=== PATIENT | male | born 1955 | race Caucasian/White ===

== ENCOUNTER 2023-04-23 07:56 | Outpatient (OUT) | payer MEDICARE, OTHER, SELFPAY ==
[2023-04-23 08:16] LABS: Hemoglobin 14.9 g/dL (14.0-18.0)
--- NOTE | 2023-04-23 09:00 | CA_ITS ---
Patient Name: ANDREI GARCIA MR#: [id number] : 1955 Exam Date: 04/23/2023 Ordering Doctor: RODNEY HENRIQUEZ ECHOCARDIOGRAM REPORT PROCEDURE: CA ECHO DOPPLER COMPLETE INDICATIONS: Afib, High risk medication use COMPARISON: None. DESCRIPTION: COMPLETE ECHOCARDIOGRAM Real-time transthoracic echocardiography with 2D, M-mode, spectral and color flow Doppler performed. QUALITY: Technical quality was good. LEFT VENTRICLE: Normal chamber size. Proximal septal hypertrophy (sigmoid septum). LV EF: Global left ventricular systolic function is lower normal limits; visually estimated ejection fraction is 50 to 55%. No significant wall motion abnormalities. DIASTOLIC: Not adequately assessed due to heart rhythm. ATRIAL SEPTUM: Inadequately seen. LEFT ATRIUM: Mild dilatation. RIGHT ATRIUM: Mild dilatation. RIGHT VENTRICLE: Mild dilatation. Systolic function appears reduced. TRICUSPID VALVE: Normal mobility and thickness. No stenosis with trivial regurgitation. No evidence of pulmonary hypertension. RVSP 28mmHg MITRAL VALVE: Normal mobility and thickness. No evidence of mitral valve stenosis. There is no mitral annular calcification. Mild mitral regurgitation. AORTIC VALVE: Normal trileaflet appearance. No visible sclerosis. Normal leaflet mobility. No evidence of aortic valve stenosis. Trivial aortic regurgitation. AORTIC ROOT: Mildly dilated. Measuring 4.1cm. PULMONIC VALVE: Normal thickness and mobility. Mild regurgitation. PERICARDIUM: Anterior free space; trivial effusion versus fat pad. IVC: Collapses with inspirations. Normal size. CONCLUSION: 1. Global left ventricular systolic function is lower normal limits; visually estimated ejection fraction is 50 to 55% 2. The right ventricle is mildly dilated with reduced systolic function 3. Biatrial enlargement 4. Mild pulmonic regurgitation 5. Mild mitral regurgitation 6. Mildly dilated aortic root 7. Anterior free space; trivial effusion versus fat pad Adult Echocardiography Procedure Report Left Ventricle LVEDD (3.7 - 5.6 cm): 5.75 cm LVESD (2.2 - 4.0 cm): 4.32 cm LVIVS thickness (0.6 - 1.2 cm): 1.46 cm LVPW thickness (0.5 - 1.0 cm): 1.28 cm e': 0.06 m/s E - e': 12.09 LVOT Max Gradient: 1.21 mm[Hg] LVOT Area (cm2): 0.55 m/s Peak Velocity (LVOT): 0.55 m/s Mean Velocity (LVOT): 0.39 m/s LVOT Diameter 2.34 cm Left Ventricular Ejection Fraction: 53.01 % Left Atrium LA Volume Index (2D A2C): 43.40 ml/m2 Left Atrium Systolic Dimension: 4.14 cm Mitral Valve MV E to A Ratio: 129.26 Mitral Valve A-Wave Peak Velocity: 0.01 m/s Mitral Valve E-Wave Peak Velocity: 0.77 m/s Right Ventricle RV Internal Diastolic Dimension: 4.23 cm Aorta AO Root Diam: 4.13 cm Ascending Ao Diam: 3.48 cm Aortic Valve AoV Area (Peak Marcello): 2.67 cm2, 2.67 cm2 Peak Velocity(Antegrade Flow): 0.88 m/s Peak Gradient(Antegrade Flow): 3.12 mm[Hg] Tricuspid Valve Peak Velocity (Regurgitant Flow): 2.30 m/s, 1.92 m/s, 2.48 m/s Pulmonic Valve Mean Gradient: 1.59 mm[Hg] Mean Velocity: 0.59 m/s Peak Velocity: 0.93 m/s, 0.86 m/s Peak Gradient: 3.46 mm[Hg], 2.97 mm[Hg] Right Atrium Right Atrium Systolic Pressure: 34.20 ml, 34.20 ml Dictated by: Edna Sands M.D. on 04/23/2023 at 13:03 Approved by: Edna Sands M.D. on 04/23/2023 at 13:08
--- NOTE | 2023-04-23 09:33 | RT_ITS ---
[facility] Test Date: 2023-04-23 Pat Name: ANDREI GARCIA Department: Room: - Gender: Male Valve Assembler: Lazarus Syed RRT : 1955 Requested By: [id number] Order Number: [id number] Reading MD: Kb Gardner Interpretive Statements Pulmonary function testing was completed according to ATS criteria. Findings were considered accurate and reproducible, with exception of FVC which did not meet ATS standards. Both pre- and post-bronchodilator values utilized for spirometry. No bronchodilator was administered due to normal spirometric values. Spirometry: -FEV1/FVC: Normal @ 80% -FEV1: Normal @ 102% -FVC: Normal @ 94% Lung volumes by plethysmography: -RV: Normal @ 98% -TLC: Normal @ 94% Diffusion capacity: -DLCO: Mild reduction @ 77% when corrected for Hb 14.9g/dL Flow-volume loop: -Normal shape Comparison from 03/03/2022: -Spirometry essentially unchanged. DLCO minimally decreased from 81%. Impressions: -Normal spirometry and lung volumes, with an isolated mild diffusion impairment. This pattern can be seen in, but not restricted to, cardiopulmonary vascular disorders, early interstitial lung disease, and early emphysema. Minimal decline in DLCO compared to prior study which could be a normal fluctuation. Recommend to continue monitoring PFT while on amiodarone therapy. Clinical correlation required. Electronically Signed On 04-24-2023 10:57:58 EDT by Kb Gardner
== END 2023-04-23 07:57 | disposition home or self-care (01) ==
LOC: CARD 08:00
PROVIDERS: PCP Internal Medicine
DX: I48.0 Paroxysmal atrial fibrillation (principal); Z79.899 Other long term (current) drug therapy
CPT/HCPCS: 36415; 85018; 93306; 94010; 94726; 94729

== ENCOUNTER 2023-06-21 11:31 | Outpatient (OUT) | payer MEDICARE, OTHER, SELFPAY ==
[2023-06-21 13:19] LABS: Prostate Specific Antigen Dx 1.84 ng/mL (<=4.00)
== END 2023-06-21 11:32 | disposition home or self-care (01) ==
LOC: LAB 11:33
PROVIDERS: PCP Internal Medicine; Visit Provider Urology
DX: N40.0 Benign prostatic hyperplasia without lower urinary tract symptoms (principal)
CPT/HCPCS: 36415; 84153

== ENCOUNTER 2024-06-10 11:55 | Outpatient (OUT) | payer MEDICARE, OTHER, SELFPAY | END 2024-06-10 11:56 | disposition home or self-care (01) | PROVIDERS: PCP Internal Medicine; Visit Provider Physician Assistant | DX: N40.1 Benign prostatic hyperplasia with lower urinary tract symptoms (principal) | CPT/HCPCS: 36415; 84153 ==

== ENCOUNTER 2024-07-23 09:39 | Outpatient (OUT) | payer MEDICARE, OTHER, SELFPAY ==
--- OUTSIDE RECORDS SUMMARY | 2024-07-10 08:30 | XMS_ITS | Encounter Summary ---
Author Organization [facility] Address [address] [place] [address] Care Team Providers Care Molding Engineer Name Role Phone Orlando COPELAND MD, Ted Brown Primary Care Provider + [phone] Jolanta Queen Unavailable Unavaila Mariia Estrada RD Unavailable [phone] Sheng Bill MD Unavailable [phone] Belinda Nicholsno MD Unavailable [phone] Maricel Fox RN Unavailable [phone] Unavailable Lluvia Graham Unavailable Unavailable Olivia Gonzales APRN.MICA WASHER GLUER Unavailable [phone] Source Comments In the event this information is protected by the Federal Confidentiality of Alcohol and Drug AbusePatient Records regulations: The Federal rules restrict any use of the information to criminally investigate or prosecute any alcohol or drug abuse patient.[facility] Encounter Details Date Type Department Care Team (Latest Contact Info) Description 07/10/2024 8:30 AM EDT Visit (SP) Office Hematology/Oncology [address] [place] [address] [place] [address] Estefania Taylor APRN.MICA WASHER GLUER [address] [place] [address] Head and neck cancer (HCC) (Primary Dx); Stage 3a chronic kidney disease (HCC); Encounter for antineoplastic chemotherapy; Malaise and fatigue; Dysphagia, unspecified type; Dehydration; Pain in throat Social History Tobacco Use Types Packs/Day Years Used Date Smoking Tobacco: Never Passive Smoke Exposure: Past Smokeless Tobacco: Never Alcohol Use Standard Drinks/Week Comments Yes 0 (1 standard drink = 0.6 oz pur e alcohol) rare PHQ-2 Answer Date Recorded PHQ-2 score 0 05/26/2024 Area Deprivation Index Answer Date Colby rded National Score (1-100), lower number is lower ri sk 87 07/03/2022 State Score (1-10), lower number is lower risk 8 07/03/2022 Data from: https://www.neighborhoodatlas.[facility]/. Last address used for calculation [address] 07/03/[birth year]22 Sex and Gender Information Value Date Recorded Sex Assigned at Not on file Legal Sex Male 7:29 AM EST Gender Identity Not on file Sexual Orientation Not on file documented as of this encounter Last Filed Vital Signs Vital Sign Reading Time Taken Comments Blood Pressure 111/70 07/10/2024 9:00 AM EDT Pulse 65 07/10/2024 9:00 AM EDT Temperature 36.5 C (97.7 F) 07/10/2024 9:00 AM EDT Respiratory Rate 16 07/10/2024 9:00 AM EDT Oxygen Saturation 97% 07/10/2024 9:00 AM EDT Inhaled Oxygen Concentration - - Weight 131.7 kg (290 lb 5.5 oz) 07/10/2024 9:00 AM EDT Height 184 cm (6' 0.44 ) 07/10/2024 9:00 AM EDT Body Mass Index 38.9 07/10/2024 9:00 AM EDT documented in this encounter Functional Status * Are you deaf or do you have serious difficulty hearing? Answer Date of Assessment Author No 05/17/2024 12:41 PM EDT Deng Cruz, SIDNEY * Are you blind or do you have serious difficulty seeing, even when wearing glasses? Answer Date of Assessment Author No 05/17/2024 12:41 PM EDT Deng Cruz RN * Do you have serious difficulty walking or climbing stairs? Answer Date of Assessment Author No 05/17/2024 12:41 PM EDT Deng Cruz RN * Do you have difficulty dressing or bathing? Answer Date of Assessment Author No 05/17/2024 12:41 PM EDT Deng Cruz RN * Because of a physical, mental, or emotional condition, do you have difficulty doing errands alone such as visiting a doctor's office or shopping? Answer Date of Assessment Author No 05/17/2024 12:41 PM Deng Gray RN documented as of this encounter Mental Status * Because of a physical, mental, or emotional condition, do you have serious difficulty concentrating, remembering, or making decisions? Answer Entry Date Author No 05/17/2024 12:41 PM Deng Gray RN documented in this encounter Patient Instructions * Patient Instructions* Estefania Taylor APRN.MICA WASHER GLUER - 07/10/2024 11:35 AM EDT We discussed your ongoing treatment and symptoms: - You are currently undergoing chemotherapy (Carboplatin) and have completed 5 cycles. Your final cycle is scheduled for next . Your platelets are slightly low today, but treatment was not held. Please note that if your platelets drop further, the final dose may need to be adjusted or delayed. This is a normal side effect of chemotherapy, as it affects both cancer and healthy cells. Your bone marrow will regenerate new cells over time. - You are also undergoing radiation therapy. Your next session is scheduled for tomorrow at 11:00 AM. Please ask the radiation team about recommended creams for skin irritation and see if they have samples available. You may use a thick cream like Eucerin (applied after radiation, not before) to protect the skin. We discussed your PEG tube and hydration: - You are using your PEG tube for nutrition and are averaging 4 feedings per day. Continue to use the PEG tube as directed. - You reported feeling lightheaded and slightly dizzy, which may be related to mild dehydration. You received additional hydration during today???s visit to help with this. Please continue to drink as much liquid as you can to stay hydrated. We discussed your throat pain and phlegm: - You are experiencing throat pain and significant phlegm production. This is likely related to your treatment. You may take the prescribed narcotic pain medication to help manage the throat pain, especially before sleep. If you are hesitant to use it, please know that it is safe to take as prescribed and can improve your comfort. - Narcotics can cause constipation, so you may take a stool softener if needed. Monitor your bowel movements and adjust as necessary. We discussed your fatigue and activity level: - Fatigue is a common side effect of chemotherapy. You are encouraged to rest as needed. Light activities, such as playing cards, are fine if tolerated, but avoid overexertion. We discussed your emotional well-being: - You reported feeling emotionally stable and are focused on completing your treatment. You have a good support system of friends, which is important during this time. Follow-up and next steps: - You have a video call with the senior software tester today at 1:30 PM. Please discuss any concerns about yournutrition during this session. - Dr. Parker will see you in 1 week to evaluate your progress and determine if the final chemotherapydose can proceed as planned. - If you experience any new or worsening symptoms, such as fever, chills, bleeding, or significant changes in your condition, please contact our office immediately. Please continue to follow your care plan, and let us know if you have any questions or concerns. documented in this encounter Progress Notes * Estefania Taylor APRN.CNP - 07/10/2024 8:30 AM EDT Images from the original note were not included. 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 Diagnosed 05/2024 ASSESSMENT: 68 year old male here for follow up. Previous h.o L RCC in 2004 and now with Right sided RCC, biopsy proven, and also adrenal nodule andmultiple bilateral lung lesions. Reviewed at [facility] and concerns in regards to metastatic disease but it has not been biopsy proven. Imaging 07/2023 reviewed Pulmonary nodules stable and the adrenal lesion is smaller and the R Renal lesion is growing in size and he underwent R partial nephrectomy and adrenalectomy 09/06/2023. Doing well. Suggested proceeding with adjuvant Pembro, he does have pulmonary nodules which are concerning but have been stable and will follow. Start Adjuvant Pembro q 6 weeks started 10/25/2023, some arthralgia during the infusion, but he tolerated subsequent infusions well. Pembrolizumab held after identification of the cervical node, last dose administered February 28, 2024. CT 02/2024 was concerning specially with cervical cystic nodes. Saw ENT and biopsy was non diagnostic and a repeat core biopsy was performed 04/28/2024 and there is carcinoma but it could not be further classified. Patient subsequently underwent an excisional biopsy of the right cervical node and direct laryngoscopy in May 2024 and final pathology revealed HPV positive squamous cell carcinoma of unknown primary. The case was discussed in a head neck tumor board options were tonsillectomy versusdefinitive chemoradiation. At this time the plan is to proceed with definitive chemoradiation. I discussed these findings with the patient and his at great length. The challenge here is that thepatient only has a partial kidney remaining and cisplatin in conjunction with radiation will be rather difficult to justify given that he has only single-sided partial kidney remaining. Did discuss the rationale behind definitive chemoradiation with the patient in great length and likely need to proceed with a carbo based weekly chemotherapy regimen. I did spend quite a bit of time discussing with him the toxicity associated with this treatment approach. Pulm Nodules- 2 other nodules in the RUL and also the lingula are stable but growing RLL nodule, albeit slowly concerning for malignancy and was not as avid as the nodes on the PET on 04/2024. If these nodules continue to remain stable the right lower lobe nodule potentially could be amenable to stereotactic radiation if technically feasible. Afib- Follows cardiology Adrenal Insuff- Continue replacement HTN- Monitor BP at home and continue current meds PLAN: Proceed with treatment today Will give additional 1 L NS today (PEG tube placed) - following with senior software tester PEG tube supplies to be delivered today by [facility] on 07/17/2024 for [id number] Carboplatin Labs same day HPI: CASE HISTORY: Reverse Chronological Order 06/12/2024-Current - Weekly Carboplatin with concurrent radiation for SCC 05/29/2024 - Head & Neck Tumor Board Recommendations: Necrotic cherelle conglomerates above hyoid-right level 2/3 cherelle conglomerate. Appears to be uptake in palatine tonsil bilateral. Cystic change in the tonsil appears similar to prior CT. Can take back to surgery for tonsillectomy vs chemo/radiation. Left neck node does not appear to have concerning uptake, it is rounded, was as prominent [id number]. 05/16/2024 - Direct Laryngoscopy + Biopsies: Dr. Celeste Sainz Findings: Bulky Level II and III right cervical lymphadenopathy with gross FORREST Fairly uniform base of tongue and tonsils, soft to palpation without obvious masses Easy exposure with Dedo laryngoscope Surgical Pathology: A. Right level 2 lymph node, excision: - Metastatic HPV-associated squamous cell carcinoma with extranodal extension, (02/12): - Metastatic deposit approximately 4 cm, may represent fused lymph nodes. B. Right level 2 lymph nodes, biopsy: - Four lymph nodes, negative for metastasis (0/4). C. Right base of tongue, biopsy: - Lingual tonsillar type tissue, negative for neoplasm Comment: This nonkeratinizing squamous cell carcinoma shows diffuse strong positivity with p16 staining. In addition, HPV in situ hybridization (HR HPV CISH) is positive. The combined morphology and staining patterns support a metastatic HPV associated squamous cell carcinoma. 05/06/2024 - PET/CT: PRIMARY DISEASE SITE: No focal abnormal uptake at the renal beds. CHERELLE DISEASE: Presumed metastatic 4 right neck nodes, as described. METASTATIC DISEASE: Mild worsening of the right lower lobe pulmonary nodule is concerning for metastatic disease, a primary bronchogenic process is not excluded. Tissue sampling and/or assessment on follow-up studies, as indicated. ADDITIONAL FINDINGS: 1.2 cm new intense focal uptake in the mid sigmoid colon may be artifactual, although an underlying polyp/malignant lesion cannot be excluded. Recommend that the colonoscopy is up-to-date - ACTIONABLE RESULT. Slight increasing uptake in the left lower quadrant 1.1 cm partially calcified lesion is favored to be secondary to evolving omental infarction; attention on follow-up studies to exclude metastatic disease. Chronic changes, as described. 04/28/2024 - A. Right neck lymph node, biopsy: - Few abnormal cell nests suspicious for carcinoma Comment: The biopsy shows rare detached nests of hyperchromatic, epithelioid cells in a background of skeletal muscle, a reactive spindle cell proliferation, red blood cells, histiocytes, and eosinophilic granular material. No lymph node structures are identified. Immunohistochemical staining is performed to further classify the abnormal cells, however, they are present only on the initial level.The amorphous eosinophilic material is positive for cytokeratins with AE1/3 showing strong diffuse staining and CK7 outlining individual and clustered necrotic epithelial-type cells. Immunostains forPAX2, PAX8, SOX10, CD10, and CA9 are negative/ equivocal, and vimentin highlights isolated cells likely to be histiocytes within the necrotic material. While a carcinoma is strongly suspected, immunostaining on necrotic material is unreliable, and the specimen is insufficient to further categorize the abnormal cells. 03/31/2024 - A - Neck, Right, FNA: Extensively necrotic material with cyst contents, cannot exclude malignancy. Comment: No viable tissue is present for evaluation. Given the high clinical concern for malignancy, repeat biopsy or excision is recommended for further evaluation. 03/10/2024 - CT Neck Soft Tissue: Cluster of cystic appearing level II and nodular level III lymphadenopathy, likely pathological/metastatic lymph nodes. 02/22/2024 - CT CAP: Chest: Pulmonary nodules are again noted, consistent with metastatic disease. There is a 15 mm nodule in the posterior right lower lobe which is minimally increased in size. Otherwise, the nodules are stable. Limited evaluation of the lower neck demonstrates a 2.3 x 1.8 cm nodular density. This is not entirely included in the [id number]. It is possible this could represent a vascular structure. However, due to the limited evaluation, the possibility of this representing a lymph node cannot be excluded. Would advise further evaluation with a CT of the neck with intravenous contrast to help differentiate between a possible vein and lymph node in this location. A/P: Surgical changes compatible with partial nephrectomy along the upper pole of the right kidney and right adrenalectomy with no evidence of residual or recurrent neoplasm at the right nephrectomy site. Status post left nephrectomy with stable nodular soft tissue density at the left nephrectomy bed. No new or worsening disease detected in the abdomen or pelvis. 10/25/2023-02/28/2024 - 4 cycles adjuvant Keytruda q 6 weeks - holding due to SCC workup & stable disease 09/06/2023 - Open right partial nephrectomy and adrenalectomy: Dr. Wilfredo Pollard. Right 11th rib, excision: - No gross abnormalities (gross examination only). B. Right kidney, partial nephrectomy: - Renal cell carcinoma, clear cell type (5.1 cm), ISUP grade 2. - Tumor is confined to the kidney. - Margins are negative for tumor. C. Right adrenal gland, adrenalectomy: - Metastatic renal cell carcinoma, clear cell type. - Margins are negative for tumor. 08/10/2023 - CT CAP: Chest: New ground glass opacities in the left upper lobe most likely infectious/inflammatory in etiology. Consider follow-up to complete resolution. Multiple nodular opacities measures 1.3 cm, stablesince 11/21/22. A/P: 5.0 x 4.6 cm heterogeneously enhancing right renal mass, suspicious for neoplasm, slightly bigger since 11/21/22. Indeterminate 2.8 cm right adrenal nodule, slightly smaller. Borderline left periaortic lymphadenopathy, stable. 07/02/2023 - Oncology Tumor Board Recommendation: Imaging reviewed with following findings: right renal mass has grown by 0.5cm over last year; 3cm right adrenal mass has decreased in size; has multiple pulmonary nodules which are new from 2004 and now stable. The group recommends proceeding with right partial nephrectomy and right partial versus total adrenalectomy. Could consider sending an intraoperative biopsy for frozen analysis from the adrenal mass (should be able to determine if benign or metRCC). 06/07/2023 - CT CAP: Chest: New ground glass opacities in the left upper lobe most likely infectious/inflammatory in etiology. Consider follow-up to complete resolution. Multiple nodular opacities measures 1.3 cm, stablesince 11/21/22. A/P: 5.0 x 4.6 cm heterogeneously enhancing right renal mass, suspicious for neoplasm, slightly bigger since 11/21/22. Indeterminate 2.8 cm right adrenal nodule, slightly smaller. Borderline left periaortic lymphadenopathy, stable. 11/21/2022 - CT CAP: Chest: Several bilateral pulmonary nodules are again identified, largest measuring approximately 1.3 cm in maximal diameter, unchanged from the prior study of 08/10/2022. No substantial intrathoracicadenopathy is appreciated. A/P: 4.7 x 4.2 cm heterogeneously enhancing right renal mass has slightly progressed in size from the prior examination of 08/10/2022, as above. 3.6 x 2.6 cm indeterminate right adrenal gland mass, stable in size. Postoperative changes, compatible with prior left nephrectomy. No substantial intra-abdominal or pelvic lymphadenopathy is appreciated. 08/10/2022 - CT Chest & Kidney: Chest: Stable appearance of multiple bilateral pulmonary nodules measuring up to 13 mm. No new or enlarging nodules are visualized. Stable appearance of prominent subcarinal node. No new bulky intrathoracic adenopathy. Kidney: Heterogeneously enhancing mass in the upper pole of the right kidney, compatible with knownneoplasm. This is stable in size when compared to prior PET/CT. No evidence of extension into the right renal collecting system or right renal vein. Stable nodule within the right adrenal gland, alsosuspicious for metastatic disease. Status post left nephrectomy. No gross soft tissue mass is seen in the left renal fossa. No evidence of intra-abdominal lymphadenopathy. 07/03/2022 - Multidisciplinary Tumor Board Recommendation: Upon imaging rereview by Dr. Bledsoe (head of abdominal imaging at [facility]), adrenal and lung nodules do in fact appear quite suspicious for metastatic disease. Recommend repeat CT Chest in 2 months to evaluate growth rate. If growing quickly, recommend against surgery and referral to medical oncology for start of systemic therapy. If not growing quickly, partial nephrectomy and partial adrenalectomy would be reasonable for both tissue diagnosis and intervention on the vast majority of visible disease. 06/12/2022 - Multidisciplinary Tumor Board Recommendation: Recommend obtaining tissue diagnosis of presumed adrenal metastasis or of lung lesions prior to institution of systemic therapy of any kind.Given long time course since initial surgery (18 years) and poor performance of PET for RCC in general, risk of false positive remains high. 06/06/2022 - PET/CT: Neck: No suspicious hypermetabolic foci Chest: Bilateral lung nodules with low-level FDG uptake. Findings suspicious for metastases Abdomen and Pelvis: hypermetabolic right upper pole renal mass. Hypermetabolic right adrenal nodulesuspicious for metastases. Skeleton: No hypermetabolic osseous lesions 04/20/2022 - A. Kidney, right mass, core biopsy: - Clear cell renal cell carcinoma, at least ISUP/WHO grade 2. 04/04/2022 - Lung/Thoracic Tumor Board Discussion Outcome: The collaborative recommendation was to pursue consultation with thoracic surgery to discuss diagnostic wedge resection of the RLL lung lesion. If suspected metastatic RCC, systemic therapy should then be initiated. Based on disease response, local therapy could be considered for management of residual disease. 03/27/2022 - Multidisciplinary Tumor Board Recommendation: Given clear evidence of metastatic RCC in the chest at this point, patient will likely require combination systemic therapy. However, since it has been almost 20 years since initial diagnosis, recommend biopsy of most accessible metastatic lesion in lung to confirm pathology. 03/23/2022 - CT Chest: Multiple bilateral pulmonary nodules measuring up to 12 mm, suspicious for pulmonary metastatic disease. No evidence of bulky intrathoracic lymphadenopathy. Findings of prior granulomatous disease. 03/10/2022 - MRI Kidney: 3.6 cm right upper pole renal neoplasm. 2.6 cm right adrenal nodule, new since 06/24/2004, likely metastatic. 8 mm right lower lobe pulmonary nodule, also suspicious for metastasis. Consider further evaluationwith dedicated chest CT. 06/2004 - Laparoscopic, transperitoneal, left radical nephrectomy: 1. Kidney, excision left: - Renal cell carcinoma, clear cell type, focally sarcomatoid, nuclear grade 4. 2. Ureter, partial excision left: - No significant pathologic changes. 3. Lymph nodes, five, biopsy paraaortic, B: - No significant pathologic changes. Updated Visit, July 09, 2024: Patient is currently undergoing treatment with carboplatin and radiation therapy. He is on cycle 5 of 6 of carboplatin, with the next treatment scheduled for next . He has a PEG tube in placeand is using it for nutrition, averaging four feedings per day. He is able to drink liquids but hasminimal oral intake of solids, reporting only eating small pieces of watermelon. He reports significant fatigue and weakness, stating he feels very tired and has no energy. He experiences lightheadedness and dizziness, and spends most of his time sitting and watching TV. He has not been able to golf since last Sunday and finds it difficult to stay active. He played cards for an hour and a half recently but finds it challenging to engage in activities for extended periods. He reports excessive phlegm production, requiring him to keep a spit cup nearby at home. He experiences throat pain and is using Tylenol and a mouth rinse for pain management. He has been avoiding prescribed narcotic pain medication. He has difficulty sleeping due to sleep apnea and finds the CPAP machine air aggravates his throat. He denies fever, chills, nausea, vomiting, constipation, diarrhea, or bleeding in urine or stool. He reports that initially after starting PEG tube feedings, he experienced increased bowel movements,but this has since resolved. He denies any swelling. He lives alone but has a support system of friends and remains socially active. He reports feeling alright emotionally and is focused on completing his treatment. He has a video call scheduled witha senior software tester at 13:30 today. He has been applying antibiotic cream to radiation-induced skin irritation and has a radiation session scheduled for tomorrow at 11:00. His blood pressure today is 111/70 mmHg. Recent labs show slightly low platelet counts. He reports stable weight. Updated Visit, July 03, 2024: Kenny Jones returns for follow-up and continued treatment. He remains on weekly carboplatin concurrent with radiation. He started radiation on 07/11/2024, plan is for patient to complete treatment on 07/23/2024. Today alan 17 days of radiation completed. He had his PEG tube placed on 07/01/2024. He is still able to swallow liquids. He has had some cottage cheese and watermelon. His tube feeding supplies are being delivered today. Today he reports that he is feeling weak. He was recentlyout golfing. He states that after his treatment he felt off . Some of this has to do with him not being able to use his CPAP machine for his sleep apnea. He is not sleeping as well. He has had no nausea or vomiting. No fevers, chills, night sweats or signs/symptoms of infection. No bleeding or abnormal bruising. He denies cough and shortness of breath. At this time he is overall tolerating concurrent treatment well. After treatment today he is hoping to play cards with his friends. Updated Visit, June 25, 2024: Kenny presents today for consideration of cycle 1 day 15 of carboplatin concurrent with radiation.Overall he is doing okay. He is having a harder time swallowing. He is getting a PEG tube placed next Sunday. He has met with our dietitian. He has been drinking boost. Patient had thrush last week and was treated with nystatin. Symptoms have improved. Patient is still staying active and golfing. He denies fever, chills, night sweats, shortness of breath, nausea or vomiting. Labs appropriate fortreatment today will proceed with week 3. Updated Visit, June 19, 2024: Kenny presents today for weekly carbo, concurrent with radiation. Today is day 8. Overall he did well with week 1. He continues to eat and swallow okay. Staying hydrated. Patient stated that his PEGtube placement scheduled for June 24 has been canceled. Unsure of rescheduled date yet waiting on GI. Patient has dry mouth encouraged lozenges. He denies fever, chills, night sweats, shortness of breath, nausea or vomiting, diarrhea or constipation or cough. Labs appropriate for treatment today will proceed with week 2. Updated Visit, June 12, 2024: Kenny presents today for consideration of initial dose of carboplatin followed by weekly carboplatin patient started radiation this week and is doing well., Overall he is eating and swallowing okay.Was scheduled to have PEG tube placement on June 24 but is currently being rescheduled. Answered several questions concerning chemotherapy and signs and symptoms. Patient's labs appropriate for treatment today. Initial Visit, June 03, 2024: Transition of Care Kenny Jones presents today to transition his care to be closer to home. He completed his radiation simulation yesterday with Dr. Nicholson - scheduled to start on 06/11/2024. Will plan to start concurrent weekly chemotherapy for the squamous cell carcinoma. He is also scheduled for a dental extraction tomorrow and a PEG tube placement on 06/24/2024. Will continue to hold Keytruda for the renal cell carcinoma as disease is stable. He uses a CPAP machine for sleep apnea. He is a golfer. I encouraged him to avoid sun exposure while receiving chemotherapy. May 30, 2024: Kenny Jones is a 68 year old year old male here for follow up. He did undergo a core needle biopsy of the R cervical node on 04/28/2024 and the path showed carcinoma but due to necrosis could not be further classified. He denies any neck pain and or any swallowing issues. He does complain of itching at times and no rash He also did complete a PET scan as well. May 08, 2024: Kenny Jones is a 68 year old year old male here for follow up. He did undergo a core needle biopsy of the R cervical node on 04/28/2024 and the path showed carcinoma but due to necrosis could not be further classified. He denies any neck pain and or any swallowing issues. He does complain of itching at times and no rash He also did complete a PET scan as well. April 17, 2024: New Problem Kenny Jones is a 68 year old year old male here for follow up. On his last CT of the chest pulmonary nodules were noted which had been overall stable and a limited evaluation of the lower neck demonstrated a 2.3 x 1.8 cm nodular density and a CT of the neck was recommended. On March 10, [address] scan of the neck which demonstrated a cluster of cystic-appearing level 2 and nodular level 3 lymph nodes likely pathologic or metastatic lymph nodes. At that point the patient saw ENT underwent a fine-needle aspiration of one of the nodes and cytologyrevealed extensively necrotic material with cyst contents cannot exclude malignancy. Patient is scheduled to undergo a deep core biopsy of the node again by ENT in the very near future. Patient denies any increasing neck pain. Patient denies any increasing shortness of breath and or cough. February 28, 2024: Kenny Jones is a 68 year old year old male here for follow up. He did not have any difficulty with the last infusion of pembrolizumab. Denies any fever chills night sweats or abdominal pain. Denies any headaches. Denies any diarrhea. Denies any increasing shortness of breath. January 17, 2024: Kenny Jones is a 68 year old year old male here for follow up. He did not have any difficulty with the last infusion of pembrolizumab. Denies any fever chills night sweats or abdominal pain. Denies any headaches. Denies any diarrhea. Denies any increasing shortness of breath. December 06, 2023: Kenny Jones is a 67 year old year old male here for follow up. He is doing well and denies any diarrhea and fevers and or chills. He did experience joint pains while he was having infusions last time. Denies any SOB and or recurrence of the events at home and had fully recovered in several hours October 25, 2023: Kenny Jones is a 67 year old year old male here for follow up. Doing well and back to [employer] and denies any fevers and or chills. October 05, 2023: Kenny Jones is a 67 year old year old male here for follow up. Doing well post op and denies any fevers and or chills. Eating well. The drain was removed and he also denies any rashes. September 04, 2023: Kenny Jones is a 67 year old year old male here for follow up. He is planning for R Adrenalectomy and partial nephrectomy on 09/06/2023 and has seen endocrine as well. June 12, 2023: Kenny Jones is a 67 year old year old male here for follow up. He is doing very well and has stayed quiet active. Denies any fevers and or chills. Denies any rashes and or abdominal pain and or diarrhea. He is anxious about his CT scan November 28, 2022: Kenny Jones is a 67 year old year old male here for follow up. He is doing very well and has stayed quiet active. Denies any fevers and or chills. Denies any rashes and or abdominal pain and or diarrhea. He is anxious about the kidney cancer as per reports it looks like it is increasing in size. October 03, 2022: Kenny Jones is a 67 year old year old male here for follow up. He is doing very well and has stayed quiet active. Denies any fevers and or chills. Denies any rashes and or abdominal pain and or diarrhea. His case was reviewed in TB and concerns about metastatic disease and repeat imaging was performed. A CT guided biopsy of the adrenal glans was unsuccessful and the renal lesion was biopsied c/w Clear cell RCC, Grade 2. March 29, 2022: Kenny Jones is a 66 year old year old male here for follow up. He is here for follow up after his chest CT. He did discuss the findings with Dr. Eric as well. Denies any fevers and or chills. Denies any hematuria and or chest pain and or bony pain and or cough. His case was discussed at the at the and a lung biopsy was suggested and has been ordered at main campus as well. HPI, March 22, 2022: Kenny Jones is a 66 year old year old male with PMH sig for L RCC s/p nephrectomy in 2004, Clear cell RCC, grade 4 with sarcomatoid features. Follow up imaging with increasing Right renal lesion as below: Right renal lesion was previously measuring 1.3cm in 2016, 1.8cm in 2018, and 2.1cm on [facility] 01/2021. Patient saw Dr. Eric and underwent an MRI reported below. Denies any flank pain and or hematuria at this time and denies any family h/o RCC and or thyroid cancers. No MEN history as well. REVIEW OF SYSTEMS Per HPI and otherwise negative by full review of organ systems. ECOG PERFORMANCE STATUS: 0 PHYSICAL EXAMINATION: Vitals: BP 111/70 Pulse 65 Temp (Src) 97.7 (Temporal) Resp 16 Ht 6' .441 (1.84m) Wt 290 lb 5.5 oz (131.7kg) SpO2 97% BMI 38.90 kg/(m^2). Body surface area is 2.59 meters squared. Exam limited to gross visualization where appropriate. Gen.: This is an age-appropriate patient in no acute distress. Head: Appears atraumatic with no visible lesions. Eyes: Pupils equally round and reactive to light, extraocular muscles are intact. Neck: Supple. Respiratory: Appears to be respiring comfortably. Neurologic: Nonfocal to gross visualization. Alert and oriented ??3. Psychiatric: No evidence of inappropriate anxiety or depression. Skin: Visible areas of skin without rash, lesions, wounds or petechiae. ALLERGIES: ALLERGIES No Known Allergies MEDICATIONS: diphenhydrAMINE 12.5 mg/5 mL lidocaine visc 2% MAALOX 200-200-20 mg/5 mL nystatin prednisoLONE 15 mg/5 mL oral liquid 1:1:1:1:1 (CPD)^Swish and Swallow 10 mL by mouth before meals and at bedtime.^Disp: 300 mL^Rfl: 1 nutritional supplement (NUTREN 2.0) 0.08 G - 2 Kcal/mL oral liquid^Administer 1 carton (250mL)Nutren 2.0 or equivalent via syringe push/plunge method 4 times per day (total of 1000mL/day). Flush feeding tube with 90 ml of water before and after each feed. Additional water flush of 250mL 4 times daily required to meet hydration needs.^Disp: 90414 mL^Rfl: 5 ondansetron (ZOFRAN) 8 mg tablet^Take 1 tablet by mouth every 8 hours as needed for nausea/vomiting.^Disp: 90 tablet^Rfl: 1 prochlorperazine (COMPAZINE) 10 mg tablet^Take 1 tablet by mouth every 6 hours as needed.^Disp: 100tablet^Rfl: 1 metoprolol succinate ER (TOPROL XL) 25 mg 24 hr tablet^Take 25 mg by mouth once daily.^Disp: ^Rfl: losartan (COZAAR) 50 mg tablet^Take 50 mg by mouth once daily.^Disp: ^Rfl: triamcinolone acetonide (KENALOG) 0.1 % cream^Apply to affected areas, up to twice a day when flared, do not use one the face, groin, or underarms, 30 day supply^Disp: ^Rfl: terbinafine HCl (LAMISIL) 250 mg tablet^Take 250 mg by mouth once daily.^Disp: ^Rfl: amLODIPine (NORVASC) 2.5 mg tablet^Take 2.5 mg by mouth once daily.^Disp: ^Rfl: fludrocortisone (FLORINEF) 0.1 mg tablet^Take 1 tablet by mouth once daily.^Disp: 90 tablet^Rfl: 3 hydrocortisone (CORTEF) 5 mg tablet^Take 3 tablets by mouth daily before breakfast AND 2 tablets daily after lunch.^Disp: 450 tablet^Rfl: 3 Syringe-Needle, Safety,Disp Un 3 mL 25 gauge x 1 syrg^1 Kit as needed (to inject dexamethasone during adrenal crisis).^Disp: 100 Each^Rfl: 0 acetaminophen (TYLENOL) 325 mg tablet^Take 2 tablets by mouth every 6 hours as needed for pain.^Disp: ^Rfl: warfarin (COUMADIN) 7.5 mg tablet^Take 1 tablet by mouth daily as directed. 7.5 mg 3 times a week and 3.75 mg 4 days a week Patient should start on September 13, 2023.^Disp: ^Rfl: SOLU-CORTEF, PF, ACT-O-VIAL 100 mg/2 mL solr^Inject 2 mL intramuscularly as needed (for adrenal crisis, or during acute illness and unable to take oral medications) for up to 3 doses.^Disp: 1 Each^Rfl: 3 Mkwqs-9-GCE-EPA-Fish Oil 1,000 mg (120 mg-180 mg) cap^Take 2 g by mouth twice daily.^Disp: ^Rfl: amiodarone (PACERONE) 200 mg tablet^Take 200 mg by mouth once daily.^Disp: ^Rfl: Tadalafil (CIALIS) 20 mg tab(s)^Take 1 tablet by mouth as needed.^Disp: ^Rfl: tamsulosin (FLOMAX) 0.4 mg^Take 0.4 mg by mouth once daily.^Disp: ^Rfl: atorvastatin (LIPITOR) 40 mg tablet^Take 40 mg by mouth once daily.^Disp: ^Rfl: LABORATORY VALUES: WBC (k/uL) Date Value 07/10/2024 4.08 RBC (m/uL) Date Value 07/10/2024 4.05 (L) Hemoglobin (g/dL) Date Value 07/10/2024 13.0 Hematocrit (%) Date Value 07/10/2024 36.8 (L) MCV (fL) Date Value 07/10/2024 90.9 MCH (pg) Date Value 07/10/2024 32.1 MCHC (g/dL) Date Value 07/10/2024 35.3 RDW-CV (%) Date Value 07/10/2024 13.1 Platelet Count (k/uL) Date Value 07/10/2024 97 (L) MPV (fL) Date Value 07/10/2024 8.6 (L) Glucose (mg/dL) Date Value 07/10/2024 99 BUN (mg/dL) Date Value 07/10/2024 28 (H) Creatinine (mg/dL) Date Value 07/10/2024 1.09 Sodium (mmol/L) Date Value 07/10/2024 135 (L) Potassium (mmol/L) Date Value 07/10/2024 4.5 Chloride (mmol/L) Date Value 07/10/2024 99 CO2 (mmol/L) Date Value 07/10/2024 25 Protein, Total (g/dL) Date Value 07/10/2024 6.7 Albumin (g/dL) Date Value 07/10/2024 4.2 Calcium, Total (mg/dL) Date Value 07/10/2024 9.7 Alkaline Phosphatase (U/L) Date Value 07/10/2024 100 Bilirubin, Total (mg/dL) Date Value 07/10/2024 1.1 AST (U/L) Date Value 07/10/2024 19 ALT (U/L) Date Value 07/10/2024 33 DIAGNOSIS: (C76.0) Head and neck cancer (HCC) (primary encounter diagnosis) (C64.1) Renal cell carcinoma of right kidney (HCC) (N18.31) Stage 3a chronic kidney disease (HCC) (E27.9) Disorder of adrenal gland (HCC) PAST MEDICAL HISTORY Diagnosis Date Atrial fibrillation (HCC) CAD (coronary artery disease) s/p stent placement in Oct, 2022 Class 3 obesity H/O heart artery stent 11/10/2021 Renal mass 03/2022 Right adrenal mass (HCC) Sleep apnea PAST SURGICAL HISTORY Procedure Laterality Date ACHILLES TENDON SURGERY HX Right LAP VENT/ABD HERNIA RPR PAST SURGICAL HISTORY OF 2004 left nephrectomy and adrenalectomy 2004 because of RCC PAST SURGICAL HISTORY OF 10/2021 Stent placement, a coronary artery PAST SURGICAL HISTORY OF Bilateral total knee replacement PAST SURGICAL HISTORY OF right leg surgery as a child from sledding accident PAST SURGICAL HISTORY OF Right 09/06/2023 right partial nephrectomy and adrenalectomy SHX CARDIAC RADIOFREQUENCY ABLATION x 4 Social History Tobacco Use Smoking status: Never Passive exposure: Past Smokeless tobacco: Never Vaping Use Vaping status: Never Used Substance Use Topics Alcohol use: Yes Comment: rare Drug use: Never FAMILY HISTORY Problem Relation Age of Onset Breast Cancer Mother Thyroid No Family History Difficulty with anesthesia No Family History Anesthesia Problems No Family History I spent a total of 30 minutes on the date of the service which included preparing to see the patient, [id number] patient care, completing clinical documentation, obtaining and/or reviewing separately obtained history, performing a medically appropriate examination, counseling and educating the pat ient/family/caregiver, ordering medications, tests, or procedures, independently interpreting results (not separately reported), and communicating results to the patient/family/caregiver. . Estefania Taylor APRN, TOBACCO SAMPLE PULLER-C, OCN Hematology and Oncology Services Provided at: [place], [place] CC: Ted Perry II, MD, MD [address] [place] [address] documented in this encounter Plan of Treatment Upcoming Encounters Date Type Department Care Team (Latest Contact Info) Description 07/23/2024 1:30 PM EDT Infusion Center Hematology/Oncology [address] [place] [address] IV FLUIDS 07/23/2024 3:00 PM EDT Appointment Radiation Oncology [address] [place] [address] neck 07/25/2024 2:30 PM EDT Education Nutrition Therapy [address] [place], [place] [id number] Tamica Rosario, RD [address] [place] [address] follow up PEG 07/25/2024 2:30 PM EDT Infusion Center Hematology/Oncology [address] [place] [address] Hydration to be givenin Radiology 07/28/2024 2:30 PM EDT Office Visit Radiation Oncology [address] [place] [address] Belinda Nicholson MD [address] [place] [address] final radiation follow up, 1-2 weeks 07/28/2024 3:00 PM EDT Infusion Center Hematology/Oncology [address] [place] [address] IV FLUIDS 08/14/2024 9:45 AM EDT Office Visit [facility] [address] [place] [address] 4 week follow up lab 08/14/2024 10:00 AM EDT Visit (SP) Office Hematology/Oncology [address] [place] [address] Olivia Gonzales APRN.MICA WASHER GLUER [address] [place] [address] 4 week follow up lab documented as of this encounter Visit Diagnoses Diagnosis 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, face, and neck Stage 3a chronic kidney disease (HCC) Encounter for antineoplastic chemotherapy Malaise and fatigue Other malaise and fatigue Dysphagia, unspecified type Dehydration Pain in throat Throat pain documented in this encounter Care Teams Molding Engineer Relationship Specialty Start Date End Date Ted Perry II, MD PCP - General Internal Medicine 12/03/12 Jolanta Queen LISW Mule Tender 10/29/[address] [place] [address] Registered Dietitian Nutrition 06/02/24 Sheng Bill MD [address] [address] Physician Hematology/Oncology 06/04/24 Belinda Nicholson MD [address] [place] [address] Physician Radiation Oncology 06/04/24 Maricel Fox, SIDNEY [address] [place] [place] [address] Specialty Cutting Room Supervisor Hematology/Oncology 06/04/[address] [place] [address] Registered Dietitian Nutrition 06/25/24 Lluvia Graham LSW Mule Tender 06/26/24 Olivia Gonzales APRN.CNP [address] [place] [address] Nurse Practitioner Hematology/Oncology 07/03/24 documented as of this encounter
--- OUTSIDE RECORDS SUMMARY | 2024-07-10 09:00 | XMS_ITS | Encounter Summary ---
Author Organization [facility] Address [address] [place] [address] Care Team Providers Care Ski Instructor Name Role Phone Orlando [place] MD, Ted Brown Primary Care Provider [phone]- [phone] Jolanta Queen Unavailable Unavaila Mariia Estrada RD Unavailable [phone] Sheng Bill MD Unavailable [phone] Belinda Nicholson MD Unavailable [phone] Maricel Fox RN Unavailable [phone] Unavailable Lluvia Graham Unavailable Unavailable Olivia Gonzales APRN.PHOTOGRAPHIC INTELLIGENCE OFFICER Unavailable [phone] Source Comments In the event this information is protected by the Federal Confidentiality of Alcohol and Drug AbusePatient Records regulations: The Federal rules restrict any use of the information to criminally investigate or prosecute any alcohol or drug abuse patient.[facility] Reason for Visit * [place] Prior Authorization (Routine) - Authorized Specialty Diagnoses / Procedures Referred By Contac t Referred To Contact Diagnoses Head and neck cancer (HCC) Sheng Bill MD [facility] [place] [address] [place] [address] Phone: tel: fax: Sheng Bill MD [address] [place] [address] [place] [address] Phone: tel: fax: Referral ID Status Reason Start Date Expiration Date V isits Requested Visits Authorized [id number] Authorized 06/12/2024 09/10/2024 99 99 Encounter Details Date Type Department Care Team (Latest Contact Info) Description 07/10/2024 9:00 AM EDT Infusion Center Hematology/Oncology [address] [place] [address] [place] [address] Head and neck cancer (HCC) (Primary Dx) Social History Tobacco Use Types Packs/Day Years [...] is lower risk 8 07/03/2022 Data from: https://www.neighborhoodatlas.medicine.[facility]/. Last address used for calculation [address] 07/03/[birth year]22 Sex and Gender Information Value Date Recorded Sex Assigned at Not on file Legal Sex Male 7:29 AM EST Gender Identity Not on file Sexual Orientation Not on file documented as of this encounter Functional Status * Are you deaf or do you have serious difficulty hearing? Answer Date of Assessment Author No 05/17/2024 12:41 PM Deng Gray RN * Are you blind or do you have serious difficulty seeing, even when wearing glasses? Answer Date of Assessment Author No 05/17/2024 12:41 PM Deng Gray RN * Do you have serious difficulty walking or climbing stairs? Answer Date of Assessment Author No 05/17/2024 12:41 PM Deng Gray RN * Do you have difficulty dressing or bathing? Answer Date of Assessment Author No 05/17/2024 12:41 PM EDT Deng Cruz RN * Because of a physical, mental, or emotional condition, do you have difficulty doing errands alone such as visiting a doctor's office or shopping? Answer Date of Assessment Author No 05/17/2024 12:41 PM EDT Deng Cruz RN documented as of this encounter Mental Status * Because of a physical, mental, or emotional condition, do you have serious difficulty concentrating, remembering, or making decisions? Answer Entry Date Author No 05/17/2024 12:41 PM EDT Deng Cruz RN documented in this encounter Plan of Treatment Upcoming Encounters Date Type Department Care Team (Latest Contact Info) Description 07/23/2024 1:30 PM EDT Infusion Center Hematology/Oncology [facility] [place] [place] [address] IV FLUIDS 07/23/2024 3:00 PM EDT Appointment Radiation Oncology [facility] [place] [address] neck 07/25/2024 2:30 PM EDT Education Nutrition Therapy [address] [place] [address] Tamica Rosario, RD [address] [place] [address] follow up PEG 07/25/2024 2:30 PM EDT Infusion Center Hematology/Oncology [facility] [place] [address] Hydration to be givenin Radiology 07/28/2024 2:30 PM EDT Office Visit Radiation Oncology [address] [place] [address] Belinda Nicholson MD [facility] [place] [address] final radiation follow up, 1-2 weeks 07/28/2024 3:00 PM EDT Infusion Center Hematology/Oncology [facility] [place] [address] IV FLUIDS 08/14/2024 9:45 AM EDT Office Visit [facility] Laboratory [facility] [place] [address] 4 week follow up lab 08/14/2024 10:00 AM EDT Visit (SP) Office Hematology/Oncology [address] [facility] [place] [address] Olivia Gonzales APRN.PHOTOGRAPHIC INTELLIGENCE OFFICER [address] [facility] [place] [address] 4 week follow up lab documented as of this encounter Visit Diagnoses Diagnosis 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, face, and neck documented in this encounter Administered Medications Inactive Administered Medications - up to 3 most recent administrations Medication Order MAR Action Action Date Dose Rate Site CARBOplatin 249.375 mg in NaCl 0.9% 134.9375 mL (PARAPLATIN) 249.375 mg (Target AUC = 1.75), INTRAVENOUS, Administer over 30 Minutes, ONCE, 1 dose, On Annmarie 07/10/24 at 1200, EXP: 07/11/2024 1010 RT Hazardous Chemotherapy Drug: Use appropriate PPE. Antineoplastic Irritant.Indications:Head and neck cancer (HCC) New Bag/Syringe/Bottl e 07/10/2024 10:38 AM EDT 249.375 mg dexAMETHasone sodium phosphate (PF) 10 mg injection (DECADRON) 10 mg, INTRAVENOUS, Administer over 15 Minutes, ONCE, 1 dose, On Annmarie 07/10/24 at 1030, Administer 30 minutes prior to infusion. Administer over 5 minutes.Indications:Head and neck cancer (HCC) Given 07/10/2024 10:18 AM EDT 10 mg NaCl 0.9% 1,000 mL INTRAVENOUS, at 999 mL/hr, Administer over 1 Hours, ONCE, 1 dose, On Annmarie 07/10/24 at 1030Indications:Head and neck cancer (HCC) New Bag/Syringe/Bottl e 07/10/2024 10:04 AM EDT 999 mL/hr ondansetron (PF) 8 mg injection (ZOFRAN) 8 mg, INTRAVENOUS, ONCE, 1 dose, On Annmarie 07/10/24 at 1030Indications:Head and neck cancer (HCC) Given 07/10/2024 10:17 AM EDT 8 mg documented in this encounter Care Teams Ski Instructor Relationship Specialty Start Date End Date Ted Perry II, MD PCP - General Internal Medicine 12/03/12 Jolanta Queen LISW Yarn Washer 10/29/[address] [place] [address] [place] [address] Registered Dietitian Nutrition 06/02/24 Sheng Bill MD [address] [place] [address] [place] [address] Physician Hematology/Oncology 06/04/24 Belinda Nicholson MD [address] [place] [address] [place] [address] Physician Radiation Oncology 06/04/24 Maricel Fox, SIDNEY [address] [place] [address] [place] [address] Specialty Instructional Support Technician Hematology/Oncology 06/04/[address] [place] [address] Registered Dietitian Nutrition 06/25/24 Lluvia Graham LSW Yarn Washer 06/26/24 Olivia Gonzales APRN.PHOTOGRAPHIC INTELLIGENCE OFFICER [address] [place] [address] [place], [place] [id number] Nurse Practitioner Hematology/Oncology 07/03/24 documented as of this encounter
--- OUTSIDE RECORDS SUMMARY | 2024-07-11 11:15 | XMS_ITS | Encounter Summary ---
Author Organization [facility] Address [address] [place] [address] Care Team Providers Care Clinical Coordinator Name Role Phone Orlando [place] MD, Ted Brown Primary Care Provider + [phone] Jolanta Queen Unavailable Unavaila Mariia Estrada RD Unavailable +[phone] Sheng Bill MD Unavailable [phone] Belinda Nicholson MD Unavailable [phone] Maricel Fox RN Unavailable [phone] Unavailable Lluvia Graham Unavailable Unavailable Olivia Gonzales APRN.TAX ACCOUNTING ASSISTANT Unavailable [phone] Source Comments In the event this information is protected by the Federal Confidentiality of Alcohol and Drug AbusePatient Records regulations: The Federal rules restrict any use of the information to criminally investigate or prosecute any alcohol or drug abuse patient.[facility] Reason for Visit * Reason Comments Head and Neck Cancer Encounter Details Date Type Department Care Team (Late st Contact Info) Description 07/11/2024 11:15 AM EDT Nurse Visit Radiation Oncology [address] [place] [address] [place] [address] J Carlos, Nurse Radt [address] [address] Head and neck cancer (HCC) (Primary Dx) [...] is lower risk 8 07/03/2022 Data from: https://www.neighborhoodatlas.medicine.[facility]/. Last address used for calculation [address] 07/03/2022 Sex and Gender Information Value Date Recorded Sex Assigned at Not on file Legal Sex Male 7:29 AM EST Gender Identity Not on file Sexual Orientation Not on file documented as of this encounter Last Filed Vital Signs Vital Sign Reading Time Taken Comments Blood Pressure 97/61 07/11/2024 11:20 AM EDT standing BP 77/54 Pulse 69 07/11/2024 11:20 AM EDT standing 68 Temperature 36.2 C (97.2 F) 07/11/2024 11:20 AM EDT Respiratory Rate 18 07/11/2024 11:2 0 AM EDT Oxygen Saturation 96% 07/11/2024 11: 20 AM EDT Inhaled Oxygen Concentration - - Weight - - Height - - Body Mass Index - - documented in this encounter Functional Status * Are you deaf or do you have serious difficulty hearing? Answer Date of Assessment Author No 05/17/2024 12:41 PM EDT Deng Cruz RN * Are you blind or do [...] Deng Cruz RN documented in this encounter Progress Notes * Michelle Oliveira RN - 07/11/2024 11:20 AM EDT Kenny is here for radiation therapy. He had c/o lightheadedness and dizziness when walking back for his treatment. Sitting BP 97/61 P 69 R 18 SpO2 96 RA T 97.2, standing BP 77/54 P 68. He denies lightheadedness or dizziness while driving over here today. He said he had one can of nutrition via PEGtube and 1/2 can of high calorie boost this a.m. He states he drinks water all day long. He has very little oral intake of solids due to dysphagia. He states he's able to eat watermelon and ice cream. 1 L NS IV today per Dr. Nicholson. Hold amlodipine and losartan per Dr. Bill. I notified Kenny to hold amlodipine and losartan. I printed and reviewed the recommended tube feedand water flush goal per director compensation recommendation from 07/03/24. Patient advised to call with further concerns and/or go to ER if symptoms worsen. He is in agreement with the above and denies questions at this time. Michelle Oliveira RN documented in this encounter Plan of Treatment Upcoming Encounters Date Type Department Care Team (Latest Contact Info) Description 07/23/2024 1:30 PM EDT [facility] Center Hematology/Oncology [address] [place] [address] [place] [address] IV FLUIDS 07/23/2024 3:00 PM EDT Appointment Radiation Oncology [address] [place] [address] neck 07/25/2024 2:30 PM EDT Education Nutrition Therapy [address] [place] [address] Tamica Rosario, IVIS [address] [place] [address] follow up PEG 07/25/2024 2:30 PM EDT Infusion Center Hematology/Oncology [address] [place] [address] [place] [address] Hydration to be givenin Radiology 07/28/2024 2:30 PM EDT Office Visit Radiation Oncology [address] [place] [address] Belinda Nicholson MD [address] [place] [address] [place] [address] final radiation follow up, 1-2 weeks 07/28/2024 3:00 PM EDT Infusion Center Hematology/Oncology [address] [place] [address] [place] [address] IV FLUIDS 08/14/2024 9:45 AM EDT Office Visit [facility] [address] [place] [address] [place] [address] 4 week follow up lab 08/14/2024 10:00 AM EDT Visit (SP) Office Hematology/Oncology [address] [address] [place] [address] Olivia Gonzales APRN.TAX ACCOUNTING ASSISTANT [address] [address] 4 week follow up lab documented as of this encounter Visit Diagnoses Diagnosis 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, face, and neck documented in this encounter Care Teams Clinical Coordinator Relationship Specialty Start Date End Date Ted Perry II, MD PCP - General Internal Medicine 12/03/12 Jolanta Queen LISW Licensed Therapist 10/29/[address] [place] [address] [place] [address] Registered Dietitian Nutrition 06/02/24 Sheng Bill MD [address] [place] [address] [place] [address] Physician Hematology/Oncology 06/04/24 Belinda Nicholson MD [address] [place] [address] [place] [address] Physician Radiation Oncology 06/04/24 Maricel Fox, SIDNEY [address] [address] [place] [address] Specialty Bakery Machine Mechanic Hematology/Oncology 06/04/[address] [place] [address] [place] [address] Registered Dietitian Nutrition 06/25/24 Lluvia Graham LSW Licensed Therapist 06/26/24 Olivia Gonzales APRN.TAX ACCOUNTING ASSISTANT [address] [place] [address] [place] [address] Nurse Practitioner Hematology/Oncology 07/03/24 documented as of this encounter
--- OUTSIDE RECORDS SUMMARY | 2024-07-11 11:45 | XMS_ITS | Encounter Summary ---
Author Organization [facility] Address [address] [place] [address] Care Team Providers Care Ditto Machine Operator Name Role Phone Orlando [place] MD, Ted Brown Primary Care Provider + [phone] Jolanta Queen Unavailable Unavaila Mariia Estrada RD Unavailable [phone] Sheng Bill MD Unavailable [phone] Belinda Nicholson MD Unavailable [phone] Maricel Fox RN Unavailable [phone] Unavailable Lluvia Graham Unavailable Unavailable Olivia Gonzales APRN.LASTING MACHINE OPERATOR HAND METHOD Unavailable [phone] Source Comments In the event this information is protected by the Federal Confidentiality of Alcohol and Drug AbusePatient Records regulations: The Federal rules restrict any use of the information to criminally investigate or prosecute any alcohol or drug abuse patient.[facility] Encounter Details Date Type Department Care Team (Latest Contact Info) Description 07/11/2024 11:45 AM EDT [facility] Center Hematology/Oncology [address] [place] [address] [place] [address] Head and neck cancer (HCC) (Primary Dx) [...] is lower risk 8 07/03/2022 Data from: https://www.neighborhoodatlas.medicine.[facility].edu/. Last address used for calculation [address] 07/03/2022 Sex and Gender Information Value Date Recorded Sex Assigned at Not on file Legal Sex Male 7:29 AM EST Gender Identity Not on file Sexual Orientation Not on file documented as of this encounter Last Filed Vital Signs Vital Sign Reading Time Taken Comments Blood Pressure 119/56 07/11/2024 2:00 PM EDT Pulse - - Temperature - - Respiratory Rate - - Oxygen Saturation - - Inhaled Oxygen Concentration - - Weight - [...] 05/17/2024 12:41 PM Deng Gray RN * Because of a physical, mental, [...] documented in this encounter Progress Notes * Kaila Mckenzie [facility] - 07/11/2024 11:45 AM EDT nacl documented in this encounter Plan of Treatment Upcoming Encounters Date Type Department Care Team (Latest Contact Info) Description 07/23/2024 1:30 PM EDT Infusion Center Hematology/Oncology [facility] [place] [address] IV FLUIDS 07/23/2024 3:00 PM EDT Appointment Radiation Oncology [facility] [place] [address] neck 07/25/2024 2:30 PM EDT Education Nutrition Therapy [address] [place] [address] Tamica Rosario, RD [address] [place] [address] follow up PEG 07/25/2024 2:30 PM EDT Infusion Center Hematology/Oncology [facility] [place] [address] Hydration to be givenin Radiology 07/28/2024 2:30 PM EDT Office Visit Radiation Oncology [facility] [place] [address] Belinda Nicholson MD [facility] [place] [address] final radiation follow up, 1-2 weeks 07/28/2024 3:00 PM EDT Infusion Center Hematology/Oncology [facility] [place] [address] IV FLUIDS 08/14/2024 9:45 AM EDT Office Visit [facility] Laboratory [facility] [place] [address] 4 week follow up lab 08/14/2024 10:00 AM EDT Visit (SP) Office Hematology/Oncology [address] [place] [address] [place] [address] Olivia Gonzales APRN.LASTING MACHINE OPERATOR HAND METHOD [address] [place] [address] 4 week follow up lab documented as of this encounter Visit Diagnoses Diagnosis 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, face, and neck documented in this encounter Administered Medications Inactive Administered Medications - up to 3 most recent administrations Medication Order MAR Action Action Date Dose Rate Site NaCl 0.9% 1,000 mL iv bolus 1,000 mL, INTRAVENOUS, at 999 mL/hr, Administer over 1 Hours, ONCE, 1 dose, On Sun07/11/24 at 1300 New Bag/Syringe/Bottle 07/11/2024 1:00 PM EDT 1,000 mL 999 mL/hr documented in this encounter Care Teams Ditto Machine Operator Relationship Specialty Start Date End Date Ted Perry II, MD PCP - General Internal Medicine 12/03/12 Jolanta Queen LISW Gas Welder Apprentice 10/29/[address] [place] [address] [place] [address] Registered Dietitian Nutrition 06/02/24 Sheng Bill MD [address] [place] [address] [place] [address] Physician Hematology/Oncology 06/04/24 Belinda Nicholson MD [address] [place] [address] [place] [address] Physician Radiation Oncology 06/04/24 Maricel Fox, SIDNEY [address] [place] [address] [place] [address] Specialty Proof Coins Inspector Hematology/Oncology 06/04/[address] [place] [address] Registered Dietitian Nutrition 06/25/24 Lluvia Graham LSW Gas Welder Apprentice 06/26/24 Olivia Gonzales APRN.[facility] [address] [place] [address] [place] [address] Nurse Practitioner Hematology/Oncology 07/03/24 documented as of this encounter
--- OUTSIDE RECORDS SUMMARY | 2024-07-14 15:15 | XMS_ITS | Encounter Summary ---
Author Organization [facility] Address [address] [place] [address] Care Team Providers Care Hydrator Name Role Phone Orlando [place] MD, Ted Brown Primary Care Provider +- [phone] Jolanta Queen Unavailable Unavaila Mariia Estrada RD Unavailable [phone] Sheng Bill MD Unavailable [phone] Belinda Nicholson MD Unavailable [phone] Maricel Fox RN Unavailable [phone] Unavailable Lluvia Graham Unavailable Unavailable Olivia Gonzales APRN.FORESTRY CONSERVATION WORKER Unavailable [phone] Source Comments In the event this information is protected by the Federal Confidentiality of Alcohol and Drug AbusePatient Records regulations: The Federal rules restrict any use of the information to criminally investigate or prosecute any alcohol or drug abuse patient.[facility] Reason for Visit * Reason Comments Radiotherapy On-treatment Visit Encounter Details Date Type Department Care Team (Late st Contact Info) Description 07/14/2024 3:15 PM EDT Office Visit Radiation Oncology [address] [place] [address] [place] [address] Belinda Nicholson MD [address] [facility] [place] [address] Head and neck cancer (HCC) (Primary Dx) [...] is lower risk 8 07/03/2022 Data from: https://www.neighborhoodatlas.[facility]/. Last address used for calculation [address] 07/03/2022 Sex and Gender Information Value Date Recorded Sex Assigned at Not on file Legal Sex Male 7:29 AM EST Gender Identity Not on file Sexual Orientation Not on file documented as of this encounter Last Filed Vital Signs Vital Sign Reading Time Taken Comments Blood Pressure 138/94 07/14/2024 2:50 PM EDT Pulse - - Temperature 35.9 C (96.7 F) 07/14/2024 2:50 PM EDT Respiratory Rate 18 07/14/2024 2:50 PM EDT Oxygen Saturation 98% 07/14/2024 2:50 PM EDT Inhaled Oxygen Concentration - - Weight 130.2 kg (287 lb 0.6 oz) 07/14/2024 2:50 PM EDT Height - - Body Mass Index 38.46 07/10/2024 9:00 AM EDT documented in this [...] of Assessment Author No 05/17/2024 12:41 PM EDDeng Howe RN * Because of a physical, mental, or emotional condition, do you have difficulty doing errands alone such as visiting a doctor's office or shopping? Answer Date of Assessment Author No 05/17/2024 12:41 PM Dneg Gray RN documented as of this encounter Mental Status * Because of a physical, mental, or emotional condition, do you have serious difficulty concentrating, remembering, or making decisions? 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 No headache, seizure, visual change. Energy diminished. Still using some using PEG tube for most of his nutrition. Pain well-controlled with Hycet. Using this approximately 4 PHYSICAL EXAM: 07/14/24 1450 BP: 138/94 Resp: 18 Temp: (!) 35.9 ??C (96.7 ??F) SpO2: 98% Weight: 130.2 kg (287 lb 0.6 oz) KPS: 100 General Appearance: Alert and oriented. No acute distress. Radiation dermatitis: No Mucositis: Mild erythema much improved since Sunday. Resolution of candidal appearing mucosal lesions. Neck: Normal ROM. No palpable cervical or supraclavicular adenopathy. Right neck incision intact nounderlying seroma or mass. IMAGING/LAB RESULTS: Hemoglobin (g/dL) Date Value 07/14/2024 13.0 07/03/2004 11.6 Hematocrit (%) Date Value 07/14/2024 36.7 07/03/2004 35.7 WBC (k/uL) Date Value 07/14/2024 4.04 07/03/2004 7.84 Platelet Count Date Value 07/14/2024 105 k/uL 07/03/2004 242 K/uL TOXICITY ASSESSMENT (CTCv4): Dysphagia:grade 1 Mucositis: grade 1/2 Radiation dermatitis: grade 1 Trismus: grade 0 - No symptoms Voice Changes:grade 0 - No symptoms Xerostomia: grade 1 Treatment chart checked: Yes Patient treatment site reviewed and verified:Yes Port films reviewed and current:Yes Medications started: None ASSESSMENT: Overall tolerance good. Continue conservative measures for mucositis which is stable. Continue nutrition using PEG tube and encourage some soft tube intake by mouth. Continue Magic mouthwash. Belinda Nicholson MD documented in this encounter Plan of Treatment Upcoming Encounters Date Type Department Care Team (Latest Contact Info) Description 07/23/2024 1:30 PM EDT Infusion Center Hematology/Oncology [address] [place] [address] [place] [address] IV FLUIDS 07/23/2024 3:00 PM EDT Appointment Radiation Oncology [facility] [place] [address] neck 07/25/2024 2:30 PM EDT Education Nutrition Therapy [address] [place] [address] Tamica Rosario, RD [address] [place] [address] follow up PEG 07/25/2024 2:30 PM EDT Infusion Center Hematology/Oncology [facility] [place] [address] Hydration to be givenin Radiology 07/28/2024 2:30 PM EDT Office Visit Radiation Oncology [facility] [place] [address] Belinda Nicholson MD [address] [place] [address] [place] [address] final radiation follow up, 1-2 weeks 07/28/2024 3:00 PM EDT [facility] Center Hematology/Oncology [address] [place] [address] IV FLUIDS 08/14/2024 9:45 AM EDT Office Visit [facility] Laboratory [address] [place] [address] 4 week follow up lab 08/14/2024 10:00 AM EDT Visit (SP) Office Hematology/Oncology [address] [place] [address] Olivia Gonzales, JAGRUTI.FORESTRY CONSERVATION WORKER [address] [place] [address] 4 week follow up lab documented as of this encounter Visit Diagnoses Diagnosis 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, face, and neck documented in this encounter Care Teams Hydrator Relationship Specialty Start Date End Date Ted Perry II, MD PCP - General Internal Medicine 12/03/12 Jolanta Queen LISW Cream Hauler 10/29/[address] [facility] [place] [address] Registered Dietitian Nutrition 06/02/24 Sheng Bill MD [address] [facility] [place] [address] Physician Hematology/Oncology 06/04/24 Belinda Nicholson MD [address] [facility] [place] [address] Physician Radiation Oncology 06/04/24 Maricel Fox, SIDNEY [address] [facility] [place] [address] Specialty Assistant Principal Hematology/Oncology 06/04/[address] [facility] [place] [address] Registered Dietitian Nutrition 06/25/24 Lluvia Graham LSW Cream Hauler 06/26/24 Olivia Gonzales APRN.[facility] [address] [place] [address] [place] [address] Nurse Practitioner Hematology/Oncology 07/03/24 documented as of this encounter
--- OUTSIDE RECORDS SUMMARY | 2024-07-15 10:30 | XMS_ITS | Encounter Summary ---
Author Organization [facility] Address [address] [place] [address] Care Team Providers Care Bottle Sorter Name Role Phone Orlando [place] MD, Ted Brown Primary Care Provider +- [phone] Jolanta Queen Unavailable Unavaila Mariia Estrada RD Unavailable [phone] Sheng Bill MD Unavailable [phone] Belinda Nicholson MD Unavailable [phone] Marciel Fox RN Unavailable [phone] Unavailable Lluvia Graham Unavailable Unavailable Olivia Gonzales APRN.DYE WINCH OPERATOR Unavailable [phone] Source Comments In the event this information is protected by the Federal Confidentiality of Alcohol and Drug AbusePatient Records regulations: The Federal rules restrict any use of the information to criminally investigate or prosecute any alcohol or drug abuse patient.[facility] Reason for Visit * Reason Comments Dizziness Encounter Details Date Type Department Care Team (Late st Contact Info) Description 07/15/2024 10:30 AM EDT Nurse Visit Radiation Oncology [address] [place] [address] [place] [address] J Carlos, Nurse Radt [address] [facility] [place] [place] [address] Head and neck cancer (HCC) (Primary Dx) [...] risk 8 07/03/2022 Data from: https://www.neighborhoodatlas.medicine.[facility]/. Last address used for calculation [address] 07/03/2022 Sex and Gender Information Value Date Recorded Sex Assigned at Not on file Legal Sex Male 7:29 AM EST Gender Identity Not on file Sexual Orientation Not on file documented as of this encounter Last Filed Vital Signs Vital Sign Reading Time Taken Comments Blood Pressure 115/70 07/15/2024 11:02 AM EDT Pulse 61 07/15/2024 11:02 AM EDT Temperature - - Respiratory Rate 18 07/15/2024 11:02 AM EDT Oxygen Saturation 96% 07/15/2024 11:02 AM EDT Inhaled Oxygen Concentration - - [...] documented in this encounter Progress Notes * Bethanie Scherer RN - 07/15/2024 10:55 AM EDT Pt seen today again due to dizziness. States BP at home was ok and he has been holding his meds as instructed. Pt dizzy with standing and needing to hold on to tim when ambulating. Vitals obtained and pt was transferred to wheelchair for safety. Discussed with medical oncology who will see him today and order IV Fluids along with possible brain imaging. Bethanie Scherer RN documented in this encounter Plan of Treatment Upcoming Encounters Date Type Department Care Team (Latest Contact Info) Description 07/23/2024 1:30 PM EDT Infusion Center Hematology/Oncology [address] [place] [address] [place] [address] IV FLUIDS 07/23/2024 3:00 PM EDT Appointment Radiation Oncology [address] [place] [address] [place] [address] neck 07/25/2024 2:30 PM EDT Education Nutrition Therapy [address] [place] [address] Tamica Rosario, RD [address] [place] [address] follow up PEG 07/25/2024 2:30 PM EDT Infusion Center Hematology/Oncology [address] [place] [address] [place] [address] Hydration to be givenin Radiology 07/28/2024 2:30 PM EDT Office Visit Radiation Oncology [address] [place] [address] [place] [address] Belinda Nicholson MD [address] [facility] [place] [address] final radiation follow up, 1-2 weeks 07/28/2024 3:00 PM EDT [facility] Center Hematology/Oncology [address] [place] [address] IV FLUIDS 08/14/2024 9:45 AM EDT Office Visit [facility] [address] [place] [address] 4 week follow up lab 08/14/2024 10:00 AM EDT Visit (SP) Office Hematology/Oncology [address] [place] [address] Olivia Gonzales APRN.DYE WINCH OPERATOR [address] [place] [address] 4 week follow up lab documented as of this encounter Visit Diagnoses Diagnosis 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, face, and neck documented in this encounter Care Teams Bottle Sorter Relationship Specialty Start Date End Date Ted Perry II, MD PCP - General Internal Medicine 12/03/12 Jolanta Queen LISW Process Manager 10/29/[address] [place] [address] [place] [address] Registered Dietitian Nutrition 06/02/24 Sheng Bill MD [address] [place] [address] [place] [address] Physician Hematology/Oncology 06/04/24 Belinda Nicholson MD [address] [place] [address] [place] [address] Physician Radiation Oncology 06/04/24 Maricel Fox, SIDNEY [address] [facility] [place] [address] Specialty Hand Cutter Apprentice Hematology/Oncology 06/04/[address] [place] [address] Registered Dietitian Nutrition 06/25/24 Lluvia Graham LSW Process Manager 06/26/24 Olivia Gonzales APRN.[facility] [address] [place] [address] [place] [address] Nurse Practitioner Hematology/Oncology 07/03/24 documented as of this encounter
--- OUTSIDE RECORDS SUMMARY | 2024-07-15 11:00 | XMS_ITS | Encounter Summary ---
Author Organization [facility] Address [address] [place] [address] Care Team Providers Care Surgical Territory Manager Name Role Phone Orlando [place] MD, Ted Brown Primary Care Provider + [phone] Jolanta Queen Unavailable Unavaila Mariia Estrada RD Unavailable [phone] Sheng Bill MD Unavailable [phone] Belinda Nicholson MD Unavailable [phone] Maricel Fox RN Unavailable [phone] Unavailable Lluvia Graham Unavailable Unavailable Olivia Gonzales APRN.MACHINE ENGRAVER Unavailable [phone] Source Comments In the event this information is protected by the Federal Confidentiality of Alcohol and Drug AbusePatient Records regulations: The Federal rules restrict any use of the information to criminally investigate or prosecute any alcohol or drug abuse patient.[facility] Encounter Details Date Type Department Care Team (Latest Contact Info) Description 07/15/2024 11:00 AM EDT [facility] Hematology/Oncology [address] [place] [address] [place] [address] Head and neck cancer (HCC) (Primary Dx) [...] is lower risk 8 07/03/2022 Data from: https://www.neighborhoodatlas.medicine.[facility].edu/. Last address used for calculation [address] [...] of Assessment Author No 05/17/2024 12:41 PM eDng Gray RN * Do you have difficulty [...] documented in this encounter Progress Notes * Janneth Masters RN - 07/15/2024 3:03 PM EDT Estefania Taylor NP to treatment room to talk with pt. Reviewed orthostatic BP results with pt and whatthat means. Encouraged pt to continue to get fluids when here for radiation if still symptomatic. Would like to continue to order the MRI but not stat as she does not feel pt has any cognitive changes. Pt did tell treatment nurse that symptoms started after last chemotherapy. Last Sunday, pt was lightheaded and unsteady on feet. IVF given and BP meds stopped. BP meds are still stopped, we will continue to hydrate as needed and Estefania will order and MRI to be scheduled. Pt had no further questions. Janneth Masters RN documented in this encounter Plan of Treatment Upcoming Encounters Date Type Department Care Team (Latest Contact Info) Description 07/23/2024 1:30 PM EDT Infusion Center Hematology/Oncology [address] [place] [address] [place] [address] IV FLUIDS 07/23/2024 3:00 PM EDT Appointment Radiation Oncology [address] [place] [address] [place] [address] neck 07/25/2024 2:30 PM EDT Education Nutrition Therapy [address] [place] [address] Tamica Rosario, RD [address] [place] [address] follow up PEG 07/25/2024 2:30 PM EDT Infusion Center Hematology/Oncology [address] [place] [address] [place] [address] Hydration to be givenin Radiology 07/28/2024 2:30 PM EDT Office Visit Radiation Oncology [address] [place] [address] [place] [address] Belinda Nicholson MD [address] [place] [address] [place] [address] final radiation follow up, 1-2 weeks 07/28/2024 3:00 PM EDT Infusion Center Hematology/Oncology [address] [place] [address] [place] [address] IV FLUIDS 08/14/2024 9:45 AM EDT Office Visit [facility] [address] [address] 4 week follow up lab 08/14/2024 10:00 AM EDT Visit (SP) Office Hematology/Oncology [facility] [place] [address] Olivia Gonzales APRN.MACHINE ENGRAVER [address] [place] [address] 4 week follow up lab documented as of this encounter Visit Diagnoses Diagnosis 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, face, and neck documented in this encounter Administered Medications Inactive Administered Medications - up to 3 most recent administrations Medication Order MAR Action Action Date Dose Rate Site NaCl 0.9% iv bolus 1,000 mL 1,000 mL, INTRAVENOUS, at 999 mL/hr, Administer over 1 Hours, ONCE, 1 dose, On Sun07/15/24 at 1130Indications:Head and neck cancer (HCC) New Bag/Syringe/Bottle 07/15/2024 11:15 AM EDT 1,000 mL 999 mL/hr documented in this encounter Care Teams Surgical Territory Manager Relationship Specialty Start Date End Date Ted Perry II, MD PCP - General Internal Medicine 12/03/12 Jolanta Queen LISW Tunneling Machine Operator 10/29/[address] [place] [address] [place] [address] Registered Dietitian Nutrition 06/02/24 Sheng Bill MD [address] [place] [address] [place] [address] Physician Hematology/Oncology 06/04/24 Belinda Nicholson MD [address] [place] [address] [place] [address] Physician Radiation Oncology 06/04/24 Maricel Fox, RN [address] [place] [address] Specialty Case Aide Hematology/Oncology 06/04/[address] [place] [address] Registered Dietitian Nutrition 06/25/24 Lluvia Graham LSW Tunneling Machine Operator 06/26/24 Olivia Gonzales APRN.MACHINE ENGRAVER [address] [place] [address] Nurse Practitioner Hematology/Oncology 07/03/24 documented as of this encounter
--- OUTSIDE RECORDS SUMMARY | 2024-07-15 11:30 | XMS_ITS | Encounter Summary ---
Author Organization [facility] Address [facility] [place] [address] Care Team Providers Care Food Service Representative Name Role Phone Orlando [place] MD, Ted Brown Primary Care Provider + [phone] Jolanta Queen Unavailable Unavaila Mariia Estrada RD Unavailable [phone] Sheng Bill MD Unavailable [phone] Belinda Nicholson MD Unavailable [phone] Maricel Fox RN Unavailable [phone] Unavailable Lluvia Graham Unavailable Unavailable Olivia Gonzales APRN.SUPERVISOR COMMERCIAL FISH HATCHERY Unavailable [phone] Source Comments In the event this information is protected by the Federal Confidentiality of Alcohol and Drug AbusePatient Records regulations: The Federal rules restrict any use of the information to criminally investigate or prosecute any alcohol or drug abuse patient.[facility] Encounter Details Date Type Department Care Team (Latest Contact Info) Description 07/15/2024 11:30 AM EDT Visit (SP) Office Hematology/Oncology [address] [place] [address] [place] [address] Estefania Taylor APRN.SUPERVISOR COMMERCIAL FISH HATCHERY [address] [facility] [place] [address] Head and neck cancer (HCC) (Primary Dx); Malaise and fatigue; Pain in throat; Dehydration Social History Tobacco Use Types Packs/Day Years [...] is lower risk 8 07/03/2022 Data from: https://www.neighborhoodatlas.[facility]/. Last address used for calculation [address] [facility] 07/03/2022 Sex and Gender Information Value Date [...] this encounter Progress Notes * Estefania Taylor APRN.SUPERVISOR COMMERCIAL FISH HATCHERY - 07/15/2024 11:02 AM EDT Images from the original note were not included. NAME: Kenny Jones [facility] NO.: [id number] DATE OF SERVICE: July 15, 2024 (Brandon) Some elements in this clinic note that are critical to medical decision making have been carefully reviewed and included from a prior clinic note dated: July 10, 2024 (Brandon) Referring Provider: Abel Martínez MD Additional Clinicians [...] nodule andmultiple bilateral lung lesions. Reviewed at [facility] TB and concerns in regards to metastatic [...] at home and continue current meds PLAN: Will give additional 1 L NS today (PEG tube placed) - following with acid leveler PEG tube supplies to be delivered today by [facility] on 07/17/2024 for C1D36 Carboplatin Labs same [...] uptake, it is rounded, was as prominent [id number]. 05/16/2024 - Direct Laryngoscopy + Biopsies: Dr. [...] This is not entirely included in the [id number]. It is possible this could represent a [...] Open right partial nephrectomy and adrenalectomy: Dr. Villalobos A. Right 11th rib, excision: - No gross [...] Dr. Bledsoe (head of abdominal imaging at [facility]), adrenal and lung nodules do in fact [...] No significant pathologic changes. Updated Visit, July 15, 2024: Saw patient today after his radiation visit due to lightheadedness that has been ongoing for the past week. Patient states that he feels the most lightheaded when he goes from sitting to standing. Will give hydration today. Patient has stopped his blood pressure medications. Orthostatic hypotensivetoday. Informed patient if symptoms continue to worsen to have someone take him to the emergency room. Will also do an MRI of brain. Patient denies any cognitive defects or falls. Will plan on IV fluids tomorrow if needed. Updated Visit, July 10, 2024: Patient is currently undergoing treatment with [...] He has a video call scheduled witha acid leveler at 13:30 today. He has been applying [...] follow up. Doing well and back to golfing and denies any fevers and or chills. [...] was suggested and has been ordered at [facility] as well. HPI, March 22, 2022: Kenny Jones is a 66 year old year old male with PMH sig for L RCC s/p nephrectomy in 2004, Clear cell RCC, grade 4 with sarcomatoid features. Follow up imaging with increasing Right renal lesion as below: Right renal lesion was previously measuring 1.3cm in 2017, 1.8cm in 2019, and 2.1cm on [facility] 01/2021. Patient saw Dr. Eric and underwent an MRI reported below. Denies any flank pain and or hematuria at this time and denies any family h/o RCC and or thyroid cancers. No MEN history as well. REVIEW OF SYSTEMS Per HPI and otherwise negative by full review of organ systems. ECOG PERFORMANCE STATUS: 0 PHYSICAL EXAMINATION: Vitals: There were no vitals taken for this visit. There is no height or weight on file to calculate BSA. Exam limited to gross visualization where appropriate. [...] petechiae. ALLERGIES: ALLERGIES No Known Allergies MEDICATIONS: fludrocortisone (FLORINEF) 0.1 mg tablet TAKE 1 TABLET EVERY DAY iv contrast (will be provided with radiology test) MRI Brain Inject, intravenously, once for 1 dose.No IV access, insert saline lock prior to beginning of sedation, infusion, injection of imaging exam.Discontinue saline lock post exam. If Pt. has a central line or IVAD, may access for administration according to line specific nursing protocol.Once exam is complete flush line and de-access according to line specific nursing protocol in the MR contrast administration guidelines link diphenhydrAMINE 12.5 mg/5 mL lidocaine visc 2% MAALOX 200-200-20 mg/5 mL nystatin prednisoLONE 15 mg/5 mL oral liquid 1:1:1:1:1 (CPD) Swish and Swallow 10 mL by mouth before meals and at bedtime. nutritional supplement (NUTREN 2.0) 0.08 G - 2 Kcal/mL oral liquid Administer 1 carton (250mL)Nutren 2.0 or equivalent via syringe push/plunge method 4 times per day (total of 1000mL/day). Flush feeding tube with 90 ml of water before and after each feed. Additional water flush of 250mL 4 times daily required to meet hydration needs. ondansetron (ZOFRAN) 8 mg tablet Take 1 tablet by mouth every 8 hours as needed for nausea/vomiting. prochlorperazine (COMPAZINE) 10 mg tablet Take 1 tablet by mouth every 6 hours as needed. metoprolol succinate ER (TOPROL XL) 25 mg 24 hr tablet Take 25 mg by mouth once daily. triamcinolone acetonide (KENALOG) 0.1 % cream Apply to affected areas, up to twice a day when flared, do not use one the face, groin, or underarms, 30 day supply terbinafine HCl (LAMISIL) 250 mg tablet Take 250 mg by mouth once daily. hydrocortisone (CORTEF) 5 mg tablet Take 3 tablets by mouth daily before breakfast AND 2 tablets daily after lunch. Syringe-Needle, Safety,Disp Un 3 mL 25 gauge x 1 syrg 1 Kit as needed (to inject dexamethasone during adrenal crisis). acetaminophen (TYLENOL) 325 mg tablet Take 2 tablets by mouth every 6 hours as needed for pain. warfarin (COUMADIN) 7.5 mg tablet Take 1 tablet by mouth daily as directed. 7.5 mg 3 times a week and 3.75 mg 4 days a week Patient should start on September 13, 2023. SOLU-CORTEF, PF, ACT-O-VIAL 100 mg/2 mL solr Inject 2 mL intramuscularly as needed (for adrenal crisis, or during acute illness and unable to take oral medications) for up to 3 doses. Cwdnz-8-KRD-EPA-Fish Oil 1,000 mg (120 mg-180 mg) cap Take 2 g by mouth twice daily. amiodarone (PACERONE) 200 mg tablet Take 200 mg by mouth once daily. Tadalafil (CIALIS) 20 mg tab(s) Take 1 tablet by mouth as needed. tamsulosin (FLOMAX) 0.4 mg Take 0.4 mg by mouth once daily. atorvastatin (LIPITOR) 40 mg tablet Take 40 mg by mouth once daily. LABORATORY VALUES: WBC (k/uL) Date Value 07/14/2024 4.04 RBC (m/uL) Date Value 07/14/2024 4.04 (L) Hemoglobin (g/dL) Date Value 07/14/2024 13.0 Hematocrit (%) Date Value 07/14/2024 36.7 (L) MCV (fL) Date Value 07/14/2024 90.8 MCH (pg) Date Value 07/14/2024 32.2 MCHC (g/dL) Date Value 07/14/2024 35.4 RDW-CV (%) Date Value 07/14/2024 13.3 Platelet Count (k/uL) Date Value 07/14/2024 105 (L) MPV (fL) Date Value 07/14/2024 8.3 (L) Glucose (mg/dL) Date Value 07/14/2024 91 BUN (mg/dL) Date Value 07/14/2024 24 Creatinine (mg/dL) Date Value 07/14/2024 1.06 Sodium (mmol/L) Date Value 07/14/2024 131 (L) Potassium (mmol/L) Date Value 07/14/2024 4.4 Chloride (mmol/L) Date Value 07/14/2024 96 (L) CO2 (mmol/L) Date Value 07/14/2024 26 Protein, Total (g/dL) Date Value 07/14/2024 6.7 Albumin (g/dL) Date Value 07/14/2024 4.0 Calcium, Total (mg/dL) Date Value 07/14/2024 9.3 Alkaline Phosphatase (U/L) Date Value 07/14/2024 97 Bilirubin, Total (mg/dL) Date Value 07/14/2024 1.0 AST (U/L) Date Value 07/14/2024 21 ALT (U/L) Date Value 07/14/2024 36 DIAGNOSIS: No diagnosis found. PAST MEDICAL HISTORY Diagnosis Date Atrial fibrillation [...] Family History I spent a total of 20 minutes on the date of the service which included preparing to see the patient, [id number] patient care, completing clinical documentation, obtaining and/or reviewing separately obtained history, performing a medically appropriate examination, counseling and educating the pat ient/family/caregiver, ordering medications, tests, or procedures, independently interpreting results (not separately reported), and communicating results to the patient/family/caregiver. Estefania Taylor APRN, WEB SITE ADMIN-C, OCN Hematology and Oncology Services Provided at: [place], [place] CC: Ted Perry II, MD, MD [address] [facility] [address] [place] [address] documented in this encounter Plan of Treatment Upcoming Encounters Date Type Department Care Team (Latest Contact Info) Description 07/23/2024 1:30 PM EDT Infusion Center Hematology/Oncology [facility] [place] [address] IV FLUIDS 07/23/2024 3:00 PM EDT Appointment Radiation Oncology [facility] [place] [address] neck 07/25/2024 2:30 PM EDT Education Nutrition Therapy [address] [place] [address] Tamica Rosario, RD [address] [place] [address] follow up PEG 07/25/2024 2:30 PM EDT Infusion Center Hematology/Oncology [address] [place] [address] [place] [address] Hydration to be givenin Radiology 07/28/2024 2:30 PM EDT Office Visit Radiation Oncology [address] [place] [address] [place] [address] Belinda Nicholson MD [address] [place] [address] [place] [address] final radiation follow up, 1-2 weeks 07/28/2024 3:00 PM EDT Infusion Center Hematology/Oncology [facility] [place] [address] IV FLUIDS 08/14/2024 9:45 AM EDT Office Visit [facility] Laboratory [address] [place] [address] [place] [address] 4 week follow up lab 08/14/2024 10:00 AM EDT Visit (SP) Office Hematology/Oncology [address] [place] [address] Olivia Gonzales APRN.SUPERVISOR COMMERCIAL FISH HATCHERY [address] [place] [place] [address] 4 week follow up lab documented as of this encounter Visit Diagnoses Diagnosis 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, face, and neck Malaise and fatigue Other malaise and fatigue Pain in throat Throat pain Dehydration documented in this encounter Care Teams Food Service Representative Relationship Specialty Start Date End Date Ted Perry II, MD PCP - General Internal Medicine 12/03/12 Jolanta Queen LISW Stemmer Machine 10/29/[address] [place] [address] [place] [address] Registered Dietitian Nutrition 06/02/24 Sheng Bill MD [address] [place] [address] [place] [address] Physician Hematology/Oncology 06/04/24 Belinda Nicholson MD [address] [place] [address] [place], [place] [id number] Physician Radiation Oncology 06/04/24 Maricel Fox, SIDNEY [address] [place] [address] [place] [address] Specialty Secondary Social Studies Teacher Hematology/Oncology 06/04/[address] [place] [address] Registered Dietitian Nutrition 06/25/24 Lluvia Graham LSW Stemmer Machine 06/26/24 Olivia Gonzales APRN.SUPERVISOR COMMERCIAL [employer] HATCHERY [address] [place] [address] [place] [address] Nurse Practitioner Hematology/Oncology 07/03/24 documented as of this encounter
--- OUTSIDE RECORDS SUMMARY | 2024-07-17 08:40 | XMS_ITS | Encounter Summary ---
Author Organization [facility] Address [facility] [place] [address] Care Team Providers Care In Home Tutor Name Role Phone Orlando [place] MD, Ted Brown Primary Care Provider [phone]- [phone] Jolanta Queen Unavailable Unavaila Mariia Estrada RD Unavailable [phone] Sheng Bill MD Unavailable [phone] Belinda Nicholson MD Unavailable [phone] Maricel Fox RN Unavailable [phone] Unavailable Lluvia Graham Unavailable Unavailable Olivia Gonzales APRN.COMPARATIVE SOCIOLOGY PROFESSOR Unavailable [phone] Source Comments In the event this information is protected by the Federal Confidentiality of Alcohol and Drug AbusePatient Records regulations: The Federal rules restrict any use of the information to criminally investigate or prosecute any alcohol or drug abuse patient.[facility] Reason for Visit * Reason Comments Head and Neck Cancer Encounter Details Date Type Department Care Team (Latest Contact Info) Description 07/17/2024 8:40 AM EDT Visit (SP) Office Hematology/[place] [address] [place] [address] Sheng Bill MD [address] [place] [address] Head and neck cancer (HCC) (Primary Dx); Renal cell carcinoma of right kidney (HCC); Hypotension due to hypovolemia; Malaise and fatigue; Dehydration; Stage 3a chronic kidney disease (HCC); Encounter for antineoplastic chemotherapy; Adrenal nodule (HCC); Disorder of adrenal gland (HCC); Body mass index (BMI) 40.0-44.9, adult (HCC); Secondary adrenal insufficiency (HCC); Oropharyngeal dysphagia; Weight loss, unintentional; 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.edu/. Last address used for calculation [address] [facility] 07/03/2022 Sex and Gender Information Value Date Recorded Sex Assigned at Not on file Legal Sex Male 7:29 AM EST Gender Identity Not on file Sexual Orientation Not on file documented as of this encounter Last Filed Vital Signs Vital Sign Reading Time Taken Comments Blood Pressure 138/79 07/17/2024 8:59 AM EDT Pulse 63 07/17/2024 8:59 AM EDT Temperature 36.5 C (97.7 F) 07/17/2024 8:59 AM EDT Respiratory Rate 16 07/17/2024 8:59 AM EDT Oxygen Saturation 99% 07/17/2024 8:59 AM EDT Inhaled Oxygen Concentration - - Weight 129.9 kg (286 lb 6 oz) 07/17/2024 8:59 AM EDT Height - - Body Mass Index 38.37 07/10/2024 9:00 AM EDT documented in this [...] Deng Cruz RN documented in this encounter Patient Instructions * Patient Instructions* Sheng Bill MD - 07/17/2024 9:37 AM EDT Proceed C1D36 CarboplatinProceed with treatment today PEG tube supplies to be delivered today by [facility] with director presales RTC in 4 weeks Labs same day Resume Keytruda q 6 weeks documented in this encounter Progress Notes * Sheng Bill MD - 07/17/2024 8:40 AM EDT Images from the original note were not included. NAME: Kenny Jones [facility] NO.: [id number] DATE OF SERVICE: July 17, 2024 (Fly) Some elements in this clinic note that [...] and neck of unknown primary. Diagnosed 05/2024 SUMMARY ASSESSMENT: 68 year old male here for follow up. Previous h.o L RCC in 2004 and now with Right sided RCC, biopsy proven, and also adrenal nodule andmultiple bilateral lung lesions. Reviewed at [facility] and concerns in regards to metastatic [...] home and continue current meds PLAN: Proceed C1D36 CarboplatinProceed with treatment today PEG tube supplies to be delivered today by [facility] with director presales RTC in 4 weeks Labs same day Resume Keytruda q 6 weeks CURRENT VISIT ASSESSMENT/PLAN: 1. Head and neck cancer (HCC) (C76.0) Undergoing concurrent chemotherapy and radiation therapy. Chemotherapy is a small dose to enhance the efficacy of radiation therapy. - Complete remaining four sessions of radiation therapy. - Resume Keytruda in approximately four weeks post-radiation, administered once every six weeks. - Monitor for side effects and ensure adequate hydration. 2. Renal cell carcinoma of right kidney (HCC) (C64.1) Previously treated with Keytruda; patient received three doses. - Resume Keytruda therapy post-radiation for head and neck cancer. - Monitor for recurrence or metastasis with regular imaging studies. 3. Hypotension due to hypovolemia (E86.1) Previous episodes likely due to inadequate fluid intake. Current BP is 138/79 mmHg, improved from 111/70 mmHg in June. - Encourage increased oral fluid intake. - Monitor blood pressure regularly. 4. Malaise and fatigue (R53.81) Likely multifactorial, related to ongoing chemotherapy, radiation therapy, and secondary adrenal insufficiency. - Continue current treatment regimen. - Monitor energy levels and adjust supportive care as needed. 5. Dehydration (E86.0) Improved with increased oral fluid intake and recent IV hydration. - Continue to encourage oral hydration. - Administer IV fluids as needed based on clinical symptoms. 6. Stage 3a chronic kidney disease (HCC) (N18.31) Kidney function is stable but slightly impaired. - Monitor renal function with regular lab tests. - Ensure adequate hydration to support kidney function. 7. Encounter for antineoplastic chemotherapy (Z51.11) Receiving concurrent chemotherapy with radiation therapy for head and neck cancer. - Administer scheduled chemotherapy dose today. - Monitor for side effects and ensure adequate hydration. 8. Adrenal nodule (HCC) (E27.9) Adrenal glands removed during previous kidney surgery. 9. Disorder of adrenal gland (HCC) (E27.9) Adrenal glands removed during previous kidney surgery. 10. Body mass index (BMI) 40.0-44.9, adult (HCC) (Z68.41) Current weight is 290 lbs, with a recent loss of 4 lbs. - Monitor weight and nutritional status. - Encourage healthy weight loss post-treatment. 11. Secondary adrenal insufficiency (HCC) (E27.49) Adrenal glands removed during previous kidney surgery. - Continue Florinef and Cortef as prescribed. - Reduce evening dose of Cortef to 20 mg, maintain morning dose at 40 mg. 12. Oropharyngeal dysphagia (R13.12) Difficulty swallowing, primarily using PEG tube for nutrition. - Continue PEG tube feedings with Ensure 2.0, 3-4 times daily. - Monitor for any changes in swallowing ability. 13. Weight loss, unintentional (R63.4) Recent weight loss of 4 lbs, likely due to treatment side effects and decreased oral intake. - Monitor weight and nutritional status. - Ensure adequate caloric intake through PEG tube feedings. 14. 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 - Resume Keytruda therapy post-radiation for head and neck cancer. - Monitor for recurrence or metastasis with regular imaging studies. CASE HISTORY: Reverse Chronological Order 06/12/2024-Current - [...] uptake, it is rounded, was as prominent [id number]. 05/16/2024 - Direct Laryngoscopy + Biopsies: Dr. [...] This is not entirely included in the [id number]. It is possible this could represent a [...] right partial nephrectomy and adrenalectomy: Dr. Wilfredo Schwartz Right 11th rib, excision: - No gross [...] Dr. Bledsoe (head of abdominal imaging at [facility]), adrenal and lung nodules do in fact [...] paraaortic, B: - No significant pathologic changes. HPI: Updated Visit, July 17, 2024: Here with a friend named Peggy. Patient with a history of renal cell carcinoma and adrenalectomy, currently managed with corticosteroids, presents for follow-up. He was previously treated with pembrolizumab for renal cell carcinoma, receiving approximately three doses over a year, with one dose halted due to a mild reaction. He is now undergoing treatment forhead and neck cancer, receiving concurrent chemotherapy and radiation therapy. He reports a recent rough weekend following chemotherapy, experiencing significant dehydration and lightheadedness, necessitating IV fluids on Sunday and Sunday. He has since increased his oral fluid intake, noting improvement in symptoms. He is able to swallow water but has not been eating solid foods over the past week, relying on enteral nutrition via a PEG tube, consuming 3-4 bottles of 2.0 kcal/mL formula daily. He reports a 4-pound weight loss over the past five days. He experiences excessive mucus production and fatigue, and reports difficulty sleeping, averaging only a couple of hours per night. He is currently taking fludrocortisone and hydrocortisone, with a regimen of 40 mg hydrocortisone in the morning and 40 mg in the afternoon. He has four remaining radiation treatments and is scheduled for a brain scan next week. He inquiresabout resuming pembrolizumab after completing radiation therapy. Constitutional: (+) weight loss, (+) fatigue, (+) decreased appetite Ears/Nose/Mouth/Throat: (+) excessive salivation Gastrointestinal: (+) abdominal fullness Psychiatric: (+) insomnia Updated Visit, July 09, 2024: Patient is currently undergoing treatment with carboplatin and radiation therapy. He is on cycle 5 of 6 of carboplatin, with the next treatment scheduled for next Thursday. He has a PEG tube in placeand [...] He has a video call scheduled witha director presales at 13:30 today. He has been applying [...] been drinking boost. Patient had thrush last weekand was treated with nystatin. Symptoms have improved. Patient is still staying active and golfing.He denies fever, chills, night sweats, shortness of breath, nausea or vomiting. Labs appropriate for treatment today will proceed with week 3. Updated [...] was suggested and has been ordered at [facility] as well. HPI, March 22, 2022: Kenny Jones is a 66 year old year old male with PMH sig for L RCC s/p nephrectomy in 2004, Clear cell RCC, grade 4 with sarcomatoid features. Follow up imaging with increasing Right renal lesion as below: Right renal lesion was previously measuring 1.3cm in 2016, 1.8cm in 2018, [facility] Patient saw Dr. Eric and underwent an MRI reported below. Denies any flank pain and or hematuria at this time and denies any family h/o RCC and or thyroid cancers. No MEN history as well. REVIEW OF SYSTEMS Per HPI and otherwise negative by full review of organ systems. ECOG PERFORMANCE STATUS: 0 PHYSICAL EXAMINATION: Vitals: BP 138/79 Pulse 63 Temp (Src) 97.7 (Temporal) Resp 16 Wt 286 lb 6 oz (129.9kg) SpO2 99% Body surface area is 2.58 meters squared. Exam limited to gross visualization [...] Known Allergies MEDICATIONS: fludrocortisone (FLORINEF) 0.1 mg tablet^TAKE 1 TABLET EVERY DAY^Disp: 90 tablet^Rfl: 0 diphenhydrAMINE 12.5 mg/5 mL lidocaine visc 2% [...] times daily required to meet hydration needs.^Disp: 27162 mL^Rfl: 5 ondansetron (ZOFRAN) 8 mg tablet^Take 1 tablet by mouth every 8 hours as needed for nausea/vomiting.^Disp: 90 tablet^Rfl: 1 prochlorperazine (COMPAZINE) 10 mg tablet^Take 1 tablet by mouth every 6 hours as needed.^Disp: 100tablet^Rfl: 1 metoprolol succinate ER (TOPROL XL) 25 mg 24 hr tablet^Take 25 mg by mouth once daily.^Disp: ^Rfl: triamcinolone acetonide (KENALOG) 0.1 % cream^Apply to affected areas, up to twice a day when flared, do not use one the face, groin, or underarms, 30 day supply^Disp: ^Rfl: terbinafine HCl (LAMISIL) 250 mg tablet^Take 250 mg by mouth once daily.^Disp: ^Rfl: hydrocortisone (CORTEF) 5 mg tablet^Take 3 tablets [...] up to 3 doses.^Disp: 1 Each^Rfl: 3 Dgckp-2-GGK-EPA-Fish Oil 1,000 mg (120 mg-180 mg) cap^Take [...] ^Rfl: LABORATORY VALUES: WBC (k/uL) Date Value 07/17/2024 2.41 (L) RBC (m/uL) Date Value 07/17/2024 3.97 (L) Hemoglobin (g/dL) Date Value 07/17/2024 12.9 (L) Hematocrit (%) Date Value 07/17/2024 35.6 (L) MCV (fL) Date Value 07/17/2024 89.7 MCH (pg) Date Value 07/17/2024 32.5 MCHC (g/dL) Date Value 07/17/2024 36.2 (H) RDW-CV (%) Date Value 07/17/2024 13.2 Platelet Count (k/uL) Date Value 07/17/2024 113 (L) MPV (fL) Date Value 07/17/2024 8.4 (L) Glucose (mg/dL) Date Value 07/14/2024 91 BUN (mg/dL) Date Value 07/14/2024 24 Creatinine, Whole Blood (iSTAT) (mg/dL) Date Value 07/17/2024 1.20 Sodium (mmol/L) Date Value 07/14/2024 131 (L) [...] ALT (U/L) Date Value 07/14/2024 36 DIAGNOSIS: (C76.0) Head and neck cancer (HCC) (primary encounter diagnosis) (C64.1) Renal cell carcinoma of right kidney (HCC) (R53.81, R53.83) Malaise and fatigue (E86.0) Dehydration (N18.31) Stage 3a chronic kidney disease (HCC) (Z51.11) Encounter for antineoplastic chemotherapy (E27.9) Adrenal nodule (HCC) (E27.9) Disorder of adrenal gland (HCC) PAST MEDICAL HISTORY Diagnosis Date Atrial fibrillation (HCC) CAD (coronary artery disease) s/p stent placement in Oct, 2022 Class 3 obesity (HCC) H/O heart artery stent 11/10/2021 Renal mass [...] Family History I spent a total of 40 minutes on the date of service which included preparing to see the patient, [id number] patient care, completing clinical documentation, obtaining and/or reviewing separately obtained history, performing a medically appropriate examination, counseling and educating the patient/family/caregiver, ordering medications, tests, or procedures, independently interpreting results (not separately reported), communicating results to the patient/family/caregiver, and care coordination (not separately reported). Sheng Bill MD, CPE Hematology and Oncology Services Provided at: [place], [place] CC: Ted Perry II, MD, MD [address] [facility] [address] [place] [address] documented in this encounter Plan of Treatment Upcoming Encounters Date Type Department Care Team (Latest Contact Info) Description 07/23/2024 1:30 PM EDT Infusion Center Hematology/Oncology [address] [place] [address] IV FLUIDS 07/23/2024 3:00 PM EDT Appointment Radiation Oncology [address] [place] [address] neck 07/25/2024 2:30 PM EDT Education Nutrition Therapy [address] [place], [place] [address] Tamica Rosario, RD [address] [place] [address] follow up PEG 07/25/2024 2:30 PM EDT Infusion Center Hematology/Oncology [address] [place] [address] Hydration to be givenin Radiology 07/28/2024 2:30 PM EDT Office Visit Radiation Oncology [address] [place] [address] Belinda Nicholson MD [address] [place] [address] final radiation follow up, 1-2 weeks 07/28/2024 3:00 PM EDT Infusion Center Hematology/Oncology [facility] [place] [address] IV FLUIDS 08/14/2024 9:45 AM EDT Office Visit [facility] [address] [place] [place] [address] 4 week follow up lab 08/14/2024 10:00 AM EDT Visit (SP) Office Hematology/Oncology [address] [place] [address] Olivia Gonzales, JAGRUTI.COMPARATIVE SOCIOLOGY PROFESSOR [address] [place] [address] 4 week follow up lab documented as of this encounter Visit Diagnoses Diagnosis 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, face, and neck Renal cell carcinoma of right kidney (HCC) Hypotension due to hypovolemia Malaise and fatigue Other malaise and fatigue Dehydration Stage 3a chronic kidney disease (HCC) Encounter for antineoplastic chemotherapy Adrenal nodule (HCC) Unspecified disorder of adrenal glands Disorder of adrenal gland (HCC) Unspecified disorder of adrenal glands Body mass index (BMI) 40.0-44.9, adult (HCC) Secondary adrenal insufficiency (HCC) Glucocorticoid deficiency Oropharyngeal dysphagia Dysphagia, oropharyngeal phase Weight loss, unintentional Loss of weight 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 (HCC) documented in this encounter Care Teams In Home Tutor Relationship Specialty Start Date End Date Ted Perry II, MD PCP - General Internal Medicine 12/03/12 Jolanta Queen LISW Medical Office Clerk 10/29/[address] [place] [address] Registered Dietitian Nutrition 06/02/24 Sheng Bill MD [address] [place] [address] [place] [address] Physician Hematology/Oncology 06/04/24 Belinda Nicholson MD [address] [place] [address] [place] [address] Physician Radiation Oncology 06/04/24 Maricel Fox, SIDNEY [address] [place] [address] Specialty 911 Operator Hematology/Oncology 06/04/[address] [place] [address] Registered Dietitian Nutrition 06/25/24 Lluvia Graham LSW Medical Office Clerk 06/26/24 Olivia Gonzales APRN.COMPARATIVE SOCIOLOGY PROFESSOR [address] [place] [address] [place] [address] Nurse Practitioner Hematology/Oncology 07/03/24 documented as of this encounter
--- OUTSIDE RECORDS SUMMARY | 2024-07-17 09:00 | XMS_ITS | Encounter Summary ---
Author Organization [facility] Address [address] [place] [address] Care Team Providers Care Contact Lens Blocker And Cutter Name Role Phone Orlando [place] MD, Ted Brown Primary Care Provider +- [phone] Jolanta Queen Unavailable Unavaila Mariia Estrada RD Unavailable [phone] Sheng Bill MD Unavailable [phone] Belinda Nicholson MD Unavailable [phone] Maricel Fox RN Unavailable [phone] Unavailable Lluvia Graham Unavailable Unavailable Olivia Gonzales APRN.MUCK HAULER Unavailable [phone] Source Comments In the event this information is protected by the Federal Confidentiality of Alcohol and Drug AbusePatient Records regulations: The Federal rules restrict any use of the information to criminally investigate or prosecute any alcohol or drug abuse patient.[facility] Reason for Visit * Ferdinand Prior Authorization (Routine) - Authorized Specialty Diagnoses / Procedures Referred By Contac t Referred To Contact Diagnoses Head and neck cancer (HCC) Sheng Bill MD [facility] [place] [address] [place] [address] Phone: tel: fax: Sheng Bill MD [address] [place] [address] [place] [address] Phone: tel: fax: Referral ID Status Reason Start Date Expiration Date V isits Requested Visits Authorized [id number] Authorized 06/12/2024 09/10/2024 99 99 Encounter Details Date Type Department Care Team (Latest Contact Info) Description 07/17/2024 9:00 AM EDT Infusion Center Hematology/Oncology [address] [place] [address] [place] [address] Head and neck cancer (HCC) (Primary [...] is lower risk 8 07/03/2022 Data from: https://www.neighborhoodatlas.medicine.[facility]/. Last address used for calculation [address] [...] documented in this encounter Progress Notes * Dolores Mccoy RN - 07/17/2024 10:04 AM EDT Pt in for tx today, requesting some IVF. Ok to give NS 500ml IV x 1 over 1 hour, pharm to enter. Dolores Mccoy RN * Marian Perez RN - 07/17/2024 9:43 AM EDT Patient assessment complete. He reports inability to eat any foods but is able to take sips of coldfluid. All nutrition is given through his PEG tube. His neck appears excoriated with areas that arepeeling. He states that Aquaphor helps but he is still comfortable. I spoke A SIDNEY Oliveira, Rad Onc nurse who has recommended patient can also apply cold compresses 15 minutes three times daily and neosporin to the peeling areas. Patient aware and he was grateful for the recommendations. Marian Perez RN documented in this encounter Plan of Treatment Upcoming Encounters Date Type Department Care Team (Latest Contact Info) Description 07/23/2024 1:30 PM EDT Infusion Center Hematology/Oncology [address] [place] [address] [place] [address] IV FLUIDS 07/23/2024 3:00 PM EDT Appointment Radiation Oncology [address] [place] [address] [place] [address] neck 07/25/2024 2:30 PM EDT Education Nutrition Therapy [address] [place] [address] Tamica Rosario, RD [address] [place] [address] follow up PEG 07/25/2024 2:30 PM EDT Infusion Center Hematology/Oncology [address] [facility] [place] [address] Hydration to be givenin Radiology 07/28/2024 2:30 PM EDT Office Visit Radiation Oncology [address] [facility] [place] [address] Belinda Nicholson MD [address] [place] [address] [place] [address] final radiation follow up, 1-2 weeks 07/28/2024 3:00 PM EDT Infusion Center Hematology/Oncology [address] [place] [address] [place] [address] IV FLUIDS 08/14/2024 9:45 AM EDT Office Visit [facility] [address] [place] [address] [place] [address] 4 week follow up lab 08/14/2024 10:00 AM EDT Visit (SP) Office Hematology/Oncology [address] [place] [address] [place] [address] Olivia Gonzales, JAGRUTI.MUCK HAULER [address] [facility] [place] [address] 4 week follow up lab documented as of this encounter Results * (ABNORMAL) ISTAT BMP (07/17/2024 8:24 AM EDT) Sodium, Whole Blood (iSTAT) 133(L) 138 - 146 mmol/L 07/17/2024 8:32 AM EDT [facility] Chloride, Whole Blood (iSTAT) 97(L) 98 - 109 mmol/L 07/17/2024 8:32 AM EDT [facility] Potassium, Whole Blood (iSTAT) 4.0 3.5 - 4.9 mmol/L 07/17/2024 8:32 AM EDT [facility] Ionized Calcium, Whole Blood (iSTAT) 1.23 1.12 - 1.32 mmol/L 07/17/2024 8:32 AM EDT [facility] Comment:Please note: This va lue represents ionized calcium not total calcium. TCO2, Whole Blood (iSTAT) 24 24 - 29 mmol/L 07/17/2024 8:32 AM EDT [facility] Glucose, Whole Blood (iSTAT) 96 70 - 105 mg/dL 07/17/2024 8:32 AM EDT [facility] BUN, Whole Blood (iSTAT) 21 8 - 26 mg/dL 07/17/2024 8:32 AM EDT [facility] Creatinine, Whole Blood (iSTAT) 1.20 0.60 - 1.30 mg/dL 07/17/2024 8:32 AM EDT [facility] Anion Gap, Whole Blood (iSTAT) 12 0 - 15 mmol/L 07/17/2024 8:32 AM EDT [facility] iSTAT eGFR 65 >=60 mL/min/1.7 3m 07/17/2024 8:32 AM EDT [facility] Comment:Estimated Glomerular Filtration Rate (eGFR) is calculated using the 2020 CKD-EPI creatinine equation. This equation utilizes serum creatinine, sex, and age as parameters. The creatinine assay has traceable calibration to isotope dilution- mass spectrometry. Refer to KDIGO guidelines for clinical interpretation. In patients with unstable renal function, e.g. those with acute kidney injury, the eGFR may not accurately reflect actual GFR. Blood BLOOD SPECIMEN / Unknown Venipuncture / Unknown 07/17/2024 8:24 AM EDT 07/17/2024 8:24 AM EDT Sheng Bill MD LABORATORY Final Result [facility] [address] [place] [address] documented in this encounter Visit Diagnoses Diagnosis 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, face, and neck documented in this encounter Administered Medications Inactive Administered Medications - up to 3 most recent administrations Medication Order MAR Action Action Date Dose Rate Site CARBOplatin 230.475 mg in NaCl 0.9% 133.0475 mL (PARAPLATIN) 230.475 mg (Target AUC = 1.75), INTRAVENOUS, Administer over 30 Minutes, ONCE, 1 dose, On Annmarie 07/17/24 at 1130, EXP 1000 07/18/24 Hazardous Chemotherapy Drug: Use appropriate PPE. Antineoplastic Irritant.Indications:Head and neck cancer (HCC) New Bag/Syringe/Bottl e 07/17/2024 11:01 AM EDT 230.475 mg dexAMETHasone sodium phosphate (PF) 10 mg injection (DECADRON) 10 mg, INTRAVENOUS, Administer over 15 Minutes, ONCE, 1 dose, On Annmarie 07/17/24 at 1000, Administer 30 minutes prior to infusion. Administer over 5 minutes.Indications:Head and neck cancer (HCC) Given 07/17/2024 10:08 AM EDT 10 mg NaCl 0.9% 500 mL iv bolus 500 mL, INTRAVENOUS, at 500 mL/hr, Administer over 1 Hours, ONCE, 1 dose, On Annmarie 07/17/24 at 1030 New Bag/Syringe/Bottl e 07/17/2024 10:15 AM EDT 500 mL 500 mL/hr ondansetron (PF) 8 mg injection (ZOFRAN) 8 mg, INTRAVENOUS, ONCE, 1 dose, On Annmarie 07/17/24 at 1000Indications:Head and neck cancer (HCC) Given 07/17/2024 10:08 AM EDT 8 mg documented in this encounter Care Teams Contact Lens Blocker And Cutter Relationship Specialty Start Date End Date Ted Perry II, MD PCP - General Internal Medicine 12/03/12 Jolanta Queen LISW Improvement Rn 10/29/[address] [place] [address] [place] [address] Registered Dietitian Nutrition 06/02/24 Sheng Bill MD [address] [place] [address] [place] [address] Physician Hematology/Oncology 06/04/24 Belinda Nicholson MD [address] [place] [address] [place] [address] Physician Radiation Oncology 06/04/24 Maricel Fox, SIDNEY [address] [facility] [place] [address] Specialty Environmental Consultant Hematology/Oncology 06/04/[address] [place] [address] Registered Dietitian Nutrition 06/25/24 Lluvia Graham LSW Improvement Rn 06/26/24 Olivia Gonzales APRN.MUCK HAULER [address] [place] [address] [place] [address] Nurse Practitioner Hematology/Oncology 07/03/24 documented as of this encounter
--- OUTSIDE RECORDS SUMMARY | 2024-07-22 10:30 | XMS_ITS | Encounter Summary ---
Author Organization [facility] Address [address] [place] [address] Care Team Providers Care Adult Neuropsychologist Name Role Phone Orlando [place] MD, Ted Brown Primary Care Provider +- [phone] Jolanta Queen Unavailable Unavaila Mariia Estrada RD Unavailable [phone] Sheng Bill MD Unavailable [phone] Belinda Nicholson MD Unavailable [phone] Maricel Fox RN Unavailable [phone] Unavailable Lluvia Graham Unavailable Unavailable Olivia Gonzales APRN.ELECTRIC POWER LINE EXAMINER Unavailable [phone] Source Comments In the event this information is protected by the Federal Confidentiality of Alcohol and Drug AbusePatient Records regulations: The Federal rules restrict any use of the information to criminally investigate or prosecute any alcohol or drug abuse patient.[facility] Reason for Visit * Reason Comments Radiotherapy On-treatment Visit Encounter Details Date Type Department Care Team (Late st Contact Info) Description 07/22/2024 10:30 AM EDT Office Visit Radiation Oncology [address] [place] [address] [place] [address] Belinda Nicholson MD [address] [facility] [place] [address] Head and neck cancer (HCC) (Primary Dx) [...] is lower risk 8 07/03/2022 Data from: https://www.neighborhoodatlas.medicine.[facility]/. Last address used for calculation [address] 07/03/2022 Sex and Gender Information Value Date Recorded Sex Assigned at Not on file Legal Sex Male 7:29 AM EST Gender Identity Not on file Sexual Orientation Not on file documented as of this encounter Last Filed Vital Signs Vital Sign Reading Time Taken Comments Blood Pressure 100/54 07/22/2024 10:50 AM EDT Pulse 54 07/22/2024 10:50 AM EDT Temperature 36.3 C (97.4 F) 07/22/2024 10:50 AM EDT Respiratory Rate 16 07/22/2024 10:5 0 AM EDT Oxygen Saturation 98% 07/22/2024 10: 50 AM EDT Inhaled Oxygen Concentration - - Weight 127.9 kg (281 lb 15.5 oz) 2024 10:50 AM EDT Height - - Body Mass Index 37.78 07/10/2024 9:00 AM EDT documented in this [...] Progress Notes * Belinda Nicholson MD - 07/22/2024 10:49 AM EDT Radiation Oncology - On Treatment Review (OTR) Note PATIENT NAME: Kenny Jones PATIENT DIAGNOSIS: Head and neck cancer,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 Occasional orthostatic dizziness. Swallowing difficult. Using Hycet with relief. Using PEG tube. PHYSICAL EXAM: 07/22/24 1050 BP: 100/54 Pulse: (!) 54 Resp: 16 Temp: 36.3 ??C (97.4 ??F) SpO2: 98% Weight: 127.9 kg (281 lb 15.5 oz) KPS: 100 General Appearance: Alert and oriented. No acute distress. Radiation dermatitis: No Mucositis: Mild erythema much improved since Sunday. Resolution of candidal appearing mucosal lesions. Neck: Normal ROM. No palpable cervical or supraclavicular adenopathy. Right neck incision intact nounderlying seroma or mass. Small area of moist desquamation right lower neck , additional smaller area on the left. IMAGING/LAB RESULTS: Hemoglobin (g/dL) Date Value 07/17/2024 12.9 07/03/2004 11.6 Hematocrit (%) Date Value 07/17/2024 35.6 07/03/2004 35.7 WBC (k/uL) Date Value 07/17/2024 2.41 07/03/2004 7.84 Platelet Count Date Value 07/17/2024 113 k/uL 07/03/2004 242 K/uL TOXICITY ASSESSMENT (CTCv4): Dysphagia:grade 2 Mucositis: grade 1/2 Radiation dermatitis: grade 2 Trismus: grade 0 - No symptoms Voice Changes:grade 0 - No symptoms Xerostomia: grade 1 Treatment chart checked: Yes Patient treatment site reviewed and verified:Yes Port films reviewed and current:Yes Medications started: None ASSESSMENT: Patient will finish tomorrow. IV hydration recommended today and tomorrow. Continue PEGtube for nutritional support. Continue Magic mouthwash and Hycet for mucositis. Continue silver Silvadene for radiation dermatitis. Plan for follow-up next Sunday. Belinda Nicholson MD documented in this encounter Plan of Treatment Upcoming Encounters Date Type Department Care Team (Latest Contact Info) Description 07/23/2024 1:30 PM EDT Infusion Center Hematology/Oncology [address] [place] [address] [place] [address] IV FLUIDS 07/23/2024 3:00 PM EDT Appointment Radiation Oncology [address] [place] [address] [place] [address] neck 07/25/2024 2:30 PM EDT Education Nutrition Therapy [place] [address] Tamica Rosario, RD [address] [place] [address] follow up PEG 07/25/2024 2:30 PM EDT Infusion Center Hematology/Oncology [address] [place] [address] [place] [address] Hydration to be givenin Radiology 07/28/2024 2:30 PM EDT Office Visit Radiation Oncology [address] [place] [address] [place] [address] Belinda Nicholson MD [address] [place] [address] [place] [address] final radiation follow up, 1-2 weeks 07/28/2024 3:[address] [facility] Hematology/Oncology [address] [place] [address] IV FLUIDS 08/14/2024 9:45 AM EDT Office Visit [facility] [address] [place] [address] 4 week follow up lab 08/14/2024 10:00 AM EDT Visit (SP) Office Hematology/Oncology [address] [place] [address] Olivia Gonzales APRN.[facility] [address] [place] [address] 4 week follow up lab documented as of this encounter Visit Diagnoses Diagnosis 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, face, and neck documented in this encounter Care Teams Adult Neuropsychologist Relationship Specialty Start Date End Date Ted Perry II, MD PCP - General Internal Medicine 12/03/12 Jolanta Queen LISW Crop Specialist 10/29/[address] [place] [address] [place] [address] Registered Dietitian Nutrition 06/02/24 Sheng Bill MD [address] [place] [address] [place] [address] Physician Hematology/Oncology 06/04/24 Belinda Nicholson MD [address] [place] [address] [place] [address] Physician Radiation Oncology 06/04/24 Maricel Fox, SIDNEY [address] [facility] [address] [place], [place] [address] Specialty Motor Overhauler Hematology/Oncology 06/04/[address] [place] [address] [place] [address] Registered Dietitian Nutrition 06/25/24 Lluvia Graham LSW Crop Specialist 06/26/24 Olivia Gonzales APRN.[facility] [address] [place] [address] [place] [address] Nurse Practitioner Hematology/Oncology 07/03/24 documented as of this encounter
--- OUTSIDE RECORDS SUMMARY | 2024-07-22 11:15 | XMS_ITS | Encounter Summary ---
Author Organization [facility] Address [address] [place] [address] Care Team Providers Care Contract Accountant Name Role Phone Orlando [place] MD, Ted Brown Primary Care Provider + [phone] Jolanta Queen Unavailable Unavaila Mariia Estrada RD Unavailable [phone] Sheng Bill MD Unavailable [phone] Belinda Nicholson MD Unavailable [phone] Maricel Fox RN Unavailable [phone] Unavailable Lluvia Graham Unavailable Unavailable Olivia Gonzales APRN.WATER RESOURCE PROJECT MANAGER Unavailable [phone] Source Comments In the event this information is protected by the Federal Confidentiality of Alcohol and Drug AbusePatient Records regulations: The Federal rules restrict any use of the information to criminally investigate or prosecute any alcohol or drug abuse patient.[facility] Encounter Details Date Type Department Care Team (Latest Contact Info) Description 07/22/2024 11:15 AM EDT [facility] Hematology/Oncology [address] [place] [address] [place] [address] Head and neck cancer (HCC) (Primary Dx) [...] is lower risk 8 07/03/2022 Data from: https://www.neighborhoodatlas.medicine.[facility].edu/. Last address used for calculation [address] [...] Deng Gray RN documented in this encounter Plan of Treatment Upcoming Encounters Date Type Department Care Team (Latest Contact Info) Description 07/23/2024 1:30 PM EDT Infusion Center Hematology/Oncology [address] [facility] [place] [address] IV FLUIDS 07/23/2024 3:00 PM EDT Appointment Radiation Oncology [address] [address] neck 07/25/2024 2:30 PM EDT Education Nutrition Therapy [address] [place] [address] Tamica Rosario, RD [address] [place] [address] follow up PEG 07/25/2024 2:30 PM EDT Infusion Center Hematology/Oncology [address] [place] [address] [place] [address] Hydration to be givenin Radiology 07/28/2024 2:30 PM EDT Office Visit Radiation Oncology [address] [facility] [place] [address] Belinda Nicholson MD [address] [place] [address] [place] [address] final radiation follow up, 1-2 weeks 07/28/2024 3:00 PM EDT Infusion Center Hematology/Oncology [address] [place] [address] [place] [address] IV FLUIDS 08/14/2024 9:45 AM EDT Office Visit [facility] [address] [place] [address] [place] [address] 4 week follow up lab 08/14/2024 10:00 AM EDT Visit (SP) Office Hematology/Oncology [address] [facility] [place] [place] [address] Olivia Gonzales APRN.WATER RESOURCE PROJECT MANAGER [address] [facility] [place] [address] 4 week follow up lab documented as [...] over 1 Hours, ONCE, 1 dose, On Sun07/22/24 at 1300Indications:Head and neck cancer (HCC) New Bag/Syringe/Bottle 07/22/2024 11:35 AM EDT 1,000 mL 999 mL/hr documented in this encounter Care Teams Contract Accountant Relationship Specialty Start Date End Date Ted Perry II, MD PCP - General Internal Medicine 12/03/12 Jolanta Queen LISW Luncheonette Operator 10/29/[address] [facility] [address] [place], [place] [address] Registered Dietitian Nutrition 06/02/24 Sheng Bill MD [address] [place] [address] [place] [address] Physician Hematology/Oncology 06/04/24 Belinda Nicholson MD [address] [place] [address] [place] [address] Physician Radiation Oncology 06/04/24 Maricel Fox, SIDNEY [address] [facility] [address] Specialty Prototype Special Build Hematology/Oncology 06/04/[address] [place] [address] Registered Dietitian Nutrition 06/25/24 Lluvia Graham LSW Luncheonette Operator 06/26/24 Olivia Gonzales APRN.CNP [address] [facility] [address] Nurse Practitioner Hematology/Oncology 07/03/24 documented as of this encounter
--- OUTSIDE RECORDS SUMMARY | 2024-07-23 09:42 | XMS_ITS | Clinical Summary ---
Author Organization [facility] [employer]jh direct marketing concepts ENTER Address [address] [place] [address] Care Team Providers Care Hand Glove Cleaner Name Role Phone Orlando COPELAND MD, Daniel Primary Care Provider [phone] Ted Ackerman MD Unavailable [phone] Allergies No known active allergies Medications Tamsulosin HCl 0.4 MG Cap Take 1 capsule by mouth daily. Active omega-3 fish oil 1 G Cap Take 1 capsule by mouth 2 times daily. Active losartan 50 MG Tab take 1 tablet by mouth daily. 30 tablet 1 12/17/2014 Active tadalafil 20 MG tablet Take 1 tablet by mouth daily as needed. Active warfarin 7.5 MG tablet Take 1 tablet by mouth every evening at 6 PM. Take as directed. Active atorvastatin 40 MG tablet Take 1 tablet by mouth daily. 11/24/2021 Active fludrocortisone 0.1 MG tablet Take 1 tablet by mouth daily. Active Hydrocortisone 5 MG tablet Take 1 tablet by mouth. Take 3 tablets by mouth in am and 2 tablets in afternoon. Active Metoprolol succinate 25 MG tablet XLIndications:At rial fibrillation, unspecified type Take 1 tablet by mouth at bedtime. 90 tablet 3 04/14/2024 Active AMIOdarone 200 MG tablet TAKE 1 TABLET EVERY DAY 90 tablet 3 04/25/2024 Active Active Problems Problem Noted Date Diagnosed Date Atrial fibrillation 03/06/2018 Atypical atrial flutter - S/P ablation 9 Left bundle-branch block 03/06/2018 Chronic anticoagulation - warfarin 03/06/2018 Obesity, Class II, BMI 35-39.9 09/14/2016 High risk medication use 12/22/2015 Assessment & Plan (12/22/2015 2:32 PM EST): Decreased Tikosyn dose 12/22/15 to 125mcg bid Monitor EKG QTC and JT intervals 2 hours post EKG x 5 doses Will [facility] QTC after 2 doses was 502 (decreased dose) S/P ablation of atrial fibrillation 09/13/2015 Hyperlipidemia 12/18/2014 Essential hypertension 12/17/2014 Assessment & Plan (12/22/2015 2:33 PM EST): -cont Losartan, Metoprolol Renal cell carcinoma 12/17/2014 Overview (12/17/2014): S/p nephrectomy Resolved Problems Problem Noted Date Diagnosed Date Resolved Date Paroxysmal atrial fibrillati on - S/P ablation x 2 03/06/2018 03/06/2018 Atrial fibrillation 03/06/2018 03/06/19 19 AF (atrial fibrillation) 01/11/2015 Atypical atrial flutter 01/06/201502/13 Assessment & Plan (12/22/2015 2:34 PM EST): -patient w/ 2:1 conduction -is receiving dose 3 and 4 of Tikosyn 12/22/15 -had to decrease dosing to 125 mcg bid 12/22/15 due to increasing JT interval after two doses -also adding Toprol XL 50mg in the evening in addition to his 100mg in the morning -NPO at midnight for cardioversion 12/23/15 -INR has been therapeutic x 1month on coumadin; INR is 2.3 - cont current coumadin dosing -Will follow [facility] -If cardioversion unsuccessful will likely need repeat ablation and possible pacer in future Atrial fibrillation with RVR 12/18/2014 03/06/2018 A-fib 12/13/2014 03/06/2018 Encounters Date Type Department Care Team Description 05/12/2024 Telephone [facility] [address] [place] [address] Saige Syed RN Cardiac Clearance; Medication Management 05/09/2024 Telephone Central Scheduling [address] [place] [address] Agnes Turner Anticoagulation 04/25/2024 Refill [facility] [address] [place] [address] Stevie Cardenas, ACUTE SPECIALIST-LOCKSTITCH SLEEVE SETTER from Last 3 Months Immunizations Immunization Administration Dates Next Due Influenza Vaccine 11/12/2014 Family History Medical History Relation Name Comments Diabetes Father Dysrhythmia Father Dysrhythmia Mother Stroke Mother Relation Name Status Comments Father Mother Alive Social History Tobacco Use Types Packs/Day Years Used Date Smoking Tobacco: Never Smokeless Tobacco: Never Tobacco Cessation:Counseling Given: Not Answered Alcohol Use Standard Drinks/Week Comments Yes 3 (1 standard drink = 0.6 oz pur e alcohol) Social Sex and Gender Information Value Date Recorded Sex Assigned at Not on file Legal Sex Male 10:12 AM EST Gender Identity Male Sexual Orientation Straight 04/13/2024 8: 19 AM EST Last Filed Vital Signs Vital Sign Reading Time Taken Comments Blood Pressure 138/68 04/14/2024 1:22 PM EST Pulse 46 04/14/2024 1:22 PM EST Temperature 36.8 C (98.3 F) 11/30/2023 12:28 PM EDT Respiratory Rate 16 11/30/2023 12:28 PM EDT Oxygen Saturation 98% 11/30/2023 12:28 PM EDT Inhaled Oxygen Concentration - - Weight 139.7 kg (308 lb) 04/14/2024 1:22 PM EST Height 188 cm (6' 2 ) 04/14/2024 1:22 PM EST Body Mass Index 39.54 04/14/2024 1:22 PM EST Plan of Treatment Upcoming Encounters Date Type Department Care Team (Late st Contact Info) Description 10/28/2024 11:15 AM EDT Office Visit [facility] at [address] [address] Shanon Magallon MD [address] [place] [address] Health Maintenance Due Date Last Done Comments HEPATITIS C VIRUS SCREENING 1953 LIPID SCREENING 1993 COLORECTAL CANCER SCREENING DISCUSSION 1998 ZOSTER (SHINGLES) VACCINE (2 of 3) 01/15/2017 11/20/2016 COVID-19 VACCINE ( season) 2023 11/15/2021, 12/03/2020, 05/11/2020, Additional history exists PNEUMOCOCCAL VACCINE SERIES (3 of 3 - PCV20 or PCV21) 10/29/2024 10/30/2019, 11/20/2012 RSV VACCINE (1 - 1-dose 75+ series) 2028 TETANUS 06/02/2030 06/02/2020 TDAP (ADULT) Completed 06/02/2020 INFLUENZA VACCINE Completed 12/04/2023, , 12/20/2021, Additional history exists HEP B VACCINE Aged Out No longer elig ible based on patient's age to complete this topic Medical Devices Implanted Type Area Global Mobility Specialist Device Identifier Shelf Expiration Date Model / Serial / Lot Coronary Stent 23mm 3.5mm Xience Skypoint Multi-Link 145cm - [id number] Implanted:Qty: 1 on 11/10/2021 by Ashley Charles All at [facility] 04/21/2023 [id number] Insurance MEDICARE A AND B MEDICARE SUPPLEMENT Advance Directives For more information, please contact: [phone] (7:30 AM - 6PM [facility], Sunday-Sunday) * Full Code (Latest Code Status on File) Date Activated Date Inactivated Comments 02/02/2017 8:26 AM 02/02/2017 11:58 AM * Full Code Date Activated Date Inactivated Comments 12/23/2015 8:58 AM 12/23/2015 4:43 PM * Full Code Date Activated Date Inactivated Comments 09/13/2015 12:33 PM 09/14/2015 1:25 PM * Full Code Date Activated Date Inactivated Comments 01/11/2015 7:43 PM 01/12/2015 12:35 PM * Full Code Date Activated Date Inactivated Comments 12/13/2014 4:37 PM 12/17/2014 7:00 PM Care Teams Hand Glove Cleaner Relationship Specialty Start Date End Date Ted Perry II, MD [address] [place] [address] PCP - General Internal Medicine 12/15/14 Ted Ackerman MD [address] [place] [address] Cardiovascular Disease 12/15/14
--- OUTSIDE RECORDS SUMMARY | 2024-07-23 09:42 | XMS_ITS | Encounter Summary ---
Author Organization [facility] Healthcare Address [address] [place] [address] Care Team Providers Care Texturing Machine Fixer Name Role Phone Ted Perry MD Unavailable [phone] Ted Perry MD Primary Care Provider [phone] Reason for Visit * Reason Onset Date Comments Med Refill 07/15/2024 Encounter Details Date Type Department Care Team (Late st Contact Info) Description 07/15/2024 Refill [facility] [address] [place] [address] Vanesa Randle LPN [address] [place] [address] Paroxysmal atrial fibrillation (CMS/HCC) Social History Tobacco Use Types Packs/Day Years Used Date Smoking Tobacco: Never Smokeless Tobacco: Never Alcohol Use Standard Drinks/Week Comments Not Currently 0 (1 standard drink = 0.6 oz pure alcohol) Caffeine intake : 2-3 cups per day soda Humiliation, Afraid, Rape, and Kick questionnair e Answer Date Recorded Within the last year, have y ou been afraid of your partner or ex-partner? No 10/18/2022 Within the last year, have y ou been humiliated or emotionally abused in other ways by your partner or ex-partner? No Within the last year, have y ou been kicked, hit, slapped, or otherwise physically hurt by your partner or ex-partner? No 10/18/2022 Within the last year, have y ou been raped or forced to have any kind of sexual activity by your partner or ex-partner? No 10/18/2022 Social Connection and Isolat ion Panel [NHANES] Answer Date Recorded In a typical week, how many times do you talk on the phone with family, friends, or neighbors? More than three times a week 10/18/2022 How often do you get togethe r with friends or relatives? More than three times a week 10/18/2022 How often do you attend chur ch or congregational services? 1 to 4 times per year 10/18/2022 Do you belong to any clubs o r organizations such as congregation groups, unions, fraternal or athletic groups, or school groups? Yes 10/18/2022 How often do you attend meet ings of the clubs or organizations you belong to? 1 to 4 times per year 10/18/2022 Are you , , di vorced, , never , or living with a partner? 10/18/2022 AUDIT-C Answer Date Recorded Q1: How often do you have a drink containing alc ohol? 2-3 times a week 10/18/2022 Q2: How many drinks containi ng alcohol do you have on a typical day when you are drinking? 3 or 4 10/18/2022 Q3: How often do you have si x or more drinks on one occasion? Never 10/18/2022 Overall Financial Resource Strain (CARDIA) Answe r Date Recorded How hard is it for you to pa y for the very basics like food, housing, medical care, and heating? Not very hard 10/18/2022 [facility] of Occupat ional Health - Occupational Stress Questionnaire Answer Date Recorded Do you feel stress - tense, restless, nervous, or anxious, or unable to sleep at night because your mind is troubled all the time - these days? Not at all 10/18/2022 Exercise Vital Sign Answer Date Recorde d On average, how many days pe r week do you engage in moderate to strenuous exercise (like a brisk walk)? 5 days 10/18/2022 On average, how many minutes do you engage in exercise at this level? 40 min 10/18/2022 Hunger Vital Sign Answer Date Recorded Within the past 12 months, y ou worried that your food would run out before you got the money to buy more. Never true 10/19/19 23 Within the past 12 months, t he food you bought just didn't last and you didn't have money to get more. Never true 10/18/2022 PRAPARE - Transportation Answer Date Re corded In the past 12 months, has l ack of transportation kept you from medical appointments or from getting medications? No 07/2022 In the past 12 months, has l ack of transportation kept you from meetings, work, or from getting things needed for daily living? No 10/18/2022 Housing Stability Vital Sign Answer Iggy e Recorded In the last 12 months, was t here a time when you were not able to pay the mortgage or rent on time? No 10/18/2022 Number of Places Lived in the Last Year Not on f ile 10/18/2022 In the last 12 months, was t here a time when you did not have a steady place to sleep or slept in a alf (including now)? No 10/18/2022 Sex and Gender Information Value Date Recorded Sex Assigned at Not on file Legal Sex Male 7:15 PM EDT Gender Identity Not on file Sexual Orientation Not on file documented as of this encounter Plan of Treatment Upcoming Encounters Date Type Department Care Team (Late st Contact Info) Description 03/26/2025 10:00 AM EST Office Visit [facility] [address] [place] [address] Ai Galvez PA [address] [place] [address] 10/07/2025 9:00 AM EDT Office [facility] [address] [place] [phone] Jr. Emmanuel Clay DO [address] [place] [address] documented as of this encounter Visit Diagnoses Diagnosis Paroxysmal atrial fibrillation (CMS/HCC) Atrial fibrillation documented in this encounter Care Teams Texturing Machine Fixer Relationship Specialty Start Date End Date Ted Perry MD [address] [place] [address] PCP - ACO Reach 07/06/22 Ted Perry MD [address] [facility] [address] [place] [id number] PCP - General Internal Medicine 06/20/22 documented as of this encounter
--- OUTSIDE RECORDS SUMMARY | 2024-07-23 09:42 | XMS_ITS | Encounter Summary ---
Author Organization [facility] Address [address] [place] [address] Care Team Providers Care Transport Driver Name Role Phone Ted Perry MD Unavailable [phone] Ted Perry MD Primary Care Provider [phone] Encounter Details Date Type Department Care Team (Late st Contact Info) Description 07/04/2024 Abstract [facility] 112 [facility] 110 [place] [address] Ted Perry MD 112 [facility] 110 [place], [place] [id number] Social History Tobacco Use Types Packs/Day Years [...] often do you attend chur ch or sikhism services? 1 to 4 times per year 10/18/2022 Do you belong to any clubs o r organizations such as tenriism groups, unions, fraternal or athletic groups, or [...] care, and heating? Not very hard 10/18/2022 [facility] of Occupat ional Health - Occupational Stress [...] place to sleep or slept in a fpc (including now)? No 10/18/2022 Sex and Gender [...] [address] [place] [address] Ai Galvez PA [address] [place] [address] 10/07/2025 9:00 AM EDT Office Visit [facility] [address] [place] [address] Jr. Emmanuel Clay DO [address] [place] [address] documented as of this encounter Visit Diagnoses Not on filedocumented in this encounter Care Teams Transport Driver Relationship Specialty Start Date End Date Ted Perry MD [address] [place] [address] PCP - ACO Reach 07/06/22 Ted Perry MD 112 [facility] 110 [place] [address] PCP - General Internal Medicine 06/20/22 documented as of this encounter
--- OUTSIDE RECORDS SUMMARY | 2024-07-23 09:42 | XMS_ITS | Encounter Summary ---
Author Organization [facility] Address [address] [place] [address] Care Team Providers Care Inserting Machine Operator Name Role Phone Ted Perry MD Unavailable [phone] Ted Perry MD Primary Care Provider Encounter Details Date Type Department Care Team (Late st Contact Info) Description 07/11/2024 Abstract [facility] 112 [facility] [address] [place] [address] Ted Perry MD 112 [facility] 110 [place], [place] [id number] Social History Tobacco Use Types Packs/Day Years [...] often do you attend chur ch or buddhist services? 1 to 4 times per year 10/18/2022 Do you belong to any clubs o r organizations such as anglican groups, unions, fraternal or athletic groups, or [...] care, and heating? Not very hard 10/18/2022 [facility] of Occupat ional Health - Occupational Stress [...] [address] [place] [address] Ai Galvez PA [address] [place] [address] 10/07/2025 9:00 AM EDT Office Visit [facility] [address] [place] [address] Jr. Emmanuel Clay DO [address] [place] [address] documented as of this encounter Visit Diagnoses Not on filedocumented in this encounter Care Teams Inserting Machine Operator Relationship Specialty Start Date End Date Ted Perry MD [address] [place] [address] PCP - ACO Reach 07/06/22 Ted Perry MD 112 [facility] [address] [place] [address] PCP - General Internal Medicine 06/20/22 documented as of this encounter
--- OUTSIDE RECORDS SUMMARY | 2024-07-23 09:42 | XMS_ITS | Encounter Summary ---
Author Organization [facility] Address [address] [place] [address] Care Team Providers Care Finance Professional Name Role Phone Ted Perry MD Unavailable [phone] Ted Perry MD Primary Care Provider [phone] Encounter Details Date Type Department Care Team (Late st Contact Info) Description 07/14/2024 Clinisync Result Encounter [facility] External Department Unsolicited Provider, Generic External Data Social History Tobacco Use Types Packs/Day Years [...] often do you attend chur ch or yazidi services? 1 to 4 times per year 10/18/2022 Do you belong to any clubs o r organizations such as methodist groups, unions, fraternal or athletic groups, or [...] care, and heating? Not very hard 10/18/2022 [facility] of Occupat ional Health - Occupational Stress [...] DERM [address] [place] [address] Ai Galvez PA [address] [place] [address] 10/07/2025 9:00 AM EDT Office Visit [facility] [address] [place] [address] Jr. Emmanuel Clay, DO [address] [place] [address] documented as of this encounter Procedures Procedure Name Priority Date/Time Associated Diagnosis Comments [facility] CBC W AUTO DIFF BLD Routine 07/14/2024 2:26 PM EDT [facility] COMP METAB 1999 PNL SERPL Routine 07/14/2024 2:26 PM EDT documented in this encounter Results * (ABNORMAL) [facility] COMP METAB 2000 PNL SERPL (07/14/2024 2:26 PM EDT) [facility] PROT SERPL-MCNC 6.7 6.3 - 8.0 g/dL [facility] ALBUMIN SERPL-[facility] 4.0 3.9 - 4.9 g/dL [facility] CALCIUM SERPL-[facility] 9.3 8.5 - 10.2 mg/dL [facility] BILIRUB SERPL-[facility] 1.0 0.2 - 1.3 mg/dL [facility] ALP SERPL-[facility] 97 38 - 113 U/L [facility] AST SERPL-[facility] 21 14 - 40 U/L [facility] ALT SERPL-[facility] 36 10 - 54 U/L [facility] GLUCOSE SERPL-[facility] 91 74 - 99 mg/dL [facility] Comment: The [place] Diabetes Association (ADA) provides guidance for cutoff values for fasting glucose and random glucose. The ADA defines fasting as no caloric intake for at least 8 hours. Fasting plasma glucose results between 100 to 125 mg/dL indicate increased risk for diabetes (prediabetes). Fasting plasma glucose results greater than or equal to 126 mg/dL meet the criteria for diagnosis of diabetes. In the absence of unequivocal hyperglycemia, results should be confirmed by repeat testing. In a patient with classic symptoms of hyperglycemia or hyperglycemic crisis, random plasma glucose results greater than or equal to 200 mg/dL meet the criteria for diagnosis of diabetes. Reference: Standards of Medical Care in Diabetes 2016, [place] [employer] Association. Diabetes Care. 2016.39(Suppl 1). [facility] BUN SERPL-[facility] 24 9 - 24 mg/dL [facility] CREAT SERPL-[facility] 1.06 0.73 - 1.22 mg/dL [facility] SODIUM SERPL-SCNC 131(L) 136 - 144 mmol/L [facility] POTASSIUM SERPL-SC[facility] 4.4 3.7 - 5.1 mmol/L [facility] CHLORIDE SERPL-[facility] 96(L) 98 - 107 mmol/L [facility] CO2 SERPL-SC[facility] 26 22 - 30 mmol/L [facility] ANION GAP SERPL-SCNC 9 8 - 15 mmol/L [facility] CREATININE + EGFR PNL SERPLBLD 75 >=60 mL/min/1.7 3m??? [facility] Comment:Estimated Glomerular Filtration Rate (eGFR) is calculated using the 2020 CKD-EPI creatinine equation. This equation utilizes serum creatinine, sex, and age as parameters. The creatinine assay has traceable calibration to isotope dilution- mass spectrometry. Refer to KDIGO guidelines for clinical interpretation. In patients with unstable renal function, e.g. those with acute kidney injury, the eGFR may not accurately reflect actual GFR. 07/14/2024 2:26 PM EDT 07/14/2024 2:26 PM EDT Narrative KAYLEIGH - 07/14/2024 3:02 PM EDT Specimen Type: BLOOD SPECIMEN Ordering Facility: [facility] Address: [address] [place] [address] Original Ordering Provider: RALPH FAM us Generic External Data Provider KAYLEIGH anderson Result [facility]INIS[facility]ST[facility] [address] [place] [address] * (ABNORMAL) [facility] CBC W AUTO DIFF BLD (07/14/2024 2:26 PM EDT) [facility] WBC # BLD AUTO 4.04 3.70 - 11.00 k/uL [facility] RBC # BLD AUTO 4.04(L) 4.20 - 6.00 m/uL [facility] HGB BLD-MCNC 13.0 13.0 - 17.0 g/dL [facility] HCT VFR BLD AUTO 36.7(L) 39.0 - 51.0 % [facility] MCV RBC AUTO 90.8 80.0 - 100.0 fL [facility] MCH RBC QN AUTO 32.2 26.0 - 34.0 pg [facility] MCHC RBC AUTO-MCNC 35.4 30.5 - 36.0 g/dL [facility] RDW RBC-RTO 13.3 11.5 - 15.0 % [facility] PLATELET # BLD AUTO 105(L) 150 - 400 k/uL [facility] PMV BLD AUTO 8.3(L) 9.0 - 12.7 fL [facility] NEUTROPHILS/LEUK NFR BLD AUTO 80.0 % [facility] NEUTROPHILS # BLD AUTO 3.23 1.45 - 7.50 k/uL [facility] LYMPHOCYTES/LEUK NFR BLD AUTO 8.4 % [facility] LYMPHOCYTES # BLD AUTO 0.34(L) 1.00 - 4.00 k/uL [facility] MONOCYTES/LEUK NFR BLD AUTO 9.7 % [facility] MONOCYTES # BLD AUTO 0.39 <0.87 k/uL [facility] EOSINOPHIL/LEUK NFR BLD AUTO 1.5 % [facility]CF EOSINOPHIL # BLD AUTO 0.06 <0.46 k/uL [facility] BASOPHILS/LEUK NFR BLD AUTO 0.2 % [facility]CF BASOPHILS # BLD AUTO <0.03 <0.11 k/uL [facility] IMM GRANULOCYTES/LEUK NFR BLD AUTO 0.2 % [facility] IMM GRANULOCYTES # BLD AUTO <0.03 <0.10 k/uL [facility] NRBC/100 WBC BLD-RTO 0.0 /100 WBC [facility] NRBC # BLD AUTO <0.01 <0.01 k/uL [facility] DIFFERENTIAL METHOD BLD Auto [facility] 07/14/2024 2:26 PM EDT 07/14/2024 2:26 PM EDT Narrative CLINISYNC - 07/14/2024 2:31 PM EDT Specimen Type: BLOOD SPECIMEN Ordering Facility: [facility] Address: [address] [place], [place] [id number] Original Ordering Provider: RALPH FAM us Generic External Data Provider [facility] F inal Result Performing Organization Address City/State/[facility] Co de Phone Number [facility] [address] [place] [address] documented in this encounter Visit Diagnoses Not on filedocumented in this encounter Care Teams Finance Professional Relationship Specialty Start Date End Date Ted Perry MD [address] [place] [address] PCP - ACO Reach 07/06/22 Ted Perry MD [address] [place] [address] PCP - General Internal Medicine 06/20/22 documented as of this encounter
--- OUTSIDE RECORDS SUMMARY | 2024-07-23 09:42 | XMS_ITS | Encounter Summary ---
Author Organization [facility] Address [address] [place] [address] Care Team Providers Care Furnace Attendant Name Role Phone Ted Perry MD Unavailable [phone] Ted Perry MD Primary Care Provider [phone] Encounter Details Date Type Department Care Team (Late st Contact Info) Description 07/14/2024 Abstract [facility] 112 [facility] 110 [place] [address] Ted Perry MD [address] [facility] [address] [place], [place] [id number] Social History Tobacco Use Types Packs/Day Years [...] often do you attend chur ch or anabaptism services? 1 to 4 times per year 10/18/2022 Do you belong to any clubs o r organizations such as quaker groups, unions, fraternal or athletic groups, or [...] care, and heating? Not very hard 10/18/2022 [facility] of Occupat ional Health - Occupational [...] [address] [place] [address] Ai Galvez PA [address] [place] [address] 10/07/2025 9:00 AM EDT Office Visit [facility] [address] [place] [address] Jr. Emmanuel Clay DO [address] [place] [address] documented as of this encounter Visit Diagnoses Not on filedocumented in this encounter Care Teams Furnace Attendant Relationship Specialty Start Date End Date Ted Perry MD [address] [place] [address] PCP - ACO Reach 07/06/22 Ted Perry MD 112 [facility] [address] [place] [address] PCP - General Internal Medicine 06/20/22 documented as of this encounter
--- OUTSIDE RECORDS SUMMARY | 2024-07-23 09:42 | XMS_ITS | Encounter Summary ---
Author Organization [facility] Address [address] [place] [address] Care Team Providers Care Sales Representative Printing Supplies Name Role Phone Orlando [place] MD, Daniel B Primary Care Provider [phone] Hue Anglin RN Unavailable Unavailable Abel Martínez MD Unavailable [phone] Jolanta Queen Unavailable Unavaila Mariia Estrada RD Unavailable [phone] Sheng Bill MD Unavailable [phone] Belinda Nicholson MD Unavailable [phone] Maricel Fox RN Unavailable [phone] Unavailable Lluvia Graham Unavailable Unavailable Olivia Gonzales APRN.FITNESS/WELLNESS DIRECTOR Unavailable [phone] Source Comments In the event this information is protected by the Federal Confidentiality of Alcohol and Drug AbusePatient Records regulations: The Federal rules restrict any use of the information to criminally investigate or prosecute any alcohol or drug abuse patient.[facility] Encounter Details Date Type Department Care Team (Late st Contact Info) Description 01/28/2024 Patient Msg Hematology [address] [facility] [address] [place], [place] [id number] Provider, Ccf CT scan Social History Tobacco Use Types Packs/Day Years Used Date Smoking Tobacco: Never Passive Smoke Exposure: Past Smokeless Tobacco: Never Alcohol Use Standard Drinks/Week Comments Yes 0 (1 standard drink = 0.6 oz pur e alcohol) rare PHQ-2 Answer Date Recorded PHQ-2 score 0 09/04/2023 Area Deprivation Index Answer Date Colby rded National Score (1-100), lower number is lower ri sk 87 07/03/2022 State Score (1-10), lower number is lower risk 8 07/03/2022 Data from: https://www.neighborhoodatlas.medicine.[facility].edu/. Last address used for calculation [address] 07/03/2022 Sex and Gender Information Value Date Recorded Sex Assigned at Not on file Legal Sex Male 7:29 AM EST Gender Identity Not on file Sexual Orientation Not on file documented as of this encounter Plan of Treatment Upcoming Encounters Date Type Department Care Team (Latest Contact Info) Description 07/23/2024 1:30 PM EDT Infusion Center Hematology/Oncology [address] [place] [address] [place] [address] IV FLUIDS 07/23/2024 3:00 PM EDT Appointment Radiation Oncology [address] [place] [address] [place] [address] neck 07/25/2024 2:30 PM EDT Education Nutrition Therapy [place] [address] Tamica Rosario, IVIS [address] [place] [address] follow up PEG 07/25/2024 2:30 PM EDT Infusion Center Hematology/Oncology [facility] [place] [address] Hydration to be givenin Radiology 07/28/2024 2:30 PM EDT Office Visit Radiation Oncology [facility] [place] [address] Belinda Nicholson MD [address] [facility] [facility] [place] [address] final radiation follow up, 1-2 weeks 07/28/2024 3:00 PM EDT [facility] Hematology/Oncology [address] [place] [address] IV FLUIDS 08/14/2024 9:45 AM EDT Office Visit [facility] [address] [place] [address] 4 week follow up lab 08/14/2024 10:00 AM EDT Visit (SP) Office Hematology/Oncology [address] [place] [address] Olivia Gonzales APRN.FITNESS/WELLNESS DIRECTOR [address] [place] [address] 4 week follow up lab documented as of this encounter Visit Diagnoses Not on filedocumented in this encounter Care Teams Sales Representative Printing Supplies Relationship Specialty Start Date End Date Ted Perry II, MD PCP - General Internal Medicine 12/03/12 Hue Anglin, SIDNEY Specialty Exchange Teller Hematology/Oncology 10/11/23 06/03/24 Abel [place] [address] [place] [address] Physician Hematology/Oncology 10/11/23 06/03/24 Jolanta Queen LISW Studio Designer 10/29/[address] [place] [address] [place] [address] Registered Dietitian Nutrition 06/02/24 Sheng Bill MD [address] [place] [address] [place] [address] Physician Hematology/Oncology 06/04/24 Belinda Nicholson MD [address] [place] [address] [place] [address] Physician Radiation Oncology 06/04/24 Maricel Fox, RN [address] [facility] [facility] [place] [address] Specialty Exchange Teller Hematology/Oncology 06/04/[address] [place] [address] Registered Dietitian Nutrition 06/25/24 Lluvia Graham LSW Studio Designer 06/26/24 Olivia Gonzales APRN.FITNESS/WELLNESS DIRECTOR [address] [facility] [facility] [place] [address] Nurse Practitioner Hematology/Oncology 07/03/24 documented as of this encounter
--- OUTSIDE RECORDS SUMMARY | 2024-07-23 09:42 | XMS_ITS | Encounter Summary ---
Author Organization [facility] Address [address] [place] [address] Care Team Providers Care Craft Artist Name Role Phone Ted ePrry MD Unavailable [phone] Ted Perry MD Primary Care Provider [phone] Encounter Details Date Type Department Care Team (Late st Contact Info) Description 04/15/2024 Abstract [facility] [address] [facility] 110 [place] [address] Ted Perry MD [address] [place] [facility] 110 [place], [place] [id number] Social History Tobacco Use Types Packs/Day Years [...] often do you attend chur ch or restorationist services? 1 to 4 times per year 10/18/2022 Do you belong to any clubs o r organizations such as gnosticism groups, unions, fraternal or athletic groups, or [...] care, and heating? Not very hard 10/18/2022 [facility] of Occupat ional Health - Occupational Stress [...] place to sleep or slept in a half-way (including now)? No 10/18/2022 Sex and Gender [...] [address] [place] [address] Ai Galvez PA [address] [place] [address] 10/07/2025 9:00 AM EDT Office Visit [facility] [address] [place] [address] Jr. Emmanuel Clay DO [address] [place] [address] documented as of this encounter Visit Diagnoses Not on filedocumented in this encounter Care Teams Craft Artist Relationship Specialty Start Date End Date Ted Perry MD [address] [place] [address] PCP - ACO Reach 07/06/22 Ted Perry MD 112 [facility] 110 [place] [address] PCP - General Internal Medicine 06/20/22 documented as of this encounter
--- OUTSIDE RECORDS SUMMARY | 2024-07-23 09:42 | XMS_ITS | Encounter Summary ---
Author Organization [facility] Address [address] [place] [address] Care Team Providers Care Warp Scouring Vat Tender Name Role Phone Ted Perry MD Unavailable [phone] Ted Perry MD Primary Care Provider [phone] Encounter Details Date Type Department Care Team (Late st Contact Info) Description 04/01/[address] [facility] 112 [facility] 110 [place] [address] Ted Perry MD [address] [place] [facility] 110 [place], [place] [id number] Social History Tobacco Use Types Packs/Day Years [...] often do you attend chur ch or hoahaoism services? 1 to 4 times per year 10/18/2022 Do you belong to any clubs o r organizations such as holiness groups, unions, fraternal or athletic groups, or [...] care, and heating? Not very hard 10/18/2022 [facility] of Occupat ional Health - [...] place to sleep or slept in a long term (including now)? No 10/18/2022 Sex and Gender [...] [address] [place] [address] Ai Galvez PA [address] [place] [address] 10/07/2025 9:00 AM EDT Office Visit [facility] [address] [place] [address] Jr. Emmanuel Clay DO [address] [place] [address] documented as of this encounter Visit Diagnoses Not on filedocumented in this encounter Care Teams Warp Scouring Vat Tender Relationship Specialty Start Date End Date Ted Perry MD [address] [place] [address] PCP - ACO Reach 07/06/22 Ted Perry MD 112 [facility] 110 [place] [address] PCP - General Internal Medicine 06/20/22 documented as of this encounter
--- OUTSIDE RECORDS SUMMARY | 2024-07-23 09:42 | XMS_ITS | Encounter Summary ---
Author Organization [facility] Address [address] [place] [address] Care Team Providers Care Manager Linux Name Role Phone Orlando [place] MD, Daniel B Primary Care Provider [phone] Hue Anglin RN Unavailable Unavailable Abel Martínez MD Unavailable [phone] Jolanta Queen Unavailable Unavaila Mariia Estrada RD Unavailable [phone] Sheng Bill MD Unavailable [phone] Belinda Nicholson MD Unavailable [phone] Maricel Fox RN Unavailable [phone] Unavailable Lluvia Graham Unavailable Unavailable Olivia Gonzales APRN.[employer] [facility] Unavailable [phone] Source Comments In the event this information is protected by the Federal Confidentiality of Alcohol and Drug AbusePatient Records regulations: The Federal rules restrict any use of the information to criminally investigate or prosecute any alcohol or drug abuse patient.[facility] Encounter Details Date Type Department Care Team (Late st Contact Info) Description 02/23/2024 [place] [address] Provider, [facility]cf Actionable Imaging Result Notification Patient Outreach Social History Tobacco Use Types Packs/Day Years [...] is lower risk 8 07/03/2022 Data from: https://www.neighborhoodatlas.medicine.[facility].edu/. Last address used for calculation [address] [...] 07/23/2024 1:30 PM EDT Infusion Center Hematology/Oncology [address] [place] [address] [place] [address] IV FLUIDS 07/23/2024 3:00 PM EDT Appointment Radiation Oncology [facility] [place] [address] neck 07/25/2024 2:30 PM EDT Education Nutrition Therapy [address] [place], [place] [address] Tamica Rosario, RD [address] [place] [address] follow up PEG 07/25/2024 2:30 PM EDT Infusion Center Hematology/Oncology [facility] [place] [address] Hydration to be givenin Radiology 07/28/2024 2:30 PM EDT Office Visit Radiation Oncology [facility] [place] [address] Belinda Nicholson MD [address] [place] [address] [place] [address] final radiation follow up, 1-2 weeks 07/28/2024 3:00 PM EDT [facility] Hematology/Oncology [address] [place] [address] IV FLUIDS 08/14/2024 9:45 AM EDT Office Visit [facility] [address] [place] [address] 4 week follow up lab 08/14/2024 10:00 AM EDT Visit (SP) Office Hematology/Oncology [address] [place] [address] Olivia Gonzales, JAGRUTI.[employer] [address] [place] [address] 4 week follow up lab documented as of this encounter Visit Diagnoses Not on filedocumented in this encounter Care Teams Manager Linux Relationship Specialty Start Date End Date Ted Perry II, MD PCP - General Internal Medicine 12/03/12 Hue Anglin RN Specialty Engineer Remote Control Diesel Hematology/Oncology 10/11/23 06/03/24 Abel Martí[place] [address] [place] [address] Physician Hematology/Oncology 10/11/23 06/03/24 Jolanta Queen LISW Product Info Specialist 10/29/[address] [place] [address] [place] [address] Registered Dietitian Nutrition 06/02/24 Sheng Bill MD [address] [place] [address] [place] [address] Physician Hematology/Oncology 06/04/24 Belinda Nicholson MD [address] [place] [address] [place] [address] Physician Radiation Oncology 06/04/24 Maricel Fox, RN [address] [facility] [place] [address] Specialty Engineer Remote Control Diesel Hematology/Oncology 06/04/[address] [place] [address] Registered Dietitian Nutrition 06/25/24 Lluvia Graham LSW Product Info Specialist 06/26/24 Olivia Gonzales APRN.[employer] [address] [facility] [place] [address] Nurse Practitioner Hematology/Oncology 07/03/24 documented as of this encounter
--- OUTSIDE RECORDS SUMMARY | 2024-07-23 09:42 | XMS_ITS | Encounter Summary ---
Author Organization [facility] Address [address] [place] [address] Care Team Providers Care Family Service Caseworker Name Role Phone Ted Perry MD Unavailable [phone] Ted Perry MD Primary Care Provider [phone] Encounter Details Date Type Department Care Team (Late st Contact Info) Description 07/17/2024 Clinisync Result Encounter [facility] External Department Unsolicited [...] often do you attend chur ch or mandaeism services? 1 to 4 times per year 10/18/2022 Do you belong to any clubs o r organizations such as yarsanism groups, unions, fraternal or athletic groups, or [...] care, and heating? Not very hard 10/18/2022 [facility] of Occupat ional Health - Occupational Stress [...] place to sleep or slept in a detention (including now)? No 10/18/2022 Sex and Gender [...] DERM [address] [place] [address] Ai Galvez PA [address] [place] [address] 10/07/2025 9:00 AM EDT Office Visit [facility] [address] [place] [address] Jr. Emmanuel Clay, DO [address] [place] [address] documented as of this encounter Procedures Procedure Name Priority Date/Time Associated Diagnosis Comments [facility] DIRECT RENIN PLASMA Routine 07/17/2024 8:24 AM EDT [facility] CBC W AUTO DIFF BLD Routine 07/17/2024 8:24 AM EDT [facility] BAS METAB PNL BLD Routine 07/17/2024 8:24 AM EDT [facility] COMP METAB 2000 PNL SERPL Routine 07/17/2024 8:24 AM EDT documented in this encounter Results * [facility] DIRECT RENIN PLASMA (07/17/2024 8:24 AM EDT) [facility] DIRECT RENIN 36.7 3.6 - 81.6 pg/mL CCF Comment: A ratio of aldosterone in ng/dL to direct renin in pg/mL greater than or equal to 3.8 is a positive screening test result for primary aldosteronism, when aldosterone is greater than or equal to 15 ng/dL. The reference interval for direct renin is based on an upright position. The supine reference intervals are: Age <41 years: 3.2-33.2 pg/mL Age >=41 years: 2.5-45.1 pg/mL [facility] PATIENT UPRIGHT OR SUPINE Upright [facility] 07/17/2024 8:24 AM EDT 07/17/2024 2:33 PM EDT Narrative KAYLEIGH - 07/18/2024 10:45 AM EDT Specimen Type: BLOOD SPECIMEN Ordering Facility: [facility] Address: [address] [place] [address] Original Ordering Provider: BENJY MORATAYA us Generic External Data Provider KAYLEIGH anderson Result [facility] [address] [place] [address] [place] [address] * (ABNORMAL) [facility] COMP METAB 2000 PNL SERPL (07/17/2024 8:24 AM EDT) [facility] PROT SERPL-MCNC 6.9 6.3 - 8.0 g/dL CCF [facility] ALBUMIN SERPL-MCNC 3.9 3.9 - 4.9 g/dL CCF [facility] CALCIUM SERPL-MCNC 9.4 8.5 - 10.2 mg/dL CCF [facility] BILIRUB SERPL-MCNC 1.4(H) 0.2 - 1.3 mg/dL CCF CCF ALP SERPL-CCNC 89 38 - 113 U/L CCF CCF AST SERPL-CCNC 23 14 - 40 U/L CCF CCF ALT SERPL-CCNC 38 10 - 54 U/L CCF CCF GLUCOSE SERPL-MCNC 91 74 - 99 mg/dL CCF Comment: The [place] Diabetes Association (ADA) provides guidance for cutoff [...] Standards of Medical Care in Diabetes 2016, [place] [employer] Association. Diabetes Care. 2016.39(Suppl 1). [facility] BUN SERPL-MC[facility] 19 9 - 24 mg/dL C[facility] CREAT SERPL-MCNC 1.08 0.73 - 1.22 mg/dL CCF CCF SODIUM SERPL-SCNC 132(L) 136 - 144 mmol/L CCF CCF POTASSIUM SERPL-SCNC 4.3 3.7 - 5.1 mmol/L CCF CCF CHLORIDE SERPL-SCNC 97(L) 98 - 107 mmol/L CCF CCF CO2 SERPL-SCNC 23 22 - 30 mmol/L CCF CCF ANION GAP SERPL-SCNC 12 8 - 15 mmol/L CCF CCF CREATININE + EGFR PNL SERPLBLD 74 >=60 mL/min/1.7 3m??? CCF Comment:Estimated Glomerular Filtration [...] eGFR may not accurately reflect actual GFR. 07/17/2024 8:24 AM EDT 07/17/2024 2:18 PM EDT Narrative CLINISYNC - 07/17/2024 6:13 PM EDT Specimen Type: BLOOD SPECIMEN Ordering Facility: [facility] Address: [address] [place] [address] Original Ordering Provider: RADHA MARTIN us Generic External Data Provider KAYLEIGH anderson Result KAYLEIGH [facility] [address] [facility] [address] [place] [address] * (ABNORMAL) [facility] BAS METAB PNL BLD (07/17/2024 8:24 AM EDT) [facility] SODIUM BLD-SCNC 133(L) 138 - 146 mmol/L CCF CCF CHLORIDE BLD-SCNC 97(L) 98 - 109 mmol/L CCF CCF POTASSIUM BLD-SCNC 4.0 3.5 - 4.9 mmol/L CCF CCF CA-I BLD-SCNC 1.23 1.12 - 1.32 mmol/L CCF Comment:Please note: This va lue represents ionized calcium not total calcium. C[facility] CO2 BLD-SCNC 24 24 - 29 mmol/L CCF CCF GLUCOSE BLD-MCNC 96 70 - 105 mg/dL CCF CCF BUN BLD-MCNC 21 8 - 26 mg/dL CCF CCF CREAT BLD-MCNC 1.20 0.60 - 1.30 mg/dL CCF CCF ANION GAP BLD-SCNC 12 0 - 15 mmol/L CCF CCF GFR/BSA [place].NON BLK SERPLBLD MDRD-ARV 65 >=60 mL/min/1.7 3m??? CCF Comment:Estimated Glomerular Filtration [...] eGFR may not accurately reflect actual GFR. 07/17/2024 8:24 AM EDT 07/17/2024 8:24 AM EDT Narrative KAYLEIGH - 07/17/2024 8:32 AM EDT Specimen Type: BLOOD SPECIMEN Ordering Facility: [facility] Address: [address] [facility] [place] [address] Original Ordering Provider: VASILIY ROSE us Generic External Data Provider KAYLEIGH anderson Result [facility] [address] [place] [address] * (ABNORMAL) C[facility] CBC W AUTO DIFF BLD (07/17/2024 8:24 AM EDT) [facility] WBC # BLD AUTO 2.41(L) 3.70 - 11.00 k/uL CCF CCF RBC # BLD AUTO 3.97(L) 4.20 - 6.00 m/uL CCF CCF HGB BLD-MCNC 12.9(L) 13.0 - 17.0 g/dL CCF CCF HCT VFR BLD AUTO 35.6(L) 39.0 - 51.0 % CCF [facility]CF MCV RBC AUTO 89.7 80.0 - 100.0 fL CCF CCF MCH RBC QN AUTO 32.5 26.0 - 34.0 pg CCF CCF MCHC RBC AUTO-MCNC 36.2(H) 30.5 - 36.0 g/dL CCF CCF RDW RBC-RTO 13.2 11.5 - 15.0 % CCF CCF PLATELET # BLD AUTO 113(L) 150 - 400 k/uL CCF CCF PMV BLD AUTO 8.4(L) 9.0 - 12.7 fL CCF [facility] NEUTROPHILS/LEUK NFR BLD AUTO 69.3 % CCF CCF NEUTROPHILS # BLD AUTO 1.67 1.45 - 7.50 k/uL CCF [facility]CF LYMPHOCYTES/LEUK NFR BLD AUTO 19.1 % CCF CCF LYMPHOCYTES # BLD AUTO 0.46(L) 1.00 - 4.00 k/uL CCF CCF MONOCYTES/LEUK NFR BLD AUTO 8.7 % CCF CCF MONOCYTES # BLD AUTO 0.21 <0.87 k/uL CCF CCF EOSINOPHIL/LEUK NFR BLD AUTO 2.5 % CCF CCF EOSINOPHIL # BLD AUTO 0.06 <0.46 k/uL CCF CCF BASOPHILS/LEUK NFR BLD AUTO 0.4 % CCF CCF BASOPHILS # BLD AUTO <0.03 <0.11 k/uL CCF IMM GRANULOCYTES/LEUK NFR BLD AUTO 0.0 % CCF IMM GRANULOCYTES # BLD AUTO <0.03 <0.10 k/uL CCF CCF NRBC/100 WBC BLD-RTO 0.0 /100 WBC CCF CCF NRBC # BLD AUTO <0.01 <0.01 k/uL CCF CCF DIFFERENTIAL METHOD BLD Auto [facility]CF 07/17/2024 8:24 AM EDT 07/17/2024 8:24 AM EDT Narrative CLINISYNC - 07/17/2024 8:32 AM EDT Specimen Type: BLOOD SPECIMEN Ordering Facility: [facility] Address: [address] [place], [place] [id number] Original Ordering Provider: RADHA MARTIN us Generic External Data Provider CLINISYNC F inal Result Performing Organization Address City/State/[facility] Co de Phone Number CLINISYNC C[facility] [address] [place] [address] documented in this encounter Visit Diagnoses Not on filedocumented in this encounter Care Teams Family Service Caseworker Relationship Specialty Start Date End Date Ted Perry MD [address] [facility] [address] [place] [address] PCP - ACO Reach 07/06/22 Ted Perry MD [address] [place] [address] PCP - General Internal Medicine 06/20/22 documented as of this encounter
--- OUTSIDE RECORDS SUMMARY | 2024-07-23 09:42 | XMS_ITS | Encounter Summary ---
Author Organization [facility] Address [address] [place] [address] Care Team Providers Care Plastic Cnc Machine Operator Name Role Phone Ted Perry MD Unavailable [phone] Ted Perry MD Primary Care Provider [phone] Encounter Details Date Type Department Care Team (Late st Contact Info) Description 02/22/2024 Clinisync Result Encounter [facility] External Department Unsolicited [...] often do you attend chur ch or cheondoism services? 1 to 4 times per year 10/18/2022 Do you belong to any clubs o r organizations such as taoist groups, unions, fraternal or athletic groups, or [...] care, and heating? Not very hard 10/18/2022 [facility] [place] of Occupat ional Health - Occupational Stress [...] place to sleep or slept in a assisted (including now)? No 10/18/2022 Sex and Gender [...] DERM [address] [place] [address] Ai Galvez PA [address] [place] [address] 10/07/2025 9:00 AM EDT Office Visit [facility] [address] [place] [address] Jr. Emmanuel Clay, DO [address] [place] [address] documented as of this encounter Procedures Procedure Name Priority Date/Time Associated Diagnosis Comments CT CHEST W IV CONTRAST 02/22/2024 10:36 AM EST documented in this encounter Results * (ABNORMAL) CT chest w IV contrast (02/22/2024 10:36 AM EST) Anatomical Region Laterality Modality Body, Chest Computed Tomogra phy 02/22/2024 10:3 6 AM EST Narrative 02/22/2024 12:54 PM EST * * *Final Report* * * DATE OF EXAM: Feb 22 2024 10:36AM [facility] 0539 - CT CHEST W IVCON / PROCEDURE REASON: Renal cell carcinoma of right kidney (HCC) * * * * Physician Interpretation * * * * RESULT: EXAMINATION: CHEST CT WITH CONTRAST CLINICAL HISTORY: Renal cell carcinoma. Technique: Spiral CT acquisition of the chest from the thoracic inlet to the upper abdomen following IV contrast. MQ: CTCW_6 Contrast: 100 mL Omnipaque [address] Radiation dose: Integrated Dose-length product (DLP) for this visit = 2088 mGy*cm CT Dose Reduction Employed: Automated exposure control (AEC) Comparison: Chest CT with contrast from 08/10/2023 RESULT: Limitations: None. Lines, tubes, and devices: None. Lung parenchyma and airways: Pulmonary nodules are present on series 4. For example, -Stable 11 mm nodule in the lingula on slice 64. -15 mm nodule in the posterior right lower lobe on slice 87, previously measured 13 mm. -Stable 6 mm nodule in the medial right upper lobe on slice 22. Calcified granulomas. Pleural space: No pleural effusion. No pleural thickening. Lower neck, lymph nodes, and mediastinum: Limited evaluation of the lower neck demonstrates a 2.3 x 1.8 cm nodular density on slice 1 of series 3. This is not entirely included in the [id number]. It is possible this could represent a vascular structure. However, due to the limited evaluation, the possibility of this representing a lymph node cannot be excluded. Would advise further evaluation with a CT of the neck with intravenous contrast. No suspicious axillary, mediastinal, or hilar lymphadenopathy. Calcified left hilar lymph nodes compatible with old granulomatous disease. Heart, pericardium, and thoracic vessels: No pericardial effusion. Stent in the left anterior descending coronary artery. Bones and soft tissues: No destructive bone lesion. Chest wall is unremarkable. Upper abdomen: A CT of the abdomen and pelvis was performed and will be reported separately. Localizer images: No additional findings. IMPRESSION: 1. Pulmonary nodules are again noted, consistent with metastatic disease. There is a 15 mm nodule in the posterior right lower lobe which is minimally increased in size. Otherwise, the nodules are stable. 2. Limited evaluation of the lower neck demonstrates a 2.3 x 1.8 cm nodular density. This is not entirely included in the dfioz-uc-zqss. It is possible this could represent a vascular structure. However, due to the limited evaluation, the possibility of this representing a lymph node cannot be excluded. Would advise further evaluation with a CT of the neck with intravenous contrast to help differentiate between a possible vein and lymph node in this location. ACTIONABLE RESULT: FOLLOW-UP Acuity: Actionable Findings: Lymphatic System Routing Code: Lymph_1 Recommendation: CT NECK SOFT TISSUE WITH IV CONTRAST Time Frame: 4-6 weeks COMMUNICATION: Results will be communicated with the ordering provider via [email or web address] staff message or phone message by [facility] Support [facility] within 2 business days of report finalization. --END OF FINDING-- Algorithms for management of incidental imaging findings can be found on the [facility] Intranet Sharepoint site at: [email or web address]%20Findi ngs%[email or web address] Transcribe Date/Time: Feb 22 2024 12:36P Dictated by: NEGRITO FIGUEREDO MD This examination was interpreted and the report reviewed and electronically signed by: NEGRITO FIGUEREDO MD on Feb 22 2024 12:52PM EST Thank you for allowing us to participate in the care of your patient. Should there be any questions regarding this interpretation, please call [phone]. If you are unable to reach us at the number above, please feel free to contact [facility] eRadiology at [phone]. [id number]^[email or web address]^SI^ACN ACTIONABLE Procedure Note Radiology, Radiologist, - 02/22/2024 * * *Final Report* * * DATE OF EXAM: Feb 22 2024 10:36AM [facility] 0539 - CT CHEST W IVCON / PROCEDURE REASON: Renal cell carcinoma of right kidney (HCC) * * * * Physician Interpretation * * * * RESULT: EXAMINATION: CHEST CT WITH CONTRAST CLINICAL HISTORY: Renal cell carcinoma. Technique: Spiral CT acquisition of the chest from the thoracic inlet to the upper abdomen following IV contrast. MQ: CTCW_6 Contrast: 100 mL Omnipaque [address] Radiation dose: Integrated Dose-length product (DLP) for this visit = 2088 mGy*cm CT Dose Reduction Employed: Automated exposure control (AEC) Comparison: Chest CT with contrast from 08/10/2023 RESULT: Limitations: None. Lines, tubes, and devices: None. Lung parenchyma and airways: Pulmonary nodules are present on series 4. For example, -Stable 11 mm nodule in the lingula on slice 64. -15 mm nodule in the posterior right lower lobe on slice 87, previously measured 13 mm. -Stable 6 mm nodule in the medial right upper lobe on slice 22. Calcified granulomas. Pleural space: No pleural effusion. No pleural thickening. Lower neck, lymph nodes, and mediastinum: Limited evaluation of the lower neck demonstrates a 2.3 x 1.8 cm nodular density on slice 1 of series 3. This is not entirely included in the [id number]-xc-mcnm. It is possible this could represent a vascular structure. However, due to the limited evaluation, the possibility of this representing a lymph node cannot be excluded. Would advise further evaluation with a CT of the neck with intravenous contrast. No suspicious axillary, mediastinal, or hilar lymphadenopathy. Calcified left hilar lymph nodes compatible with old granulomatous disease. Heart, pericardium, and thoracic vessels: No pericardial effusion. Stent in the left anterior descending coronary artery. Bones and soft tissues: No destructive bone lesion. Chest wall is unremarkable. Upper abdomen: A CT of the abdomen and pelvis was performed and will be reported separately. Localizer images: No additional findings. IMPRESSION: 1. Pulmonary nodules are again noted, consistent with metastatic disease. There is a 15 mm nodule in the posterior right lower lobe which is minimally increased in size. Otherwise, the nodules are stable. 2. Limited evaluation of the lower neck demonstrates a 2.3 x 1.8 cm nodular density. This is not entirely included in the fevzf-cb-elsv. It is possible this could represent a vascular structure. However, due to the limited evaluation, the possibility of this representing a lymph node cannot be excluded. Would advise further evaluation with a CT of the neck with intravenous contrast to help differentiate between a possible vein and lymph node in this location. ACTIONABLE RESULT: FOLLOW-UP Acuity: Actionable Findings: Lymphatic System Routing Code: Lymph_1 Recommendation: CT NECK SOFT TISSUE WITH IV CONTRAST Time Frame: 4-6 weeks COMMUNICATION: Results will be communicated with the ordering provider via [email or web address] staff message or phone message by [facility] Support [facility] within 2 business days of report finalization. --END OF FINDING-- Algorithms for management of incidental imaging findings can be found on the [facility] Intranet Sharepoint site at: [email or web address]%20Incidental%20Findi ngs%20at%20Imaging/Forms/[email or web address].[email or web address] Transcribe Date/Time: Feb 22 2024 12:36P Dictated by: NEGRITO FIGUEREDO MD This examination was interpreted and the report reviewed and electronically signed by: NEGRITO FIGUEREDO MD on Feb 22 2024 12:52PM EST Thank you for allowing us to participate in the care of your patient. Should there be any questions regarding this interpretation, please call [phone]. If you are unable to reach us at the number above, please feel free to contact [facility] eRadiology at [phone]. [id number]^[email or web address]^SI^ACN ACTIONABLE us Generic External Data Provider IMG CT PROCEDURES Final Result documented in this encounter Visit Diagnoses Not on filedocumented in this encounter Care Teams Plastic Cnc Machine Operator Relationship Specialty Start Date End Date Ted Perry MD [address] [facility] [address] [place] [address] PCP - ACO Reach 07/06/22 Ted Perry MD [address] [facility] [address] [place] [address] PCP - General Internal Medicine 06/20/22 documented as of this encounter
--- OUTSIDE RECORDS SUMMARY | 2024-07-23 09:42 | XMS_ITS | Encounter Summary ---
Author Organization [facility] Address [address] [place] [address] Care Team Providers Care Auto Body Repairer Fiberglass Name Role Phone Ted Perry MD Unavailable [phone] Ted Perry MD Primary Care Provider [phone] Encounter Details Date Type Department Care Team (Late st Contact Info) Description 07/10/2024 Clinisync Result Encounter [facility] External Department Unsolicited [...] often do you attend chur ch or orthodox services? 1 to 4 times per year 10/18/2022 Do you belong to any clubs o r organizations such as congregational groups, unions, fraternal or athletic groups, or [...] care, and heating? Not very hard 10/18/2022 [facility] [place] of Occupat ional Health - Occupational Stress [...] place to sleep or slept in a prison (including now)? No 10/18/2022 Sex and Gender [...] DERM [address] [place] [address] Ai Galvez PA [address] [place] [address] 10/07/2025 9:00 AM EDT Office [facility] [address] [place] [address] Jr. Emmanuel Clay, DO [address] [place] [address] documented as of this encounter Procedures Procedure Name Priority Date/Time Associated Diagnosis Comments [facility] CBC W AUTO DIFF BLD Routine 07/10/2024 8:24 AM EDT [facility] COMP METAB 1999 PNL SERPL Routine 07/10/2024 8:24 AM EDT documented in this encounter Results * (ABNORMAL) [facility] COMP METAB 2000 PNL SERPL (07/10/2024 8:24 AM EDT) [facility] PROT SERPL-[facility] 6.7 6.3 - 8.0 g/dL [facility] ALBUMIN SERPL-[facility] 4.2 3.9 - 4.9 g/dL [facility] CALCIUM SERPL-[facility] 9.7 8.5 - 10.2 mg/dL [facility] BILIRUB SERPL-[facility] 1.1 0.2 - 1.3 mg/dL [facility] ALP SERPL-[facility] 100 38 - 113 U/L [facility] AST SERPL-[facility] 19 14 - 40 U/L [facility] ALT SERPL-[facility] 33 10 - 54 U/L [facility] GLUCOSE SERPL-[facility] 99 74 - 99 mg/dL [facility] Comment: The [place] [employer] (ADA) provides guidance for cutoff [...] Standards of Medical Care in Diabetes 2016, [place] [employer]. Diabetes Care. 2016.39(Suppl 1). [facility] BUN SERPL-[facility] 28(H) 9 - 24 mg/dL [facility] CREAT SERPL-[facility] 1.09 0.73 - 1.22 mg/dL [facility] SODIUM SERPL-[facility] 135(L) 136 - 144 mmol/L [facility] POTASSIUM SERPL-[facility] 4.5 3.7 - 5.1 mmol/L [facility] CHLORIDE SERPL-[facility] 99 98 - 107 mmol/L [facility] CO2 SERPL-[facility] 25 22 - 30 mmol/L [facility] ANION GAP SERPL-[facility] 11 8 - 15 mmol/L [facility] CREATININE + EGFR PNL SERPLBLD 73 >=60 mL/min/1.7 3m??? [facility] Comment:Estimated Glomerular Filtration [...] eGFR may not accurately reflect actual GFR. 07/10/2024 8:24 AM EDT 07/10/2024 8:24 AM EDT Narrative [facility] - 07/10/2024 8:57 AM EDT Specimen Type: BLOOD SPECIMEN Ordering Facility: [facility] [place] Address: [address] [place] [address] Original Ordering Provider: RADHA MARTIN us Generic External Data Provider CLINSqueezeCMMPASTOR anderson Result [facility] [address] [place] [address] * (ABNORMAL) [facility] CBC W AUTO DIFF BLD (07/10/2024 8:24 AM EDT) [facility] WBC # BLD AUTO 4.08 3.70 - 11.00 k/uL [facility] RBC # BLD AUTO 4.05(L) 4.20 - 6.00 m/uL [facility] HGB BLD-[facility]NC 13.0 13.0 - 17.0 g/dL [facility] HCT VFR BLD AUTO 36.8(L) 39.0 - 51.0 % [facility] MCV RBC AUTO 90.9 80.0 - 100.0 fL [facility] MCH RBC QN AUTO 32.1 26.0 - 34.0 pg [facility]CF [facility] MCHC RBC AUTO-[facility]NC 35.3 30.5 - 36.0 g/dL [facility] RDW RBC-RTO 13.1 11.5 - 15.0 % [facility] PLATELET # BLD AUTO 97(L) 150 - 400 k/uL [facility] Comment:No clot detected. [facility] PMV BLD AUTO 8.6(L) 9.0 - 12.7 fL [facility] NEUTROPHILS/LEUK NFR BLD AUTO 74.3 % [facility] NEUTROPHILS # BLD AUTO 3.03 1.45 - 7.50 k/uL [facility] LYMPHOCYTES/LEUK NFR BLD AUTO 12.3 % [facility] LYMPHOCYTES # BLD AUTO 0.50(L) 1.00 - 4.00 k/uL [facility] MONOCYTES/LEUK NFR BLD AUTO 11.0 % [facility] MONOCYTES # BLD AUTO 0.45 <0.87 k/uL [facility] EOSINOPHIL/LEUK NFR BLD AUTO 2.0 % [facility]CF EOSINOPHIL # BLD AUTO 0.08 <0.46 k/uL [facility] BASOPHILS/LEUK NFR BLD AUTO 0.2 % [facility] BASOPHILS # BLD AUTO <0.03 <0.11 k/uL [facility]CF IMM GRANULOCYTES/LEUK NFR BLD AUTO 0.2 % [facility] IMM GRANULOCYTES # BLD AUTO <0.03 <0.10 k/uL [facility] NRBC/100 WBC BLD-RTO 0.0 /100 WBC [facility] NRBC # BLD AUTO <0.01 <0.01 k/uL [facility] DIFFERENTIAL METHOD BLD Auto [facility] 07/10/2024 8:24 AM EDT 07/10/2024 8:24 AM EDT Narrative [facility] - 07/10/2024 8:35 AM EDT Specimen Type: BLOOD SPECIMEN Ordering Facility: [facility] [place] Address: [address] [place] [id number] Original Ordering Provider: RADHA MARTIN us Generic External Data Provider [facility] F inal Result Performing Organization Address City/State/[facility] Co de Phone Number [facility] [address] [place] [address] documented in this encounter Visit Diagnoses Not on filedocumented in this encounter Care Teams Auto Body Repairer Fiberglass Relationship Specialty Start Date End Date Ted Perry MD [address] [facility] [address] [place] [address] PCP - ACO Reach 07/06/22 Ted Perry MD [address] [place] [address] PCP - General Internal Medicine 06/20/22 documented as of this encounter
--- OUTSIDE RECORDS SUMMARY | 2024-07-23 09:42 | XMS_ITS | Clinical Summary ---
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 Active tamsulosin (Flomax) 0.4 MG 24 hr capsule Take 0.4 mg by mouth Daily 07/22/19 23 Active hydrocortisone (Cortef) 5 MG tablet Take 15 mg by mouth in the morning. Take with meals. 09/09/19 24 Active fludrocortisone (Florinef) 0.1 MG tablet Take 0.1 mg by mouth in the morning. 09/09/19 24 Active atorvastatin (Lipitor) 40 MG tabletIndication s:Benign essential hypertension (CMS/HCC) Take 1 tablet (40 mg) by mouth Daily 100 tablet 3 03/13/19 25 Active losartan (Cozaar) 50 MG tabletIndication s:Benign essential hypertension (CMS/HCC) Take 1 tablet (50 mg) by mouth Daily 90 tablet 3 03/17/19 25 026 Active amLODIPine (Norvasc) 2.5 MG tabletIndication s:Benign essential hypertension (CMS/HCC) Take 1 tablet (2.5 mg) by mouth Daily 90 tablet 3 03/17/19 25 026 Active triamcinolone (Kenalog) 0.1 % creamIndications :Other atopic dermatitis Apply to affected areas, up to twice a day when flared, do not use one the face, groin, or underarms, 30 day supply 80 g 11 03/21/19 25 Active terbinafine (LamISIL) 250 MG tabletIndication s:Onychomycosis Take 1 tablet, by mouth, once daily x 90 days 90 tablet 03/21/19 25 Active metoprolol succinate XL (Toprol-XL) 25 MG 24 hr tablet Take 25 mg by mouth Daily 04/16/19 25 Active hydrOXYzine HCl (Atarax) 25 MG tablet Take 25 mg by mouth at bedtime 05/09/19 25 Active ondansetron (Zofran) 8 MG tablet Take 8 mg by mouth every 8 (eight) hours if needed 06/05/19 25 Active prochlorperazine (Compazine) 10 MG tablet Take 10 mg by mouth every 6 (six) hours if needed 06/05/19 25 Active Nutritional Supplements (nutren 2.0) liquid Administer 1 carton (250mL)Nutren 2.0 or equivalent via syringe push/plunge method 4 times per day (total of 1000mL/day). Flush feeding tube with 90 ml of water before and after each feed. Additional water flush of 250mL 4 times daily required to meet hydration needs. 06/12/19 25 Active warfarin (Coumadin) 7.5 MG tabletIndication s:Paroxysmal atrial fibrillation (CMS/HCC) Take 1 tablet (7.5 mg) by mouth See administration instructions Take as directed per After Visit Summary. 90 tablet 3 07/16/19 25 Active warfarin (Coumadin) 7.5 MG tabletIndication s:Paroxysmal atrial fibrillation (CMS/HCC) Take 1 tablet (7.5 mg) by mouth See administration instructions Take as directed per After Visit Summary. 05/01/19 24 025 Discontin ued(Reord er) Active Problems Problem Noted Date Diagnosed Date Chronic systolic CHF (conges tive heart failure), NYHA class 1 08/02/2023 Clear cell carcinoma of right kidney 06/21/2023 Achilles tendinitis 05/01/2023 Overview (05/01/2023): RIGHT Angiomyolipoma 05/01/2023 Anticoagulated 05/01/2023 BPH with urinary obstruction 05/01/2023 Cardiomyopathy 05/01/2023 History of urinary disorder 05/01/2023 Mixed hypercholesterolemia and hypertriglyceride elise 05/01/2023 Overview (05/01/2023): CHOLESTEROL MANAGED Palpitations 05/01/2023 Renal lesion 05/01/2023 Urinary frequency 05/01/2023 Urinary urgency 05/01/2023 Weak urinary stream 05/01/2023 Screening for colorectal cancer 03/06/2023 Ankylosis, right knee 10/03/2022 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 10/03/2022 Coronary artery disease invo lving comanche coronary artery of comanche heart without angina pectoris 10/03/2022 Atrial fibrillation with rapid ventricular respo nse 10/03/2022 Paroxysmal atrial fibrillation 10/03/2022 Atrial flutter with rapid ventricular response 0 10/03/2022 Benign essential hypertension 10/03/2022 Erectile dysfunction 10/03/2022 Gastro-esophageal reflux disease without esophag itis 10/03/2022 Morbid obesity 10/03/2022 Obesity (BMI 30-39.9) 10/03/2022 Obstructive sleep apnea syndrome 10/03/2022 Osteoarthrosis, ankle and foot 10/03/2022 Presence of right artificial knee joint 10/04/19 Primary malignant neoplasm of kidney 10/03/2022 Primary osteoarthritis of both knees 10/03/2022 Reactive airways dysfunction syndrome 10/03/2022 Renal mass 10/03/2022 Status post total left knee replacement 10/04/19 Right adrenal mass 04/14/2022 Prosthetic joint infection 08/27/2018 Arthritis of left knee 07/03/2018 Chronic anticoagulation 03/06/2018 Left bundle-branch block 03/06/2018 High risk medication use 12/22/2015 Overview (05/01/2023): Last Assessment & Plan: Decreased Tikosyn dose 12/22/15 to 125mcg bid Monitor EKG QTC and JT intervals 2 hours post EKG x 5 doses Will follow up in the [facility] clinic QTC after 2 doses was 502 (decreased dose) S/P ablation of atrial fibrillation 09/13/2015 Encounters Date Type Department Care Team Description 07/17/2024 Abstract [facility] [address] [place] [address] Ted Perry MD 07/17/2024 Clinisync Result Encounter NOMS External Department Unsolicited Provider, Generic External Data 07/15/2024 Refill [facility] [address] [place] [address] Vanesa Randle LPN Paroxysmal atrial fibrillation ([facility]) 07/14/2024 Clinisync Result Encounter NOMS External Department Unsolicited Provider, Generic External Data 07/14/2024 Abstract [facility] [address] [facility] [address] [place] [address] Ted Perry MD 07/11/2024 Abstract [facility] [address] [facility] [address] [place] [address] Ted Perry MD 07/10/2024 Clinisync Result Encounter NOMS External Department Unsolicited Provider, Generic External Data 07/04/2024 Abstract [facility] [address] [facility] [address] [place] [address] Ted Perry MD 07/03/2024 Clinisync Result Encounter NOMS External Department Unsolicited Provider, Generic External Data 07/01/2024 Clinisync Result Encounter NOMS External Department Unsolicited Provider, Generic External Data 06/26/2024 Abstract [facility] [address] [facility] [address] [place] [address] Ted Perry MD 06/26/2024 Clinisync Result Encounter NOMS External Department Unsolicited Provider, Generic External Data 06/19/2024 Abstract [facility] [address] [facility] [address] [place] [address] Ted Perry MD 06/18/2024 Clinisync Result Encounter NOMS External Department Unsolicited Provider, Generic External Data 06/17/2024 10:30 AM EDT Office Visit [facility] [address] [address] [place] [address] Ai Galvez PA Other atopic dermatitis (Primary Dx); Onychomycosis; Actinic keratosis 06/17/2024 Bamboo flowsheet [facility] [address] [place] [address] [place] [address] Ai Galvez PA 06/17/2024 Travel 06/13/2024 Abstract [facility] [address] [facility] [address] [place] [address] Ted Perry MD 06/12/2024 Clinisync Result Encounter NOMS External Department Unsolicited Provider, Generic External Data 06/10/2024 Clinisync Result Encounter NOMS External Department Unsolicited Provider, Generic External Data 06/05/2024 Abstract [facility] [address] [facility] [address] [place] [address] Ted Perry MD 05/28/2024 Abstract [facility] [address] [facility] [address] [place] [address] Ted Perry MD 05/19/2024 11:45 AM EDT Office Visit [facility] [address] [place] [address] Ted Perry MD LAD (lymphadenopathy) of right cervical region (Primary Dx) 05/19/2024 Bamboo flowsheet [facility] [address] [facility] [address] [place] [address] Ted Perry MD 05/19/2024 Travel 05/16/2024 Clinisync Result Encounter NOMS External Department Unsolicited Provider, Generic External Data 05/13/2024 Abstract [facility] [address] [facility] [address] [place] [address] Ted Perry MD 05/09/2024 Clinisync Result Encounter NOMS External Department Unsolicited Provider, Generic External Data 05/06/2024 Clinisync Result Encounter NOMS External Department Unsolicited Provider, Generic External Data 05/06/2024 Clinisync Result Encounter NOMS External Department Unsolicited Provider, Generic External Data 05/05/2024 10:15 AM EDT Office Visit [facility] [address] [place] [address] [place] [phone] Ted Perry MD Atrial fibrillation with rapid ventricular response (CMS/HCC) (Primary Dx); Acute non-recurrent sinusitis, unspecified location 05/05/2024 Bamboo flowsheet [facility] [address] [place] [address] [place] [address] Ted Perry MD 05/05/2024 Travel 04/28/2024 Clinisync Result Encounter NOMS External Department Unsolicited Provider, Generic External Data from Last 3 Months Immunizations Immunization Administration Dates Next Due Influenza Whole 11/12/2014 Influenza, High Dose Seasona l, Preservative Free 01/10/2021 Influenza, High-dose Seasona l, Quadrivalent, Preservative Free 11/30/2022,12/20/2021,11/01/2019 Influenza, Injectable, MDCK, preservative free 12/23/2018 Influenza, injectable, MDCK, preservative free, quadrivalent 11/20/2017,11/22/2016 Influenza, injectable, quadr ivalent, preservative free 11/24/2015 Influenza, seasonal, injecta ble, preservative free 11/20/2014 Influenza, seasonal, intrade rmal, preservative free 12/13/2016,03/15/2016,11/20/2012 Influenza, trivalent, adjuvanted 12/04/2023 Pfizer Bivalent Booster 12 Years And Older 11/15 Pneumococcal Conjugate PCV 13 10/30/2019 Pneumococcal Polysaccharide PPSV23 11/20/2012 Tdap 06/02/2020 Zoster, live 11/20/2016 Family History Medical History Relation Name Comments Diabetes Father Heart disease Father Hypertension Father Breast cancer Mother Stroke Mother Colon cancer Neg Hx Ovarian cancer Neg Hx Relation Name Status Comments Brother 2 Father Mother Alive Sister 8 Social History Tobacco Use Types Packs/Day Years Used Date Smoking Tobacco: Never Smokeless Tobacco: Never Tobacco Cessation:Counseling Given: Not Answered Alcohol Use Standard Drinks/Week Comments Not Currently [...] week 10/18/2022 How often do you attend formerly [facility] or jehovah's witness services? 1 to 4 times per year 10/18/2022 Do you belong to any clubs o r organizations such as taoism groups, unions, fraternal or athletic groups, or [...] care, and heating? Not very hard 10/18/2022 [facility] of Occupat ional Health - Occupational Stress [...] place to sleep or slept in a group home (including now)? No 10/18/2022 Sex and Gender Information Value Date Recorded Sex Assigned at Not on file Legal Sex Male 7:15 PM EDT Gender Identity Not on file Sexual Orientation Not on file Last Filed Vital Signs Vital Sign Reading Time Taken Comments Blood Pressure 134/78 05/19/2024 11:51 AM EDT Pulse 56 05/19/2024 11:51 AM EDT Temperature 36.6 C (97.9 F) 05/19/2024 11:51 AM EDT Respiratory Rate 17 10/18/2023 2:05 PM EDT Oxygen Saturation 95% 05/19/2024 11:51 AM EDT Inhaled Oxygen Concentration - - Weight 141 kg (310 lb) 05/19/2024 11:51 AM EDT Height 188 cm (6' 2 ) 05/19/2024 11:51 AM EDT Body Mass Index 39.8 05/19/2024 11:51 AM EDT Plan of Treatment Upcoming Encounters Date Type Department Care Team (Late st Contact Info) Description 03/26/2025 10:00 AM EST Office Visit [facility] [address] [place] [address] Ai Galvez PA [address] [place] [address] 10/07/2025 9:00 AM EDT Office Visit [facility] [address] [address] [place] [address] Jr. Emmanuel Clay, DO [address] [place] [address] Health Maintenance Due Date Last Done Comments CT Colonography 1955 Colonoscopy 1955 Colorectal Cancer Screening 1955 FIT-DNA 1955 FIT 1955 FOBT 1955 Sigmoidoscopy 1955 Medicare Annual Wellness (AWV) 12/01/2023 11/30/2022 , 01/10/2021 Pneumococcal Vaccine: 65+ Ye ars (3 of 3 - PCV20 or PCV21) 10/29/2024 10/30/2019, 11/20/2012 Influenza Vaccine Completed 12/04/2023, , 12/20/2021, Additional history exists Procedures Procedure Name Priority Date/Time Associated Diagnosis Comments [facility] DIRECT RENIN PLASMA Routine 07/17/2024 8:24 AM EDT [facility] COMP METAB 2000 PNL SERPL Routine 07/17/2024 8:24 AM EDT [facility] BAS METAB PNL BLD Routine 07/17/2024 8:24 AM EDT [facility] CBC W AUTO DIFF BLD Routine 07/17/2024 8:24 AM EDT [facility] COMP METAB 2000 PNL SERPL Routine 07/14/2024 2:26 PM EDT [facility] CBC W AUTO DIFF BLD Routine 07/14/2024 2:26 PM EDT [facility] COMP METAB 2000 PNL SERPL Routine 07/10/2024 8:24 AM EDT [facility] CBC W AUTO DIFF BLD Routine 07/10/2024 8:24 AM EDT [facility] COMP METAB 2000 PNL SERPL Routine 07/03/2024 8:51 AM EDT [facility] CBC W AUTO DIFF BLD Routine 07/03/2024 8:51 AM EDT UPPER GI ENDOSCOPY 07/01/2024 9: 31 AM EDT [facility] COMP METAB 2000 PNL SERPL Routine 06/26/2024 9:28 AM EDT [facility] CBC W AUTO DIFF BLD Routine 06/26/2024 9:28 AM EDT [facility] TSH SERPL-ACNC Routine 06/18/2024 3: 26 PM EDT [facility] COMP METAB 2000 PNL SERPL Routine 06/18/2024 3:26 PM EDT [facility] CBC W AUTO DIFF BLD Routine 06/18/2024 3:26 PM EDT CRYOTHERAPY SKIN LESION Routine 06/17/2024 10:35 AM EDT Actinic keratosis [facility] TSH SERPL-ACNC Routine 06/12/2024 12 :59 PM EDT [facility] COMP METAB 2000 PNL SERPL Routine 06/12/2024 12:59 PM EDT [facility] CBC W AUTO DIFF BLD Routine 06/12/2024 12:59 PM EDT MHPT PSA, DIAGNOSTIC Routine 06/10/2024 12:04 PM EDT [facility] TYPE + SCREEN Routine 05/16/2024 5:0 9 PM EDT [facility] ARTERIAL BLOOD GASES WITH IONIZED MAGNESIUM Routine 05/16/2024 5:08 PM EDT TISS PATH BX REPORT Routine 05/16/2024 4 :24 PM EDT XR CHEST 2V FRONTAL/LAT 05/09/2024 3:36 PM EDT NM PET/CT SKULL-THIGH SUBQ 05/06/2024 12:04 PM EDT [facility] TSH SERPL-ACNC Routine 05/06/2024 9: 59 AM EDT [facility] COMP METAB 2000 PNL SERPL Routine 05/06/2024 9:59 AM EDT [facility] CBC W AUTO DIFF BLD Routine 05/06/2024 9:59 AM EDT POCT PROTIME-INR, FINGERSTICK Routine 05/05/2024 10:32 AM EDT Atrial fibrillation with rapid ventricular response (CMS/HCC) TISS PATH BX REPORT Routine 04/28/2024 1 1:00 AM EDT from Last 3 Months Results * [facility] DIRECT RENIN PLASMA (07/17/2024 8:24 AM EDT) [facility] DIRECT RENIN 36.7 3.6 - 81.6 [...] EDT Specimen Type: BLOOD SPECIMEN Ordering Facility: [facility] Address: [address] [place], [place] [id number] Original Ordering Provider: BENJY MORATAYA us Generic External Data Provider KAYLEIGH anderson Result [facility] [address] [place] [address] * (ABNORMAL) [facility] CBC W AUTO DIFF BLD (07/17/2024 8:24 AM EDT) Only the most recent of8 resultswithin the time period is included. [facility] WBC # BLD AUTO 2.41(L) 3.70 [...] EDT Specimen Type: BLOOD SPECIMEN Ordering Facility: [facility] Address: [address] [place] [address] Original Ordering Provider: RADHA MARTIN us Generic External Data Provider [facility] F inal Result [facility] [address] [place] [address] * (ABNORMAL) [facility] BAS METAB PNL BLD (07/17/2024 8:24 AM EDT) Pathologist [facility] SODIUM BLD-SCNC 133(L) 138 - 146 [...] 0 - 15 mmol/L [facility] GFR/BSA WI.NON BLK SERPLBLD MDRD-ARV 65 >=60 mL/min/1.7 3m??? [...] AM EDT 07/17/2024 8:24 AM EDT Narrative ESMEISYNC - 07/17/2024 8:32 AM EDT Specimen Type: BLOOD SPECIMEN Ordering Facility: [facility] Address: [address] [place] [address] Original Ordering Provider: VASILIY ROSE us Generic External Data Provider [facility] F inal Result [facility] [address] [place] [address] * (ABNORMAL) [facility] COMP METAB 1999 PNL SERPL (07/17/2024 8:24 AM EDT) Only the most recent of8 resultswithin the time period is included. [facility] PROT SERPL-MCNC 6.9 6.3 - 8.0 [...] 74 - 99 mg/dL [facility] Comment: The [place] [employer] (ADA) provides guidance for cutoff [...] Standards of Medical Care in Diabetes 2016, [place] [employer]. Diabetes Care. 2016.39(Suppl 1). [facility] [...] AM EDT 07/17/2024 2:18 PM EDT Narrative KAYLEIGH - 07/17/2024 6:13 PM EDT Specimen Type: BLOOD SPECIMEN Ordering Facility: [facility] Address: [address] [place] [address] Original Ordering Provider: RADHA MARTIN us Generic External Data Provider Anipipo ina Result KAYLEIGH [address] [place] [id number] * UPPER GI ENDOSCOPY (07/01/2024 9:31 AM EDT) Anatomical Region Laterality Modality Other 07/01/2024 9:31 AM EDT Narrative 07/01/2024 10:25 AM EDT [facility] Gastrointestinal Endoscopy Patient Name: Kenny Jones Procedure Date: 07/01/2024 9:31 AM Date of : 1955 Admit Type: Outpatient Age: 68 Room: [place] [address] Gender: Male Note Status: Finalized Attending MD: Ted Skinner MD, [id number] Procedure: Upper GI endoscopy Indications: Dysphagia Providers: Ted Skinner MD, Radha Nichols RN, Kaila Cardoza RN (Assisting Nurse), Neema Maxwell RN Patient Profile: This is a 68 year old male with PMH of HTN, AF (warfarin), MIKAELA, RCC, CKD3, renal mass, and SCC of neck who presents for EGD with PEG placement for dysphagia. Refer to note in patient chart for documentation of history and physical. Referring Physician: Michael Garcia Jr, DO (Referring MD) Medicines: Monitored Anesthesia Care, Ancef 2000 mg IV Complications: No immediate complications. Procedure: Pre-Anesthesia Assessment: - Prior to the procedure, a History and Physical was performed, and patient medications and allergies were reviewed. The patient's tolerance of previous anesthesia was also reviewed. The risks and benefits of the procedure and the sedation options and risks were discussed with the patient. All questions were answered, and informed consent was obtained. Prior Anticoagulants: The patient has taken Coumadin (warfarin), last dose was 5 days prior to procedure. ASA Grade Assessment: III - A patient with severe systemic disease. After reviewing the risks and benefits, the patient was deemed in satisfactory condition to undergo the procedure. After obtaining informed consent, the endoscope was passed under direct vision. Throughout the procedure, the patient's blood pressure, pulse, and oxygen saturations were monitored continuously. The Endoscope was introduced through the mouth, and advanced to the second part of duodenum. The upper GI endoscopy was accomplished without difficulty. The patient tolerated the procedure well. Moderate Sedation: MAC anesthesia was administered by the anesthesia team. Total Procedure Duration: 0 hours 16 minutes 53 seconds Findings: The examined duodenum was normal. The entire examined stomach was normal. The patient was placed in the supine position for PEG placement. The stomach was insufflated to appose gastric and abdominal tim. A site was located in the body of the stomach with excellent transillumination and manual external pressure for placement. The abdominal wall was marked and prepped in a sterile manner. The area was anesthetized with 3 mL of 1% lidocaine. The trocar needle was introduced through the abdominal wall and into the stomach under direct endoscopic view. A snare was introduced through the endoscope and opened in the gastric lumen. The guide wire was passed through the trocar and into the open snare. The snare was closed around the guide wire. The endoscope and snare were removed, pulling the wire out through the mouth. A skin incision was made at the site of needle insertion. The externally removable 20 Fr EndoVive Safety gastrostomy tube was lubricated. The G-tube was tied to the guide wire and pulled through the mouth and into the stomach. The trocar needle was removed, and the gastrostomy tube was pulled out from the stomach through the skin. The external bumper was attached to the gastrostomy tube, and the tube was cut to remove the guide wire. The final position of the gastrostomy tube was confirmed by relook endoscopy, and skin marking noted to be 4.5 cm at the external bumper. The final tension and compression of the abdominal wall by the PEG tube and external bumper were checked and revealed that the bumper was loose and lightly touching the skin. The feeding tube was capped, and the tube site cleaned and dressed. The Z-line was found 43 cm from the incisors. The examined esophagus was normal. Oropharynx characterized by inflammation and friability. Impression: - Normal examined duodenum. - Normal stomach. - Z-line, 43 cm from the incisors. - Normal esophagus. - Oropharynx characterized by inflammation and friability. - An externally removable PEG placement was successfully completed without complication. - No specimens collected. Recommendation: - Discharge patient to home. - Resume previous diet. - Continue present medications. - Resume warfarin tonight. - Use caution with the Non-Steroidal Anti-Inflammatory (NSAID) class of medications, as these are associated with mucosal injury, peptic ulcer disease, and abdominal pain. Acid-reducing medications, such as the proton-pump inhibitor class of medication (PPI; e.g. omeprazole, pantoprazole, esomeprazole, etc.) can be used to help protect intestinal surfaces in the setting of NSAID use. - Please follow the post-PEG recommendations including: external bolster 1 cm from abdominal wall, change dressing once per day, may use PEG today for meds and water and clean site with soap and water daily and dry thoroughly. Ok for tube feeds tomorrow. - Return to referring physician as previously scheduled. - Written discharge instructions were provided to the patient. Procedure Code(s): --- Professional --- 59622, Esophagogastroduodenoscopy, flexible, transoral; with directed placement of percutaneous gastrostomy tube Diagnosis Code(s): --- Professional --- R13.10, Dysphagia, unspecified CPT copyright 2020 [place] [employer]. All rights reserved. The codes documented in this report are preliminary and upon cylinder inspector review may be revised to meet current compliance requirements. Attending Participation: I personally performed the entire procedure. Scope In: 9:56:57 AM Scope Out: 10:13:50 AM MD Ted eRddy MD 07/01/2024 10:24:58 AM This report has been signed electronically by Ted Skinner MD Number of Addenda: 0 Note Initiated On: 07/01/2024 9:31 AM Estimated Blood Loss: Estimated blood loss was minimal. Procedure Note Radiology, Radiologist, - 05/20/2025 [facility] Gastrointestinal Endoscopy Patient Name: Kenny Jones Procedure Date: 07/01/2024 9:31 AM Date of : 1955 Admit Type: Outpatient Age: 68 Room: [place] [address] Gender: Male Note Status: Finalized Attending MD: Ted Skinner MD, [id number] Procedure: Upper GI endoscopy Indications: Dysphagia Providers: Ted Skinner MD, Radha Nichols, RN, Kaila Cardoza, RN (Assisting Nurse), Neema Maxwell, SIDNEY Patient Profile: This is a 68 year old male with PMH of HTN, AF (warfarin), MIKAELA, RCC, CKD3, renal mass, and SCC of neck who presents for EGD with PEG placement for dysphagia. Refer to note in patient chart for documentation of history and physical. Referring Physician: Michael Garcia Jr, DO (Referring MD) Medicines: Monitored Anesthesia Care, Ancef 2000 mg IV Complications: No immediate complications. Procedure: Pre-Anesthesia Assessment: - Prior to the procedure, a History and Physical was performed, and patient medications and allergies were reviewed. The patient's tolerance of previous anesthesia was also reviewed. The risks and benefits of the procedure and the sedation options and risks were discussed with the patient. All questions were answered, and informed consent was obtained. Prior Anticoagulants: The patient has taken Coumadin (warfarin), last dose was 5 days prior to procedure. ASA Grade Assessment: III - A patient with severe systemic disease. After reviewing the risks and benefits, the patient was deemed in satisfactory condition to undergo the procedure. After obtaining informed consent, the endoscope was passed under direct vision. Throughout the procedure, the patient's blood pressure, pulse, and oxygen saturations were monitored continuously. The Endoscope was introduced through the mouth, and advanced to the second part of duodenum. The upper GI endoscopy was accomplished without difficulty. The patient tolerated the procedure well. Moderate Sedation: MAC anesthesia was administered by the anesthesia team. Total Procedure Duration: 0 hours 16 minutes 53 seconds Findings: The examined duodenum was normal. The entire examined stomach was normal. The patient was placed in the supine position for PEG placement. The stomach was insufflated to appose gastric and abdominal tim. A site was located in the body of the stomach with excellent transillumination and manual external pressure for placement. The abdominal wall was marked and prepped in a sterile manner. The area was anesthetized with 3 mL of 1% lidocaine. The trocar needle was introduced through the abdominal wall and into the stomach under direct endoscopic view. A snare was introduced through the endoscope and opened in the gastric lumen. The guide wire was passed through the trocar and into the open snare. The snare was closed around the guide wire. The endoscope and snare were removed, pulling the wire out through the mouth. A skin incision was made at the site of needle insertion. The externally removable 20 Fr EndoVive Safety gastrostomy tube was lubricated. The G-tube was tied to the guide wire and pulled through the mouth and into the stomach. The trocar needle was removed, and the gastrostomy tube was pulled out from the stomach through the skin. The external bumper was attached to the gastrostomy tube, and the tube was cut to remove the guide wire. The final position of the gastrostomy tube was confirmed by relook endoscopy, and skin marking noted to be 4.5 cm at the external bumper. The final tension and compression of the abdominal wall by the PEG tube and external bumper were checked and revealed that the bumper was loose and lightly touching the skin. The feeding tube was capped, and the tube site cleaned and dressed. The Z-line was found 43 cm from the incisors. The examined esophagus was normal. Oropharynx characterized by inflammation and friability. Impression: - Normal examined duodenum. - Normal stomach. - Z-line, 43 cm from the incisors. - Normal esophagus. - Oropharynx characterized by inflammation and friability. - An externally removable PEG placement was successfully completed without complication. - No specimens collected. Recommendation: - Discharge patient to home. - Resume previous diet. - Continue present medications. - Resume warfarin tonight. - Use caution with the Non-Steroidal Anti-Inflammatory (NSAID) class of medications, as these are associated with mucosal injury, peptic ulcer disease, and abdominal pain. Acid-reducing medications, such as the proton-pump inhibitor class of medication (PPI; e.g. omeprazole, pantoprazole, esomeprazole, etc.) can be used to help protect intestinal surfaces in the setting of NSAID use. - Please follow the post-PEG recommendations including: external bolster 1 cm from abdominal wall, change dressing once per day, may use PEG today for meds and water and clean site with soap and water daily and dry thoroughly. Ok for tube feeds tomorrow. - Return to referring physician as previously scheduled. - Written discharge instructions were provided to the patient. Procedure Code(s): --- Professional --- 03704, Esophagogastroduodenoscopy, flexible, transoral; with directed placement of percutaneous gastrostomy tube Diagnosis Code(s): --- Professional --- R13.10, Dysphagia, unspecified CPT copyright 2020 [employer]. All rights reserved. The codes documented in this report are preliminary and upon cylinder inspector review may be revised to meet current compliance requirements. Attending Participation: I personally performed the entire procedure. Scope In: 9:56:57 AM Scope Out: 10:13:50 AM MD Ted Reddy MD 07/01/2024 10:24:58 AM This report has been signed electronically by Ted Skinner MD Number of Addenda: 0 Note Initiated On: 07/01/2024 9:31 AM Estimated Blood Loss: Estimated blood loss was minimal. us Generic External Data Provider [facility] Final Result * [facility] (06/18/2024 3:26 PM EDT) Only the most recent of3 resultswithin the time period is included. [facility] 1.110 0.270 - 4.200 mIU/L [facility] 06/18/2024 3:26 PM EDT 06/18/2024 10:27 PM EDT Narrative CLINISYNC - 06/19/2024 1:18 PM EDT Specimen Type: BLOOD SPECIMEN Ordering Facility: [facility] Address: [address] [place], [place] [id number] Original Ordering Provider: GAL QUINTERO us Generic External Data Provider CLINIS[facility] F inal Result [address] [address] * Cryotherapy, skin lesion (06/17/2024 10:35 AM EDT) Ai LARKIN DERM PROCEDURE ORDERABLES Bing l Result * [facility] PSA, DIAGNOSTIC (06/10/2024 12:04 PM EDT) Pathologist [facility] PROSTATE SPECIFIC ANTIGEN DX 2.40 <=4.00 ng/mL TB 06/10/2024 12:0 4 PM EDT 06/10/2024 12:07 PM EDT Narrative CLINISYNC - 06/10/2024 1:38 PM EDT Generic External Data Provider CLIN[facility] F inal Result Performing Organization Address [facility] Co de Phone Number [facility]IGH [facility] * [facility] TYPE + SCREEN (05/16/2024 5:09 PM EDT) Pathologist [facility] ABO O [facility] RH Positive [facility] ANTIBODY SCREEN Negative [facility] TYPE AND SCREEN EXPIRATION 05/19/2024 23:59 [facility] 05/16/2024 5:09 PM EDT 05/16/2024 5:32 PM EDT Narrative CLINISYNC - 05/16/2024 6:47 PM EDT Specimen Type: BLOOD SPECIMEN Ordering Facility: [facility] Address: [address] [place] [address] CC [facility] CLIA [id number] [address] [place] [address] [place] Generic External Data Provider CLINISYNC F inal Result Performing Organization Address [facility] Co de Phone Number CLINKYLENC [facility] [address] [place], [place] [id number] [place] [address] * (ABNORMAL) [facility] ARTERIAL BLOOD GASES WITH IONIZED MAGNESIUM (05/16/2024 5:08 PM EDT) Pathologist [facility] PH BLD 7.39 7.35 - 7.45 [facility] PH TEMP ADJ BLD 7.39 7.35 - 7.45 [facility] PCO2 BLD 40 36 - 46 mm Hg [facility] PCO2 TEMP ADJ BLD 40 36 - 46 mmHg [facility] PO2 BLD 131(H) 85 - 95 mm Hg [facility] PO2 TEMP ADJ BLD 131(H) 85 - 95 mmHg [facility] HCO3 BLD-SCNC 24 22 - 26 mmol/L [facility] SAO2 % BLDA 99(H) 95 - 98 % [facility] BASE DEFICIT BLDA-SCNC >-1 -2 - 0 mmol/L [facility] OXYHGB MFR BLDA 97 95 - 98 % [facility] COHGB MFR BLDA 1.5 0.0 - 2.0 % [facility] Comment:Carboxyhemoglobin Re ference Range for Smokers: 2.0-8.0% [facility] METHGB MFR BLD 0.9 0.0 - 1.5 % [facility] SODIUM BLD-SCNC 138 136 - 144 mmol/L [facility] POTASSIUM BLD-SCNC 3.3(L) 3.5 - 5.0 mmol/L [facility] CA-I BLD-MCNC 1.18 1.08 - 1.30 mmol/L [facility] CA-I ADJ PH7.4 BLDA-SCNC 1.17 1.08 - 1.30 mmol/L [facility] GLUCOSE BLD-MCNC 130(H) 60 - 105 mg/dL [facility] LACTATE BLD-SCNC 1.3 0.5 - 2.2 mmol/L [facility] IONIZED MAGNESIUM 0.51 0.45 - 0.60 mmol/L [facility] HGB BLD-MCNC 11.4(L) 13.0 - 17.0 g/dL [facility] HCT VFR BLD AUTO 35.0(L) 39.0 - 51.0 % [facility] 05/16/2024 5:08 PM EDT 05/16/2024 5:18 PM EDT Narrative CLINISYNC - 05/16/2024 5:23 PM EDT Specimen Type: ARTERIAL BLOOD SPECIMEN Ordering Facility: [facility] Address: [address] [place] [address] Original Ordering Provider: CATINA RODRIGUEZ us Generic External Data Provider KAYLEIGH anderson Result CL[facility] [address] [facility] [address] [place] [address] * TISS PATH BX REPORT (05/16/2024 4:24 PM EDT) Only the most recent of2 resultswithin the time period is included. [facility] CASE REPORT [facility] Comment: Surgical Pathology Report Case: [id number] Authorizing Provider: Celeste Sainz MD Collected: 05/16/2024 04:24 PM Ordering Location: Admitting Received: 05/16/2024 04:54 PM Pathologist: Teresa Ceron MD Intraop: Codey Frey MD Specimens: A) - Lymph Node, Biopsy, right level 2 lymph node B) - Lymph Node, Biopsy, right level 2 lymph node C) - Tongue, Biopsy, right base of tongue [facility] FINAL DIAGNOSIS [facility] Comment: A. 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 B. Right level 2 lymph nodes, biopsy: - Four lymph nodes, negative for metastasis (0/4). C. Right base of tongue, biopsy: - Lingual tonsillar type tissue, negative for neoplasm, see comment. PHILIP May 22, 2024 at 1043 EDT [facility] DIAGNOSIS COMMENT [facility] Comment: A. This nonkeratinizing squamous cell carcinoma shows diffuse strong positivity with p16 staining. In addition, HPV in situ hybridization (HR HPV CISH) is positive. The combined morphology and staining patterns support a metastatic HPV associated squamous cell carcinoma. C. An immunohistochemical stain for p16 is evaluated to identify a potential focal or subtle primary however command the stain is negative. [facility] GROSS DESCRIPTION [facility] Comment: A. Lymph Node, Biopsy Labeled: ??? Right level 2 lymph node??? Received: Fresh Number of tissue fragments: 1 lymph node Specimen dimensions: 4.5 x 2.5 x 2 cm Evaporative Cooler Installer section submitted for frozen evaluation in FSA 1. Evaporative Cooler Installer sections submitted for permanent evaluation in A2-A5. Gross examination performed at [place] [id number] [place] [address] 05/16/24 4:59 PM B. Lymph Node, Biopsy Labeled: Right level 2 lymph node Received: In formalin Orientation: None provided Size: 2.8 x 2.3 x 0.9 cm, into 1 levels Lymph node candidates: Total 5, see below for details Cassette Summary: Level right 2: 5, largest 2.5 x 1.1 x 0.4 cm B1: 5 intact lymph node candidates May 19, 2024 10:04 AM [place] [address] C. Tongue, Biopsy Labeled: Right base of tongue Received: In formalin Number of tissue fragments: Multiple Specimen dimensions: 2.0 x 1.3 x 0.4 cm Mucosa: Not identified; ventura-lacy, rubbery tissue Cassette Code: Totally submitted labeled C1. May 19, 2024 10:05 [place] [address] [facility] INTRAOPERATIVE DIAGNOSIS [facility] Comment: A. Lymph Node, Biopsy FSA1: Positive for carcinoma, favor squamous cell carcinoma (Dr. Frey). Intraoperative diagnosis performed at [place] [address] CLIA# [id number] [facility] CLINICAL HISTORY [facility] Comment: Pre-op diagnosis: Lymphadenopathy [R59.1] [facility] FINAL PERFORMING LAB [facility] Comment: Diagnostic interpretation performed at: [facility], [address] [place] [address], [place] [address] CLIA# [id number] Lead Security Officer: Yan Keith MD AP DISCLAIMER [facility] Comment: Laboratory Developed Test (LDT) Disclaimer: Performance characteristics of immunohistochemical, immunofluorescent, and chromogenic in-situ hybridization tests have been determined by the performing laboratory within [facility] Pathology and Laboratory Medicine Department ([facility], [facility], [facility], [facility], [facility], [facility], or [facility]) in a manner consistent with CLIA requirements. One or more of these tests may not have been cleared or approved by the FDA. [facility] is regulated under CLIA as qualified to perform high-complexity testing. These tests are used for clinical purposes. These should not be regarded as investigational or for research. Positive and negative controls stain appropriately. 05/16/2024 4:24 PM EDT 05/21/2024 2:48 PM EDT Narrative KAYLEIGH - 05/22/2024 10:43 AM EDT Specimen Type: TISSUE SPECIMEN Ordering Facility: [facility] Address: [address] [place] [address] Original Ordering Provider: CELESTE SAINZ us Generic External Data Provider LAB BLOOD ORDERAB LES Final Result KAYLEIGH [facility] [address] [facility] [place] [address] [place] [address] * XR CHEST 2V FRONTAL/LAT (05/09/2024 3:36 PM EDT) Anatomical Region Laterality Modality Other 05/09/2024 3:36 PM EDT Narrative 05/11/2024 4:27 PM EDT * * *Final Report* * * DATE OF EXAM: May 09 2024 3:36PM STX [id number] - XR CHEST 2V FRONTAL/LAT / PROCEDURE REASON: Lymphadenopathy * * * * Physician Interpretation * * * * EXAMINATION: CHEST RADIOGRAPH (2 VIEW FRONTAL and LATERAL) CLINICAL HISTORY: Lymphadenopathy MQ: XC2_6 EXAM DATE/TIME: 05/09/2024 3:36 PM COMPARISON: No relevant prior studies available. RESULT: Lines, tubes, and devices: None. Lungs and pleura: No consolidation. No lung mass. No pleural effusion. No pneumothorax. Cardiomediastinal silhouette: Normal cardiomediastinal silhouette. Bones and soft tissues: Degenerative changes of the thoracic spine with no destructive process seen. IMPRESSION: No acute radiographic abnormality. Senior Risk Manager: PSCB Transcribe Date/Time: May 11 2024 4:24P Dictated by : AYESHA GARRISON MD This examination was interpreted and the report reviewed and electronically signed by: AYESHA GARRISON MD on May 11 2024 4:25PM EST [id number]^ACN Procedure Note Radiology, Radiologist, - 05/11/2024 * * *Final Report* * * DATE OF EXAM: May 09 2024 3:36PM STX 5291 - XR CHEST 2V FRONTAL/LAT / PROCEDURE REASON: Lymphadenopathy * * * * Physician Interpretation * * * * EXAMINATION: CHEST RADIOGRAPH (2 VIEW FRONTAL and LATERAL) CLINICAL HISTORY: Lymphadenopathy MQ: XC2_6 EXAM DATE/TIME: 05/09/2024 3:36 PM COMPARISON: No relevant prior studies available. RESULT: Lines, tubes, and devices: None. Lungs and pleura: No consolidation. No lung mass. No pleural effusion. No pneumothorax. Cardiomediastinal silhouette: Normal cardiomediastinal silhouette. Bones and soft tissues: Degenerative changes of the thoracic spine with no destructive process seen. IMPRESSION: No acute radiographic abnormality. Senior Risk Manager: IVAN Transcribe Date/Time: May 11 2024 4:24P Dictated by : AYESHA GARRISON MD This examination was interpreted and the report reviewed and electronically signed by: AYESHA GARRISON MD on May 11 2024 4:25PM EST [id number]^ACN Generic External Data Provider [facility] Final Result * (ABNORMAL) NM PET/CT SKULL-THIGH SUBQ (05/06/2024 12:04 PM EDT) Anatomical Region Laterality Modality Other 05/06/2024 12:0 4 PM EDT Narrative 05/06/2024 1:07 PM EDT * * *Final Report* * * DATE OF EXAM: May 06 2024 12:04PM NRN [id number] - NM PET/CT SKULL-THIGH SUBQ / PROCEDURE REASON: Localized swelling, mass and lump, neck * * * * Physician Interpretation * * * * RESULT: EXAMINATION: BODY FDG PET-CT CLINICAL HISTORY: Localized swelling, mass and lump, neck EXAM CATEGORY: Subsequent treatment strategy. TECHNIQUE: Radiopharmaceutical was administered intravenously followed by PET imaging from the eyes to thighs. Free breathing, low dose CT of the same body region was acquired without IV contrast for attenuation correction and anatomic localization. Unenhanced imaging is limited for the evaluation of some pathology and the acquired CT was not designed to produce diagnostic CT scan quality. Physiologic/non-pathologic uptake in some body regions could confound or obscure some pathology. * CT Dose-Length Product (DLP): 514 mGy*cm * CT Dose Reduction Employed: Yes * Blood glucose: 92 mg/dL * Injection site: Right Forearm-Antecubital * Injected activity: 19.4 mCi * Uptake Time: 45 minutes * Radiopharmaceutical: [id number] (FDG) COMPARISON: 06/06/2022 CORRELATION: 03/10/[address] and 02/22/2024 CT chest abdomen pelvis reports RESULT: REFERENCES: FDG uptake is used as a surrogate marker for glucose metabolism. All reported standardized uptake values represent maximum SUV (SUVmax) per body weight, unless otherwise specified. SUV reference values, as follows: * Blood Pool (Descending Aorta): SUVmax 2.7 * Background Liver: SUVmax 3.5; SUVmean 2.3 Localizer Images: No additional findings. HEAD AND NECK: Head: No radiotracer avid lesion or mass effect in the imaged intracranial compartment. Aerodigestive Tract: No radiotracer avid lesion. Lymph Nodes: 4 adjacent hypermetabolic right neck nodes: * 0.7 cm right level II/1b, SUV max 3.6, CT image 45, corresponding to 2:89 on the referenced neck CT * 1.2 cm right level IIa, SUV max 9.1, image 51 * 1.5 cm right level IIa, SUV max 6.1, image 60 * 1.6 cm right level III, SUV max 8, image 61 No abnormal left neck lymphadenopathy Neck Soft Tissues: No radiotracer avid thyroid nodule. CHEST: Please see report of the recent cross-sectional imaging for additional morphologic details. Lungs and Pleura: * Right lower lobe pulmonary nodule (with likely respiratory motion artifact in conjunction with the chest CT images)- 2 cm, SUV max 2.7, CT image 64; previously 1.1 cm, SUV max 1.1. * Stable nonavid 0.8 cm posterior left upper lobe nodule on image 138 No pleural effusion. Lymph Nodes: No radiotracer avid lymphadenopathy. Calcified left hilar nodes redemonstrated. Cardiovascular: Blood pool activity. No pericardial effusion. Calcified coronary and aortic atherosclerosis. Chest Wall: No radiotracer avid soft tissue lesion. ABDOMEN AND PELVIS: Please see report of the recent cross-sectional imaging for additional morphologic details. Hepatobiliary: No radiotracer avid lesion. Spleen: No radiotracer avid lesion. No splenomegaly. Pancreas: No radiotracer avid lesion. Adrenals: No focal abnormal uptake in the residual tissue. Urinary Tract: Redemonstration of the left nephrectomy, and right partial nephrectomy without definite focal abnormal uptake, evaluation limited by the physiologic renal excretion of the tracer. No hydronephrosis. GI Tract: Approximately 1.2 cm new focal uptake in the mid sigmoid colon, SUV max 20.8, CT image 273. No bowel dilation. Peritoneum: Left lower quadrant 1.1 cm partially calcified omental lesion, SUV max 2.4, CT image 240, previously 1.1 cm SUV max 1.5. No ascites. Lymph Nodes: No radiotracer avid lymphadenopathy. Vasculature: Blood pool activity. Pelvic Organs: Uptake in the midline prostate is favored to be secondary to urethral activity; attention on follow-up. MUSCULOSKELETAL: Bones: No radiotracer avid lesion. No lytic or sclerotic lesion. Degenerative changes. Soft Tissues: No radiotracer avid lesion. IMPRESSION PRIMARY DISEASE SITE: * No focal abnormal uptake at the renal beds. NATHALIE DISEASE: * Presumed metastatic 4 right neck nodes, as described. METASTATIC DISEASE: * Mild worsening of the right lower lobe pulmonary nodule is concerning for metastatic disease, a primary bronchogenic process is not excluded. Tissue sampling and/or assessment on follow-up studies, as indicated. ADDITIONAL FINDINGS: * 1.2 cm new intense focal uptake in the mid sigmoid colon may be artifactual, although an underlying polyp/malignant lesion cannot be excluded. Recommend that the colonoscopy is up-to-date. ACTIONABLE RESULT * Slight increasing uptake in the left lower quadrant 1.1 cm partially calcified lesion is favored to be secondary to evolving omental infarction; attention on follow-up studies to exclude metastatic disease. * Chronic changes, as described. ACTIONABLE RESULT: FOLLOW-UP Acuity: Actionable Findings: Digestive Tract Routing Code: GI_1 Recommendation: Unlisted Recommendation (see report) Time Frame: At the discretion of the clinical team. COMMUNICATION: Results will be communicated with the ordering provider via [facility] staff message or phone message by [facility] within 2 business days of report finalization. --END OF FINDING-- Transcribe Date/Time: May 06 2024 12:33P Dictated by: YAAKOV DANIEL MD This examination was interpreted and the report reviewed and electronically signed by: YAAKOV DANIEL MD on May 06 2024 1:04PM EST Thank you for allowing us to participate in the care of your patient. Should there be any questions regarding this interpretation, please call [phone]. If you are unable to reach us at the number above, please feel free to contact [facility] at [phone]. [id number]^ACN ACTIONABLE Procedure Note Radiology, Radiologist, - 05/06/2024 * * *Final Report* * * DATE OF EXAM: May 06 2024 12:04PM NRN [id number] - NM PET/CT SKULL-THIGH SUBQ / PROCEDURE REASON: Localized swelling, mass and lump, neck * * * * Physician Interpretation * * * * RESULT: EXAMINATION: BODY FDG PET-CT CLINICAL HISTORY: Localized swelling, mass and lump, neck EXAM CATEGORY: Subsequent treatment strategy. TECHNIQUE: Radiopharmaceutical was administered intravenously followed by PET imaging from the eyes to thighs. Free breathing, low dose CT of the same body region was acquired without IV contrast for attenuation correction and anatomic localization. Unenhanced imaging is limited for the evaluation of some pathology and the acquired CT was not designed to produce diagnostic CT scan quality. Physiologic/non-pathologic uptake in some body regions could confound or obscure some pathology. * CT Dose-Length Product (DLP): 514 mGy*cm * CT Dose Reduction Employed: Yes * Blood glucose: 92 mg/dL * Injection site: Right Forearm-Antecubital * Injected activity: 19.4 mCi * Uptake Time: 45 minutes * Radiopharmaceutical: [id number] (FDG) COMPARISON: 06/06/2022 CORRELATION: 03/10/[address] and 02/22/2024 CT chest abdomen pelvis reports RESULT: REFERENCES: FDG uptake is used as a surrogate marker for glucose metabolism. All reported standardized uptake values represent maximum SUV (SUVmax) per body weight, unless otherwise specified. SUV reference values, as follows: * Blood Pool (Descending Aorta): SUVmax 2.7 * Background Liver: SUVmax 3.5; SUVmean 2.3 Localizer Images: No additional findings. HEAD AND NECK: Head: No radiotracer avid lesion or mass effect in the imaged intracranial compartment. Aerodigestive Tract: No radiotracer avid lesion. Lymph Nodes: 4 adjacent hypermetabolic right neck nodes: * 0.7 cm right level II/1b, SUV max 3.6, CT image 45, corresponding to 2:89 on the referenced neck CT * 1.2 cm right level IIa, SUV max 9.1, image 51 * 1.5 cm right level IIa, SUV max 6.1, image 60 * 1.6 cm right level III, SUV max 8, image 61 No abnormal left neck lymphadenopathy Neck Soft Tissues: No radiotracer avid thyroid nodule. CHEST: Please see report of the recent cross-sectional imaging for additional morphologic details. Lungs and Pleura: * Right lower lobe pulmonary nodule (with likely respiratory motion artifact in conjunction with the chest CT images)- 2 cm, SUV max 2.7, CT image 64; previously 1.1 cm, SUV max 1.1. * Stable nonavid 0.8 cm posterior left upper lobe nodule on image 138 No pleural effusion. Lymph Nodes: No radiotracer avid lymphadenopathy. Calcified left hilar nodes redemonstrated. Cardiovascular: Blood pool activity. No pericardial effusion. Calcified coronary and aortic atherosclerosis. Chest Wall: No radiotracer avid soft tissue lesion. ABDOMEN AND PELVIS: Please see report of the recent cross-sectional imaging for additional morphologic details. Hepatobiliary: No radiotracer avid lesion. Spleen: No radiotracer avid lesion. No splenomegaly. Pancreas: No radiotracer avid lesion. Adrenals: No focal abnormal uptake in the residual tissue. Urinary Tract: Redemonstration of the left nephrectomy, and right partial nephrectomy without definite focal abnormal uptake, evaluation limited by the physiologic renal excretion of the tracer. No hydronephrosis. GI Tract: Approximately 1.2 cm new focal uptake in the mid sigmoid colon, SUV max 20.8, CT image 273. No bowel dilation. Peritoneum: Left lower quadrant 1.1 cm partially calcified omental lesion, SUV max 2.4, CT image 240, previously 1.1 cm SUV max 1.5. No ascites. Lymph Nodes: No radiotracer avid lymphadenopathy. Vasculature: Blood pool activity. Pelvic Organs: Uptake in the midline prostate is favored to be secondary to urethral activity; attention on follow-up. MUSCULOSKELETAL: Bones: No radiotracer avid lesion. No lytic or sclerotic lesion. Degenerative changes. Soft Tissues: No radiotracer avid lesion. IMPRESSION PRIMARY DISEASE SITE: * No focal abnormal uptake at the renal beds. NATHALIE DISEASE: * Presumed metastatic 4 right neck nodes, as described. METASTATIC DISEASE: * Mild worsening of the right lower lobe pulmonary nodule is concerning for metastatic disease, a primary bronchogenic process is not excluded. Tissue sampling and/or assessment on follow-up studies, as indicated. ADDITIONAL FINDINGS: * 1.2 cm new intense focal uptake in the mid sigmoid colon may be artifactual, although an underlying polyp/malignant lesion cannot be excluded. Recommend that the colonoscopy is up-to-date. ACTIONABLE RESULT * Slight increasing uptake in the left lower quadrant 1.1 cm partially calcified lesion is favored to be secondary to evolving omental infarction; attention on follow-up studies to exclude metastaticdisease. * Chronic changes, as described. ACTIONABLE RESULT: FOLLOW-UP Acuity: Actionable Findings: Digestive Tract Routing Code: GI_1 Recommendation: Unlisted Recommendation (see report) Time Frame: At the discretion of the clinical team. COMMUNICATION: Results will be communicated with the ordering provider via [employer] staff message or phone message by [facility] within 2 business days of report finalization. --END OF FINDING-- Transcribe Date/Time: May 06 2024 12:33P Dictated by: YAAKOV DANIEL MD This examination was interpreted and the report reviewed and electronically signed by: YAAKOV DANIEL MD on May 06 2024 1:04PM EST Thank you for allowing us to participate in the care of your patient. Should there be any questions regarding this interpretation, please call [phone]. If you are unable to reach us at the number above, please feel free to contact [facility] at [phone]. [id number]^[email or web address]^SI^ACN ACTIONABLE us Generic External Data Provider [facility] Final Result * POCT Protime-INR, fingerstick docked device (05/05/2024 10:32 AM EDT) RESULTS 1.7 Blood Venous blood specimen / Unknown 05/05/2024 10:32 AM EDT us Ted Perry MD POINT OF CARE TEST ENTER/EDIT ORDERABLES Final Result from Last 3 Months Insurance * Guarantor: Kenny Jones Account Type Relation to Patient Date of Phone Billing Address Personal/Family Self 1955 [address] [place] [address] MEDICARE [employer] Care Teams Drapery And Upholstery Estimator Relationship Specialty Start Date End Date Ted Perry MD [address] [facility] [address] [place] [address] PCP - ACO Reach 07/06/22 Ted Perry MD [address] [place] [address] PCP - General Internal Medicine 06/20/22
--- OUTSIDE RECORDS SUMMARY | 2024-07-23 09:42 | XMS_ITS | Encounter Summary ---
Author Organization [facility] Address [address] [place] [address] Care Team Providers Care Fiberglass Bonding Machine Tender Name Role Phone Orlando [place] MD, Daniel B Primary Care Provider [phone] Hue Anglin RN Unavailable Unavailable Abel Martínez MD Unavailable Jolanta Queen Unavailable Unavaila Mariia Estrada RD Unavailable [phone] Sheng Bill MD Unavailable [phone] Belinda Nicholson MD Unavailable [phone] Maricel Fox RN Unavailable [phone] Unavailable Lluvia Graham Unavailable Unavailable Olivia Gonzales APRN.NEGATIVE CLEANER Unavailable [phone] Source Comments In the event this information is protected by the Federal Confidentiality of Alcohol and Drug AbusePatient Records regulations: The Federal rules restrict any use of the information to criminally investigate or prosecute any alcohol or drug abuse patient.[facility] Encounter Details Date Type Department Care Team (Late st Contact Info) Description 04/13/2022 Patient Msg Angio [address] [place] [address] Provider, Ccf Pre Procedure Instructions 04/20/2022 Social History Tobacco Use Types Packs/Day Years Used Date Smoking Tobacco: Never Assessed Passive Smoke Exposure: Past Smokeless Tobacco: Never Alcohol Use Standard Drinks/Week Comments Yes 0 (1 standard drink = 0.6 oz pur e alcohol) socially PHQ-2 Answer Date Recorded PHQ-2 score 0 03/29/2022 Area Deprivation Index Answer Date Colby rded National Score (1-100), lower number is lower ri sk 74 03/06/2022 State Score (1-10), lower number is lower risk N ot on file 03/06/2022 Data from: https://www.neighborhoodatlas.medicine.[facility].edu/. Last address used for calculation [address] 03/06/2022 Sex and Gender Information Value Date Recorded Sex Assigned at Not on file Legal Sex Male 7:29 AM EST Gender Identity Not on file Sexual Orientation Not on file documented as of this encounter Plan of Treatment Upcoming Encounters Date Type Department Care Team (Latest Contact Info) Description 07/23/2024 1:30 PM EDT Infusion Center Hematology/Oncology [address] [place] [address] [place] [address] IV FLUIDS 07/23/2024 3:00 PM EDT Appointment Radiation Oncology [address] [place] [address] neck 07/25/2024 2:30 PM EDT Education Nutrition Therapy [address] [place] [address] Tamica Rosario, RD [address] [place] [address] follow up PEG 07/25/2024 2:30 PM EDT Infusion Center Hematology/Oncology [facility] [place] [address] Hydration to be givenin Radiology 07/28/2024 2:30 PM EDT Office Visit Radiation Oncology [address] [place] [address] Belinda Nicholson MD [address] [place] [address] final radiation follow up, 1-2 weeks 07/28/2024 3:00 PM EDT [facility] Center Hematology/Oncology [address] [place] [address] IV FLUIDS 08/14/2024 9:45 AM EDT Office Visit [facility] [address] [place] [address] 4 week follow up lab 08/14/2024 10:00 AM EDT Visit (SP) Office Hematology/Oncology [address] [place] [address] Olivia Gonzales, JAGRUTI.NEGATIVE CLEANER [address] [place] [address] 4 week follow up lab documented as of this encounter Visit Diagnoses Not on filedocumented in this encounter Care Teams Fiberglass Bonding Machine Tender Relationship Specialty Start Date End Date Ted Perry II, MD PCP - General Internal Medicine 12/03/12 Hue Anglin, SIDNEY Specialty Sales Agent Business Services Hematology/Oncology 10/11/23 06/03/24 Abel Martí[place] [address] [place] [address] Physician Hematology/Oncology 10/11/23 06/03/24 Jolanta Queen LISW Paid Search Marketing Analyst 10/29/[address] [place] [address] [place] [address] Registered Dietitian Nutrition 06/02/24 Sheng Bill MD [address] [place] [address] [place] [address] Physician Hematology/Oncology 06/04/24 Belinda Nicholson MD [address] [place] [address] [place] [address] Physician Radiation Oncology 06/04/24 Maricel Fox, RN [address] [place] [address] [place] [address] Specialty Sales Agent Business Services Hematology/Oncology 06/04/[address] [place] [address] Registered Dietitian Nutrition 06/25/24 Lluvia Graham LSW Paid Search Marketing Analyst 06/26/24 Olivia Gonzales APRN.NEGATIVE CLEANER [address] [place] [address] Nurse Practitioner Hematology/Oncology 07/03/24 documented as of this encounter
--- OUTSIDE RECORDS SUMMARY | 2024-07-23 09:42 | XMS_ITS | Encounter Summary ---
Author Organization [facility] Address [address] [place] [address] Care Team Providers Care Residential Child Care Counselor Name Role Phone Ted Perry MD Unavailable [phone] Ted Perry MD Primary Care Provider [phone] Encounter Details Date Type Department Care Team [...] often do you attend chur ch or adventist services? 1 to 4 times per year 10/18/2022 Do you belong to any clubs o r organizations such as denominational groups, unions, fraternal or athletic groups, or [...] care, and heating? Not very hard 10/18/2022 [facility] Occupat ional Health - Occupational Stress [...] place to sleep or slept in a correction (including now)? No 10/18/2022 Sex and Gender [...] DERM [address] [place] [address] Ai Galvez PA [address] [place] [address] 10/07/2025 9:00 AM EDT Office Visit [facility] [address] [place] [address] Jr. Emmanuel Clay, DO [address] [place] [address] documented as of this encounter Procedures Procedure Name Priority Date/Time Associated Diagnosis Comments CT ABD/PEL W IVCON 02/22/2024 10 :36 AM EST documented in this encounter Results * CT ABD/PEL W IVCON (02/22/2024 10:36 AM EST) Anatomical Region Laterality Modality Other 02/22/2024 10:3 6 AM EST Narrative 02/22/2024 12:37 PM EST * * *Final Report* * * DATE OF EXAM: Feb 22 2024 10:36AM [facility] 0530 - CT ABD/PEL W IVCON / PROCEDURE REASON: Renal cell carcinoma of right kidney (HCC) * * * * Physician Interpretation * * * * RESULT: EXAMINATION: CT ABDOMEN AND PELVIS WITH IV CONTRAST CLINICAL HISTORY: History of renal cell carcinoma of the right kidney. TECHNIQUE: CT of the abdomen and pelvis was performed using standard technique, scanning from just above the dome of the diaphragm to the symphysis pubis. MQ: CTAP_3 Contrast: IV: 100 ml of Omnipaque 350 Oral: 450 ml of Omni 240 10-25ml diluted with water CT Radiation dose: Integrated Dose-length product (DLP) for this visit = 2088 mGy*cm. CT Dose Reduction Employed: Automated exposure control (AEC) COMPARISON: CT urogram from 10/03/[address] of the abdomen and pelvis with contrast from 08/10/2023 RESULT: Liver: Stable subcentimeter hypodense lesion in segment IVb of the liver, previously characterized as a cyst. Biliary: No bile duct dilation. Gallbladder is unremarkable. Spleen: Multiple benign calcified splenic granulomas. No splenomegaly. Pancreas: No mass or duct dilation. Adrenals: Adrenalectomies. Kidneys: Left nephrectomy. Stable 2.2 x 1.2 cm nodule in the left nephrectomy bed on slice 51 of series 3. Surgical changes compatible with partial nephrectomy along the upper pole of the right kidney with postsurgical changes present at the nephrectomy bed. No evidence of residual or recurrent mass. The previously seen postoperative fluid collections from 10/03/2023 are markedly decreased in volume. GI tract: No dilation or wall thickening. Lymph nodes: No abdominal or pelvic lymphadenopathy. Mesentery/Peritoneum: No ascites or mass. There is an encapsulated fat within the mesentery which may be due to areas of fat necrosis or torsed epiploic appendages. Pelvis: Mild enlargement of the prostate gland. Bones/Soft Tissues: Degenerative changes. Mesh hernia repairs along the ventral abdominal wall. Lower thorax: A chest CT performed will be reported separately. Localizer images: No additional findings. IMPRESSION: 1. Surgical changes compatible with partial nephrectomy along the upper pole of the right kidney and right adrenalectomy with no evidence of residual or recurrent neoplasm at the right nephrectomy site. Status post left nephrectomy with stable nodular soft tissue density at the left nephrectomy bed. No new or worsening disease detected in the abdomen or pelvis. Transcribe Date/Time: Feb 22 2024 12:23P Dictated by: NEGRITO FIGUEREDO MD This examination was interpreted and the report reviewed and electronically signed by: NEGRITO FIGUEREDO MD on Feb 22 2024 12:35PM EST Thank you for allowing us to participate in the care of your patient. Should there be any questions regarding this interpretation, please call [phone]. If you are unable to reach us at the number above, please feel free to contact [facility] at [phone]. [id number]^[email or web address]^SI^ACN Procedure Note Radiology, Radiologist, - 02/22/2024 * * *Final Report* * * DATE OF EXAM: Feb 22 2024 10:36AM [facility] 0530 - CT ABD/PEL W IVCON / PROCEDURE REASON: Renal cell carcinoma of right kidney (HCC) * * * * Physician Interpretation * * * * RESULT: EXAMINATION: CT ABDOMEN AND PELVIS WITH IV CONTRAST CLINICAL HISTORY: History of renal cell carcinoma of the right kidney. TECHNIQUE: CT of the abdomen and pelvis was performed using standard technique, scanning from just above the dome of the diaphragm to the symphysis pubis. MQ: CTAP_3 Contrast: IV: 100 ml of Omnipaque 350 Oral: 450 ml of Omni 240 10-25ml diluted with water CT Radiation dose: Integrated Dose-length product (DLP) for this visit = 2088 mGy*cm. CT Dose Reduction Employed: Automated exposure control (AEC) COMPARISON: CT urogram from 10/03/[address] of the abdomen and pelvis with contrast from 08/10/2023 RESULT: Liver: Stable subcentimeter hypodense lesion in segment IVb of the liver, previously characterized as a cyst. Biliary: No bile duct dilation. Gallbladder is unremarkable. Spleen: Multiple benign calcified splenic granulomas. No splenomegaly. Pancreas: No mass or duct dilation. Adrenals: Adrenalectomies. Kidneys: Left nephrectomy. Stable 2.2 x 1.2 cm nodule in the left nephrectomy bed on slice 51 of series 3. Surgical changes compatible with partial nephrectomy along the upper pole of the right kidney with postsurgical changes present at the nephrectomy bed. No evidence of residual or recurrent mass. The previously seen postoperative fluid collections from 10/03/2023 are markedly decreased in volume. GI tract: No dilation or wall thickening. Lymph nodes: No abdominal or pelvic lymphadenopathy. Mesentery/Peritoneum: No ascites or mass. There is an encapsulated fat within the mesentery which may be due to areas of fat necrosis or torsed epiploic appendages. Pelvis: Mild enlargement of the prostate gland. Bones/Soft Tissues: Degenerative changes. Mesh hernia repairs along the ventral abdominal wall. Lower thorax: A chest CT performed will be reported separately. Localizer images: No additional findings. IMPRESSION: 1. Surgical changes compatible with partial nephrectomy along the upper pole of the right kidney and right adrenalectomy with no evidence of residual or recurrent neoplasm at the right nephrectomy site. Status post left nephrectomy with stable nodular soft tissue density at the left nephrectomy bed. No new or worsening disease detected in the abdomen or pelvis. Transcribe Date/Time: Feb 22 2024 12:23P Dictated by: NEGRITO FIGUEREDO MD This examination was interpreted and the report reviewed and electronically signed by: NEGRITO FIGUEREDO MD on Feb 22 2024 12:35PM EST Thank you for allowing us to participate in the care of your patient. Should there be any questions regarding this interpretation, please call [phone]. If you are unable to reach us at the number above, please feel free to contact [facility] at [phone]. [id number]^[email or web address]^SI^ACN us Generic External Data Provider [facility] Final Result documented in this encounter Visit Diagnoses Not on filedocumented in this encounter Care Teams Residential Child Care Counselor Relationship Specialty Start Date End Date Ted Perry MD [address] [facility] [address] [place] [address] PCP - ACO Reach 07/06/22 Ted Perry MD [address] [address] PCP - General Internal Medicine 06/20/22 documented as of this encounter
--- OUTSIDE RECORDS SUMMARY | 2024-07-23 09:42 | XMS_ITS | Encounter Summary ---
Author Organization [facility] Address [address] [place] [address] Care Team Providers Care Stock Crane Operator Name Role Phone Orlando [place] MD, Daniel B Primary Care Provider [phone] Hue Anglin RN Unavailable Unavailable Abel Martínez MD Unavailable [phone] Jolanta Queen Unavailable Unavaila Mariia Estrada RD Unavailable [phone] Sheng Bill MD Unavailable [phone] Belinda Nicholson MD Unavailable [phone] Maricel Fox RN Unavailable [phone] Unavailable Lluvia Graham Unavailable Unavailable Olivia Gonzales APRN.CONSTRUCTION SUPERVISOR Unavailable [phone] Source Comments In the event this information is protected by the Federal Confidentiality of Alcohol and Drug AbusePatient Records regulations: The Federal rules restrict any use of the information to criminally investigate or prosecute any alcohol or drug abuse patient.[facility] Encounter Details Date Type Department Care Team (Late st Contact Info) Description 03/31/2022 Patient Msg Urology [address] [place] [address] Kenny Eric MD [address] [place], [place] [id number] lung biopsy not possible Social History Tobacco Use Types Packs/Day Years [...] N ot on file 03/06/2022 Data from: https://www.neighborhoodatlas.medicine.[facility]/. Last address used for calculation [address] 03/06/2022 Sex and Gender Information Value Date Recorded Sex Assigned at Not on file Legal Sex Male 7:29 AM EST Gender Identity Not on file Sexual Orientation Not on file documented as of this encounter Plan of Treatment Upcoming Encounters Date Type Department Care Team (Latest Contact Info) Description 07/23/2024 1:30 PM EDT Infusion Center Hematology/Oncology [address] [place] [address] IV FLUIDS 07/23/2024 3:00 PM EDT Appointment Radiation Oncology [facility] [place] [address] neck 07/25/2024 2:30 PM EDT Education Nutrition Therapy [place] [address] Tamica Rosario, IVIS [address] [place] [address] follow up PEG 07/25/2024 2:30 PM EDT Infusion Center Hematology/Oncology [address] [place] [address] Hydration to be givenin Radiology 07/28/2024 2:30 PM EDT Office Visit Radiation Oncology [address] [place] [address] Belinda Nicholson MD [address] [place] [place] [address] final radiation follow up, 1-2 weeks 07/28/2024 3:00 PM EDT [facility] Hematology/Oncology [address] [place] [address] IV FLUIDS 08/14/2024 9:45 AM EDT Office Visit [facility] [address] [facility] [place] [address] 4 week follow up lab 08/14/2024 10:00 AM EDT Visit (SP) Office Hematology/Oncology [address] [place] [address] [place] [address] Olivia Gonzales APRN.[facility] [address] [facility] [place] [address] 4 week follow up lab documented as of this encounter Visit Diagnoses Not on filedocumented in this encounter Care Teams Stock Crane Operator Relationship Specialty Start Date End Date Ted Perry II, MD PCP - General Internal Medicine 12/03/12 Hue Anglin, SIDNEY Specialty Logging Contractor Hematology/Oncology 10/11/23 06/03/24 Abel [place] [address] [place], [place] [address] Physician Hematology/Oncology 10/11/23 06/03/24 Jolanta Queen LISW Stretching Machine Operator 10/29/[address] [place] [address] [place] [address] Registered Dietitian Nutrition 06/02/24 Sheng Bill MD [address] [place] [address] [address] [place], [place] [id number] Physician Hematology/Oncology 06/04/24 Belinda Nicholson MD [address] [place] [address] Physician Radiation Oncology 06/04/24 Maricel Fox, SIDNEY [address] [place] [address] Specialty Logging Contractor Hematology/Oncology 06/04/[address] [place] [address] Registered Dietitian Nutrition 06/25/24 Lluvia Graham LSW Stretching Machine Operator 06/26/24 Olivia Gonzales APRN.CONSTRUCTION SUPERVISOR [address] [place] [address] Nurse Practitioner Hematology/Oncology 07/03/24 documented as of this encounter
--- OUTSIDE RECORDS SUMMARY | 2024-07-23 09:42 | XMS_ITS | Encounter Summary ---
Author Organization [facility] Address [address] [place] [address] Care Team Providers Care Direct Marketing Intern Name Role Phone Ted Perry MD Unavailable [phone] Ted Perry MD Primary Care Provider [phone] Encounter Details Date Type Department Care Team (Late st Contact Info) Description 07/17/2024 Abstract [facility] [address] [facility] [address] [place] [address] Ted Perry MD [address] [facility] [address] [place], [place] [id number] Social History Tobacco Use Types Packs/Day Years [...] often do you attend chur ch or hinduism services? 1 to 4 times per year 10/18/2022 Do you belong to any clubs o r organizations such as shinto groups, unions, fraternal or athletic groups, or [...] care, and heating? Not very hard 10/18/2022 [facility] Occupat ional Health - Occupational [...] place to sleep or slept in a custodial (including now)? No 10/18/2022 Sex and Gender [...] [address] [place] [address] 10/07/2025 9:00 AM EDT Office Visit [facility] [address] [place] [address] Jr. Emmanuel lCay DO [address] [place] [address] documented as of this encounter Visit Diagnoses Not on filedocumented in this encounter Care Teams Direct Marketing Intern Relationship Specialty Start Date End Date Ted Perry MD [address] [place] [address] PCP - ACO Reach 07/06/22 Ted Perry MD [address] [facility] [address] [place] [address] PCP - General Internal Medicine 06/20/22 documented as of this encounter
--- NOTE | 2024-07-23 09:43 | MR_ITS ---
The [address] [address] Patient Name: ANDREI GARCIA MRN: [id number] date: 1955 Sex: M Assigned Patient Location: MRI Current Patient Location: MRI Accession/Order Number: [id number] Exam Date: 07/23/2024 11:29 Report Date: 07/23/2024 11:39 At the request of: GAL LARKIN Procedure: MR head/brain wo/w con MRI BRAIN WITHOUT AND WITH INTRAVENOUS CONTRAST CLINICAL DATA: Head and neck cancer with radiation. Fatigue and dizziness. Metastatic evaluation. COMPARISON: None Multiecho, multiplanar imaging of the brain was performed before and after intravenous administration of 20 mL of Dotarem. There is cortical atrophy. The ventricles are normal in size and position. Minimal white matter increased T2 and FLAIR signal is present, likely chronic microvascular disease. There are no additional areas of abnormal signal intensity or enhancement within the supra or infratentorial brain. There is no restricted diffusion to suggest a recent ischemic event. No extra-axial collections or mass effect are seen. No midline abnormalities are noted. Mild ethmoid mucosal thickening is seen. The remaining paranasal sinuses and mastoid air cells show no significant inflammatory change. There is nasal septal deviation to the right. IMPRESSION: AGE-RELATED CHANGES. NO ACUTE INTRACRANIAL FINDINGS OR EVIDENCE OF METASTATIC DISEASE. Impression dictated by: Smita Trivedi M.D. 07/23/2024 11:39 AM Dictation Location: [place] [address] Electronically authenticated by: [id number] Y Date: 07/23/2024 11:39
--- OUTSIDE RECORDS SUMMARY | 2024-07-23 09:43 | XMS_ITS | Encounter Summary ---
Author Organization [facility] Address [address] [place] [address] Care Team Providers Care Cocktail Lounge Manager Name Role Phone Orlando [place] MD, Ted Brown Primary Care Provider + [phone] Jolanta Queen Unavailable Unavaila Mariia Estrada RD Unavailable [phone] Sheng Bill MD Unavailable [phone] Belinda Nicholson MD Unavailable [phone] Maricel Fox RN Unavailable [phone] Unavailable Lluvia Graham Unavailable Unavailable Olivia Gonzales APRN.VESSEL OPERATOR Unavailable [phone] Source Comments In the event this information is protected by the Federal Confidentiality of Alcohol and Drug AbusePatient Records regulations: The Federal rules restrict any use of the information to criminally investigate or prosecute any alcohol or drug abuse patient.[facility] Reason for Visit * Reason Comments Refill Request Encounter Details Date Type Department Care Team (Late st Contact Info) Description 07/14/2024 Refill Endocrinology [address] [place] [address] Carrie Barriga MD [address] [place] [address] Refill Request Social History Tobacco Use Types Packs/Day Years [...] is lower risk 8 07/03/2022 Data from: https://www.neighborhoodatlas.medicine.[facility]/. Last address used for calculation [address] [...] Deng Cruz RN documented in this encounter Miscellaneous Notes * Telephone Encounter - Bethanie RamirezJULIA - 07/14/2024 4:23 PM EDT Images from the original note were not included. Most recent Endocrinology visit: Last encounter Visit on 09/27/2023 (with Dingfeng Li) 07/04/2023 in ENDO MAIN with LI, DINGFENG for Adrenal nodule (HCC) 09/03/2023 in ENDO MAIN with LI, DINGFENG for Right adrenal mass (HCC) 09/27/2023 in ENDO MAIN with LI, DINGFENG for Primary adrenal insufficiency (HCC) 07/01/2024 in [facility] with TED EAGLE for No future appt scheduled in ENDO. Please route to local appt/scheduling pool if appt is needed? Requested Prescriptions Pending Prescriptions Disp Refills fludrocortisone (FLORINEF) 0.1 mg tablet [Pharmacy Med Name: Fludrocortisone Acetate Oral Tablet 0.1 MG] 90 tablet 3 Sig: TAKE 1 TABLET EVERY DAY Hemoglobin A1c: None on file in the last 12 months Latest Ref Rng & Units 06/18/2024 06/12/2024 05/06/2024 TSH TSH 0.270 - 4.200 mIU/L 1.110 1.620 2.070 Free T3: None on file in the last 12 months Free T4: None on file in the last 12 months Thyroglobulin: None on file in the last 12 months Vitamin D: None on file in the last 12 months Latest Ref Rng & Units 07/14/2024 07/10/2024 07/03/2024 Hematocrit Hematocrit 39.0 - 51.0 % 36.7 36.8 40.2 Latest Ref Rng & Units 07/14/2024 07/10/2024 07/03/2024 Creatinine Creatinine 0.73 - 1.22 mg/dL 1.06 1.09 1.24 Latest Ref Rng & Units 07/14/2024 07/10/2024 07/03/2024 eGFR EGFR >=60 mL/min/1.73m 75 73 63 Latest Ref Rng & Units 07/14/2024 07/10/2024 07/03/2024 Potassium Potassium 3.7 - 5.1 mmol/L 4.4 4.5 4.7 Testosterone: None on file in the last 12 months IGF: None on file in the last 12 months Prolactin: None on file in the last 12 months documented in this encounter Plan of Treatment Upcoming Encounters Date Type Department Care Team (Latest Contact Info) Description 07/23/2024 1:30 PM EDT Infusion Center Hematology/Oncology [address] [place] [address] IV FLUIDS 07/23/2024 3:00 PM EDT Appointment Radiation Oncology [address] [place] [address] neck 07/25/2024 2:30 PM EDT Education Nutrition Therapy [address] [place] [address] Tamica Rosario, RD [address] [place] [address] follow up PEG 07/25/2024 2:30 PM EDT Infusion Center Hematology/Oncology [address] [place] [address] Hydration to be givenin Radiology 07/28/2024 2:30 PM EDT Office Visit Radiation Oncology [address] [place] [address] Belinda Nicholson MD [address] [place] [address] final radiation follow up, 1-2 weeks 07/28/2024 3:00 PM EDT Infusion Center Hematology/Oncology [address] [place] [address] IV FLUIDS 08/14/2024 9:45 AM EDT Office Visit [facility] [address] [place] [address] 4 week follow up lab 08/14/2024 10:00 AM EDT Visit (SP) Office Hematology/Oncology [address] [place] [address] Olivia Gonzales, JAGRUTI.VESSEL OPERATOR [address] [place] [address] 4 week follow up lab documented as of this encounter Results * DIRECT RENIN PLASMA (07/17/2024 8:24 AM EDT) Direct Renin 36.7 3.6 - 81.6 pg/mL 07/18/2024 10:45 AM EDT [facility] Comment: A ratio of aldosterone in ng/dL [...] 3.2-33.2 pg/mL Age >=41 years: 2.5-45.1 pg/mL Patient Upright or Supine Upright 07/18/2024 10:[address] [facility] Blood BLOOD SPECIMEN / Unknown Venipuncture / Unknown 07/17/2024 8:24 AM EDT 07/17/2024 8:24 AM EDT Carrie Barriga MD LABORATORY Final Result [facility] [address] [address], [facility] [address] [place] [address] documented in this encounter Visit Diagnoses Diagnosis Primary adrenal insufficiency (HCC)- Primary Glucocorticoid deficiency documented in this encounter Care Teams Cocktail Lounge Manager Relationship Specialty Start Date End Date Ted Perry II, MD PCP - General Internal Medicine 12/03/12 Jolanta Queen LISW Gasoline Tester 10/29/[address] [place] [address] [place] [address] Registered Dietitian Nutrition 06/02/24 Sheng Bill MD [address] [place] [address] [place] [address] Physician Hematology/Oncology 06/04/24 Belinda Nicholson MD [address] [place] [address] [place] [address] Physician Radiation Oncology 06/04/24 Maricel Fox, SIDNEY [address] [place] [address] [place] [address] Specialty Time Motion Analyst Hematology/Oncology 06/04/[address] [place] [address] Registered Dietitian Nutrition 06/25/24 Lluvia Graham LSW Gasoline Tester 06/26/24 Olivia Gonzales APRN.VESSEL OPERATOR [address] [place] [address] [place] [address] Nurse Practitioner Hematology/Oncology 07/03/24 documented as of this encounter
--- OUTSIDE RECORDS SUMMARY | 2024-07-23 09:43 | XMS_ITS | Encounter Summary ---
Author Organization [facility] Address [address] [place] [address] Care Team Providers Care Paint Maker Name Role Phone Ted Perry MD Unavailable [phone] Ted Perry MD Primary Care Provider [phone] Encounter Details Date Type Department Care Team (Late st Contact Info) Description 06/05/2024 Abstract [facility] [address] [facility] [address] [place] [address] Ted Perry MD [address] [place] [facility] [address] [place], [place] [id number] Social History Tobacco Use Types Packs/Day Years [...] often do you attend chur ch or holiness services? 1 to 4 times per year 10/18/2022 Do you belong to any clubs o r organizations such as restorationist groups, unions, fraternal or athletic groups, or [...] care, and heating? Not very hard 10/18/2022 [facility] - [...] place to sleep or slept in a longterm (including now)? No 10/18/2022 Sex and Gender [...] [address] [place] [address] Ai Galvez PA [address] [place] [address] 10/07/2025 9:00 AM EDT Office Visit [facility] [address] [place] [address] Jr. Emmanuel Clay DO [address] [place] [address] documented as of this encounter Visit Diagnoses Not on filedocumented in this encounter Care Teams Paint Maker Relationship Specialty Start Date End Date Ted Perry MD [address] [place] [address] PCP - ACO Reach 07/06/22 Ted Perry MD 112 [facility] 110 [place] [address] PCP - General Internal Medicine 06/20/22 documented as of this encounter
--- OUTSIDE RECORDS SUMMARY | 2024-07-23 09:43 | XMS_ITS | Encounter Summary ---
Author Organization [facility] Address [address] [place] [address] Care Team Providers Care Pitch Flaker Name Role Phone Orlando [place] MD, Ted Brown Primary Care Provider [phone]- [phone] Jolanta Queen Unavailable Unavaila Mariia Estrada RD Unavailable [phone] Sheng Bill MD Unavailable [phone] Belinda Nicholson MD Unavailable [phone] Maricel Fox RN Unavailable [phone] Unavailable Lluvia Graham Unavailable Unavailable Olivia Gonzales APRN.STEEL MELTER Unavailable [phone] Source Comments In the event this information is protected by the Federal Confidentiality of Alcohol and Drug AbusePatient Records regulations: The Federal rules restrict any use of the information to criminally investigate or prosecute any alcohol or drug abuse patient.[facility] Encounter Details Date Type Department Care Team (Late st Contact Info) Description 07/22/2024 Results Follow-Up Endocrinology [address] [id number] Carrie Barriga MD [address] [place] [address] Social History Tobacco Use Types Packs/Day Years [...] is lower risk 8 07/03/2022 Data from: https://www.neighborhoodatlas.medicine.[facility].edu/. Last address used for calculation [address] [...] Deng Gray RN documented in this encounter Miscellaneous Notes * Result Encounter Note - Carrie Barriga MD - 07/22/2024 7:26 AM EDT Mr. Jones, I reviewed the test results which look good. Continue same dose of florinef. Wish you well. Dr. Barriga Endocrinology documented in this encounter Plan of Treatment Upcoming Encounters Date Type Department Care Team (Latest Contact Info) Description 07/23/2024 1:30 PM EDT Infusion Center Hematology/Oncology [address] [place] [address] IV FLUIDS 07/23/2024 3:00 PM EDT Appointment Radiation Oncology [facility] [place] [address] neck 07/25/2024 2:30 PM EDT Education Nutrition Therapy [address] [place] [address] Tamica Rosario, RD [address] [place] [address] follow up PEG 07/25/2024 2:30 PM EDT Infusion Center Hematology/Oncology [address] [place] [address] [place] [address] Hydration to be givenin Radiology 07/28/2024 2:30 PM EDT Office Visit Radiation Oncology [facility] [address] Belinda Nicholson MD [address] [place] [address] [place] [address] final radiation follow up, 1-2 weeks 07/28/2024 3:00 PM EDT Infusion Center Hematology/Oncology [facility] [place] [address] IV FLUIDS 08/14/2024 9:45 AM EDT Office Visit [facility] [place] [address] 4 week follow up lab 08/14/2024 10:00 AM EDT Visit (SP) Office Hematology/Oncology [address] [place] [address] Olivia Gonzales, DELIVERY ANALYST.STEEL MELTER [address] [facility] [place] [address] 4 week follow up lab documented as of this encounter Visit Diagnoses Not on filedocumented in this encounter Care Teams Pitch Flaker Relationship Specialty Start Date End Date Ted Perry II, MD PCP - General Internal Medicine 12/03/12 Jolanta Queen LISW Wheel Aligner 10/29/[address] [place] [address] Registered Dietitian Nutrition 06/02/24 Sheng Bill MD [address] [place] [address] [place] [address] Physician Hematology/Oncology 06/04/24 Belinda Nciholson MD [address] [place] [address] [place] [address] Physician Radiation Oncology 06/04/24 Maricel Fox, SIDNEY [address] [place] [address] Specialty Audit Mgr Hematology/Oncology 06/04/[address] [place] [address] Registered Dietitian Nutrition 06/25/24 Lluvia Graham LSW Wheel Aligner 06/26/24 Olivia Gonzales, JAGRUTI.STEEL MELTER [address] [facility] [place] [address] Nurse Practitioner Hematology/Oncology 07/03/24 documented as of this encounter
--- OUTSIDE RECORDS SUMMARY | 2024-07-23 09:43 | XMS_ITS | Encounter Summary ---
Author Organization [facility] Address [facility] [place] [address] Care Team Providers Care Bacteriologist Medical Name Role Phone Orlando [place] MD, Ted Brown Primary Care Provider + [phone] Jolanta Queen Unavailable Unavaila Mariia Estrada [address] Unavailable [phone] Sheng Bill MD Unavailable [phone] Belinda Nicholson MD Unavailable [phone] Maricel Fox RN Unavailable [phone] Unavailable Lluvia Graham Unavailable Unavailable Olivia Gonzales APRN.AWNING HANGER HELPER Unavailable [phone] Source Comments In the event this information is protected by the Federal Confidentiality of Alcohol and Drug AbusePatient Records regulations: The Federal rules restrict any use of the information to criminally investigate or prosecute any alcohol or drug abuse patient.[facility] Encounter Details Date Type Department Care Team (Late st Contact Info) Description 07/17/2024 Orders Only Hematology/Oncology [address] [place] [address] [place] [address] Sheng Bill MD [address] [facility] [place] [address] Head and neck cancer (HCC) Social History Tobacco Use Types Packs/Day [...] is lower risk 8 07/03/2022 Data from: https://www.neighborhoodatlas.medicine.[facility].edu/. Last address used for calculation [...] EDT Infusion Center Hematology/Oncology [address] [place] [address] IV FLUIDS 07/23/2024 3:00 PM EDT Appointment Radiation Oncology [address] [place] [address] neck 07/25/2024 2:30 PM EDT Education Nutrition Therapy [address] [place] [address] Tamica Rosario, IVIS [address] [place] [address] follow up PEG 07/25/2024 2:30 PM EDT Infusion Center Hematology/Oncology [address] [place] [address] Hydration to be givenin Radiology 07/28/2024 2:30 PM EDT Office Visit Radiation Oncology [address] [place] [address] Belinda Nicholson MD [address] [facility] [place] [address] final radiation follow up, 1-2 weeks 07/28/2024 3:00 PM EDT Infusion Center Hematology/Oncology [facility] [place] [address] IV FLUIDS 08/14/2024 9:45 AM EDT Office Visit [facility] [address] [place] [address] 4 week follow up lab 08/14/2024 10:00 AM EDT Visit (SP) Office Hematology/Oncology [address] [place] [address] Olivia Gonzales APRN.AWNING HANGER HELPER [address] [place] [address] 4 week follow up lab documented as of this encounter Visit Diagnoses Diagnosis Head and neck cancer (HCC) Malignant neoplasm of head, face, and neck documented in this encounter Care Teams Bacteriologist Medical Relationship Specialty Start Date End Date Ted Perry II, MD PCP - General Internal Medicine 12/03/12 Jolanta Queen LISW Sales Account Leader 10/29/[address] [place] [place] [address] Registered Dietitian Nutrition 06/02/24 Sheng Bill MD [address] [facility] [place] [address] Physician Hematology/Oncology 06/04/24 Belinda Nichoslon MD [address] [facility] [place] [address] Physician Radiation Oncology 06/04/24 Maricel Fox, SIDNEY [address] [facility] [place] [address] Specialty Wood Milling Machine Tender Hematology/Oncology 06/04/[address] [place] [address] Registered Dietitian Nutrition 06/25/24 Lluvia Graham LSW Sales Account Leader 06/26/24 Olivia Gonzales APRN.AWNING HANGER HELPER [address] [facility] [place] [address] Nurse Practitioner Hematology/Oncology 07/03/24 documented as of this encounter
--- OUTSIDE RECORDS SUMMARY | 2024-07-23 09:43 | XMS_ITS | Encounter Summary ---
Author Organization [facility] Address [address] [place] [address] Care Team Providers Care Sales Representative Name Role Phone Orlando [place] MD, Ted Brown Primary Care Provider +- [phone] Jolanta Queen Unavailable Unavaila Mariia Estrada RD Unavailable [phone] Sheng Bill MD Unavailable [phone] Belinda Nicholson MD Unavailable [phone] Maricel Fox RN Unavailable [phone] Unavailable Lluvia Graham Unavailable Unavailable Olivia Gonzales APRN.CAPTAIN/AIRLINE PILOT Unavailable [phone] Source Comments In the event this information is protected by the Federal Confidentiality of Alcohol and Drug AbusePatient Records regulations: The Federal rules restrict any use of the information to criminally investigate or prosecute any alcohol or drug abuse patient.[facility] Encounter Details Date Type Department Care Team (Late st Contact Info) Description 06/24/2024 Patient Msg [facility] Endoscopy - ENDO [address] [id number] Provider, [facility] EGD Instructions Social History Tobacco Use Types Packs/Day Years [...] is lower risk 8 07/03/2022 Data from: https://www.neighborhoodatlas.[facility]/. Last address used for calculation [address] [...] 1:30 PM EDT Infusion Center Hematology/Oncology [address] [facility] [place] [address] IV FLUIDS 07/23/2024 3:00 PM EDT Appointment Radiation Oncology [address] [place] [address] neck 07/25/2024 2:30 PM EDT Education Nutrition Therapy [address] [place] [address] Tamica Rosario, IVIS [address] [place] [address] follow up PEG 07/25/2024 2:30 PM EDT Infusion Center Hematology/Oncology [address] [facility] [place] [address] Hydration to be givenin Radiology 07/28/2024 2:30 PM EDT Office Visit Radiation Oncology [address] [facility] [place] [address] Belinda Nicholson MD [address] [place] [address] [place] [address] final radiation follow up, 1-2 weeks 07/28/2024 3:00 PM EDT Infusion Center Hematology/Oncology [address] [place] [address] [place] [address] IV FLUIDS 08/14/2024 9:45 AM EDT Office Visit [facility] [address] [place] [address] [place] [address] 4 week follow up lab 08/14/2024 10:00 AM EDT Visit (SP) Office Hematology/Oncology [address] [facility] [place] [address] Olivia Gonzales APRN.CAPTAIN/AIRLINE PILOT [address] [facility] [place] [address] 4 week follow up lab documented as of this encounter Visit Diagnoses Not on filedocumented in this encounter Care Teams Sales Representative Relationship Specialty Start Date End Date Ted Perry II, MD PCP - General Internal Medicine 12/03/12 Jolanta Queen LISW Avionics Manager 10/29/[address] [facility] [address] Registered Dietitian Nutrition 06/02/24 Sheng Bill MD [address] [place] [address] [place] [address] Physician Hematology/Oncology 06/04/24 Belinda Nicholson MD [address] [place] [address] [place] [address] Physician Radiation Oncology 06/04/24 Maricel Fox, SIDNEY [address] [facility] [place] [address] Specialty Marketing Campaign Analyst Hematology/Oncology 06/04/[address] [place] [address] Registered Dietitian Nutrition 06/25/24 Lluvia Graham LSW Avionics Manager 06/26/24 Olivia Gonzales APRN.CNP [address] [place] [address] [place] [address] Nurse Practitioner Hematology/Oncology 07/03/24 documented as of this encounter
--- OUTSIDE RECORDS SUMMARY | 2024-07-23 09:43 | XMS_ITS | Encounter Summary ---
Author Organization [facility] Address [address] [place] [address] Care Team Providers Care Livestock Slaughterer Name Role Phone Ted Perry MD Unavailable [phone] Ted Perry MD Primary Care Provider [phone] Encounter Details Date Type Department Care Team (Late st Contact Info) Description 05/28/2024 Abstract [facility] 112 [facility] 110 [place] [address] Ted Perry MD [address] [place] [facility] [address] [place], [place] [id number] Social History Tobacco Use Types Packs/Day Years [...] often do you attend chur ch or druze services? 1 to 4 times per year 10/18/2022 Do you belong to any clubs o r organizations such as uatsdin groups, unions, fraternal or athletic groups, or [...] care, and heating? Not very hard 10/18/2022 [facility] - [...] [address] [place] [address] Ai Galvez PA [address] [place] [address] 10/07/2025 9:00 AM EDT Office Visit [facility] [address] [place] [address] Jr. Emmanuel Clay DO [address] [place] [address] documented as of this encounter Visit Diagnoses Not on filedocumented in this encounter Care Teams Livestock Slaughterer Relationship Specialty Start Date End Date Ted Perry MD [address] [place] [address] PCP - ACO Reach 07/06/22 Ted Perry MD 112 [facility] [address] [place] [address] PCP - General Internal Medicine 06/20/22 documented as of this encounter
--- OUTSIDE RECORDS SUMMARY | 2024-07-23 09:43 | XMS_ITS | Encounter Summary ---
Author Organization [facility] Address [address] [place] [address] Care Team Providers Care Summer Camp Counselor Name Role Phone Ted Perry MD Unavailable [phone] Ted Perry MD Primary Care Provider [phone] Sunday, Wanda STANFORD Unavailable [phone] Encounter Details Date Type Department Care Team (Late st Contact Info) Description 11/13/2023 Abstract [facility] [address] [facility] [address] [place] [address] Ted Perry MD 112 [facility] [address] [place], [place] [address] Social History Tobacco Use Types Packs/Day Years [...] often do you attend chur ch or evangelical services? 1 to 4 times per year 10/18/2022 Do you belong to any clubs o r organizations such as adventism groups, unions, fraternal or athletic groups, or [...] care, and heating? Not very hard 10/18/2022 [facility] Stress Questionnaire Answer Date [...] place to sleep or slept in a mcc (including now)? No 10/18/2022 Sex and Gender [...] DERM [address] [place] [address] Ai Galvez PA [address] [place] [address] 10/07/2025 9:00 AM EDT Office Visit [facility] [address] [place] [address] Jr. Emmanuel Clay DO [address] [place] [address] documented as of this encounter Visit Diagnoses Not on filedocumented in this encounter Care Teams Summer Camp Counselor Relationship Specialty Start Date End Date Ted Perry MD [address] [place] [address] PCP - ACO Reach 07/06/22 Ted Perry MD [address] [place] [address] PCP - General Internal Medicine 06/20/22Sunday, HIEN Muñoz [address] [place] [address] Licensed Practical Nurse Family Medicine 11/05/23 11/15/23 documented as of this encounter
--- OUTSIDE RECORDS SUMMARY | 2024-07-23 09:43 | XMS_ITS | Encounter Summary ---
Author Organization [facility] Address [address] [place] [address] Care Team Providers Care Wool Supplier Name Role Phone Orlando [place] MD, Ted Brown Primary Care Provider + [phone] Jolanta Queen Unavailable Unavaila Mariia Estrada RD Unavailable [phone] Sheng Bill MD Unavailable [phone] Belinda Nicholson MD Unavailable [phone] Maricel Fox RN Unavailable [phone] Unavailable Lluvia Graham Unavailable Unavailable Olivia Gonzales APRN.CLEANER OPERATOR Unavailable [phone] Source Comments In the event this information is protected by the Federal Confidentiality of Alcohol and Drug AbusePatient Records regulations: The Federal rules restrict any use of the information to criminally investigate or prosecute any alcohol or drug abuse patient.[facility] Encounter Details Date Type Department Care Team (Late st Contact Info) Description 06/24/2024 GI Preprocedure Call [facility] Endoscopy - ENDO [id number] [id number] [place] [address] [place] [address] Social History Tobacco Use Types Packs/Day Years [...] is lower risk 8 07/03/2022 Data from: https://www.neighborhoodatlas.medicine.[place].edu/. Last address used for calculation [address] [...] 1:30 PM EDT Infusion Center Hematology/Oncology [address] [place] [address] IV FLUIDS 07/23/2024 3:00 PM EDT Appointment Radiation Oncology [address] [place] [address] neck 07/25/2024 2:30 PM EDT Education Nutrition Therapy [address] [place] [address] Tamica Rosario, RD [address] [place] [address] follow up PEG 07/25/2024 2:30 PM EDT Infusion Center Hematology/Oncology [facility] [address] Hydration to be givenin Radiology 07/28/2024 2:30 PM EDT Office Visit Radiation Oncology [address] [facility] [place] [address] Belinda Nicholson MD [address] [place] [address] [place] [address] final radiation follow up, 1-2 weeks 07/28/2024 3:00 PM EDT Infusion Center Hematology/Oncology [facility] [place] [address] IV FLUIDS 08/14/2024 9:45 AM EDT Office Visit [facility] [address] [place] [address] 4 week follow up lab 08/14/2024 10:00 AM EDT Visit (SP) Office Hematology/Oncology [address] [place] [address] Olivia Gonzales APRN.CLEANER OPERATOR [address] [facility] [place] [address] 4 week follow up lab documented as of this encounter Visit Diagnoses Not on filedocumented in this encounter Care Teams Wool Supplier Relationship Specialty Start Date End Date Ted Perry II, MD PCP - General Internal Medicine 12/03/12 Jolanta Queen LISW Binder Fixer 10/29/[address] [place] [address] [place], [place] [id number] Registered Dietitian Nutrition 06/02/24 Sheng Bill MD [address] [place] [address] [place] [address] Physician Hematology/Oncology 06/04/24 Belinda Nicholson MD [address] [place] [address] [place] [address] Physician Radiation Oncology 06/04/24 Maricel Fox, SIDNEY [address] [place] [address] [place] [address] Specialty Assemblies And Installations Inspector Hematology/Oncology 06/04/[address] [place] [address] Registered Dietitian Nutrition 06/25/24 Lluvia Graham LSW Binder Fixer 06/26/24 Olivia Gonzales APRN.CLEANER OPERATOR [address] [place] [address] [place], [place] [id number] Nurse Practitioner Hematology/Oncology 07/03/24 documented as of this encounter
--- OUTSIDE RECORDS SUMMARY | 2024-07-23 09:43 | XMS_ITS | Encounter Summary ---
Author Organization [facility] Address [address] [place] [address] Care Team Providers Care Event Decorator And Designer Name Role Phone Ted Perry MD Unavailable [phone] Ted Perry MD Primary Care Provider [phone] Encounter Details Date Type Department Care Team (Late st Contact Info) Description 06/19/2024 Abstract [facility] [address] [facility] 110 [place] [address] Ted Perry MD [address] [place] [facility] 110 [place], [place] [id number] Social History Tobacco Use Types Packs/Day Years [...] often do you attend chur ch or jainism services? 1 to 4 times per year 10/18/2022 Do you belong to any clubs o r organizations such as druze groups, unions, fraternal or athletic groups, or [...] place to sleep or slept in a chcf (including now)? No 10/18/2022 Sex and Gender [...] [address] [place] [address] Ai Galvez PA [address] [place] [address] 10/07/2025 9:00 AM EDT Office Visit [facility] [address] [place] [address] Jr. Emmanuel Clay DO [address] [place] [address] documented as of this encounter Visit Diagnoses Not on filedocumented in this encounter Care Teams Event Decorator And Designer Relationship Specialty Start Date End Date Ted Peryr MD [address] [place] [address] PCP - ACO Reach 07/06/22 Ted Perry MD 112 [facility] 110 [place] [address] PCP - General Internal Medicine 06/20/22 documented as of this encounter
--- OUTSIDE RECORDS SUMMARY | 2024-07-23 09:43 | XMS_ITS | Encounter Summary ---
Author Organization [facility] Address [facility] [place] [address] Care Team Providers Care Volleyball Coach Name Role Phone Orlando [place] MD, Ted Brown Primary Care Provider + [phone] Jolanta Queen Unavailable Unavaila Mariia Estrada RD Unavailable [phone] Sheng Bill MD Unavailable [phone] Belinda Nicholson MD Unavailable [phone] Maricel Fox RN Unavailable [phone] Unavailable Lluvia Graham Unavailable Unavailable Olivia Gonzales APRN.EMPLOYMENT COORDINATOR Unavailable [phone] Source Comments In the event this information is protected by the Federal Confidentiality of Alcohol and Drug AbusePatient Records regulations: The Federal rules restrict any use of the information to criminally investigate or prosecute any alcohol or drug abuse patient.[facility] Reason for Visit * Reason Comments Dizziness Encounter Details Date Type Department Care Team (Late st Contact Info) Description 07/11/2024 Telephone Radiation Oncology [address] [place] [address] [place] [address] Sheng Bill MD [address] [place] [address] [place] [address] Dizziness Social History Tobacco Use Types Packs/Day Years [...] encounter Miscellaneous Notes * Telephone Encounter - Shegn Bill MD - 07/11/2024 3:52 PM EDT Thank you so much! * Telephone Encounter - Amber Gonzalez HUC - 07/11/2024 2:35 PM EDT I added the Patient to the Hem Lab Schedule on Sun07/14/24 at 230 pm. CELINE [place] * Telephone Encounter - Michelle Oliveira RN - 07/11/2024 2:10 PM EDT Post IV fluids BP 119/56 per SIDNEY Marrero. Patient c/o dizziness upon standing to transfer from treatment chair to wheelchair. Elida notified Kenny it's not safe for him to drive himself home and he needs to call for someone to pick him up. Elida said Kenny was tearful and talked with her some abouthow this is all new and he's been feeling well until now. He hasn't been able to golf the last week or so due to illness and that's something he really enjoys. He had to cancel his plans to play cards today also since he needed IV fluids. He said he has supportive family and friends. I discussed the above with Dr. Bill and he advised patient to increase Cortef to 40 mg daily, suggested 4 -5mg tablets BID. Pt denies need for new Cortef prescription. Instructed patient to check BP 3 times daily and record. Reviewed with patient to avoid standing up quickly or sudden positionchanges. Pt does have BP machine at home. Advised patient to call the office and/or go to ER with worsening symptoms. Pt advised not to drive himself to the ER with worsening symptoms but to call a family member or friend for a ride. Pt repeated the Cortef instructions and is in agreement with BP checks. He denies questions at this time. SIDNEY Marrero assisted Kenny via wheelchair out to his friendscar. Kenny is scheduled for OTV on Sunday with Dr. Nicholson. PSS: Please add hem lab appointment at 2:30 on 07/14/24. Dr. Bill: Please sign pended CBC and CMP and add any additional labs you want drawn. Lluvia: Will you please try to introduce yourself and/or follow up with Kenny on Sunday due to emotional status? Per chart, patient lives alone but does have a supportive family and friends. Thanks Michelle Oliveira RN * Telephone Encounter - Michelle Oliveira RN - 07/11/2024 12:21 PM EDT Kenny is here for radiation therapy. [...] recommended tube feedand water flush goal per conference director recommendation from 07/03/24. Patient advised to call with further concerns and/or go to ER if symptoms worsen. He is in agreement with the above and denies questions at this time. Michelle Oliveira RN documented in this encounter Plan of Treatment Upcoming Encounters Date Type Department Care Team (Latest Contact Info) Description 07/23/2024 1:30 PM EDT [facility] Center Hematology/Oncology [address] [place] [address] [place] [address] IV FLUIDS 07/23/2024 3:00 PM EDT Appointment Radiation Oncology [address] [facility] [place] [address] neck 07/25/2024 2:30 PM EDT Education Nutrition Therapy [address] [place] [address] Tamica Rosario, RD [address] [place] [address] follow up PEG 07/25/2024 2:30 PM EDT Infusion Center Hematology/Oncology [address] [facility] [place] [address] Hydration to be givenin Radiology 07/28/2024 2:30 PM EDT Office Visit Radiation Oncology [address] [facility] [place] [address] Belinda Nicholson MD [address] [place] [address] [place] [address] final radiation follow up, 1-2 weeks 07/28/2024 3:00 PM EDT Infusion Center Hematology/Oncology [address] [place] [address] [place] [address] IV FLUIDS 08/14/2024 9:45 AM EDT Office Visit [facility] [address] [place] [address] [place] [address] 4 week follow up lab 08/14/2024 10:00 AM EDT Visit (SP) Office Hematology/Oncology [address] [place] [address] [place] [address] Olivia Gonzales, JAGRUTI.EMPLOYMENT COORDINATOR [address] [facility] [place] [address] 4 week follow up lab documented as of this encounter Visit Diagnoses Diagnosis 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, face, and neck documented in this encounter Care Teams Volleyball Coach Relationship Specialty Start Date End Date Ted Perry II, MD PCP - General Internal Medicine 12/03/12 Jolanta Queen LISW Theatre Instructor 10/29/[address] [facility] [place] [address] Registered Dietitian Nutrition 06/02/24 Sheng Bill MD [address] [facility] [place] [address] Physician Hematology/Oncology 06/04/24 Belinda Nicholson MD [address] [facility] [place] [address] Physician Radiation Oncology 06/04/24 Maricel Fox, SIDNEY [address] [facility] [place] [address] Specialty Machine Coil Assembler Hematology/Oncology 06/04/[address] [place] [address] Registered Dietitian Nutrition 06/25/24 Lluvia Graham LSW Theatre Instructor 06/26/24 Olivia Gonzales APRN.EMPLOYMENT COORDINATOR [address] [place] [address] [place] [address] Nurse Practitioner Hematology/Oncology 07/03/24 documented as of this encounter
--- OUTSIDE RECORDS SUMMARY | 2024-07-23 09:43 | XMS_ITS | Encounter Summary ---
Author Organization [facility] Address [address] [place] [address] Care Team Providers Care Desolderer Name Role Phone Ted Perry MD Unavailable [phone] Ted Perry MD Primary Care Provider [phone] Encounter Details Date Type Department Care Team (Late st Contact Info) Description 06/13/2024 Abstract [facility] [address] [facility] 110 [place] [address] Ted Perry MD [address] [place] [facility] 110 [place], [place] [id number] Social History Tobacco Use Types Packs/Day Years [...] often do you attend chur ch or restorationism services? 1 to 4 times per year 10/18/2022 Do you belong to any clubs o r organizations such as alevism groups, unions, fraternal or athletic groups, or [...] care, and heating? Not very hard 10/18/2022 [facility] - Occupational Stress [...] [address] [place] [address] [place] [address] Ai Galvez PA [address] [place] [address] 10/07/2025 9:00 AM EDT Office Visit [facility] [address] [place] [address] Jr. Emmanuel Clay DO [address] [place] [address] documented as of this encounter Visit Diagnoses Not on filedocumented in this encounter Care Teams Desolderer Relationship Specialty Start Date End Date Ted Perry MD [address] [place] [address] PCP - ACO Reach 07/06/22 Ted Perry MD 112 [facility] 110 [place] [address] PCP - General Internal Medicine 06/20/22 documented as of this encounter
--- OUTSIDE RECORDS SUMMARY | 2024-07-23 09:43 | XMS_ITS | Encounter Summary ---
Author Organization [facility] Address [address] [place] [address] Care Team Providers Care Plastic Surgeon Name Role Phone Orlando [place] MD, Ted Brown Primary Care Provider +[phone] Jolanta Queen Unavailable Unavaila Mariia Estrada [address] Unavailable [phone] Sheng Bill MD Unavailable [phone] Belinda Nicholson MD Unavailable [phone] Maricel Fox RN Unavailable [phone] Unavailable Lluvia Graham Unavailable Unavailable Olivia Gonzales APRN.CATEGORY DIRECTOR Unavailable [phone] Source Comments In the event this information is protected by the Federal Confidentiality of Alcohol and Drug AbusePatient Records regulations: The Federal rules restrict any use of the information to criminally investigate or prosecute any alcohol or drug abuse patient.[facility] Encounter Details Date Type Department Care Team (Latest Contact Info) Description 07/17/2024 Travel Social History Tobacco Use Types Packs/Day Years [...] is lower risk 8 07/03/2022 Data from: https://www.neighborhoodatlas.[facility]/. Last address used for calculation [address] [...] Contact Info) Description 07/23/2024 1:30 PM EDT [facility] Center Hematology/Oncology [address] [place] [address] [place] [address] IV FLUIDS 07/23/2024 3:00 PM EDT Appointment Radiation Oncology [address] [place] [address] neck 07/25/2024 2:30 PM EDT Education Nutrition Therapy [place] [address] Tamica Rosario, RD [address] [place] [address] follow up PEG 07/25/2024 2:30 PM EDT Infusion Center Hematology/Oncology [address] [place] [address] [place] [address] Hydration to be givenin Radiology 07/28/2024 2:30 PM EDT Office Visit Radiation Oncology [address] [place] [address] Belinda Nicholson MD [address] [place] [address] [place] [address] final radiation follow up, 1-2 weeks 07/28/2024 3:00 PM EDT Infusion Center Hematology/Oncology [address] [place] [address] [place] [address] IV FLUIDS 08/14/2024 9:45 AM EDT Office Visit [facility] [address] [facility] [place] [address] 4 week follow up lab 08/14/2024 10:00 AM EDT Visit (SP) Office Hematology/Oncology [address] [place] [address] [place] [address] Olivia Gonzales APRN.CATEGORY DIRECTOR [address] [facility] [place] [address] 4 week follow up lab documented as of this encounter Visit Diagnoses Not on filedocumented in this encounter Care Teams Plastic Surgeon Relationship Specialty Start Date End Date Ted Perry II, MD PCP - General Internal Medicine 12/03/12 Jolanta Queen LISW Payable Manager 10/29/[address] [place] [address] Registered Dietitian Nutrition 06/02/24 Sheng Bill MD [address] [place] [address] [place] [address] Physician Hematology/Oncology 06/04/24 Belinda Nicholson MD [address] [place] [address] [place] [address] Physician Radiation Oncology 06/04/24 Maricel Fox, SIDNEY [address] [place] [address] [place] [address] Specialty Data Deliverables Manager Hematology/Oncology 06/04/[address] [place] [address] Registered Dietitian Nutrition 06/25/24 Lluvia Graham LSW Payable Manager 06/26/24 Olivia Gonzales APRN.CATEGORY DIRECTOR [address] [place] [address] [place] [address] Nurse Practitioner Hematology/Oncology 07/03/24 documented as of this encounter
--- OUTSIDE RECORDS SUMMARY | 2024-07-23 09:43 | XMS_ITS | Encounter Summary ---
Author Organization [facility] Address [address] [place] [address] Care Team Providers Care Head Machinist Name Role Phone Ted Perry MD Unavailable [phone] Ted Perry MD Primary Care Provider [phone] Encounter Details Date Type Department Care Team (Late st Contact Info) Description 06/26/2024 Abstract [facility] 112 [facility] 110 [place] [address] Ted Perry MD [address] [place] [facility] 110 [place], [place] [address] Social History Tobacco Use Types Packs/Day Years [...] any clubs o r organizations such as rastafarian groups, unions, fraternal or athletic groups, or [...] care, and heating? Not very hard 10/18/2022 [facility] - [...] [facility] [address] [place] [address] Ai Galvez PA [address] [place] [address] 10/07/2025 9:00 AM EDT Office Visit [facility] [address] [place] [address] Jr. Emmanuel Clay DO [address] [place] [address] documented as of this encounter Visit Diagnoses Not on filedocumented in this encounter Care Teams Head Machinist Relationship Specialty Start Date End Date Ted Perry MD [address] [place] [address] PCP - ACO Reach 07/06/22 Ted Perry MD 112 [facility] 110 [place] [address] PCP - General Internal Medicine 06/20/22 documented as of this encounter
--- OUTSIDE RECORDS SUMMARY | 2024-07-23 09:43 | XMS_ITS | Encounter Summary ---
Author Organization [facility] Address [facility] [place] [address] Care Team Providers Care Field Interviewer Name Role Phone Orlando [place] MD, Ted Brown Primary Care Provider + [phone] Jolanta Queen Unavailable Unavaila Mariia Estrada RD Unavailable [phone] Sheng Bill MD Unavailable [phone] Belinda Nicholson MD Unavailable [phone] Maricle Fox RN Unavailable [phone] Unavailable Lluvia Graham Unavailable Unavailable Olivia Gonzales APRN.LOG COOKER Unavailable [phone] Source Comments In the event this information is protected by the Federal Confidentiality of Alcohol and Drug AbusePatient Records regulations: The Federal rules restrict any use of the information to criminally investigate or prosecute any alcohol or drug abuse patient.[facility] Encounter Details Date Type Department Care Team (Late st Contact Info) Description 07/11/2024 Orders Only Hematology/Oncology [address] [place] [address] [place] [address] Kaila Mckenzie, [facility] Social History Tobacco Use Types Packs/Day Years [...] is lower risk 8 07/03/2022 Data from: https://www.neighborhoodatlas.[facility]/. Last address used for calculation [address] [...] EDT Infusion Center Hematology/Oncology [address] [place] [address] IV FLUIDS 07/23/2024 3:00 PM EDT Appointment Radiation Oncology [address] [place] [address] neck 07/25/2024 2:30 PM EDT Education Nutrition Therapy [address] [place] [address] Tamica Rosario, RD [address] [place] [address] follow up PEG 07/25/2024 2:30 PM EDT Infusion Center Hematology/Oncology [address] [place] [address] Hydration to be givenin Radiology 07/28/2024 2:30 PM EDT Office Visit Radiation Oncology [address] [place] [address] Belinda Nicholson MD [address] [facility] [place] [address] final radiation follow up, 1-2 weeks 07/28/2024 3:00 PM EDT Infusion Center Hematology/Oncology [address] [place] [address] IV FLUIDS 08/14/2024 9:45 AM EDT Office Visit [facility] [place] [address] 4 week follow up lab 08/14/2024 10:00 AM EDT Visit (SP) Office Hematology/Oncology [address] [place] [address] Olivia Gonzales APRN.LOG COOKER [address] [facility] [place] [address] 4 week follow up lab documented as of this encounter Visit Diagnoses Not on filedocumented in this encounter Care Teams Field Interviewer Relationship Specialty Start Date End Date Ted Perry II, MD PCP - General Internal Medicine 12/03/12 Jolanta Queen LISW Valet Parker 10/29/[address] [facility] [place] [address] Registered Dietitian Nutrition 06/02/24 Sheng Bill MD [address] [facility] [place] [address] Physician Hematology/Oncology 06/04/24 Belinda Nicholson MD [address] [place] [address] [place] [address] Physician Radiation Oncology 06/04/24 Maricel Fox, SIDNEY [address] [facility] [place] [address] Specialty Grocery Clerk Marking Hematology/Oncology 06/04/[address] [place] [address] Registered Dietitian Nutrition 06/25/24 Lluvia Graham LSW Valet Parker 06/26/24 Olivia Gonzales APRN.LOG COOKER [address] [place] [address] [place] [address] Nurse Practitioner Hematology/Oncology 07/03/24 documented as of this encounter
--- OUTSIDE RECORDS SUMMARY | 2024-07-23 09:43 | XMS_ITS | Encounter Summary ---
Author Organization [facility] Address [address] [place] [address] Care Team Providers Care Refrigeration Supervisor Name Role Phone Ted Perry MD Unavailable [phone] Ted Perry MD Primary Care Provider [phone] Encounter Details Date Type Department Care Team (Late st Contact Info) Description 05/13/2024 Abstract [facility] [address] [facility] [address] [place] [address] Ted Perry MD [address] [facility] [address] [place], [place] [id number] Social History Tobacco Use Types Packs/Day Years [...] any clubs o r organizations such as religion groups, unions, fraternal or athletic groups, or [...] care, and heating? Not very hard 10/18/2022 [facility] - Occupational [...] place to sleep or slept in a snf (including now)? No 10/18/2022 Sex and Gender [...] [address] [place] [address] Ai Galvez PA [address] [place] [address] 10/07/2025 9:00 AM EDT Office Visit [facility] [address] [place] [address] Jr. Emmanuel Clay DO [address] [place] [address] documented as of this encounter Visit Diagnoses Not on filedocumented in this encounter Care Teams Refrigeration Supervisor Relationship Specialty Start Date End Date Ted Perry MD [address] [place] [address] PCP - ACO Reach 07/06/22 Ted Perry MD 112 [facility] 110 [place] [address] PCP - General Internal Medicine 06/20/22 documented as of this encounter
--- OUTSIDE RECORDS SUMMARY | 2024-07-23 09:43 | XMS_ITS | Encounter Summary ---
Author Organization [facility] Address [facility] [place] [address] Care Team Providers Care Managing Member Name Role Phone Orlando [place] MD, Ted Brown Primary Care Provider + [phone] Jolanta Queen Unavailable Unavaila Mariia Estrada RD Unavailable [phone] Sheng Bill MD Unavailable [phone] Belinda Nicholson MD Unavailable [phone] Maricel Fox RN Unavailable [phone] Unavailable Lluvia Graham Unavailable Unavailable Olivia Gonzales APRN.SPORTS PHYSIOLOGIST Unavailable [phone] Source Comments In the event this information is protected by the Federal Confidentiality of Alcohol and Drug AbusePatient Records regulations: The Federal rules restrict any use of the information to criminally investigate or prosecute any alcohol or drug abuse patient.[facility] Encounter Details Date Type Department Care Team (Late st Contact Info) Description 07/10/2024 Orders Only Hematology/Oncology [address] [place] [address] [place] [address] Sheng Bill MD [address] [place] [address] Head and neck cancer (HCC) Social History [...] is lower risk 8 07/03/2022 Data from: https://www.neighborhoodatlas.medicine.[facility].edu/. Last address used for calculation [address] [...] EDT Infusion Center Hematology/Oncology [address] [place] [address] IV FLUIDS 07/23/2024 3:00 PM EDT Appointment Radiation Oncology [address] [place] [address] neck 07/25/2024 2:30 PM EDT Education Nutrition Therapy [address] [place] [address] Tamica Rosario, IVIS [address] [place] [address] follow up PEG 07/25/2024 2:30 PM EDT Infusion Center Hematology/Oncology [address] [place] [address] Hydration to be givenin Radiology 07/28/2024 2:30 PM EDT Office Visit Radiation Oncology [address] [place] [address] Belinda Nicholson MD [address] [address] final radiation follow up, 1-2 weeks 07/28/2024 3:00 PM EDT Infusion Center Hematology/Oncology [facility] [place] [address] IV FLUIDS 08/14/2024 9:45 AM EDT Office Visit [facility] [address] [place] [address] 4 week follow up lab 08/14/2024 10:00 AM EDT Visit (SP) Office Hematology/Oncology [address] [place] [address] Olivia Gonzales APRN.SPORTS PHYSIOLOGIST [address] [place] [address] 4 week follow up lab documented as of this encounter Visit Diagnoses Diagnosis Head and neck cancer (HCC) Malignant neoplasm of head, face, and neck documented in this encounter Care Teams Managing Member Relationship Specialty Start Date End Date Ted Perry II, MD PCP - General Internal Medicine 12/03/12 Jolanta Queen LISW Copy Center Specialist 10/29/[address] [place] [address] Registered Dietitian Nutrition 06/02/24 Sheng Bill MD [address] [place] [address] Physician Hematology/Oncology 06/04/24 Belinda Nicholson MD [address] [place] [address] Physician Radiation Oncology 06/04/24 Maricel Fox, SIDNEY [address] [place] [address] Specialty Manager [employer] Hematology/Oncology 06/04/[address] [place] [address] Registered Dietitian Nutrition 06/25/24 Lluvia Graham LSW Copy Center Specialist 06/26/24 Olivia Gonzales APRN.SPORTS PHYSIOLOGIST [address] [facility] [place] [address] Nurse Practitioner Hematology/Oncology 07/03/24 documented as of this encounter
--- OUTSIDE RECORDS SUMMARY | 2024-07-23 09:43 | XMS_ITS | Encounter Summary ---
Author Organization [facility] Address [facility] [place] [address] Care Team Providers Care Admitting Officer Name Role Phone Orlando [place] MD, Ted Brown Primary Care Provider + [phone] Jolanta Queen Unavailable Unavaila Mariia Estrada RD Unavailable [phone] Sheng Bill MD Unavailable [phone] Belinda Nicholson MD Unavailable [phone] Maricel Fox RN Unavailable [phone] Unavailable Lluvia Graham Unavailable Unavailable Olivia Gonzales APRN.SPIN TABLE OPERATOR Unavailable [phone] Source Comments In the event this information is protected by the Federal Confidentiality of Alcohol and Drug AbusePatient Records regulations: The Federal rules restrict any use of the information to criminally investigate or prosecute any alcohol or drug abuse patient.[facility] Reason for Visit * Reason Comments Appointment Encounter Details Date Type Department Care Team (Late st Contact Info) Description 07/22/2024 Telephone Radiation Oncology [address] [place] [address] [place] [address] Belinda Nicholson MD [address] [place] [address] [place] [address] Appointment Social History Tobacco Use Types Packs/Day Years [...] risk 8 07/03/2022 Data from: https://www.neighborhoodatlas.medicine.[facility].edu/. Last address used for calculation [address] [...] encounter Miscellaneous Notes * Telephone Encounter - Leydi Kelsey - 07/22/2024 2:26 PM EDT Spoke with patient & gave the arrival time on 07/23/2024 of 1:30 pm for hydration then radiation, and arrival time on 07/28/2024 of 2:30 pm for follow up with Dr Nicholson and hydration to follow at 3 pm. Leydi Kelsey PSS * Telephone Encounter - Leydi Kelsey - 07/22/2024 2:08 PM EDT Patient is scheduled for IV hydration on 07/23/2024 at 1:[address] Nicholson's follow up on 07/28/2024 at 2:30 pm so patient doesn't have to come back for IV hydration at 3 pm. Leydi Kelsey PSS * Telephone Encounter - Michelle Oliveira RN - 07/22/2024 1:41 PM EDT PSS: will you please schedule Kenny for IV hydration 07/23/24 while here for radiation and 07/28/24 while here for follow up with Dr. Nicholson? Thanks Michelle Oliveira RN documented in this encounter Plan of Treatment Upcoming Encounters Date Type Department Care Team (Latest Contact Info) Description 07/23/2024 1:30 PM EDT Infusion Center Hematology/Oncology [address] [facility] [place] [address] IV FLUIDS 07/23/2024 3:00 PM EDT Appointment Radiation Oncology [address] [facility] [place] [address] neck 07/25/2024 2:30 PM EDT Education Nutrition Therapy [address] [place] [address] Tamica Rosario, RD [address] [place] [address] follow up PEG 07/25/2024 2:30 PM EDT Infusion Center Hematology/Oncology [address] [facility] [place] [address] Hydration to be givenin Radiology 07/28/2024 2:30 PM EDT Office Visit Radiation Oncology [address] [facility] [place] [address] Belinda Nicholson MD [address] [place] [address] [place] [address] final radiation follow up, 1-2 weeks 07/28/2024 3:00 PM EDT Infusion Center Hematology/Oncology [facility] [place] [address] IV FLUIDS 08/14/2024 9:45 AM EDT Office Visit [facility] [address] [place] [address] [place] [address] 4 week follow up lab 08/14/2024 10:00 AM EDT Visit (SP) Office Hematology/Oncology [facility] [place] [address] Olivia Gonzales APRN.SPIN TABLE OPERATOR [address] [facility] [place] [address] 4 week follow up lab documented as of this encounter Visit Diagnoses Not on filedocumented in this encounter Care Teams Admitting Officer Relationship Specialty Start Date End Date Ted Perry II, MD PCP - General Internal Medicine 12/03/12 Jolanta Queen LISW Commercial Lines Account Manager 10/29/[address] [place] [address] [place] [address] Registered Dietitian Nutrition 06/02/24 Sheng Bill MD [address] [place] [address] [place] [address] Physician Hematology/Oncology 06/04/24 Belinda Nicholson MD [address] [facility] [place] [address] Physician Radiation Oncology 06/04/24 Maricel Fox, SIDNEY [address] [place] [address] [place] [address] Specialty Wood Grainer Hematology/Oncology 06/04/[address] [place] [address] Registered Dietitian Nutrition 06/25/24 Lluvia Graham LSW Commercial Lines Account Manager 06/26/24 Olivia Gonzales APRN.SPIN TABLE OPERATOR [address] [place] [address] [place] [address] Nurse Practitioner Hematology/Oncology 07/03/24 documented as of this encounter
--- OUTSIDE RECORDS SUMMARY | 2024-07-23 09:44 | XMS_ITS | Encounter Summary ---
Author Organization [facility] Address [address] [place] [address] Care Team Providers Care Medical Driver Name Role Phone Ted Perry MD Unavailable [phone] Ted Perry MD Primary Care Provider [phone] Sunday, Wanda STANFORD Unavailable [phone] Encounter Details Date Type Department Care Team (Late st Contact Info) Description 11/21/2022 Clinisync Result Encounter [facility] External Department Unsolicited Provider, Generic External Data Social History Tobacco Use Types Packs/Day Years Used Date Smoking Tobacco: Never Smokeless Tobacco: Never Humiliation, Afraid, Rape, and Kick questionnair e [...] week 10/18/2022 How often do you attend [facility] or faith services? 1 to 4 times per year 10/18/2022 Do you belong to any clubs o r organizations such as temple groups, unions, fraternal or athletic groups, or [...] care, and heating? Not very hard 10/18/2022 [facility] - [...] place to sleep or slept in a residential (including now)? No 10/18/2022 Sex and Gender [...] DERM [address] [place] [address] Ai Galvez PA [address] [place] [address] 10/07/2025 9:00 AM EDT Office Visit [facility] [address] [place] [address] Jr. Emmanuel Clay, DO [address] [place] [address] documented as of this encounter Procedures Procedure Name Priority Date/Time Associated Diagnosis Comments CT CHEST W IV CONTRAST 11/21/2022 10:17 AM EDT documented in this encounter Results * CT chest w IV contrast (11/21/2022 10:17 AM EDT) Anatomical Region Laterality Modality Body, Chest Computed Tomogra phy 11/21/2022 10:1 7 AM EDT Narrative 11/21/2022 11:47 AM EDT * * *Final Report* * * DATE OF EXAM: Nov 21 2022 10:17AM [facility] 0539 - CT CHEST W IVCON / PROCEDURE REASON: Renal mass * * * * Physician Interpretation * * * * RESULT: EXAMINATION: CHEST CT WITH CONTRAST CLINICAL HISTORY: Renal mass. Technique: Spiral CT acquisition of the chest from the thoracic inlet to the upper abdomen following IV contrast. MQ: CTCW_6 Contrast: 50 mL Omnipaque [address] Radiation dose: Integrated Dose-length product (DLP) for this visit = 1923 mGy*cm CT Dose Reduction Employed: Automated exposure control (AEC) Comparison: CT chest 08/10/2022 RESULT: Limitations: None. Lines, tubes, and devices: None. Lung parenchyma , airways, and pleural space: No consolidative process or pleural effusion. The trachea and major airways appear patent. 1.3 x 0.9 cm subpleural right lower lobe nodule, image 174, series 3, stable. 4 mm or less right upper lobe nodules, images 26 and 40, series 4, stable. 9 mm or less left-sided nodules, images 122 and 132, series 4, stable. Lower neck, lymph nodes, and mediastinum: 6 mm right lobe thyroid nodule is appreciated. No substantial supraclavicular or axillary lymphadenopathy is appreciated. No substantial mediastinal or hilar adenopathy is identified. Minimally prominent subcarinal lymph node measuring 1.7 x 0.9 cm, stable. Left hilar granulomatous calcification is again appreciated. Heart, pericardium, and thoracic vessels: The thoracic aorta is normal in caliber. Coronary artery calcification is noted. No substantial pericardial effusion is identified. Bones/Soft Tissues: Degenerative change involving the thoracic spine. No osseous destructive process. Upper Abdomen: A CT examination of the abdomen has been performed concurrently and will be dictated separately. Secondary Education Professor (topogram) images: No additional findings. IMPRESSION: 1. Several bilateral pulmonary nodules are again identified, largest measuring approximately 1.3 cm in maximal diameter, unchanged from the prior study of 08/10/2022. 2. No substantial intrathoracic adenopathy is appreciated. Transcribe Date/Time: Nov 21 2022 11:36A Dictated by: YAAKOV KNOWLES MD This examination was interpreted and the report reviewed and electronically signed by: YAAKOV KNOWLES MD on Nov 21 2022 11:45AM EST Thank you for allowing us to participate in the care of your patient. Should there be any questions regarding this interpretation, please call [phone]. If you are unable to reach us at the number above, please feel free to contact [facility] at [phone]. [id number]^[email or web address]^ACN Procedure Note Radiology, Radiologist, - 11/21/2022 * * *Final Report* * * DATE OF EXAM: Nov 21 2022 10:17AM [facility] 0539 - CT CHEST W IVCON / PROCEDURE REASON: Renal mass * * * * Physician Interpretation * * * * RESULT: EXAMINATION: CHEST CT WITH CONTRAST CLINICAL HISTORY: Renal mass. Technique: Spiral CT acquisition of the chest from the thoracic inlet to the upper abdomen following IV contrast. MQ: CTCW_6 Contrast: 50 mL Omnipaque [address] Radiation dose: Integrated Dose-length product (DLP) for this visit = 1923 mGy*cm CT Dose Reduction Employed: Automated exposure control (AEC) Comparison: CT chest 08/10/2022 RESULT: Limitations: None. Lines, tubes, and devices: None. Lung parenchyma , airways, and pleural space: No consolidative process or pleural effusion. The trachea and major airways appear patent. 1.3 x 0.9 cm subpleural right lower lobe nodule, image 174, series 3, stable. 4 mm or less right upper lobe nodules, images 26 and 40, series 4,stable. 9 mm or less left-sided nodules, images 122 and 132, series 4, stable. Lower neck, lymph nodes, and mediastinum: 6 mm right lobe thyroid nodule is appreciated. No substantial supraclavicular or axillary lymphadenopathy is appreciated. No substantial mediastinal or hilar adenopathy is identified. Minimally prominent subcarinal lymph node measuring 1.7 x 0.9 cm, stable. Left hilar granulomatous calcification is again appreciated. Heart, pericardium, and thoracic vessels: The thoracic aorta is normal in caliber. Coronary artery calcification is noted. No substantial pericardial effusion is identified. Bones/Soft Tissues: Degenerative change involving the thoracic spine. No osseous destructive process. Upper Abdomen: A CT examination of the abdomen has been performed concurrently and will be dictated separately. Secondary Education Professor (topogram) images: No additional findings. IMPRESSION: 1. Several bilateral pulmonary nodules are again identified, largest measuring approximately 1.3 cm in maximal diameter, unchanged from the prior study of 08/10/2022. 2. No substantial intrathoracic adenopathy is appreciated. Transcribe Date/Time: Nov 21 2022 11:36A Dictated by: YAAKOV KNOWLES MD This examination was interpreted and the report reviewed and electronically signed by: YAAKOV KNOWLES MD on Nov 21 2022 11:45AM EST Thank you for allowing us to participate in the care of your patient. Should there be any questions regarding this interpretation, please call [phone]. If you are unable to reach us at the number above, please feel free to contact [facility] at [phone]. [id number]^ACN us Generic External Data Provider IMG CT PROCEDURES Final Result documented in this encounter Visit Diagnoses Not on filedocumented in this encounter Care Teams Medical Driver Relationship Specialty Start Date End Date Ted Perry MD [address] [place] [address] PCP - ACO Reach 07/06/22 Ted Perry MD [address] [place] [address] PCP - General Internal Medicine 06/20/22SundayWanda LPN [address] [place] [address] Licensed Practical Nurse Family Medicine 11/05/23 11/15/23 documented as of this encounter
--- OUTSIDE RECORDS SUMMARY | 2024-07-23 09:44 | XMS_ITS | Encounter Summary ---
Author Organization [facility] Address [address] [place] [address] Care Team Providers Care Clinical Allergist Name Role Phone Ted Perry MD Unavailable [phone] Ted Perry MD Primary Care Provider [phone] Sunday, Wanda STANFORD Unavailable [phone] Encounter Details Date Type Department Care Team (Late st Contact Info) Description 06/07/2023 Clinisync Result Encounter [facility] External Department Unsolicited [...] often do you attend chur ch or confucianism services? 1 to 4 times per year [...] care, and heating? Not very hard 10/18/2022 [facility] [place] [facility] Occupat ional Health - Occupational Stress [...] DERM [address] [place] [address] Ai Galvez PA [address] [place] [address] 10/07/2025 9:00 AM EDT Office Visit [facility] [address] [place] [address] Jr. Emmanuel Clay, DO [address] [place] [address] documented as of this encounter Procedures Procedure Name Priority Date/Time Associated Diagnosis Comments CT ABD/PEL W IVCON 06/07/2023 10 :55 AM EDT documented in this encounter Results * CT ABD/PEL W IVCON (06/07/2023 10:55 AM EDT) Anatomical Region Laterality Modality Other 06/07/2023 10:5 5 AM EDT Narrative 06/07/2023 3:07 PM EDT * * *Final Report* * * DATE OF EXAM: Jun 07 2023 10:55AM [facility] 0530 - CT ABD/PEL W IVCON / PROCEDURE REASON: multiple diagnoses * * * * Physician Interpretation * * * * RESULT: EXAMINATION: CT ABDOMEN AND PELVIS WITH IV CONTRAST CLINICAL HISTORY: Renal cell carcinoma TECHNIQUE: CT of the abdomen and pelvis was performed using standard technique, scanning from just above the dome of the diaphragm to the symphysis pubis. MQ: CTAP_3 Contrast: IV: 150 ml of Omnipaque 300 Oral: 500 ml of Omni 240 10-25ml diluted with water CT Radiation dose: Integrated Dose-length product (DLP) for this visit = 2003 mGy*cm. CT Dose Reduction Employed: mAs-kVp adjusted based on patient size-age COMPARISON: 11/21/22 RESULT: Liver: No mass. Subcentimeter hepatic cyst (3:33), stable. Biliary: No bile duct dilation. Gallbladder is unremarkable. Spleen: No mass. No splenomegaly. Pancreas: No mass or duct dilation. Adrenals: 2.9 x 2.0 cm right adrenal nodule (3:29), previously 3.6 x 2.6 cm, slightly smaller. Status post left adrenalectomy. Kidneys: 5.0 x 4.6 cm heterogeneous enhancing mass in the right upper pole (3:39), previously 4.7 x 4.2 cm, slightly bigger. Status post left nephrectomy. GI tract: No dilation or wall thickening. No evidence of appendicitis. Lymph nodes: Borderline left periaortic lymphadenopathy (3:43), stable. Mesentery/Peritoneum: No ascites or mass. Rounded areas of lipid attenuation in the left abdomen most likely related to fat necrosis (3:77, 74), stable. Retroperitoneum: No mass. Vasculature: - Abdominal aorta and iliac arteries: No aneurysm. - Celiac and SMA: Patent without stenosis. - Portal venous system (SMV, splenic vein, portal vein and branches): Patent. - Hepatic veins: Incompletely opacified, likely due to early phase of enhancement. Pelvis: No mass, ascites or fluid collection. Urinary bladder is decompressed. Bones/Soft Tissues: Bone islands are noted in the left proximal femur. No new osseous abnormalities. Lower thorax: A chest CT performed will be reported separately. Localizer images: No additional findings. IMPRESSION: 1. 5.0 x 4.6 cm heterogeneously enhancing right renal mass, suspicious for neoplasm, slightly bigger since 11/21/22. 2. Indeterminate 2.8 cm right adrenal nodule, slightly smaller. 3. Borderline left periaortic lymphadenopathy, stable. Transcribe Date/Time: Jun 07 2023 2:44P Dictated by: ELADIO COLBY MD This examination was interpreted and the report reviewed and electronically signed by: ELADIO COLBY MD on Jun 07 2023 3:05PM EST Thank you for allowing us to participate in the care of your patient. Should there be any questions regarding this interpretation, please call [phone]. If you are unable to reach us at the number above, please feel free to contact [facility] at [phone]. [id number] Procedure Note Radiology, Radiologist, - 06/07/2023 * * *Final Report* * * DATE OF EXAM: Jun 07 2023 10:55AM [facility] 0530 - CT ABD/PEL W IVCON / PROCEDURE REASON: multiple diagnoses * * * * Physician Interpretation * * * * RESULT: EXAMINATION: CT ABDOMEN AND PELVIS WITH IV CONTRAST CLINICAL HISTORY: Renal cell carcinoma TECHNIQUE: CT of the abdomen and pelvis was performed using standard technique, scanning from just above the dome of the diaphragm to the symphysis pubis. MQ: CTAP_3 Contrast: IV: 150 ml of Omnipaque 300 Oral: 500 ml of Omni 240 10-25ml diluted with water CT Radiation dose: Integrated Dose-length product (DLP) for this visit = 2003 mGy*cm. CT Dose Reduction Employed: mAs-kVp adjusted based on patient size-age COMPARISON: 11/21/22 RESULT: Liver: No mass. Subcentimeter hepatic cyst (3:33), stable. Biliary: No bile duct dilation. Gallbladder is unremarkable. Spleen: No mass. No splenomegaly. Pancreas: No mass or duct dilation. Adrenals: 2.9 x 2.0 cm right adrenal nodule (3:29), previously 3.6 x 2.6 cm, slightly smaller. Status post left adrenalectomy. Kidneys: 5.0 x 4.6 cm heterogeneous enhancing mass in the right upper pole (3:39), previously 4.7 x 4.2 cm, slightly bigger. Status post left nephrectomy. GI tract: No dilation or wall thickening. No evidence of appendicitis. Lymph nodes: Borderline left periaortic lymphadenopathy (3:43), stable. Mesentery/Peritoneum: No ascites or mass. Rounded areas of lipid attenuation in the left abdomen most likely related to fat necrosis (3:77, 74), stable. Retroperitoneum: No mass. Vasculature: - Abdominal aorta and iliac arteries: No aneurysm. - Celiac and SMA: Patent without stenosis. - Portal venous system (SMV, splenic vein, portal vein and branches): Patent. - Hepatic veins: Incompletely opacified, likely due to early phase of enhancement. Pelvis: No mass, ascites or fluid collection. Urinary bladder is decompressed. Bones/Soft Tissues: Bone islands are noted in the left proximal femur. No new osseous abnormalities. Lower thorax: A chest CT performed will be reported separately. Localizer images: No additional findings. IMPRESSION: 1. 5.0 x 4.6 cm heterogeneously enhancing right renal mass, suspicious for neoplasm, slightly bigger since 11/21/22. 2. Indeterminate 2.8 cm right adrenal nodule, slightly smaller. 3. Borderline left periaortic lymphadenopathy, stable. Transcribe Date/Time: Jun 07 2023 2:44P Dictated by: ELADIO COLBY MD This examination was interpreted and the report reviewed and electronically signed by: ELADIO COLBY MD on Jun 07 2023 3:05PM EST Thank you for allowing us to participate in the care of your patient. Should there be any questions regarding this interpretation, please call [phone]. If you are unable to reach us at the number above, please feel free to contact [facility] at [phone]. [id number] us Generic External Data Provider [facility] Final Result documented in this encounter Visit Diagnoses Not on filedocumented in this encounter Care Teams Clinical Allergist Relationship Specialty Start Date End Date Ted Perry MD [address] [facility] [address] [place] [address] PCP - ACO Reach 07/06/22 Ted Perry MD [address] [place], [place] [address] PCP - General Internal Medicine 06/20/22Sunday, HIEN Muñoz [address] [facility] [address] [place] [address] Licensed Practical Nurse Family Medicine 11/05/23 11/15/23 documented as of this encounter
--- OUTSIDE RECORDS SUMMARY | 2024-07-23 09:44 | XMS_ITS | Encounter Summary ---
Author Organization [facility] Address [address] [place] [address] Care Team Providers Care Requirements Analyst Name Role Phone Ted Perry MD Unavailable [phone] Ted Perry MD Primary Care Provider [phone] Sunday, Wanda STANFORD Unavailable [phone] Encounter Details Date Type Department Care Team (Late st Contact Info) Description 04/23/2023 Clinisync Result Encounter [facility] External Department Unsolicited Provider, Generic External Data Social History Tobacco Use Types Packs/Day Years Used Date Smoking Tobacco: Never Smokeless Tobacco: Never Alcohol Use Standard Drinks/Week Comments Not Currently 0 (1 standard drink = 0.6 oz pur e alcohol) Humiliation, Afraid, Rape, and Kick questionnair e [...] often do you attend chur ch or baptist services? 1 to 4 times per year [...] care, and heating? Not very hard 10/18/2022 [facility] ional Health - Occupational [...] place to sleep or slept in a skilled nursing (including now)? No 10/18/2022 Sex and Gender [...] DERM [address] [place] [address] Ai Galvez PA [address] [place] [address] 10/07/2025 9:00 AM EDT [facility] [address] [place] [address] Jr. Emmanuel Clay, DO [address] [place] [address] documented as of this encounter Procedures Procedure Name Priority Date/Time Associated Diagnosis Comments CA ECHO DOPPLER COMPLETE 04/23/2023 1:08 PM EDT documented in this encounter Results * CA ECHO DOPPLER COMPLETE (04/23/2023 1:08 PM EDT) Anatomical Region Laterality Modality Other 04/23/2023 1:08 PM EDT Narrative 04/23/2023 1:09 PM EDT The [address] [address] Cardiology Report Signed Patient: ANDREI JONES MR#: [id number] : 1955 Acct:[id number] Age/Sex: 67 / M ADM Date: 04/23/23 Loc: CARD Attending Dr: Liz-Staff Physician Concepcion Ordering Physician: Danilo Arnold M.D. Date of Service: 04/23/23 Procedure(s): CA echo doppler complete Accession Number(s): [id number] cc: TED PERRY ; PhysicianLukeStaff Concepcion Patient Name: ANDREI JONES MR#: [id number] : 1955 Exam Date: 04/23/2023 Ordering Doctor: RODNEY HENRIQUEZ ECHOCARDIOGRAM REPORT PROCEDURE: CA ECHO DOPPLER COMPLETE INDICATIONS: Afib, High risk medication use COMPARISON: None. DESCRIPTION: COMPLETE ECHOCARDIOGRAM Real-time transthoracic echocardiography with 2D, M-mode, spectral and color flow Doppler performed. QUALITY: Technical quality was good. LEFT VENTRICLE: Normal chamber size. Proximal septal hypertrophy (sigmoid septum). LV EF: Global left ventricular systolic function is lower normal limits; visually estimated ejection fraction is 50 to 55%. No significant wall motion abnormalities. DIASTOLIC: Not adequately assessed due to heart rhythm. ATRIAL SEPTUM: Inadequately seen. LEFT ATRIUM: Mild dilatation. RIGHT ATRIUM: Mild dilatation. RIGHT VENTRICLE: Mild dilatation. Systolic function appears reduced. TRICUSPID VALVE: Normal mobility and thickness. No stenosis with trivial regurgitation. No evidence of pulmonary hypertension. RVSP 28mmHg MITRAL VALVE: Normal mobility and thickness. No evidence of mitral valve stenosis. There is no mitral annular calcification. Mild mitral regurgitation. AORTIC VALVE: Normal trileaflet appearance. No visible sclerosis. Normal leaflet mobility. No evidence of aortic valve stenosis. Trivial aortic regurgitation. AORTIC ROOT: Mildly dilated. Measuring 4.1cm. PULMONIC VALVE: Normal thickness and mobility. Mild regurgitation. PERICARDIUM: Anterior free space; trivial effusion versus fat pad. IVC: Collapses with inspirations. Normal size. CONCLUSION: 1. Global left ventricular systolic function is lower normal limits; visually estimated ejection fraction is 50 to 55% 2. The right ventricle is mildly dilated with reduced systolic function 3. Biatrial enlargement 4. Mild pulmonic regurgitation 5. Mild mitral regurgitation 6. Mildly dilated aortic root 7. Anterior free space; trivial effusion versus fat pad Adult Echocardiography Procedure Report Left Ventricle LVEDD (3.7 - 5.6 cm): 5.75 cm LVESD (2.2 - 4.0 cm): 4.32 cm LVIVS thickness (0.6 - 1.2 cm): 1.46 cm LVPW thickness (0.5 - 1.0 cm): 1.28 cm e': 0.06 m/s E - e': 12.09 LVOT Max Gradient: 1.21 mm[Hg] LVOT Area (cm2): 0.55 m/s Peak Velocity (LVOT): 0.55 m/s Mean Velocity (LVOT): 0.39 m/s LVOT Diameter 2.34 cm Left Ventricular Ejection Fraction: 53.01 % Left Atrium LA Volume Index (2D A2C): 43.40 ml/m2 Left Atrium Systolic Dimension: 4.14 cm Mitral Valve MV E to A Ratio: 129.26 Mitral Valve A-Wave Peak Velocity: 0.01 m/s Mitral Valve E-Wave Peak Velocity: 0.77 m/s Right Ventricle RV Internal Diastolic Dimension: 4.23 cm Aorta AO Root Diam: 4.13 cm Ascending Ao Diam: 3.48 cm Aortic Valve AoV Area (Peak Marcello): 2.67 cm2, 2.67 cm2 Peak Velocity(Antegrade Flow): 0.88 m/s Peak Gradient(Antegrade Flow): 3.12 mm[Hg] Tricuspid Valve Peak Velocity (Regurgitant Flow): 2.30 m/s, 1.92 m/s, 2.48 m/s Pulmonic Valve Mean Gradient: 1.59 mm[Hg] Mean Velocity: 0.59 m/s Peak Velocity: 0.93 m/s, 0.86 m/s Peak Gradient: 3.46 mm[Hg], 2.97 mm[Hg] Right Atrium Right Atrium Systolic Pressure: 34.20 ml, 34.20 ml Dictated by: Edna Sands M.D. on 04/23/2023 at 13:03 Approved by: Edna Sands M.D. on 04/23/2023 at 13:08 Dictated By: Edna Sands M.D. Signed By: 04/23/23 1309 DD/ 1308 TD/TT: Web Content & Social Media Manager: Procedure Note Radiology, Radiologist, - 04/23/2023 [place] [address] Cardiology Report Signed Patient: ANDREI JONES AMR#: [id number] : 1955cct:[id number] Age/Sex: 67 / MADM Date: 04/23/23 Loc: CARD Attending Dr: Non-Staff Physician Concepcion Ordering Physician: Luke ArnoldStaff Concepcion Date of Service: 04/23/23 Procedure(s): CA echo doppler complete Accession Number(s): [id number] cc: TED PERRY ; PhysicianLukeStaff Concepcion Patient Name: ANDREI JONES MR#: [id number] : 1955 Exam Date: 04/23/2023 Ordering Doctor: RODNEY HENRIQUEZ ECHOCARDIOGRAM REPORT PROCEDURE: CA ECHO DOPPLER COMPLETE INDICATIONS: Afib, High risk medication use COMPARISON: None. DESCRIPTION: COMPLETE ECHOCARDIOGRAM Real-time transthoracic echocardiography with 2D, M-mode, spectral and color flow Dopplerperformed. QUALITY: Technical quality was good. LEFT VENTRICLE: Normal chamber size. Proximal septal hypertrophy(sigmoid septum). LV EF: Global left ventricular systolic function is lower normallimits; visually estimated ejection fraction is 50 to 55%. No significant wallmotion abnormalities. DIASTOLIC: Not adequately assessed due to heart rhythm. ATRIAL SEPTUM: Inadequately seen. LEFT ATRIUM: Mild dilatation. RIGHT ATRIUM: Mild dilatation. RIGHT VENTRICLE: Mild dilatation. Systolic function appears reduced. TRICUSPID VALVE: Normal mobility and thickness. No stenosis withtrivial regurgitation. No evidence of pulmonary hypertension. RVSP 28mmHg MITRAL VALVE: Normal mobility and thickness. No evidence of mitralvalve stenosis. There is no mitral annular calcification. Mild mitral regurgitation. AORTIC VALVE: Normal trileaflet appearance. No visible sclerosis.Normal leaflet mobility. No evidence of aortic valve stenosis. Trivial aortic regurgitation. AORTIC ROOT: Mildly dilated. Measuring 4.1cm. PULMONIC VALVE: Normal thickness and mobility. Mild regurgitation. PERICARDIUM: Anterior free space; trivial effusion versus fat pad. IVC: Collapses with inspirations. Normal size. CONCLUSION: 1. Global left ventricular systolic function is lower normal limits;visually estimated ejection fraction is 50 to 55% 2. The right ventricle is mildly dilated with reduced systolic function 3. Biatrial enlargement 4. Mild pulmonic regurgitation 5. Mild mitral regurgitation 6. Mildly dilated aortic root 7. Anterior free space; trivial effusion versus fat pad Adult Echocardiography Procedure Report Left Ventricle LVEDD (3.7 - 5.6 cm): 5.75 cm LVESD (2.2 - 4.0 cm): 4.32 cm LVIVS thickness (0.6 - 1.2 cm): 1.46 cm LVPW thickness (0.5 - 1.0 cm): 1.28 cm e': 0.06 m/s E - e': 12.09 LVOT Max Gradient: 1.21 mm[Hg] LVOT Area (cm2): 0.55 m/s Peak Velocity (LVOT): 0.55 m/s Mean Velocity (LVOT): 0.39 m/s LVOT Diameter 2.34 cm Left Ventricular Ejection Fraction: 53.01 % Left Atrium LA Volume Index (2D A2C): 43.40 ml/m2 Left Atrium Systolic Dimension: 4.14 cm Mitral Valve MV E to A Ratio: 129.26 Mitral Valve A-Wave Peak Velocity: 0.01 m/s Mitral Valve E-Wave Peak Velocity: 0.77 m/s Right Ventricle RV Internal Diastolic Dimension: 4.23 cm Aorta AO Root Diam: 4.13 cm Ascending Ao Diam: 3.48 cm Aortic Valve AoV Area (Peak Marcello): 2.67 cm2, 2.67 cm2 Peak Velocity(Antegrade Flow): 0.88 m/s Peak Gradient(Antegrade Flow): 3.12 mm[Hg] Tricuspid Valve Peak Velocity (Regurgitant Flow): 2.30 m/s, 1.92 m/s, 2.48 m/s Pulmonic Valve Mean Gradient: 1.59 mm[Hg] Mean Velocity: 0.59 m/s Peak Velocity: 0.93 m/s, 0.86 m/s Peak Gradient: 3.46 mm[Hg], 2.97 mm[Hg] Right Atrium Right Atrium Systolic Pressure: 34.20 ml, 34.20 ml Dictated by: Edna Sands M.D. on 04/23/2023 at 13:03 Approved by: Edna Sands M.D. on 04/23/2023 at 13:08 Dictated By: Edna Sands M.D. Signed By:04/23/23 1309 DD/ 1308 TD/TT: Web Content & Social Media Manager: us Generic External Data Provider [facility] Final Result documented in this encounter Visit Diagnoses Not on filedocumented in this encounter Care Teams Requirements Analyst Relationship Specialty Start Date End Date Ted Perry MD [address] [place] [address] PCP - ACO Reach 07/06/22 Ted Perry MD [address] [place] [address] PCP - General Internal Medicine 06/20/22Sunday, HIEN Muñoz [address] [address] Licensed Practical Nurse Family Medicine 11/05/23 11/15/23 documented as of this encounter
--- OUTSIDE RECORDS SUMMARY | 2024-07-23 09:44 | XMS_ITS | Encounter Summary ---
Author Organization [facility] Address [address] [place] [address] Care Team Providers Care Fermenting Cellars Supervisor Name Role Phone Ted Perry MD Unavailable [phone] Ted Perry MD Primary Care Provider [phone] Sunday, Wanda STANFORD Unavailable [phone] Encounter Details Date Type Department Care Team (Late st Contact Info) Description 11/29/2022 Abstract [facility] [address] [facility] [address] [place] [address] Ted Perry MD [address] [facility] [address] [place] [address] Social History Tobacco Use Types Packs/Day Years [...] often do you attend chur ch or taoism services? 1 to 4 times per year 10/18/2022 Do you belong to any clubs o r organizations such as jewish groups, unions, fraternal or athletic groups, or [...] care, and heating? Not very hard 10/18/2022 [facility] Occupat ional Health - Occupational [...] place to sleep or slept in a retirement (including now)? No 10/18/2022 Sex and Gender Information Value Date Recorded Sex Assigned at Not on file Legal Sex Male 7:15 PM EDT Gender Identity Not on file Sexual Orientation Not on file documented as of this encounter Functional Status * Over the past 2 weeks, how often have you been bothered by any of the following problems? Question Answer Date of Assessment Author Little interest or pleasure in doing things Not at all 11/30/2022 11:00 AM EDT Vanesa Randle L PN Feeling down, depressed, or hopeless Not at all 11/30/2022 11:00 AM EDT Vanesa Randle L PN Patient Health Questionnaire -2 Score 0 11/30/2022 11:00 AM EDT Vanesa Randle L PN documented as of this encounter Plan of Treatment Upcoming Encounters Date Type Department Care Team (Late st Contact Info) Description 03/26/2025 10:00 AM EST [facility] [address] [place] [address] Ai Galvez PA [address] [place] [address] 10/07/2025 9:00 AM EDT [facility] [address] [place] [address] Jr. Emmanuel Clay, DO [address] [place] [address] documented as of this encounter Visit Diagnoses Not on filedocumented in this encounter Care Teams Fermenting Cellars Supervisor Relationship Specialty Start Date End Date Ted Perry MD [address] [place] [address] PCP - ACO Reach 07/06/22 Ted Perry MD [address] [place] [address] PCP - General Internal Medicine 06/20/22Sunday, HIEN Muñoz [address] [place] [address] Licensed Practical Nurse Family Medicine 11/05/23 11/15/23 documented as of this encounter
--- OUTSIDE RECORDS SUMMARY | 2024-07-23 09:44 | XMS_ITS | Encounter Summary ---
Author Organization [facility] Address [address] [place] [address] Care Team Providers Care Computer Systems Software Architect Name Role Phone Ted Perry MD Unavailable [phone] Ted Perry MD Primary Care Provider [phone] Sunday, Wanda STANFORD Unavailable [phone] Encounter Details Date Type Department Care [...] often do you attend chur ch or methodist services? 1 to 4 times per year 10/18/2022 Do you belong to any clubs o r organizations such as buddhism groups, unions, fraternal or athletic groups, or [...] DERM [address] [place] [address] Ai Galvez PA [address] [place] [address] 10/07/2025 9:00 AM EDT Office Visit [facility] [address] [place] [address] Jr. Emmanuel Clay, DO [address] [place] [address] documented as of this encounter Procedures Procedure Name Priority Date/Time Associated Diagnosis Comments RT PULMONARY FUNCTION TEST 04/23/2023 8:50 AM EDT documented in this encounter Results * RT PULMONARY FUNCTION TEST (04/23/2023 8:50 AM EDT) Anatomical Region Laterality Modality Other 04/23/2023 8:50 AM EDT Narrative 04/24/2023 10:58 AM EDT The [address] [address] Respiratory Report Signed Patient: ANDREI JONES MR#: [id number] : 1955 Acct:[id number] Age/Sex: 67 / M ADM Date: 04/23/23 Loc: CARD Attending Dr: Non-Staff Physician Concepcion Ordering Physician: Danilo Arnold M.D. Date of Service: 04/23/23 Procedure(s): RT pulmonary function test Accession Number(s): [id number] cc: [facility] Test Date: 2023-04-23 Pat Name: ANDREI JONES Department: Room: - Gender: Male Gas Maker: Lazarus Syed RRT : 1955 Requested By: [id number] Order Number: [id number] Reading MD: Kb Gardner Interpretive Statements Pulmonary function testing was completed according to ATS criteria. Findings were considered accurate and reproducible, with exception of FVC which did not meet ATS standards. Both pre- and post-bronchodilator values utilized for spirometry. No bronchodilator was administered due to normal spirometric values. Spirometry: -FEV1/FVC: Normal @ 80% -FEV1: Normal @ 102% -FVC: Normal @ 94% Lung volumes by plethysmography: -RV: Normal @ 98% -TLC: Normal @ 94% Diffusion capacity: -DLCO: Mild reduction @ 77% when corrected for Hb 14.9g/dL Flow-volume loop: -Normal shape Comparison from 03/03/2022: -Spirometry essentially unchanged. DLCO minimally decreased from 81%. Impressions: -Normal spirometry and lung volumes, with an isolated mild diffusion impairment. This pattern can be seen in, but not restricted to, cardiopulmonary vascular disorders, early interstitial lung disease, and early emphysema. Minimal decline in DLCO compared to prior study which could be a normal fluctuation. Recommend to continue monitoring PFT while on amiodarone therapy. Clinical correlation required. Electronically Signed On 04-24-2023 10:57:58 EDT by Kb Gardner Dictated By: Kb Gardner D.O. Signed By: 04/24/23 1058 DD/ 0850 TD/TT: Erp Technical Lead: Procedure Note Radiology, Radiologist, - 04/24/2023 The [place] [id number] Respiratory Report Signed Patient: ANDREI JONES AMR#: [id number] : 1955cct:[id number] Age/Sex: 67 / MADM Date: 04/23/23 Loc: CARD Attending Dr: Liz-Staff Physician Javier Ordering Physician: Danilo Arnold M.D. Date of Service: 04/23/23 Procedure(s): RT pulmonary function test Accession Number(s): [id number] cc: [facility] Test Date: 2023-04-23 Pat Name: ANDREI JONES Department: Room: - Gender: Male Gas Maker: Lazarus Syed RRT : 1955 Requested By: [id number] Order Number: [id number] Rinku MD: Kb Gardner Interpretive Statements Pulmonary function testing was completed according to ATS criteria.Findings were considered accurate and reproducible, with exception of FVC which did not meet ATS standards. Both pre- and post-bronchodilator values utilized for spirometry. No bronchodilator was administered due to normalspirometric values. Spirometry: -FEV1/FVC: Normal @ 80% -FEV1: Normal @ 102% -FVC: Normal @ 94% Lung volumes by plethysmography: -RV: Normal @ 98% -TLC: Normal @ 94% Diffusion capacity: -DLCO: Mild reduction @ 77% when corrected for Hb 14.9g/dL Flow-volume loop: -Normal shape Comparison from 03/03/2022: -Spirometry essentially unchanged. DLCO minimally decreased from 81%. Impressions: -Normal spirometry and lung volumes, with an isolated mild diffusion impairment. This pattern can be seen in, but not restricted to, cardiopulmonary vascular disorders, early interstitial lung disease, and early emphysema. Minimal decline in DLCO compared to prior study whichcould be a normal fluctuation. Recommend to continue monitoring PFT while on amiodarone therapy. Clinical correlation required. Electronically Signed On 04-24-2023 10:57:58 EDT by Kb Gardner Dictated By: Kb Gardner D.O. Signed By:04/24/23 1058 DD/ 0850 TD/TT: Erp Technical Lead: us Generic External Data Provider [facility] Final Result documented in this encounter Visit Diagnoses Not on filedocumented in this encounter Care Teams Computer Systems Software Architect Relationship Specialty Start Date End Date Ted Perry MD [address] [place] [address] PCP - ACO Reach 07/06/22 Ted Perry MD [address] [place] [address] PCP - General Internal Medicine 06/20/22Sunday, HIEN Muñoz [address] [place] [address] Licensed Practical Nurse Family Medicine 11/05/23 11/15/23 documented as of this encounter
--- OUTSIDE RECORDS SUMMARY | 2024-07-23 09:44 | XMS_ITS | Encounter Summary ---
Author Organization [facility] Address [address] [place] [address] Care Team Providers Care Fruit I Farmworker Name Role Phone Orlando [place] MD, Daniel B Primary Care Provider [phone] Hue Anglin RN Unavailable Unavailable Abel Martínez MD Unavailable [phone] Jolanta Queen Unavailable Unavaila Mariia Estrada RD Unavailable [phone] Sheng Bill MD Unavailable [phone] Belinda Nicholson MD Unavailable [phone] Maricel Fox RN Unavailable [phone] Unavailable Lluvia Graham Unavailable Unavailable Olivia Gonzales APRN.TUNNEL MUCKER Unavailable [phone] Source Comments In the event this information is protected by the Federal Confidentiality of Alcohol and Drug AbusePatient Records regulations: The Federal rules restrict any use of the information to criminally investigate or prosecute any alcohol or drug abuse patient.[facility] Reason for Referral * Diagnostic Procedure Only (Routine) - Closed Specialty Diagnoses / Procedures Referred By Contac t Referred To Contact MOLECULAR & FUNCTIONAL IMAGING Diagnoses Malignant neoplasm of right kidney, except renal pelvis (HCC) Procedures NM PET/CT WHOLE BODY INITIAL PET IMAGING FOR CT ATTENUATION WHOLE BODY Kenny Eric MD [address] [place] [id number] Phone: tel: fax: Molecular Imaging [address] [place] [address] Phone: tel: Referral ID Status Reason Start Date Expiration Date V isits Requested Visits Authorized [id number] Closed Auto-Generate d Referral 05/09/2022 06/08/2023 1 1 Reason for Visit * Reason Comments Follow Up Encounter Details Date Type Department Care Team ( st Contact Info) Description 05/09/2022 Abstract Urology [address] [place] [address] Kenny Eric MD [address] [place] [id number] Follow Up Social History Tobacco Use Types Packs/Day Years [...] N ot on file 03/06/2022 Data from: https://www.neighborhoodatlas.medicine.[facility].edu/. Last address used for calculation [address] 03/06/2022 Sex and Gender Information Value Date Recorded Sex Assigned at Not on file Legal Sex Male 7:29 AM EST Gender Identity Not on file Sexual Orientation Not on file documented as of this encounter Plan of Treatment Upcoming Encounters Date Type Department Care Team (Latest Contact Info) Description 07/23/2024 1:30 PM EDT Infusion Center Hematology/[place] [address] [place] [address] IV FLUIDS 07/23/2024 3:00 PM EDT Appointment Radiation Oncology [address] [place] [address] neck 07/25/2024 2:30 PM EDT Education Nutrition Therapy [address] [place] [address] Tamica Rosario, RD [address] [place] [address] follow up PEG 07/25/2024 2:30 PM EDT Infusion Center Hematology/Oncology [address] [place] [address] Hydration to be givenin Radiology 07/28/2024 2:30 PM EDT Office Visit Radiation Oncology [address] [place] [address] Belinda Nicholson MD [address] [place] [address] final radiation follow up, 1-2 weeks 07/28/2024 3:00 PM EDT Infusion Center Hematology/Oncology [address] [place] [address] [place] [address] IV FLUIDS 08/14/2024 9:45 AM EDT Office Visit [facility] [address] [place] [address] 4 week follow up lab 08/14/2024 10:00 AM EDT Visit (SP) Office Hematology/Oncology [address] [place] [address] Olivia Gonzales, JAGRUTI.TUNNEL MUCKER [address] [place] [address] 4 week follow up lab documented as of this encounter Results * NM PET/CT WHOLE BODY INITIAL (06/06/2022 12:44 PM EDT) Anatomical Region Laterality Modality Nuclear Medicine 06/06/2022 12:4 4 PM EDT Impressions 06/07/2022 7:55 PM EDT IMPRESSION: 1. Neck: No suspicious hypermetabolic foci 2. Chest: Bilateral lung nodules with low-level FDG uptake. Findings suspicious for metastases 3. Abdomen and pelvis: hypermetabolic right upper pole renal mass. Hypermetabolic right adrenal nodule suspicious for metastases. 4. Skeleton: No hypermetabolic osseous lesions Hoisting Engineer: IVAN Transcribe Date/Time: Jun 07 2022 6:50P Dictated by : KATIUSKA RODRIGEZ MD This examination was interpreted and the report reviewed and electronically signed by: KATIUSKA RODRIGEZ MD on Jun 07 2022 7:53PM EST Narrative 06/07/2022 7:55 PM EDT * * *Final Report* * * DATE OF EXAM: Jun 06 2022 12:44PM MDP 0061 - NM PET/CT WHOLE BODY INIT / PROCEDURE REASON: C64.1-Malignant neoplasm of right kidney, except renal pelvis (HCC) * * * * Physician Interpretation * * * * FDG PET/CT SCAN: CLINICAL HISTORY: Malignant neoplasm of kidney. INDICATION: Initial treatment strategy. TECHNIQUE: 20 mCi 18-FDG IV, followed about 1 hour later by PET imaging from base of the skull to proximal femur. Non contrast CT was performed for attenuation correction and anatomic localization purposes. CT Dose-Length Product (DLP): 661 mGy*cm. CT Dose Reduction Employed: Yes Correlation: CT chest 03/23/2022 MRI 03/10/2022 RESULT: NECK: Likely physiological activity in the oral cavity, tonsillar regions, salivary glands. Symmetrical activity in the tonsillar and tongue base regions likely inflammatory. Mild activity in the right posterior lower neck possibly due to trauma or inflammation. No suspicious hypermetabolic foci. There is no hypermetabolic cervical lymphadenopathy. CHEST: There are aortic and coronary calcifications. There is no hypermetabolic hilar or mediastinal lymphadenopathy. There is no hypermetabolic axillary lymphadenopathy. Bilateral scattered lung nodules with low-level uptake for example right lower lobe nodule 0.9 cm (max SUV 1.1), left paracardiac region 1 cm (Max SUV 1.2). ABDOMEN AND PELVIS: The liver is slightly heterogeneous activity but no focal lesions are identified. There are no hypermetabolic foci in the liver, spleen. Left nephrectomy. Right upper lobe renal mass with mild heterogeneous activity measures about 3.7 x 3.5 cm (max SUV 4.7). Hypermetabolic right adrenal nodule measures 2.1 x 2.7 cm (max SUV 3.7). There is no hypermetabolic abdominal or pelvic lymphadenopathy. Physiologic activity is noted in the liver, renal collecting system, bladder and bowel. Diffuse gluteal musculature uptake likely physiologic. Activity in the sigmoid region can be inflammatory. SKELETON: There are no hypermetabolic osseous lesions. Staffing Program Manager (topogram) images:No additional findings. Procedure Note Provider, [facility] [place] - 06/07/2022 * * *Final Report* * * DATE OF EXAM: Jun 06 2022 12:44PM MDP 0061 - NM PET/CT WHOLE BODY INIT / PROCEDURE REASON: C64.1-Malignant neoplasm of right kidney, except renal pelvis (HCC) * * * * Physician Interpretation * * * * FDG PET/CT SCAN: CLINICAL HISTORY: Malignant neoplasm of kidney. INDICATION: Initial treatment strategy. TECHNIQUE: 20 mCi 18-FDG IV, followed about 1 hour later by PET imaging from base of the skull to proximal femur. Non contrast CT was performed for attenuation correction and anatomic localization purposes. CT Dose-Length Product (DLP): 661 mGy*cm. CT Dose Reduction Employed: Yes Correlation: CT chest 03/23/2022 MRI 03/10/2022 RESULT: NECK: Likely physiological activity in the oral cavity, tonsillar regions, salivary glands. Symmetrical activity in the tonsillar and tongue base regions likely inflammatory. Mild activity in the right posterior lower neck possibly due to trauma or inflammation. No suspicious hypermetabolic foci. There is no hypermetabolic cervical lymphadenopathy. CHEST: There are aortic and coronary calcifications. There is no hypermetabolic hilar or mediastinal lymphadenopathy. There is no hypermetabolic axillary lymphadenopathy. Bilateral scattered lung nodules with low-level uptake for example right lower lobe nodule 0.9 cm (max SUV 1.1), left paracardiac region 1 cm (Max SUV 1.2). ABDOMEN AND PELVIS: The liver is slightly heterogeneous activity but no focal lesions are identified. There are no hypermetabolic foci in the liver, spleen. Left nephrectomy. Right upper lobe renal mass with mild heterogeneous activity measures about 3.7 x 3.5 cm (max SUV 4.7). Hypermetabolic right adrenal nodule measures 2.1 x 2.7 cm (max SUV 3.7). There is no hypermetabolic abdominal or pelvic lymphadenopathy. Physiologic activity is noted in the liver, renal collecting system, bladder and bowel. Diffuse gluteal musculature uptake likely physiologic. Activity in the sigmoid region can be inflammatory. SKELETON: There are no hypermetabolic osseous lesions. Staffing Program Manager (topogram) images:No additional findings. IMPRESSION IMPRESSION: 1. Neck: No suspicious hypermetabolic foci 2. Chest: Bilateral lung nodules with low-level FDG uptake. Findings suspicious for metastases 3. Abdomen and pelvis: hypermetabolic right upper pole renal mass. Hypermetabolic right adrenal nodule suspicious for metastases. 4. Skeleton: No hypermetabolic osseous lesions Hoisting Engineer: PSCB Transcribe Date/Time: Jun 07 2022 6:50P Dictated by : KATIUSKA RODRIGEZ MD This examination was interpreted and the report reviewed and electronically signed by: KATIUSKA RODRIGEZ MD on Jun 07 2022 7:53PM EST Kenny Eric MD NM-PAMA Final Result documented in this encounter Visit Diagnoses Diagnosis Malignant neoplasm of kidney excluding renal pelvis, unspecified laterality (HCC)- Primary Adrenal nodule (HCC) Unspecified disorder of adrenal glands Malignant neoplasm of right kidney, except renal pelvis (HCC) Malignant neoplasm of kidney, except pelvis documented in this encounter Care Teams Fruit I Farmworker Relationship Specialty Start Date End Date Ted Perry II, MD PCP - General Internal Medicine 12/03/12 Hue Anglin, SIDNEY Specialty Ad Compositor Hematology/Oncology 10/11/23 06/03/24 Abel Martí[place] [address] [place] [address] Physician Hematology/Oncology 10/11/23 06/03/24 Jolanta Queen LISW Clinical Laboratory Technician 10/29/[address] [facility] [place] [address] Registered Dietitian Nutrition 06/02/24 Sheng Bill MD [address] [place] [address] [place] [address] Physician Hematology/Oncology 06/04/24 Belinda Nicholson MD [address] [place] [address] [place] [address] Physician Radiation Oncology 06/04/24 Maricel Fox, SIDNEY [address] [facility] [place] [address] Specialty Ad Compositor Hematology/Oncology 06/04/[address] [place] [address] Registered Dietitian Nutrition 06/25/24 Lluvia Graham LSW Clinical Laboratory Technician 06/26/24 Olivia Gonzales APRN.TUNNEL MUCKER [address] [place] [address] [place] [address] Nurse Practitioner Hematology/Oncology 07/03/24 documented as of this encounter
--- OUTSIDE RECORDS SUMMARY | 2024-07-23 09:44 | XMS_ITS | Encounter Summary ---
Author Organization [facility] Address [address] [place] [address] Care Team Providers Care Asbestos Abatement Worker Name Role Phone Ted Perry MD Unavailable [phone] Ted Perry MD Primary Care Provider [phone] Sunday, Wanda STANFORD Unavailable [phone] Encounter Details Date Type Department Care Team (Late st Contact Info) Description 06/12/[address] [facility] [address] [address] [place] [address] Ted Perry MD [address] [facility] [address] [place], [place] [id number] Social History Tobacco Use Types Packs/Day Years [...] often do you attend chur ch or samaritan services? 1 to 4 times per year [...] care, and heating? Not very hard 10/18/2022 [facility] Occupational Stress Questionnaire Answer Date [...] DERM [address] [place] [address] Ai Galvez PA [address] [place] [address] 10/07/2025 9:00 AM EDT Office Visit [facility] [address] [place] [address] Jr. Emmanuel Clay DO [address] [place] [address] documented as of this encounter Visit Diagnoses Not on filedocumented in this encounter Care Teams Asbestos Abatement Worker Relationship Specialty Start Date End Date Ted Perry MD [address] [place] [address] PCP - ACO Reach 07/06/22 Ted Perry MD [address] [place] [address] PCP - General Internal Medicine 06/20/22Sunday, HIEN Muñoz [address] [place] [address] Licensed Practical Nurse Family Medicine 11/05/23 11/15/23 documented as of this encounter
--- OUTSIDE RECORDS SUMMARY | 2024-07-23 09:44 | XMS_ITS | Clinical Summary ---
Author Organization [facility] Address [id number] [address] [place] [address] Care Team Providers Care Test Engineering Manager Name Role Phone Ted Perry MD Primary Care Provider [phone] Allergies No known active allergies Medications cgjrqvyr-udpy-P A-calcium &mins (THERAGRAN-M) 9 mg iron-400 mcg tablet Take 1 tablet by mouth daily. Active tamsulosin (FLOMAX) 0.4 mg capsule Take 0.4 mg by mouth daily. Active dofetilide (TIKOSYN) 125 MCG capsule Take 125 mcg by mouth 2 (two) times a day. Active losartan (COZAAR) 50 mg tablet Take 25 mg by mouth daily. Active aspirin 81 mg chewable tablet Chew 81 mg and swallow daily. Active metoprolol succinate XL (TOPROL XL) 25 mg 24 hr tablet Take 25 mg by mouth 2 (two) times a day. Active warfarin sodium (COUMADIN ORAL) Take 7.5 mg by mouth daily. Active acetaminophen (TYLENOL) 325 mg tablet Take 650 mg by mouth every 6 (six) hours as needed for pain. Active omega 3-mmt-lui-fish oil (FISH OIL) 300-1,000 mg capsule Take by mouth 2 (two) times a day. Active Active Problems Problem Noted Date Diagnosed Date Arthritis of left knee 07/03/2018 Family History Medical History Relation Name Comments Atrial fibrillation Father Diabetes Father Heart disease Father Heart disease Mother Relation Name Status Comments Father Mother Alive Social History Tobacco Use Types Packs/Day Years Used Date Smoking Tobacco: Never Smokeless Tobacco: Never Alcohol Use Standard Drinks/Week Comments Yes 0 (1 standard drink = 0.6 oz pur e alcohol) social Childcare Answer Date Recorded Childcare Unknown 07/12/2018 Employment Answer Date Recorded Employment Unknown 07/12/2018 Purpose - Life Answer Date Recorded Purpose and direction in life Unknown Sex and Gender Information Value Date Recorded Sex Assigned at Not on file Legal Sex Male 12:06 PM EDT Gender Identity Not on file Sexual Orientation Not on file Last Filed Vital Signs Vital Sign Reading Time Taken Comments Blood Pressure 125/67 01/21/2019 12:17 PM EST Pulse 61 01/21/2019 9:05 AM EST Temperature 36.3 C (97.3 F) 01/21/2019 9:05 AM EST Respiratory Rate 16 01/21/2019 9:05 AM EST Oxygen Saturation 94% 01/21/2019 12:17 PM EST Inhaled Oxygen Concentration - - Weight 133.8 kg (295 lb) 01/21/2019 9:05 AM EST Height 188 cm (6' 2 ) 01/21/2019 9:05 AM EST Body Mass Index 37.88 01/21/2019 9:05 AM EST Plan of Treatment Health Maintenance Due Date Last Done Comments Depression Screening 1965 Tobacco Screening 1965 Adult BMI Screening 08/25/1971 DTaP,Tdap and Td Vaccines (1 - Tdap) 1972 Zoster (Shingles) Vaccine (1 of 2) 08/25/2003 Fall Risk Screening 2018 Influenza Vaccine 10/13/2024 11/12/2014 Medical Devices Implanted Type Area Rental Car Porter Device Identifier Shelf Expiration Date Model / Serial / Lot Cmnt Bn Bio 40gm Rpl [id number] +[id number] - [id number] - [id number] Implanted:Qty : 2 on 07/04/2018 by Emmanuel Clay Jr., DO at [facility] Cement Right: Knee [employer] 06/04/2022 [id number] / [id number] / [id number] Cmpt Fem G Kn Rt Cmnt Lpsflx Rpl [id number] + [id number] - [id number] - [id number] Implanted:Qty : 1 on 07/04/2018 by Emmanuel Clay Jr., DO at [facility] Orthopedic Implant Right: Knee [employer] 01/05/20285964-017- 52 / [id number] / [id number] Description:LPS flex femoral component right G Cmpt Ptlr Std 9.5mm 38mm Nxgn Rpl [id number] + [id number] - [id number] - [id number] Implanted:Qty : 1 on 07/04/2018 by Emmanuel Clay Jr., DO at [facility] Orthopedic Implant Right: Knee [employer] 12/04/202522-4824-662- / [id number] / [id number] Description:size 38, 9.5 mm thickness standard poly patella Ins Artc 7-10 G-H 10mm Kn Fx Rpl [id number] + [id number] - [id number] 10 - [id number] Implanted:Qty : 1 on 07/04/2018 by Emmanuel Clay Jr., DO at [facility] Orthopedic Implant Right: Knee [employer] 02/03/202225-5630-050 / [id number] 10 / [id number] Description:G, H use with pl ate 7-10, 10 mm heig Plt Tib [id number] Nxgn Kn Cmnt Rpl 52708 + [id number] - [id number] 02 - [id number] Implanted:Qty : 1 on 07/04/2018 by Emmanuel Clya Jr., DO at [facility] Plate Right: Knee [employer] 04/06/202750-9152-541- / [id number] 02 / [id number] Description:size 8 Tibial co mponent, precoat Explanted Type Area Rental Car Porter Device Identifier Shelf Expiration Date Model / Serial / Lot Scr Bn Renard 35mm 6.5mm Hip St Rpl [id number] + [id number] + 32 - [id number] - [id number] Explanted:Qty: 2 on 07/04/2018 by Emmanuel Clay Jr., DO at [facility] Screw Right: Knee [employer] [id number] 04/11/20286250-06 [id number] [id number] Scr Gd 48mm Qd-Spr Hex Hd Mis - [id number] - [id number] Explanted:Qty: 1 on 07/04/2018 by Emmanuel Clay Jr., DO at [facility] Screw Right: Knee [employer] 06/04/20285983-04 0-48 / 83-04 0-48 / [id number] Scr Gd 48mm Qd-Spr Hex Hd Mis - [id number] - [id number] Explanted:Qty: 1 on 07/04/2018 by Emmanuel Clay Jr., DO at [facility] Screw Right: Knee [employer] 05/04/20285983-04 0-48 / 83-04 0-48 / [id number] Insurance [employer] Advance Directives * Full Code (Latest Code Status on File) Date Activated Date Inactivated Comments 07/04/2018 6:01 PM 07/05/2018 5:09 PM Care Teams Test Engineering Manager Relationship Specialty Start Date End Date Ted Perry MD [address] [facility] [address] [place] [address] PCP - General Internal Medicine 05/14/18
--- OUTSIDE RECORDS SUMMARY | 2024-07-23 09:44 | XMS_ITS | Encounter Summary ---
Author Organization [facility] Address [place] [address] Care Team Providers Care Compliance Reviewer Name Role Phone Orlando [place] MD, Ted Brown Primary Care Provider + [phone] Jolanta Queen Unavailable Unavaila Mariia Estrada RD Unavailable [phone] Sheng Bill MD Unavailable [phone] Belinda Nicholson MD Unavailable [phone] Maricel Fox RN Unavailable [phone] Unavailable Lluvia Graham Unavailable Unavailable Olivia Gonzales APRN.FILM REPRODUCER Unavailable [phone] Source Comments In the event this information is protected by the Federal Confidentiality of Alcohol and Drug AbusePatient Records regulations: The Federal rules restrict any use of the information to criminally investigate or prosecute any alcohol or drug abuse patient.[facility] Reason for Visit * Reason Comments Lab Orders Encounter Details Date Type Department Care Team (Late st Contact Info) Description 07/16/2024 Telephone Hematology/Oncology [address] [place] [address] [place] [address] Sheng Bill MD [address] [place] [address] [place] [address] Lab Orders Social History Tobacco Use Types Packs/Day Years [...] risk 8 07/03/2022 Data from: https://www.neighborhoodatlas.medicine.[facility]/. Last address used for calculation [...] encounter Miscellaneous Notes * Telephone Encounter - Felipa Mcintosh MA - 07/16/2024 2:03 PM EDT Patient has an appt on 07/17/24. Would you like labs, if so place orders. Felipa Mcintosh MA documented in this encounter Plan of Treatment Upcoming Encounters Date Type Department Care Team (Latest Contact Info) Description 07/23/2024 1:30 PM EDT Infusion Center Hematology/Oncology [facility] [place] [address] IV FLUIDS 07/23/2024 3:00 PM EDT Appointment Radiation Oncology [facility] [place] [address] neck 07/25/2024 2:30 PM EDT Education Nutrition Therapy [address] [place] [address] Tamica Rosario, RD [address] [place] [address] follow up PEG 07/25/2024 2:30 PM EDT Infusion Center Hematology/Oncology [facility] [place] [address] Hydration to be givenin Radiology 07/28/2024 2:30 PM EDT Office Visit Radiation Oncology [facility] [place] [address] Belinda Nicholson MD [facility] [place] [address] final radiation follow up, 1-2 weeks 07/28/2024 3:00 PM EDT Infusion Center Hematology/Oncology [facility] [place] [address] IV FLUIDS 08/14/2024 9:45 AM EDT Office Visit [facility] [place] [address] 4 week follow up lab 08/14/2024 10:00 AM EDT Visit (SP) Office Hematology/Oncology [address] [address] Olivia Gonzales APRN.FILM REPRODUCER [address] [place] [address] 4 week follow up lab documented as of this encounter Results * (ABNORMAL) COMPREHENSIVE METABOLIC PANEL (07/17/2024 8:24 AM EDT) [facility] Protein, Total 6.9 6.3 - 8.0 g/dL 07/17/2024 6:13 PM EDT [facility] Albumin 3.9 3.9 - 4.9 g/dL 07/17/2024 6:13 PM EDT [facility] Calcium, Total 9.4 8.5 - 10.2 mg/dL 07/17/2024 6:13 PM EDT [facility] Bilirubin, Total 1.4(H) 0.2 - 1.3 mg/dL 07/17/2024 6:13 PM EDT [facility] Alkaline Phosphatase 89 38 - 113 U/L 07/17/2024 6:13 PM EDT [facility] AST 23 14 - 40 U/L 07/17/2024 6:13 PM EDT [facility] ALT 38 10 - 54 U/L 07/17/2024 6:13 PM EDT [facility] Glucose 91 74 - 99 mg/dL 07/17/2024 6:13 PM T [facility] Comment: The [place] Diabetes Association (ADA) provides guidance for cutoff [...] Standards of Medical Care in Diabetes 2016, [place] [employer]. Diabetes Care. 2016.39(Suppl 1). BUN 19 9 - 24 mg/dL 07/17/2024 6:13 PM EDT [facility] Creatinine 1.08 0.73 - 1.22 mg/dL 07/17/2024 6:13 PM EDT [facility] Sodium 132(L) 136 - 144 mmol/L 07/17/2024 6:13 PM EDT [facility] Potassium 4.3 3.7 - 5.1 mmol/L 07/17/2024 6:13 PM EDT [facility] Chloride 97(L) 98 - 107 mmol/L 07/17/2024 6:13 PM EDT [facility] CO2 23 22 - 30 mmol/L 07/17/2024 6:13 PM EDT [facility] Anion Gap 12 8 - 15 mmol/L 07/17/2024 6:13 PM EDT [facility] Estimated Glomerular Filtration Rate 74 >=60 mL/min/1.7 3m 07/17/2024 6:13 PM EDT [facility] Comment:Estimated Glomerular Filtration Rate (eGFR) is [...] 8:24 AM EDT 07/17/2024 8:24 AM EDT us Olivia Gonzales SUPERVISOR SAWMILL.FILM REPRODUCER LABORATORY Final Re sult [facility] [address] [address], * (ABNORMAL) COMPLETE BLOOD COUNT AND DIFFERENTIAL (07/17/2024 8:24 AM EDT) WBC 2.41(L) 3.70 - 11.00 k/uL 07/17/2024 8:32 AM EDT [facility] RBC 3.97(L) 4.20 - 6.00 m/uL 07/17/2024 8:32 AM EDT [facility] Hemoglobin 12.9(L) 13.0 - 17.0 g/dL 07/17/2024 8:32 AM EDT [facility] Hematocrit 35.6(L) 39.0 - 51.0 % 07/17/2024 8:32 AM EDT [facility] MCV 89.7 80.0 - 100.0 fL 07/17/2024 8:32 AM EDT [facility] MCH 32.5 26.0 - 34.0 pg 07/17/2024 8:32 AM [facility] MCHC 36.2(H) 30.5 - 36.0 g/dL 07/17/2024 8:32 AM [facility] RDW-CV 13.2 11.5 - 15.0 % 07/17/2024 8:32 AM [facility] Platelet Count 113(L) 150 - 400 k/uL 07/17/2024 8:32 AM [facility] MPV 8.4(L) 9.0 - 12.7 fL 07/17[facility]24 [facility] Neutrophils % 69.3 % 07/17/2024 8:32 AM EDT [facility] Abs Neut 1.67 1.45 - 7.50 k/uL 07/17/2024 8:32 AM EDT [facility] Lymphocytes % 19.1 % 07/17/2024 8:32 AM EDT [facility] Abs Lymph 0.46(L) 1.00 - 4.00 k/uL 07/17/2024 8:32 AM EDT [facility] Monocytes % 8.7 % 07/17/2024 8:32 AM EDT [facility] Abs Hardy 0.21 <0.87 k/uL 07/17/2024 8:32 AM EDT [facility] Eosinophils % 2.5 % 07/17/2024 8:32 AM EDT [facility] Abs Eosin 0.06 <0.46 k/uL 07/17/2024 8:32 AM EDT [facility] Basophils % 0.4 % 07/17/2024 8:32 AM EDT [facility] Abs Baso <0.03 <0.11 k/uL 07/17/2024 8:32 AM EDT [facility] Immature Granulocytes % 0.0 % 07/17/2024 8:32 AM EDT [facility] Abs Immature Gran <0.03 <0.10 k/uL 07/17/2024 8:32 AM EDT [facility] NRBC 0.0 /100 WBC 07/17/2024 8:32 AM EDT [facility] Absolute nRBC <0.01 <0.01 k/uL 07/17/2024 8:32 AM EDT [facility] Diff Type Auto 07/17/2024 8:32 AM EDT [facility] Blood BLOOD SPECIMEN / Unknown Venipuncture / Unknown 07/17/2024 8:24 AM EDT 07/17/2024 8:24 AM EDT us Olivia Gonzales SUPERVISOR SAWMILL.FILM REPRODUCER LABORATORY Final Re sult [facility] [address] [place] [address] documented in this encounter Visit Diagnoses Diagnosis Renal cell carcinoma of right kidney (HCC)- Primary documented in this encounter Care Teams Compliance Reviewer Relationship Specialty Start Date End Date Ted Perry II, MD PCP - General Internal Medicine 12/03/12 Jolanta Queen LISW Patient Partner 10/29/[address] [place] [address] [place] [address] Registered Dietitian Nutrition 06/02/24 Sheng Bill MD [address] [place] [address] [place] [address] Physician Hematology/Oncology 06/04/24 Belinda Nicholson MD [address] [place] [address] [place] [address] Physician Radiation Oncology 06/04/24 Maricel Fox, SIDNEY [address] [place] [address] [place] [address] Specialty Stereotyper Helper Hematology/Oncology 06/04/[address] [place] [address] Registered Dietitian Nutrition 06/25/24 Lluvia Graham LSW Patient Partner 06/26/24 Olivia Gonzales APRN.FILM REPRODUCER [address] [place] [address] [place] [address] Nurse Practitioner Hematology/Oncology 07/03/24 documented as of this encounter
--- OUTSIDE RECORDS SUMMARY | 2024-07-23 09:44 | XMS_ITS | Encounter Summary ---
Author Organization [facility] Address [address] [place] [address] Care Team Providers Care Municipal Clerk Name Role Phone Ted Perry MD Unavailable [phone] Ted Perry MD Primary Care Provider [phone] Sunday, Wanda STANFORD Unavailable [phone] Encounter Details Date Type Department Care Team (Late st Contact Info) Description 02/21/2023 Abstract [facility] [address] [facility] [address] [place] [id number] Ted Perry MD [address] [facility] [address] [place], [place] [id number] Social History Tobacco Use Types Packs/Day Years [...] often do you attend chur ch or spiritism services? 1 to 4 times per year 10/18/2022 Do you belong to any clubs o r organizations such as confucianism groups, unions, fraternal or athletic groups, or [...] Not very hard 10/18/2022 [facility] - Occupational [...] [address] [place] [address] 10/07/2025 9:00 AM EDT Office Visit [facility] [address] [place] [id number] Jr. Emmanuel Clay DO [address] [place] [address] documented as of this encounter Visit Diagnoses Not on filedocumented in this encounter Care Teams Municipal Clerk Relationship Specialty Start Date End Date Ted Perry MD [address] [place] [address] PCP - ACO Reach 07/06/22 Ted Perry MD [address] [place] [address] PCP - General Internal Medicine 06/20/22Sunday, HIEN Muñoz [address] [facility] [address] [place] [address] Licensed Practical Nurse Family Medicine 11/05/23 11/15/23 documented as of this encounter
--- OUTSIDE RECORDS SUMMARY | 2024-07-23 09:44 | XMS_ITS | Encounter Summary ---
Author Organization [facility] Address [address] [place] [address] Care Team Providers Care Collection Systems Consultant Name Role Phone Ted Perry MD Unavailable [phone] Ted Perry MD Primary Care Provider [phone] Sunday, Wanda STANFORD Unavailable [phone] Encounter Details Date Type Department Care Team (Late st Contact Info) Description 08/10/2023 Clinisync Result Encounter [facility] External Department Unsolicited [...] any clubs o r organizations such as sikhism groups, unions, fraternal or athletic groups, or [...] care, and heating? Not very hard 10/18/2022 [facility]at [facility] - Occupational Stress [...] DERM [address] [place] [address] Ai Galvez PA [address] [place] [address] 10/07/2025 9:00 AM EDT Office Visit [facility] [address] [place] [address] Jr. Emmanuel Clay, DO [address] [place] [address] documented as of this encounter Procedures Procedure Name Priority Date/Time Associated Diagnosis Comments ECG01 08/10/2023 9:48 AM EDT documented in this encounter Results * ECG01 (08/10/2023 9:48 AM EDT) Anatomical Region Laterality Modality Other 08/10/2023 9:48 AM EDT Narrative 08/17/2023 3:38 PM EDT Ventricular Rate : 47 BPM Atrial Rate : 47 BPM P-R Interval : 190 ms QRS Duration : 160 ms Q-T Interval : 526 ms QTC Calculation(Bazett) : 465 ms Calculated P Empire : 51 degrees Calculated R Empire : 53 degrees Calculated T Empire : 73 degrees SINUS BRADYCARDIA COMPLETE LEFT BUNDLE BRANCH BLOCK ABNORMAL ECG Confirmed by EVAN LINTON MD ([id number]) on 08/17/2023 3:38:32 PM NAME : ANDREI JONES PID : [id number] : 1955 Gender : Male Race : ORD : Procedure Date : Aug 10 2023 09:48:09 Edit Date : Aug 17 2023 15:38:33 Diagnosis: SINUS BRADYCARDIA COMPLETE LEFT BUNDLE BRANCH BLOCK ABNORMAL ECG Confirmed by EVAN LINTON MD ([id number]) on 08/17/2023 3:38:32 PM Test Reason : Location : 145 : [facility] Overread By : EVAN LINTON MD Edited By : EVAN LINTON MD Referred By : , Acquired by : am, Procedure Note Radiology, Radiologist, MD - 08/17/2023 Ventricular Rate : 47 BPM Atrial Rate : 47 BPM P-R Interval : 190 ms QRS Duration : 160 ms Q-T Interval : 526 ms QTC Calculation(Bazett) : 465 ms Calculated P Empire : 51 degrees Calculated R Empire : 53 degrees Calculated T Empire : 73 degrees SINUS BRADYCARDIA COMPLETE LEFT BUNDLE BRANCH BLOCK ABNORMAL ECG Confirmed by EVAN LINTON MD ([id number]) on 08/17/2023 3:38:32 PM NAME : ANDREI JONES PID : [id number] : 1955 Gender : Male Race : ORD : Procedure Date : Aug 10 2023 09:48:09 Edit Date : Aug 17 2023 15:38:33 Diagnosis: SINUS BRADYCARDIA COMPLETE LEFT BUNDLE BRANCH BLOCK ABNORMAL ECG Confirmed by EVAN LINTON MD ([id number]) on 08/17/2023 3:38:32 PM Test Reason : Location : 145 : [facility] Overread By : EVAN LINTON MD Edited By : EVAN LINTON MD Referred By : , Acquired by : am, us Generic External Data Provider [facility] Final Result documented in this encounter Visit Diagnoses Not on filedocumented in this encounter Care Teams Collection Systems Consultant Relationship Specialty Start Date End Date Ted Perry MD [address] [place] [address] [address] [place] [address] PCP - ACO Reach 07/06/22 Ted Perry MD [address] [facility] [address] [place] [address] PCP - General Internal Medicine 06/20/22Sunday, HIEN Muñoz [address] [facility] [address] [place] [address] Licensed Practical Nurse Family Medicine 11/05/23 11/15/23 documented as of this encounter
--- OUTSIDE RECORDS SUMMARY | 2024-07-23 09:44 | XMS_ITS | Encounter Summary ---
Author Organization [facility] Address [address] [place] [address] Care Team Providers Care Stave Bolt Equalizer Name Role Phone Ted Perry MD Unavailable [phone] Ted Perry MD Primary Care Provider [phone] Sunday, Wanda STANFORD Unavailable [phone] Encounter Details Date Type Department Care Team (Late st Contact Info) Description 10/03/2023 Clinisync Result Encounter [facility] Unsolicited [...] often do you attend chur ch or episcopal services? 1 to 4 times per year 10/18/2022 Do you belong to any clubs o r organizations such as jain groups, unions, fraternal or athletic groups, or [...] care, and heating? Not very hard 10/18/2022 [facility] [facility] ional [facility] - Occupational Stress [...] DERM [address] [place] [address] Ai Galvez PA [address] [place] [address] 10/07/2025 9:00 AM EDT Office Visit [facility] [address] [place] [id number] Jr. Emmanuel Clay, DO [address] [place] [address] documented as of this encounter Procedures Procedure Name Priority Date/Time Associated Diagnosis Comments CT UROGRAM WO/W IVCON 10/03/2023 11:13 AM EDT documented in this encounter Results * CT UROGRAM WO/W IVCON (10/03/2023 11:13 AM EDT) Anatomical Region Laterality Modality Other 10/03/2023 11:1 3 AM EDT Narrative 10/03/2023 3:44 PM EDT * * *Final Report* * * DATE OF EXAM: Oct 03 2023 11:13AM [facility] 0560 - CT UROGRAM WO/W IVCON / PROCEDURE REASON: Malignant neoplasm of right kidney, except renal pelvis (HCC) * * * * Physician Interpretation * * * * RESULT: EXAMINATION: CT ABDOMEN AND PELVIS WITHOUT AND WITH IV CONTRAST, INCLUDING EXCRETORY PHASE IMAGING (CT UROGRAM) CLINICAL HISTORY: LEFT nephrectomy and RIGHT upper pole partial nephrectomy for kidney cancer.. TECHNIQUE: CT urogram protocol including unenhanced, renal parenchymal phase and excretory phase renal imaging was obtained following IV contrast. Normal saline was also administered IV. No oral contrast was given. 3D image post-processing was performed and archived at the request of the referring physician, on the CT scanner workstation without concurrent physician supervision. MQ: CTU_2 Contrast: IV: 120 ml of Omnipaque 350 IV Saline: 150 ml of 0.9% NACL Solution Oral Contrast: None CT Radiation dose: Integrated dose-length product (DLP) for this visit = 4149 mGy*cm. CT Dose Reduction Employed: Automated exposure control (AEC) COMPARISON: 08/10/2023 CT abdomen pelvis RESULT: Kidneys and urinary tract: Right: Right upper pole partial nephrectomy with a small caliber RIGHT retroperitoneal drain that extends posteriorly to the kidney and terminates along the upper pole partial nephrectomy site. Ill-defined nephrectomy defect measures approximately 4.1 x 2.0 cm (6:42). Just superomedially, there is a 4.4 x 2.3 cm fluid collection in the adrenalectomy bed (6:40) - see below. There is no extravasation of excreted contrast to suggest urinoma. Nonobstructing 6 mm upper pole stone. Opacified calyces, renal pelvis and ureter are without filling defect, dilation, or stricture. Unremarkable Left: Left nephrectomy without local recurrence. Bladder: Bladder decompressed but no calcified stones, focal wall thickening, or filling defect. Abdomen and Pelvis: Liver: Stable subcentimeter segment 4/5 lesion (5:118), likely benign. No new or enlarging liver mass. Biliary: No bile duct dilation. Gallbladder is unremarkable. Spleen: Calcified granulomas. No mass. No splenomegaly. Pancreas: No mass or duct dilation. Adrenals: Right adrenalectomy with a forementioned 4.4 x 2.3 cm fluid collection in adrenalectomy bed. No rim enhancement or internal gas bubbles within the fluid to suggest infection. No soft tissue recurrence. Left adrenalectomy without local recurrence. GI tract: No dilation or wall thickening. Normal appendix. Sigmoid diverticulosis. Lymph nodes: Shotty abdominopelvic lymph nodes but no lymphadenopathy Mesentery/Peritoneum: No ascites or mass. Retroperitoneum: No mass. Vasculature: - Abdominal aorta and iliac arteries: No aneurysm. - Celiac and SMA: Patent without stenosis. - Portal venous system (SMV, splenic vein, portal vein and branches): Patent. - Hepatic veins: Patent. Pelvis: Mildly enlarged prostate. Bladder decompressed. No mass or fluid collection Bones and Soft Tissues: Degenerative change. No destructive or traumatic bone lesion. Lower thorax: Atelectasis. Slightly decreased size of a 1 cm subpleural nodular density at the posteromedial RIGHT lung base (3:70), previously 1.3 cm. No new nodules or pleural effusion. Localizer images: No additional findings. IMPRESSION: RIGHT adrenalectomy and upper pole partial nephrectomy with upper pole perinephric surgical drain. No extravasation of excreted contrast to suggest a leak/urinoma. Small postoperative fluid collection at the RIGHT adrenalectomy bed. No rim enhancement or internal gas bubbles to suggest infection. Left adrenalectomy and nephrectomy without local recurrence . No metastasis in abdomen or pelvis. Transcribe Date/Time: Oct 03 2023 3:31P Dictated by: MANPREET MORALES MD This examination was interpreted and the report reviewed and electronically signed by: MANPREET MORALES MD on Oct 03 2023 3:42PM EST Thank you for allowing us to participate in the care of your patient. Should there be any questions regarding this interpretation, please call [phone]. If you are unable to reach us at the number above, please feel free to contact [facility] at [phone]. [id number] Procedure Note Radiology, Radiologist, - 10/03/2023 * * *Final Report* * * DATE OF EXAM: Oct 03 2023 11:13AM [facility] 0560 - CT UROGRAM WO/W IVCON / PROCEDURE REASON: Malignant neoplasm of right kidney, except renal pelvis (HCC) * * * * Physician Interpretation * * * * RESULT: EXAMINATION: CT ABDOMEN AND PELVIS WITHOUT AND WITH IV CONTRAST, INCLUDING EXCRETORY PHASE IMAGING (CT UROGRAM) CLINICAL HISTORY: LEFT nephrectomy and RIGHT upper pole partial nephrectomy for kidney cancer.. TECHNIQUE: CT urogram protocol including unenhanced, renal parenchymal phase and excretory phase renal imaging was obtained following IV contrast. Normal saline was also administered IV. No oral contrast was given. 3D image post-processing was performed and archived at the request of the referring physician, on the CT scanner workstation without concurrent physician supervision. MQ: CTU_2 Contrast: IV: 120 ml of Omnipaque 350 IV Saline: 150 ml of 0.9% NACL Solution Oral Contrast: None CT Radiation dose: Integrated dose-length product (DLP) for this visit = 4149 mGy*cm. CT Dose Reduction Employed: Automated exposure control (AEC) COMPARISON: 08/10/2023 CT abdomen pelvis RESULT: Kidneys and urinary tract: Right: Right upper pole partial nephrectomy with a small caliber RIGHT retroperitoneal drain that extends posteriorly to the kidney and terminates along the upper pole partial nephrectomy site. Ill-defined nephrectomy defect measures approximately 4.1 x 2.0 cm (6:42). Just superomedially, there is a 4.4 x 2.3 cm fluid collection in the adrenalectomy bed (6:40) - see below. There is no extravasation of excreted contrast to suggest urinoma. Nonobstructing 6 mm upper pole stone. Opacified calyces, renal pelvis and ureter are without filling defect, dilation, or stricture. Unremarkable Left: Left nephrectomy without local recurrence. Bladder: Bladder decompressed but no calcified stones, focal wall thickening, or filling defect. Abdomen and Pelvis: Liver: Stable subcentimeter segment 4/5 lesion (5:118), likely benign. No new or enlarging liver mass. Biliary: No bile duct dilation. Gallbladder is unremarkable. Spleen: Calcified granulomas. No mass. No splenomegaly. Pancreas: No mass or duct dilation. Adrenals: Right adrenalectomy with a forementioned 4.4 x 2.3 cm fluid collection in adrenalectomy bed. No rim enhancement or internal gas bubbles within the fluid to suggest infection. No soft tissue recurrence. Left adrenalectomy without local recurrence. GI tract: No dilation or wall thickening. Normal appendix. Sigmoid diverticulosis. Lymph nodes: Shotty abdominopelvic lymph nodes but no lymphadenopathy Mesentery/Peritoneum: No ascites or mass. Retroperitoneum: No mass. Vasculature: - Abdominal aorta and iliac arteries: No aneurysm. - Celiac and SMA: Patent without stenosis. - Portal venous system (SMV, splenic vein, portal vein and branches): Patent. - Hepatic veins: Patent. Pelvis: Mildly enlarged prostate. Bladder decompressed. No mass or fluid collection Bones and Soft Tissues: Degenerative change. No destructive or traumatic bone lesion. Lower thorax: Atelectasis. Slightly decreased size of a 1 cm subpleural nodular density at the posteromedial RIGHT lung base (3:70), previously 1.3 cm. No new nodules or pleural effusion. Localizer images: No additional findings. IMPRESSION: RIGHT adrenalectomy and upper pole partial nephrectomy with upper pole perinephric surgical drain. No extravasation of excreted contrast to suggest a leak/urinoma. Small postoperative fluid collection at the RIGHT adrenalectomy bed. No rim enhancement or internal gas bubbles to suggest infection. Left adrenalectomy and nephrectomy without local recurrence . No metastasis in abdomen or pelvis. Transcribe Date/Time: Oct 03 2023 3:31P Dictated by: MANPREET MORALES MD This examination was interpreted and the report reviewed and electronically signed by: MANPREET MORALES MD on Oct 03 2023 3:42PM EST Thank you for allowing us to participate in the care of your patient. Should there be any questions regarding this interpretation, please call [phone]. If you are unable to reach us at the number above, please feel free to contact [facility] at [phone]. [id number] us Generic External Data Provider [facility] Final Result documented in this encounter Visit Diagnoses Not on filedocumented in this encounter Care Teams Stave Bolt Equalizer Relationship Specialty Start Date End Date Ted Perry MD [address] [facility] [address] [place] [address] PCP - ACO Reach 07/06/22 Ted Perry MD [address] [facility] [address] [place] [address] PCP - General Internal Medicine 06/20/22SundayWanda LPN [address] [facility] [address] [place] [address] Licensed Practical Nurse Family Medicine 11/05/23 11/15/23 documented as of this encounter
--- OUTSIDE RECORDS SUMMARY | 2024-07-23 09:44 | XMS_ITS | Encounter Summary ---
Author Organization [facility] Address [address] [place] [address] Care Team Providers Care Revenue Settlements Administrator Name Role Phone Ted Perry MD Unavailable [phone] Ted Perry MD Primary Care Provider [phone] Sunday, Wanda STANFORD Unavailable [phone] Encounter Details Date Type Department Care [...] often do you attend chur ch or hindu services? 1 to 4 times per year 10/18/2022 Do you belong to any clubs o r organizations such as cheondoism groups, unions, fraternal or athletic groups, or [...] and heating? Not very hard 10/18/2022 [facility] of Occupat ional Health - Occupational Stress [...] DERM [address] [place] [address] Ai Galvez PA [address] [place] [address] 10/07/2025 9:00 AM EDT Office Visit [facility] [address] [place] [address] Jr. Emmanuel Clay, DO [address] [place], [place] [id number] documented as of this encounter Procedures Procedure Name Priority Date/Time Associated Diagnosis Comments CT CHEST W IV CONTRAST 08/10/2023 9:31 AM EDT [facility] URINALYSIS COMPLETE PNL UR Routine 08/10/2023 8:52 AM EDT [facility] BACTERIA UR CULT Routine 08/10/2023 8:51 AM EDT [facility] TYPE AND SCREEN,30 DAY Routine 08/10/2023 8:33 AM EDT [facility] PT PNL PPP Routine 08/10/2023 8:33 AM EDT [facility] CBC PNL BLD AUTO Routine 08/10/2023 8:33 AM EDT [facility] BAS METAB 2000 PNL SERPL Routine 08/10/2023 8:33 AM EDT [facility] APTT PPP Routine 08/10/2023 8:33 AM EDT documented in this encounter Results * CT chest w IV contrast (08/10/2023 9:31 AM EDT) Anatomical Region Laterality Modality Body, Chest Computed Tomogra phy 08/10/2023 9:31 AM EDT Narrative 08/10/2023 11:00 AM EDT * * *Final Report* * * DATE OF EXAM: Aug 10 2023 9:31AM [facility] 0539 - CT CHEST W IVCON / PROCEDURE REASON: multiple diagnoses * * * * Physician Interpretation * * * * RESULT: EXAMINATION: CHEST CT WITH CONTRAST CLINICAL HISTORY: History of left renal cell carcinoma (s/p left nephrectomy 2004). New right renal cell carcinoma. Technique: Spiral CT acquisition of the chest from the thoracic inlet to the upper abdomen following IV contrast. MQ: CTCW_6 Contrast: 100 mL Omnipaque [address] Radiation dose: Integrated Dose-length product (DLP) for this visit = 2332 mGy*cm CT Dose Reduction Employed: Automated exposure control (AEC) Comparison: 06/07/2023. RESULT: Limitations: None. Lines, tubes, and devices: None. Lung parenchyma and airways: Patent central airways. Dependent subpleural groundglass opacities, likely atelectasis, possibly with scarring. - Scattered lung nodules, stable since 06/07/2023 CT, slightly larger compared to 03/23/2022 CT, for reference: * 11 mm lingular nodule, image 4: 67 (previously 9 mm) * 13 x 10 mm RLL nodule, image 90 (previously 11 x 9 mm) * 6-5 mm RUL nodule, image 24 (previously 4 mm). Pleural space: No effusion or nodular thickening. Lower neck, lymph nodes, and mediastinum: No thoracic lymph node enlargement. Calcified left hilar lymph nodes. Heart, pericardium, and thoracic vessels: Mild left atrial enlargement. LV appears dilated. Dilated aortic root ( 4.7 x 4.5 cm). No central PE. Dilated right and left pulmonary arteries. LAD stent. Normal pericardium. Bones and soft tissues: No destructive bone lesion. Degenerative changes. Decreased bone density. Upper abdomen: Reported separately Localizer images: No additional findings. IMPRESSION: 1. 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 2. No thoracic lymph node enlargement. 3. Dilated aortic root (4.7 x 4.5 cm). Transcribe Date/Time: Aug 10 2023 10:03A Dictated by: CALOS LUZ MD This examination was interpreted and the report reviewed and electronically signed by: EDIS AMBROSE MD on Aug 10 2023 10:58AM EST Thank you for allowing us to participate in the care of your patient. Should there be any questions regarding this interpretation, please call [phone]. If you are unable to reach us at the number above, please feel free to contact [facility] at [phone]. [id number]^[email or web address]^ACN Procedure Note Radiology, Radiologist, - 08/10/2023 * * *Final Report* * * DATE OF EXAM: Aug 10 2023 9:31AM [facility] 0539 - CT CHEST W IVCON / PROCEDURE REASON: multiple diagnoses * * * * Physician Interpretation * * * * RESULT: EXAMINATION: CHEST CT WITH CONTRAST CLINICAL HISTORY: History of left renal cell carcinoma (s/p left nephrectomy 2004). New right renal cell carcinoma. Technique: Spiral CT acquisition of the chest from the thoracic inlet to the upper abdomen following IV contrast. MQ: CTCW_6 Contrast: 100 mL Omnipaque [address] Radiation dose: Integrated Dose-length product (DLP) for this visit = 2332 mGy*cm CT Dose Reduction Employed: Automated exposure control (AEC) Comparison: 06/07/2023. RESULT: Limitations: None. Lines, tubes, and devices: None. Lung parenchyma and airways: Patent central airways. Dependent subpleural groundglass opacities, likely atelectasis, possibly with scarring. - Scattered lung nodules, stable since 06/07/2023 CT, slightly larger compared to 03/23/2022 CT, for reference: * 11 mm lingular nodule, image 4: 67 (previously 9 mm) * 13 x 10 mm RLL nodule, image 90 (previously 11 x 9 mm) * 6-5 mm RUL nodule, image 24 (previously 4 mm). Pleural space: No effusion or nodular thickening. Lower neck, lymph nodes, and mediastinum: No thoracic lymph node enlargement. Calcified left hilar lymph nodes. Heart, pericardium, and thoracic vessels: Mild left atrial enlargement. LV appears dilated. Dilated aortic root ( 4.7 x 4.5 cm). No central PE. Dilated right and left pulmonary arteries. LAD stent. Normal pericardium. Bones and soft tissues: No destructive bone lesion. Degenerative changes. Decreased bone density. Upper abdomen: Reported separately Localizer images: No additional findings. IMPRESSION: 1. 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 2. No thoracic lymph node enlargement. 3. Dilated aortic root (4.7 x 4.5 cm). Transcribe Date/Time: Aug 10 2023 10:03A Dictated by: CALOS LUZ MD This examination was interpreted and the report reviewed and electronically signed by: EDIS AMBROSE MD on Aug 10 2023 10:58AM EST Thank you for allowing us to participate in the care of your patient. Should there be any questions regarding this interpretation, please call [phone]. If you are unable to reach us at the number above, please feel free to contact [facility] at [phone]. [id number]^ACN us Generic External Data Provider IMG CT PROCEDURES Final Result * [facility] URINALYSIS COMPLETE PNL UR (08/10/2023 8:52 AM EDT) [facility] COLOR UR Yellow Yellow [facility] CLARITY SPEC Clear Clear CCF [facility] GLUCOSE UR STRIP-MCNC Negative Negative CCF CCF BILIRUB UR QL STRIP Negative Negative CCF CCF KETONES UR QL STRIP Negative Negative CCF [facility] SP GR UR STRIP 1.008 1.005 - 1.030 C[facility] HGB UR QL STRIP Negative Negative [facility]CF CCF PH UR STRIP 6.5 <8.5 CCF [facility] PROT UR STRIP-MCNC Negative Negative CCF [facility] UROBILINOGEN UR QL STRIP 0.2 EU/dL 0.2-1.0 EU/dL CCF CCF NITRITE UR QL STRIP Negative Negative CCF [facility]CF LEUKOCYTE ESTERASE UR QL STRIP Negative Negative CCF CCF WBC #/AREA URNS HPF 0-5 /HPF 0-5 /HPF CCF [facility] RBC #/AREA URNS HPF 0-2 /HPF 0-2 /HPF CCF CCF BACTERIA #/AREA URNS HPF Negative Negative /HPF CCF [facility]CF EPI CELLS #/AREA URNS HPF None Seen /HPF CCF CCF HYALINE CASTS #/AREA URNS LPF 0 /LPF 0 /LPF [facility] 08/10/2023 8:52 AM EDT 08/10/2023 12:40 PM EDT Narrative CLINISYNC - 08/10/2023 2:55 PM EDT Specimen Type: URINE SPECIMEN Ordering Facility: [facility] Address: [address] [place] [address] Original Ordering Provider: AMAIRANI YOUSIF Generic External Data Provider KAYLEIGH [place] [address] * [facility]CF BACTERIA UR CULT (08/10/2023 8:51 AM EDT) [facility]CF BACTERIA UR CULT CULTURE, URINE: No growth (<1,000 CFU/ml) CCF 08/10/2023 8:51 AM EDT 08/10/2023 3:41 PM EDT Narrative CLINISYNC - 08/11/2023 11:32 AM EDT Original Ordering Provider: AMAIRANI YOUSIF Generic External Data Provider CLINISYNC F inal Result Performing Organization Address [facility] Co de Phone Number KAYLEIGH [facility] [address] [facility] [facility] [place] [address] * CCF TYPE AND SCREEN,30 DAY (08/10/2023 8:33 AM EDT) Pathologist [facility] ABO O CCF RH Positive CCF ANTIBODY SCREEN Negative CCF CCF HISTORICAL AB SCR STATUS NEGATIVE [facility]CF 08/10/2023 8:33 AM EDT 08/10/2023 12:33 PM EDT Narrative CLINISYNC - 08/10/2023 10:51 PM EDT Specimen Type: BLOOD SPECIMEN Ordering Facility: [facility] Address: [address] [place] [address] BLOOD BANK CLIA [id number] [address] [place] [address] [place] T[place] Generic External Data Provider CLINISYNC F inal Result Performing Organization Address [facility] Co de Phone Number KAYLEIGH [facility] [address] [place] [address] * (ABNORMAL) CCF BAS METAB 2000 PNL SERPL (08/10/2023 8:33 AM EDT) Pathologist [facility] CCF GLUCOSE SERPL-MCNC 101(H) 74 - 99 mg/dL CCF Comment: The [place] Diabetes Association (ADA) provides guidance for cutoff [...] Standards of Medical Care in Diabetes 2016, [place] [employer] Association. Diabetes Care. 2016.39(Suppl 1). CCF BUN SERPL-MCNC 14 9 - 24 mg/dL CCF CCF CREAT SERPL-MCNC 1.09 0.73 - 1.22 mg/dL CCF CCF SODIUM SERPL-SCNC 139 136 - 144 mmol/L CCF CCF POTASSIUM SERPL-SCNC 4.6 3.7 - 5.1 mmol/L CCF CCF CHLORIDE SERPL-SCNC 105 98 - 107 mmol/L CCF CCF CO2 SERPL-SCNC 25 22 - 30 mmol/L CCF CCF ANION GAP SERPL-SCNC 9 8 - 15 mmol/L CCF CCF CALCIUM SERPL-MCNC 10.0 8.5 - 10.2 mg/dL CCF CCF CREATININE + EGFR PNL SERPLBLD [...] eGFR may not accurately reflect actual GFR. 08/10/2023 8:33 AM EDT 08/10/2023 12:35 PM EDT Narrative KAYLEIGH - 08/10/2023 6:08 PM EDT Specimen Type: BLOOD SPECIMEN Ordering Facility: [facility] Address: [address] [place] [address] Original Ordering Provider: AMAIRANI YOUSIF Generic External Data Provider KAYLEIGH anderson Result KAYLEIGH [facility] [address] [facility] [place] [id number] * (ABNORMAL) CCF PT PNL PPP (08/10/2023 8:33 AM EDT) CCF PROTHROMBIN TIME 34.6(H) 9.7 - 13.0 sec CCF CCF INR PPP 3.6(H) 0.9 - 1.3 CCF Comment: Vitamin K Antagonist (VKA) Therapeutic Range: INR 2 to 3 (Target INR of 2.5) Note: For patients treated with VKA drugs, such as warfarin, the [place] [employer]icians 2012 Guideline recommends a therapeutic INR range of 2 to 3 (target INR of 2.5). This recommendation includes high-risk patients with antiphospholipid syndrome with previous arterial or venous thromboembolism, current-generation mechanical or bioprosthetic aortic heart valve replacement. Note: Patients with mechanical aortic valve replacement and additional risk factors for thromboembolic events (atrial fibrillation, previous thromboembolism, LV dysfunction, hypercoagulable conditions) or an older generation mechanical AVR (i.e., ball in-Cage) or any mechanical MVR should have a INR therapeutic range of 2.5 to 3.5 (target INR of 3). Saira GH, et al. Chest 2012, 141:7S-47S Neil RA, et al. [facility] 2017, 70: 252-289 08/10/2023 8:33 AM EDT 08/10/2023 1:21 PM EDT Narrative CLINISYNC - 08/10/2023 2:04 PM EDT Specimen Type: BLOOD SPECIMEN Ordering Facility: [facility] Address: [address] [place] [address] Original Ordering Provider: AMAIRANI YOUSIF Generic External Data Provider KAYLEIGH anderson Result Performing Organization Address [facility] Co de Phone Number [facility] [address] [place] [address] * (ABNORMAL) CCF APTT PPP (08/10/2023 8:33 AM EDT) CCF APTT PPP 44.7(H) 23.0 - 32.4 sec CCF 08/10/2023 8:33 AM EDT 08/10/2023 1:21 PM EDT Narrative CLINISYNC - 08/10/2023 2:04 PM EDT Specimen Type: BLOOD SPECIMEN Ordering Facility: [facility] Address: [address] [place] [address] Original Ordering Provider: AMAIRANI YOUSIF us Generic External Data Provider KAYLEIGH F justin Result Performing Organization Address [facility] Co de Phone Number KAYLEIGH [facility] [address] [facility] [address] [place] [address] * CCF CBC PNL BLD AUTO (08/10/2023 8:33 AM EDT) CCF WBC # BLD AUTO 5.40 3.70 - 11.00 k/uL CCF CCF RBC # BLD AUTO 4.67 4.20 - 6.00 m/uL CCF CCF HGB BLD-MCNC 14.5 13.0 - 17.0 g/dL CCF CCF HCT VFR BLD AUTO 43.3 39.0 - 51.0 % CCF CCF MCV RBC AUTO 92.7 80.0 - 100.0 fL CCF CCF MCH RBC QN AUTO 31.0 26.0 - 34.0 pg CCF CCF MCHC RBC AUTO-MCNC 33.5 30.5 - 36.0 g/dL CCF CCF RDW RBC-RTO 13.3 11.5 - 15.0 % CCF CCF PLATELET # BLD AUTO 222 150 - 400 k/uL CCF CCF PMV BLD AUTO 10.6 9.0 - 12.7 fL CCF CCF NRBC # BLD AUTO <0.01 <0.01 k/uL CCF 08/10/2023 8:33 AM EDT 08/10/2023 12:36 PM EDT Narrative KAYLEIGH - 08/10/2023 12:49 PM EDT Specimen Type: BLOOD SPECIMEN Ordering Facility: [facility] Address: [address] [place] [address] Original Ordering Provider: AMAIRANI YOUSIF us Generic External Data Provider CLINISYNC F inal Result KAYLEIGH [facility] [address] [address] documented in this encounter Visit Diagnoses Not on filedocumented in this encounter Care Teams Revenue Settlements Administrator Relationship Specialty Start Date End Date Ted Perry MD [address] [facility] [address] [place] [address] PCP - ACO Reach 07/06/22 Ted Perry MD [address] [place] [address] PCP - General Internal Medicine 06/20/22Sunday, HIEN Muñoz [address] [place] [address] Licensed Practical Nurse Family Medicine 11/05/23 11/15/23 documented as of this encounter
--- OUTSIDE RECORDS SUMMARY | 2024-07-23 09:44 | XMS_ITS | Encounter Summary ---
Author Organization [facility] Address [address] [place] [address] Care Team Providers Care Colorectal Surgeon Name Role Phone Ted Perry MD Unavailable [phone] Ted Perry MD Primary Care Provider [phone] Sunday, Wanda STANFORD Unavailable [phone] Encounter Details Date Type Department Care [...] often do you attend chur ch or muslim services? 1 to 4 times per year 10/18/2022 Do you belong to any clubs o r organizations such as yarsani groups, unions, fraternal or athletic groups, or [...] care, and heating? Not very hard 10/18/2022 [facility] of Occupat ional Health - Occupational Stress [...] place to sleep or slept in a long-term (including now)? No 10/18/2022 Sex and Gender [...] DERM [address] [place] [address] Ai Galvez PA [address] [place] [address] 10/07/2025 9:00 AM EDT Office Visit [facility] [address] [place] [address] Jr. Emmanuel Clay, DO [address] [place] [address] documented as of this encounter Procedures Procedure Name Priority Date/Time Associated Diagnosis Comments CT CHEST W IV CONTRAST 06/07/2023 10:55 AM EDT documented in this encounter Results * CT chest w IV contrast (06/07/2023 10:55 AM EDT) Anatomical Region Laterality Modality Body, Chest Computed Tomogra phy 06/07/2023 10:5 5 AM EDT Narrative 06/07/2023 3:07 PM EDT * * *Final Report* * * DATE OF EXAM: Jun 07 2023 10:55AM [facility] 0539 - CT CHEST W IVCON / PROCEDURE REASON: multiple diagnoses * * * * Physician Interpretation * * * * RESULT: EXAMINATION: CHEST CT WITH CONTRAST CLINICAL HISTORY: Renal cell carcinoma follow-up Technique: Spiral CT acquisition of the chest from the thoracic inlet to the upper abdomen following IV contrast. MQ: CTCW_6 Contrast: 150 mL Omnipaque [address] Radiation dose: Integrated Dose-length product (DLP) for this visit = 2003 mGy*cm CT Dose Reduction Employed: mAs-kVp adjusted based on patient size-age Comparison: 11/21/22 RESULT: Limitations: None. Lines, tubes, and devices: None. Lung parenchyma and airways: 1.3 x 1.1 cm right lower lobe nodular opacity (4:69), previously 1.2 x 0.8 cm, stable. Subcentimeter nodular opacities measures up to 9 mm, stable. For example: Right upper lobe (4:22, 37) Right middle lobe (4:119) Left upper lobe (4:129) Left lower lobe (4: 93, 100, 119) New left upper lobe ground glass opacities (4:100) most likely infectious/inflammatory etiology. The central airways are patent. Pleural space: No pleural effusion. No pleural thickening. Lower neck, lymph nodes, and mediastinum: The imaged thyroid gland is normal. Calcified mediastinal lymph nodes are identified. No evidence of enlarged noncalcified mediastinal lymph nodes. . Heart, pericardium, and thoracic vessels: The thoracic aorta and main pulmonary artery are normal in caliber. The cardiac chambers are normal in size. Atherosclerotic coronary artery calcifications are noted. No pericardial effusion or thickening. Bones and soft tissues: No new osseous abnormalities. Upper abdomen: Please refer to the abdomen CT scan report for the abdomen findings. Localizer images: No additional findings. IMPRESSION: 1. New ground glass opacities in the left upper lobe most likely infectious/inflammatory in etiology. Consider follow-up to complete resolution. 2. Multiple nodular opacities measures 1.3 cm, stable since 11/21/22. Transcribe Date/Time: Jun 07 2023 2:23P Dictated by: ELADIO COLBY MD This examination was interpreted and the report reviewed and electronically signed by: ELADIO COLBY MD on Jun 07 2023 3:05PM EST Thank you for allowing us to participate in the care of your patient. Should there be any questions regarding this interpretation, please call [phone]. If you are unable to reach us at the number above, please feel free to contact [facility] at [phone]. [id number]^[email or web address]^ACN Procedure Note Radiology, Radiologist, - 06/07/2023 * * *Final Report* * * DATE OF EXAM: Jun 07 2023 10:55AM [facility] 0539 - CT CHEST W IVCON / PROCEDURE REASON: multiple diagnoses * * * * Physician Interpretation * * * * RESULT: EXAMINATION: CHEST CT WITH CONTRAST CLINICAL HISTORY: Renal cell carcinoma follow-up Technique: Spiral CT acquisition of the chest from the thoracic inlet to the upper abdomen following IV contrast. MQ: CTCW_6 Contrast: 150 mL Omnipaque [address] Radiation dose: Integrated Dose-length product (DLP) for this visit = 2003 mGy*cm CT Dose Reduction Employed: mAs-kVp adjusted based on patient size-age Comparison: 11/21/22 RESULT: Limitations: None. Lines, tubes, and devices: None. Lung parenchyma and airways: 1.3 x 1.1 cm right lower lobe nodular opacity (4:69), previously 1.2 x 0.8 cm, stable. Subcentimeter nodular opacities measures up to 9 mm, stable. Forexample: Right upper lobe (4:22, 37) Right middle lobe (4:119) Left upper lobe (4:129) Left lower lobe (4: 93, 100, 119) New left upper lobe ground glass opacities (4:100) most likely infectious/inflammatory etiology. The central airways are patent. Pleural space: No pleural effusion. No pleural thickening. Lower neck, lymph nodes, and mediastinum: The imaged thyroid gland is normal. Calcified mediastinal lymph nodes are identified. No evidence of enlarged noncalcified mediastinal lymph nodes. . Heart, pericardium, and thoracic vessels: The thoracic aorta and main pulmonary artery are normal in caliber. The cardiac chambers are normal in size. Atherosclerotic coronary artery calcifications are noted. No pericardial effusion or thickening. Bones and soft tissues: No new osseous abnormalities. Upper abdomen: Please refer to the abdomen CT scan report for the abdomen findings. Localizer images: No additional findings. IMPRESSION: 1. New ground glass opacities in the left upper lobe most likely infectious/inflammatory in etiology. Consider follow-up to complete resolution. 2. Multiple nodular opacities measures 1.3 cm, stable since 11/21/22. Transcribe Date/Time: Jun 07 2023 2:23P Dictated by: ELADIO COLBY MD This examination was interpreted and the report reviewed and electronically signed by: ELADIO COLBY MD on Jun 07 2023 3:05PM EST Thank you for allowing us to participate in the care of your patient. Should there be any questions regarding this interpretation, please call [phone]. If you are unable to reach us at the number above, please feel free to contact [facility] at [phone]. [id number]^[email or web address]^SI^ACN us Generic External Data Provider IMG CT PROCEDURES Final Result documented in this encounter Visit Diagnoses Not on filedocumented in this encounter Care Teams Colorectal Surgeon Relationship Specialty Start Date End Date Ted Perry MD [address] [place] [address] PCP - ACO Reach 07/06/22 Ted Perry MD [address] [place] [address] PCP - General Internal Medicine 06/20/22Sunday, HIEN Muñoz [address] [place] [address] Licensed Practical Nurse Family Medicine 11/05/23 11/15/23 documented as of this encounter
--- OUTSIDE RECORDS SUMMARY | 2024-07-23 09:44 | XMS_ITS | Encounter Summary ---
Author Organization [facility] Address [place] [address] Care Team Providers Care Spool Carrier Name Role Phone Orlando [place] MD, Ted Brown Primary Care Provider [phone] Jolanta Queen Unavailable Unavaila Mariia Estrada RD Unavailable [phone] Sheng Bill MD Unavailable [phone] Belinda Nicholson MD Unavailable [phone] Maricel Fox RN Unavailable [phone] Unavailable Lluvia Graham Unavailable Unavailable Olivia Gonzales APRN.BOX TOE CEMENTER Unavailable [phone] Source Comments In the event this information is protected by the Federal Confidentiality of Alcohol and Drug AbusePatient Records regulations: The Federal rules restrict any use of the information to criminally investigate or prosecute any alcohol or drug abuse patient.[facility] Reason for Referral * MRI/CT (Routine) - New Request Specialty Diagnoses / Procedures Referred By Contac t Referred To Contact MR IMAGING Diagnoses Head and neck cancer (HCC) Dehydration Dizziness Procedures MRI BRAIN WO/W IVCON MRI BRAIN BRAIN STEM W/O W/CONTRAST MATERIAL Evangelina Bass PA-C [address] [place] [address] Phone: tel: fax: [place] [address] Referral ID Status Reason Start Date Expiration Date Visits Requested Visits Authorized [id number] New Request Auto-Generat ed Referral 07/15/2024 08/14/2025 1 1 Encounter Details Date Type Department Care Team (Late st Contact Info) Description 07/15/2024 Orders Only Hematology/Oncology [address] [place] [address] [place] [address] Evangelina Bass PA-C [address] [place] [address] Head and neck cancer (HCC) (Primary Dx); Dehydration; Dizziness Social History Tobacco Use Types Packs/Day [...] is lower risk 8 07/03/2022 Data from: https://www.neighborhoodatlas.medicine.[facility].edu/. Last address used for calculation [address] [...] 07/23/2024 1:30 PM EDT Infusion Center Hematology/Oncology [address] [place] [address] [place] [address] IV FLUIDS 07/23/2024 3:00 PM EDT Appointment Radiation Oncology [address] [place] [address] [place] [address] neck 07/25/2024 2:30 PM EDT Education Nutrition Therapy [address] [place] [address] Tamica Rosario, RD [address] [place] [address] follow up PEG 07/25/2024 2:30 PM EDT Infusion Center Hematology/Oncology [address] [place] [address] [place] [address] Hydration to be givenin Radiology 07/28/2024 2:30 PM EDT Office Visit Radiation Oncology [address] [place] [address] [place] [address] Belinda Nicholson MD [address] [place] [address] [place] [address] final radiation follow up, 1-2 weeks 07/28/2024 3:00 PM EDT Infusion Center Hematology/Oncology [facility] [place] [address] IV FLUIDS 08/14/2024 9:45 AM EDT Office Visit [facility] [address] [place] [address] 4 week follow up lab 08/14/2024 10:00 AM EDT Visit (SP) Office Hematology/Oncology [address] [place] [address] Olivia Gonzales APRN.BOX TOE CEMENTER [address] [place] [address] 4 week follow up lab Scheduled Orders Name Type Priority Associated Diagnoses Orde r Schedule MRI BRAIN WO/W IVCON Radiology Routine Head and neck cancer (HCC) Dehydration Dizziness 1 Occurrences starting 07/15/2024 until 08/14/2025 documented as of this encounter Visit Diagnoses Diagnosis 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, face, and neck Dehydration Dizziness Dizziness and giddiness documented in this encounter Care Teams Spool Carrier Relationship Specialty Start Date End Date Ted Perry II, MD PCP - General Internal Medicine 12/03/12 Jolanta Queen LISW Sustainability Analyst 10/29/[address] [place] [address] [place] [address] Registered Dietitian Nutrition 06/02/24 Sheng Bill MD [address] [place] [address] [place] [address] Physician Hematology/Oncology 06/04/24 Belinda Nicholson MD [address] [place] [address] [place] [address] Physician Radiation Oncology 06/04/24 Maricel Fox, SIDNEY [address] [facility] [place] [address] Specialty Chief Radiologic Technologist Hematology/Oncology 06/04/[address] [place] [address] [place] [address] Registered Dietitian Nutrition 06/25/24 Lluvia Graham LSW Sustainability Analyst 06/26/24 Olivia Gonzales APRN.BOX TOE CEMENTER [address] [place] [address] [place] [address] Nurse Practitioner Hematology/Oncology 07/03/24 documented as of this encounter
--- OUTSIDE RECORDS SUMMARY | 2024-07-23 09:44 | XMS_ITS | Encounter Summary ---
Author Organization [facility] Address [address] [place] [address] Care Team Providers Care Actimize Architect Name Role Phone Ted Perry MD Unavailable [phone] Ted Perry MD Primary Care Provider [phone] Sunday, Wanda STANFORD Unavailable [phone] Encounter Details Date Type Department Care Team (Late st Contact Info) Description 10/04/2022 Abstract [facility] [address] [place] [address] Ted Perry MD [address] [place] [address] Social History Tobacco Use Types Packs/Day Years Used Date Smoking Tobacco: Never Assessed Sex and Gender Information Value Date Recorded [...] [address] [place] [address] Ai Galvez PA [address] [place] [address] 10/07/2025 9:00 AM EDT Office Visit [facility] [address] [place] [address] Jr. Emmanuel Clay DO [address] [place] [address] documented as of this encounter Visit Diagnoses Not on filedocumented in this encounter Care Teams Actimize Architect Relationship Specialty Start Date End Date Ted Perry MD [address] [place] [address] PCP - ACO Reach 07/06/22 Ted Perry MD [address] [place] [address] PCP - General Internal Medicine 06/20/22Sunday, HIEN Muñoz [address] [place] [address] Licensed Practical Nurse Family Medicine 11/05/23 11/15/23 documented as of this encounter
--- OUTSIDE RECORDS SUMMARY | 2024-07-23 09:44 | XMS_ITS | Encounter Summary ---
Author Organization [facility] Address [address] [place] [address] Care Team Providers Care Net Fisher Name Role Phone Ted Perry MD Unavailable [phone] Ted Perry MD Primary Care Provider [phone] Sunday, Wanda STANFORD Unavailable [phone] Encounter Details Date Type Department Care [...] often do you attend chur ch or zoroastrian services? 1 to 4 times per year 10/18/2022 Do you belong to any clubs o r organizations such as lutheran groups, unions, fraternal or athletic groups, or [...] care, and heating? Not very hard 10/18/2022 [facility]at ional Health - Occupational Stress [...] place to sleep or slept in a senior care (including now)? No 10/18/2022 Sex and Gender [...] DERM [address] [place] [address] Ai Galvez PA [address] [place] [address] 10/07/2025 9:00 AM EDT Office Visit [facility] [address] [place] [address] Jr. Emmanuel Clay, DO [address] [place] [address] documented as of this encounter Procedures Procedure Name Priority Date/Time Associated Diagnosis Comments CT ABD/PEL W IVCON 08/10/2023 9: 31 AM EDT documented in this encounter Results * CT ABD/PEL W IVCON (08/10/2023 9:31 AM EDT) Anatomical Region Laterality Modality Other 08/10/2023 9:31 AM EDT Narrative 08/10/2023 10:12 AM EDT * * *Final Report* * * DATE OF EXAM: Aug 10 2023 9:31AM [facility] 0530 - CT ABD/PEL W IVCON / PROCEDURE REASON: multiple diagnoses * * * * Physician Interpretation * * * * RESULT: EXAMINATION: CT ABDOMEN AND PELVIS WITH IV CONTRAST CLINICAL HISTORY: Renal cell carcinoma follow-up. TECHNIQUE: CT of the abdomen and pelvis was performed using standard technique, scanning from just above the dome of the diaphragm to the symphysis pubis. MQ: CTAP_3 Contrast: IV: 100 ml of Omnipaque 350 Oral: 450 ml of Omni 240 10-25ml diluted with water CT Radiation dose: Integrated Dose-length product (DLP) for this visit = 2332 mGy*cm. CT Dose Reduction Employed: Automated exposure control (AEC) COMPARISON: CT abdomen/pelvis, 06/07/2023. RESULT: Liver: Stable subcentimeter segment 4B hypodensity (3:50), benign cyst based on prior MRI. No metastasis. Normal morphology. Biliary: No bile duct dilation. No calcified gallstones Spleen: No mass. No splenomegaly. Pancreas: No mass or duct dilation. 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 Left adrenalectomy. Kidneys: -Right: 5.3 x 5.0 cm solid upper pole mass (3:56), previously 5.0 x 4.6 cm. No new right renal mass. No stones or hydronephrosis. -Left: 2.2 x 1.2 cm nodular soft tissue in the nephrectomy bed (3:57), previously 2.4 x 1.0 cm. GI tract: No dilation or wall thickening. Lymph nodes: No abdominal or pelvic lymphadenopathy. Mesentery/Peritoneum: No ascites or mass. Retroperitoneum: No mass. Vasculature: - Abdominal aorta and iliac arteries: Atherosclerotic calcifications without aneurysm. - Celiac and SMA: Patent without stenosis. - Portal venous system (SMV, splenic vein, portal vein and branches): Patent. - Hepatic veins: Patent. Pelvis: No mass, ascites or fluid collection. Bones/Soft Tissues: No suspicious bone lesions. Lower thorax: A chest CT performed will be reported separately. Localizer images: No additional findings. IMPRESSION: Slight increase in size of right upper pole renal mass. 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 No new sites of disease in the abdomen or pelvis. Transcribe Date/Time: Aug 10 2023 10:03A Dictated by: ZAMZAM HOOPER MD This examination was interpreted and the report reviewed and electronically signed by: ZAMZAM HOOPER MD on Aug 10 2023 10:10AM EST Thank you for allowing us to participate in the care of your patient. Should there be any questions regarding this interpretation, please call [phone]. If you are unable to reach us at the number above, please feel free to contact [facility] at [phone]. [id number]^[email or web address]^ACN Procedure Note Radiology, Radiologist, - 08/10/2023 * * *Final Report* * * DATE OF EXAM: Aug 10 2023 9:31AM [id number] - CT ABD/PEL W IVCON / PROCEDURE REASON: multiple diagnoses * * * * Physician Interpretation * * * * RESULT: EXAMINATION: CT ABDOMEN AND PELVIS WITH IV CONTRAST CLINICAL HISTORY: Renal cell carcinoma follow-up. TECHNIQUE: CT of the abdomen and pelvis was performed using standard technique, scanning from just above the dome of the diaphragm to the symphysis pubis. MQ: CTAP_3 Contrast: IV: 100 ml of Omnipaque 350 Oral: 450 ml of Omni 240 10-25ml diluted with water CT Radiation dose: Integrated Dose-length product (DLP) for this visit = 2332 mGy*cm. CT Dose Reduction Employed: Automated exposure control (AEC) COMPARISON: CT abdomen/pelvis, 06/07/2023. RESULT: Liver: Stable subcentimeter segment 4B hypodensity (3:50), benign cyst based on prior MRI. No metastasis. Normal morphology. Biliary: No bile duct dilation. No calcified gallstones Spleen: No mass. No splenomegaly. Pancreas: No mass or duct dilation. 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 Left adrenalectomy. Kidneys: -Right: 5.3 x 5.0 cm solid upper pole mass (3:56), previously 5.0 x 4.6 cm. No new right renal mass. No stones or hydronephrosis. -Left: 2.2 x 1.2 cm nodular soft tissue in the nephrectomy bed (3:57), previously 2.4 x 1.0 cm. GI tract: No dilation or wall thickening. Lymph nodes: No abdominal or pelvic lymphadenopathy. Mesentery/Peritoneum: No ascites or mass. Retroperitoneum: No mass. Vasculature: - Abdominal aorta and iliac arteries: Atherosclerotic calcifications without aneurysm. - Celiac and SMA: Patent without stenosis. - Portal venous system (SMV, splenic vein, portal vein and branches): Patent. - Hepatic veins: Patent. Pelvis: No mass, ascites or fluid collection. Bones/Soft Tissues: No suspicious bone lesions. Lower thorax: A chest CT performed will be reported separately. Localizer images: No additional findings. IMPRESSION: Slight increase in size of right upper pole renal mass. 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 No new sites of disease in the abdomen or pelvis. Transcribe Date/Time: Aug 10 2023 10:03A Dictated by: ZAMZAM HOOPER MD This examination was interpreted and the report reviewed and electronically signed by: ZAMZAM HOOPER MD on Aug 10 2023 10:10AM EST Thank you for allowing us to participate in the care of your patient. Should there be any questions regarding this interpretation, please call [phone]. If you are unable to reach us at the number above, please feel free to contact [facility] at [phone]. [id number]^[email or web address] us Generic External Data Provider [facility] Final Result documented in this encounter Visit Diagnoses Not on filedocumented in this encounter Care Teams Net Fisher Relationship Specialty Start Date End Date Ted Perry MD [address] [facility] [address] [place] [address] PCP - ACO Reach 07/06/22 Ted Perry MD [address] [facility] [address] [place] [address] PCP - General Internal Medicine 06/20/22Sunday, HIEN Muñoz [address] [facility] [address] [place] [address] Licensed Practical Nurse Family Medicine 11/05/23 11/15/23 documented as of this encounter
--- OUTSIDE RECORDS SUMMARY | 2024-07-23 09:44 | XMS_ITS | Encounter Summary ---
Author Organization [facility] Address [address] [place] [address] Care Team Providers Care Director Validation Name Role Phone Ted Perry MD Unavailable [phone] Ted Perry MD Primary Care Provider [phone] Sunday, Wanda STANFORD Unavailable [phone] Encounter Details Date Type Department Care Team (Late st Contact Info) Description 09/04/2023 Abstract [facility] [address] [facility] [address] [place] [address] Ted Perry MD [address] [facility] [address] [place], [place] [id number] Social History Tobacco Use Types Packs/Day Years [...] any clubs o r organizations such as jew groups, unions, fraternal or athletic groups, or [...] care, and heating? Not very hard 10/18/2022 [facility] - Occupational Stress Questionnaire Answer Date [...] place to sleep or slept in a care home (including now)? No 10/18/2022 Sex and [...] DERM [address] [place] [address] Ai Galvez PA [address] [place] [address] 10/07/2025 9:00 AM EDT Office Visit [facility] [address] [place] [address] Jr. Emmanuel Clay DO [address] [place] [address] documented as of this encounter Visit Diagnoses Not on filedocumented in this encounter Care Teams Director Validation Relationship Specialty Start Date End Date Ted Perry MD [address] [place] [address] PCP - ACO Reach 07/06/22 Ted Perry MD [address] [place] [address] PCP - General Internal Medicine 06/20/22Sunday, HIEN Muñoz [address] [place] [address] Licensed Practical Nurse Family Medicine 11/05/23 11/15/23 documented as of this encounter
--- OUTSIDE RECORDS SUMMARY | 2024-07-23 09:44 | XMS_ITS | Clinical Summary ---
Author Organization [facility] Address [address] [place] [address] Care Team Providers Care Fire Warden Name Role Phone Tommy Callahan MD Primary Care Provider [phone] Social History Tobacco Use Types Packs/Day Years Used Date Smoking Tobacco: Never Assessed Sex and Gender Information Value Date Recorded Sex Assigned at Not on file Legal Sex Male 9:58 PM EDT Gender Identity Not on file Sexual Orientation Not on file Plan of Treatment Not on file Care Teams Fire Warden Relationship Specialty Start Date End Date Tommy Callahan MD [address] [place] [address] PCP - General 06/09/11
--- OUTSIDE RECORDS SUMMARY | 2024-07-23 09:44 | XMS_ITS | Encounter Summary ---
Author Organization [facility] Address [address] [place] [address] Care Team Providers Care Shrinking Machine Operator Name Role Phone Ted Perry MD Unavailable [phone] Ted Perry MD Primary Care Provider [phone] Sunday, Wanda STANFORD Unavailable [phone] Encounter Details Date Type Department Care [...] week 10/18/2022 How often do you attend [facility] or church services? 1 to 4 times per year 10/18/2022 Do you belong to any clubs o r organizations such as synagogue groups, unions, fraternal or athletic groups, or [...] DERM [address] [place] [address] Ai Galvez PA [address] [place] [address] 10/07/2025 9:00 AM EDT Office Visit [facility] [address] [place] [address] Jr. Emmanuel Clay, DO [address] [place] [address] documented as of this encounter Procedures Procedure Name Priority Date/Time Associated Diagnosis Comments CT ABD/PEL W IVCON 11/21/2022 10 :17 AM EDT documented in this encounter Results * CT ABD/PEL W IVCON (11/21/2022 10:17 AM EDT) Anatomical Region Laterality Modality Other 11/21/2022 10:1 7 AM EDT Narrative 11/21/2022 11:45 AM EDT * * *Final Report* * * DATE OF EXAM: Nov 21 2022 10:17AM [facility] 0530 - CT ABD/PEL W IVCON / PROCEDURE REASON: Renal mass * * * * Physician Interpretation * * * * RESULT: EXAMINATION: CT ABDOMEN AND PELVIS WITH IV CONTRAST CLINICAL HISTORY: Renal mass TECHNIQUE: CT of the abdomen and pelvis was performed using standard technique, scanning from just above the dome of the diaphragm to the symphysis pubis. MQ: CTAP_3 Contrast: IV: 50 ml of Omnipaque 300 Oral: 500 ml of Omni 240 10-25ml diluted with water CT Radiation dose: Integrated Dose-length product (DLP) for this visit = 1923 mGy*cm. CT Dose Reduction Employed: Automated exposure control (AEC) COMPARISON: 08/10/2022 RESULT: Liver: Subcapsular 0.6 cm hepatic hypodensity, image 40, series 3, unchanged, likely related to a small cyst. Mild, diffuse hepatic steatosis is suspected. No new hepatic lesion. Biliary Tract: No bile duct dilation. The gallbladder appears unremarkable. Spleen: No splenomegaly. No mass. Pancreas: No mass or ductal dilatation. Adrenal glands: 3.6 x 2.6 cm right adrenal gland mass, stable in size and appearance. The left adrenal gland is not clearly visualized, likely surgically absent. Kidneys: Heterogeneously enhancing, partially exophytic upper pole right renal mass measures 4.7 x 4.2 cm, previously at similar level measuring 4.5 x 4.1 cm. No new right renal mass is appreciated. The left kidney is surgically absent. The left renal fossa remains unremarkable. GI Tract: No bowel wall thickening or dilation. Lymph nodes: No substantial mesenteric or retroperitoneal adenopathy is appreciated. Mesentery/Peritoneum: No ascites. Partially calcified low-attenuation 1.6 x 1.2 cm peritoneal nodule within the left lower quadrant is stable, likely related to a small area of fat necrosis. Retroperitoneum: No mass. Vasculature: - Abdominal aorta and iliac arteries: No aneurysm - Celiac and SMA: Patent. - Portal venous system (SMV, splenic vein, portal vein and branches): Patent. - Hepatic veins: Patent. Pelvis: No free fluid or pelvic mass. No substantial inguinal adenopathy. Biliary Tract: No bile duct dilation. Degenerative change involving the lumbar spine. No osseous process. Lower Thorax: A CT examination of the chest has been performed concurrently and will be dictated separately. Production Underwriter (topogram) images: No additional findings. IMPRESSION: 1. 4.7 x 4.2 cm heterogeneously enhancing right renal mass has slightly progressed in size from the prior examination of 08/10/2022, as above. 2. 3.6 x 2.6 cm indeterminate right adrenal gland mass, stable in size. 3. Postoperative changes, compatible with prior left nephrectomy. 4. No substantial intra-abdominal or pelvic lymphadenopathy is appreciated. Transcribe Date/Time: Nov 21 2022 11:26A Dictated by: YAAKOV KNOWLES MD This examination was interpreted and the report reviewed and electronically signed by: YAAKOV KNOWLES MD on Nov 21 2022 11:43AM EST Thank you for allowing us to participate in the care of your patient. Should there be any questions regarding this interpretation, please call [phone]. If you are unable to reach us at the number above, please feel free to contact [facility] at [phone]. [id number] Procedure Note Radiology, Radiologist, - 11/21/2022 * * *Final Report* * * DATE OF EXAM: Nov 21 2022 10:17AM [facility] 0530 - CT ABD/PEL W IVCON / PROCEDURE REASON: Renal mass * * * * Physician Interpretation * * * * RESULT: EXAMINATION: CT ABDOMEN AND PELVIS WITH IV CONTRAST CLINICAL HISTORY: Renal mass TECHNIQUE: CT of the abdomen and pelvis was performed using standard technique, scanning from just above the dome of the diaphragm to the symphysis pubis. MQ: CTAP_3 Contrast: IV: 50 ml of Omnipaque 300 Oral: 500 ml of Omni 240 10-25ml diluted with water CT Radiation dose: Integrated Dose-length product (DLP) for this visit = 1923 mGy*cm. CT Dose Reduction Employed: Automated exposure control (AEC) COMPARISON: 08/10/2022 RESULT: Liver: Subcapsular 0.6 cm hepatic hypodensity, image 40, series 3, unchanged, likely related to a small cyst. Mild, diffuse hepatic steatosis is suspected. No new hepatic lesion. Biliary Tract: No bile duct dilation. The gallbladder appears unremarkable. Spleen: No splenomegaly. No mass. Pancreas: No mass or ductal dilatation. Adrenal glands: 3.6 x 2.6 cm right adrenal gland mass, stable in size and appearance. The left adrenal gland is not clearly visualized, likely surgically absent. Kidneys: Heterogeneously enhancing, partially exophytic upper pole right renal mass measures 4.7 x 4.2 cm, previously at similar level measuring 4.5 x 4.1 cm. No new right renal mass is appreciated. The left kidney is surgically absent. The left renal fossa remains unremarkable. GI Tract: No bowel wall thickening or dilation. Lymph nodes: No substantial mesenteric or retroperitoneal adenopathy is appreciated. Mesentery/Peritoneum: No ascites. Partially calcified low-attenuation 1.6 x 1.2 cm peritoneal nodule within the left lower quadrant is stable, likely related to a small area of fat necrosis. Retroperitoneum: No mass. Vasculature: - Abdominal aorta and iliac arteries: No aneurysm - Celiac and SMA: Patent. - Portal venous system (SMV, splenic vein, portal vein and branches): Patent. - Hepatic veins: Patent. Pelvis: No free fluid or pelvic mass. No substantial inguinaladenopathy. Biliary Tract: No bile duct dilation. Degenerative change involving the lumbar spine. No osseous process. Lower Thorax: A CT examination of the chest has been performed concurrently and will be dictated separately. Production Underwriter (topogram) images: No additional findings. IMPRESSION: 1. 4.7 x 4.2 cm heterogeneously enhancing right renal mass has slightly progressed in size from the prior examination of 08/10/2022, as above. 2. 3.6 x 2.6 cm indeterminate right adrenal gland mass, stable in size. 3. Postoperative changes, compatible with prior left nephrectomy. 4. No substantial intra-abdominal or pelvic lymphadenopathy is appreciated. Transcribe Date/Time: Nov 21 2022 11:26A Dictated by: YAAKOV KNOWLES MD This examination was interpreted and the report reviewed and electronically signed by: YAAKOV KNOWLES MD on Nov 21 2022 11:43AM EST Thank you for allowing us to participate in the care of your patient. Should there be any questions regarding this interpretation, please call [phone]. If you are unable to reach us at the number above, please feel free to contact [facility] at [phone]. [id number] us Generic External Data Provider [facility] Final Result documented in this encounter Visit Diagnoses Not on filedocumented in this encounter Care Teams Shrinking Machine Operator Relationship Specialty Start Date End Date Ted Perry MD [address] [place] [address] PCP - ACO Reach 07/06/22 Ted Perry MD [address] [place] [address] PCP - General Internal Medicine 06/20/22Sunday, HIEN Muñoz [address] [place] [address] Licensed Practical Nurse Family Medicine 11/05/23 11/15/23 documented as of this encounter
--- OUTSIDE RECORDS SUMMARY | 2024-07-23 09:44 | XMS_ITS | Encounter Summary ---
Author Organization [facility] Address [facility] [place] [address] Care Team Providers Care Maintenance Painter Apprentice Name Role Phone Orlando [place] MD, Ted Brown Primary Care Provider + [phone] Jolanta Queen Unavailable Unavaila Mariia Esrtada RD Unavailable [phone] Sheng Bill MD Unavailable [phone] Belinda Nicholson MD Unavailable [phone] Maricel Fox RN Unavailable [phone] Unavailable Lluvia Graham Unavailable Unavailable Olivia Gonzales APRN.SENIOR TABLEAU DEVELOPER Unavailable [phone] Source Comments In the event this information is protected by the Federal Confidentiality of Alcohol and Drug AbusePatient Records regulations: The Federal rules restrict any use of the information to criminally investigate or prosecute any alcohol or drug abuse patient.[facility] Reason for Visit * Reason Comments Lab Orders Encounter Details Date Type Department Care Team (Late st Contact Info) Description 07/03/2024 Telephone Hematology/Oncology [address] [place] [address] [place] [address] Olivia Gonzales APRN.SENIOR TABLEAU DEVELOPER [address] [place] [address] Lab Orders Social History Tobacco Use Types [...] risk 8 07/03/2022 Data from: https://www.neighborhoodatlas.medicine.[facility]/. Last address used for calculation [...] encounter Miscellaneous Notes * Telephone Encounter - Magalie Calhoun MA - 07/03/2024 3:12 PM EDT Lab orders needed for appointment 07/10. Magalie Calhoun MA documented in this encounter Plan of Treatment Upcoming Encounters Date Type Department Care Team (Latest Contact Info) Description 07/23/2024 1:30 PM EDT Infusion Center Hematology/Oncology [address] [place] [address] IV FLUIDS 07/23/2024 3:00 PM EDT Appointment Radiation Oncology [address] [place] [address] neck 07/25/2024 2:30 PM EDT Education Nutrition Therapy [address] [place] [address] Tamica Rosario, RD [address] [place] [address] follow up PEG 07/25/2024 2:30 PM EDT Infusion Center Hematology/Oncology [facility] [place] [place] [address] Hydration to be givenin Radiology 07/28/2024 2:30 PM EDT Office Visit Radiation Oncology [address] [place] [address] Belinda Nicholson MD [address] [place] [address] final radiation follow up, 1-2 weeks 07/28/2024 3:00 PM EDT Infusion Center Hematology/Oncology [facility] [place] [place] [address] IV FLUIDS 08/14/2024 9:45 AM EDT Office Visit [facility] [address] [place] [address] 4 week follow up lab 08/14/2024 10:00 AM EDT Visit (SP) Office Hematology/Oncology [address] [place] [address] Olivia Gonzales, PROCESS CONTROLS TECHNICIAN.SENIOR TABLEAU DEVELOPER [address] [place] [address] 4 week follow up lab documented as of this encounter Visit Diagnoses Diagnosis 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, face, and neck documented in this encounter Care Teams Maintenance Painter Apprentice Relationship Specialty Start Date End Date Ted Perry II, MD PCP - General Internal Medicine 12/03/12 Jolanta Queen LISW Weblogic Developer 10/29/[address] [place] [address] [place] [address] Registered Dietitian Nutrition 06/02/24 Sheng Bill MD [address] [place] [address] [place] [address] Physician Hematology/Oncology 06/04/24 Belinda Nicholson MD [address] [place] [address] [place] [address] Physician Radiation Oncology 06/04/24 Maricel Fox, SIDNEY [address] [place] [address] Specialty Vocational Rehabilitation Specialist Hematology/Oncology 06/04/[address] [place] [address] Registered Dietitian Nutrition 06/25/24 Lluvia Graham LSW Weblogic Developer 06/26/24 Olivia Gonzales, PROCESS CONTROLS TECHNICIAN.SENIOR TABLEAU DEVELOPER [facility] [place] [address] Nurse Practitioner Hematology/Oncology 07/03/24 documented as of this encounter
--- OUTSIDE RECORDS SUMMARY | 2024-07-23 09:44 | XMS_ITS | Encounter Summary ---
Author Organization [facility] Address [address] [place] [address] Care Team Providers Care Structures Assembler Name Role Phone Ted Perry MD Unavailable [phone] Ted Perry MD Primary Care Provider [phone] Sunday, Wanda STANFORD Unavailable [phone] Encounter Details Date Type Department Care Team (Late st Contact Info) Description 04/19/2023 Abstract [facility] [address] [facility] [address] [place] [address] Ted Perry MD [address] [facility] [address] [place], [place] [id number] Social History Tobacco Use Types Packs/Day Years [...] often do you attend chur ch or mandaen services? 1 to 4 times per year [...] and heating? Not very hard 10/18/2022 [facility] - Occupational [...] [address] [place] [address] Ai Galvez PA [address] [place] [address] 10/07/2025 9:00 AM EDT Office Visit [facility] [address] [place] [id number] Jr. Emmanuel Clay DO [address] [place] [address] documented as of this encounter Visit Diagnoses Not on filedocumented in this encounter Care Teams Structures Assembler Relationship Specialty Start Date End Date Ted Perry MD [address] [place] [address] PCP - ACO Reach 07/06/22 Ted Perry MD [address] [place] [address] PCP - General Internal Medicine 06/20/22Sunday, HIEN Muñoz [address] [facility] [address] [place] [address] Licensed Practical Nurse Family Medicine 11/05/23 11/15/23 documented as of this encounter
--- OUTSIDE RECORDS SUMMARY | 2024-07-23 09:45 | XMS_ITS | Encounter Summary ---
Author Organization [facility] Address [address] [place] [address] Care Team Providers Care Cold Patcher Name Role Phone Ted Perry MD Unavailable [phone] Ted Perry MD Primary Care Provider [phone] Sunday, Wanda STANFORD Unavailable [phone] Encounter Details Date Type Department Care Team (Late st Contact Info) Description 08/10/2022 Clinisync Result Encounter [facility] Department Unsolicited Ted Perry MD [address] [place], [place] [id number] Social History Tobacco Use Types Packs/Day Years [...] DERM [address] [place] [address] Ai Galvez PA [address] [place] [address] 10/07/2025 9:00 AM EDT Office Visit [facility] [address] [place] [address] Jr. Emmanuel Clay DO [address] [place] [address] documented as of this encounter Procedures Procedure Name Priority Date/Time Associated Diagnosis Comments CT KIDNEY WO/W IVCON 08/10/2022 11:00 AM EDT documented in this encounter Results * CT KIDNEY WO/W IVCON (08/10/2022 11:00 AM EDT) Anatomical Region Laterality Modality Other 08/10/2022 11:0 0 AM EDT Narrative 08/11/2022 10:08 AM EDT * * *Final Report* * * DATE OF EXAM: Aug 10 2022 11:00AM [facility] 0546 - CT KIDNEY WO/W IVCON / PROCEDURE REASON: Other specified disorders of kidney and ureter * * * * Physician Interpretation * * * * RESULT: EXAMINATION: CT ABDOMEN (KIDNEY) WITHOUT AND WITH IV CONTRAST CLINICAL HISTORY: History of renal cell carcinoma. TECHNIQUE: Spiral imaging in three phases through the kidneys and including the abdomen was performed utilizing IV contrast only. No oral contrast was given. Arterial phase MIP, and nephrographic phase oblique coronal and sagittal reformations were created from thin-slice images under physician supervision on the imaging modality workstation. MQ: [id number]_1 Contrast: IV: 125 ml of Omnipaque 350 Oral Contrast: None CT Radiation dose: Integrated dose-length product (DLP) for this visit = 2970 mGy*cm. CT Dose Reduction Employed: Automated exposure control (AEC) COMPARISON: PET/CT performed 06/06/2022 RESULT: Renal mass assessment RIGHT: Right kidney: There is a heterogeneously enhancing mass in the upper pole of the right kidney measuring 2.7 x 3.7 cm, similar in size to prior exam. There is no extension to the right renal collecting system or right renal vein. No new right renal mass lesions are noted. Right renal vasculature: Arterial anatomy: Single. No early branch ( no branch within 1 cm of ostia). Venous anatomy: single. Right ureter: Single ureter. No hydronephrosis. Right adrenal: There is a 3.3 x 3.1 cm nodule arising from the right adrenal gland, similar in size to prior study. LEFT: Left kidney: The left kidney is surgically absent. No soft tissue mass is seen in the left renal fossa. Left adrenal: The left adrenal gland is not definitively visualized and may also be surgically absent. Retroperitoneal lymphadenopathy and IVC involvement: No retroperitoneal lymphadenopathy. No IVC tumor thrombus. Abdomen: Liver: A 7 mm hypodensity is noted in segment 4A/B, characterized, but likely relating to a cyst. No additional hepatic mass lesions are visualized. Biliary: The gallbladder is unremarkable. No biliary ductal dilation is seen. Spleen: Punctate calcifications are seen within the spleen, in keeping with prior granulomatous disease. No splenomegaly. Pancreas: No mass or duct dilation. GI tract: The stomach and small bowel are unremarkable. There is scattered colonic diverticulosis without evidence of diverticulitis. Lymph nodes (other): No abdominal lymphadenopathy. Mesentery/Peritoneum: No ascites or mass. Retroperitoneum: No mass. Vasculature (other): - Abdominal aorta: No aneurysm. - Celiac and SMA: Patent without stenosis. - Portal venous system (SMV, splenic vein, portal vein and branches): Patent. - Hepatic veins: Patent. - IVC: Patent IVC without thrombus. Bones/Soft Tissues: Degenerative changes noted in the lumbar spine. No destructive osseous lesions are seen. Superficial soft tissues are unremarkable. Lower thorax: A chest CT performed will be reported separately. Mechanical Repair Worker (topogram) images: No additional findings. IMPRESSION: 1. Heterogeneously enhancing mass in the upper pole of the right kidney, compatible with known neoplasm. This is stable in size when compared to prior PET/CT. No evidence of extension into the right renal collecting system or right renal vein. 2. Stable nodule within the right adrenal gland, also suspicious for metastatic disease. 3. Status post left nephrectomy. No gross soft tissue mass is seen in the left renal fossa. 4. No evidence of intra-abdominal lymphadenopathy. Transcribe Date/Time: Aug 11 2022 9:49A Dictated by: TATYANA THAKUR MD This examination was interpreted and the report reviewed and electronically signed by: TATYANA THAKUR MD on Aug 11 2022 10:05AM EST Thank you for allowing us to participate in the care of your patient. Should there be any questions regarding this interpretation, please call [phone]. If you are unable to reach us at the number above, please feel free to contact [facility] at [phone]. [id number]^[email or web address]^ACN Procedure Note Radiology, Radiologist, - 08/11/2022 * * *Final Report* * * DATE OF EXAM: Aug 10 2022 11:00AM [facility] 0546 - CT KIDNEY WO/W IVCON / PROCEDURE REASON: Other specified disorders of kidney and ureter * * * * Physician Interpretation * * * * RESULT: EXAMINATION: CT ABDOMEN (KIDNEY) WITHOUT AND WITH IV CONTRAST CLINICAL HISTORY: History of renal cell carcinoma. TECHNIQUE: Spiral imaging in three phases through the kidneys and including the abdomen was performed utilizing IV contrast only. No oral contrast was given. Arterial phase MIP, and nephrographic phase oblique coronal and sagittal reformations were created from thin-slice images under physician supervision on the imaging modality workstation. MQ: CTKAWWO_1 Contrast: IV: 125 ml of Omnipaque 350 Oral Contrast: None CT Radiation dose: Integrated dose-length product (DLP) for this visit = 2970 mGy*cm. CT Dose Reduction Employed: Automated exposure control (AEC) COMPARISON: PET/CT performed 06/06/2022 RESULT: Renal mass assessment RIGHT: Right kidney: There is a heterogeneously enhancing mass in the upper pole of the right kidney measuring 2.7 x 3.7 cm, similar in size to prior exam. There is no extension to the right renal collecting system or right renal vein. No new right renal mass lesions are noted. Right renal vasculature: Arterial anatomy: Single. No early branch ( no branch within 1 cm of ostia). Venous anatomy: single. Right ureter: Single ureter. No hydronephrosis. Right adrenal: There is a 3.3 x 3.1 cm nodule arising from the right adrenal gland, similar in size to prior study. LEFT: Left kidney: The left kidney is surgically absent. No soft tissue mass is seen in the left renal fossa. Left adrenal: The left adrenal gland is not definitively visualized and may also be surgically absent. Retroperitoneal lymphadenopathy and IVC involvement: No retroperitoneal lymphadenopathy. No IVC tumor thrombus. Abdomen: Liver: A 7 mm hypodensity is noted in segment 4A/B, characterized, but likely relating to a cyst. No additional hepatic mass lesions are visualized. Biliary: The gallbladder is unremarkable. No biliary ductal dilation is seen. Spleen: Punctate calcifications are seen within the spleen, in keeping with prior granulomatous disease. No splenomegaly. Pancreas: No mass or duct dilation. GI tract: The stomach and small bowel are unremarkable. There is scattered colonic diverticulosis without evidence of diverticulitis. Lymph nodes (other): No abdominal lymphadenopathy. Mesentery/Peritoneum: No ascites or mass. Retroperitoneum: No mass. Vasculature (other): - Abdominal aorta: No aneurysm. - Celiac and SMA: Patent without stenosis. - Portal venous system (SMV, splenic vein, portal vein and branches): Patent. - Hepatic veins: Patent. - IVC: Patent IVC without thrombus. Bones/Soft Tissues: Degenerative changes noted in the lumbar spine. No destructive osseous lesions are seen. Superficial soft tissues are unremarkable. Lower thorax: A chest CT performed will be reported separately. Mechanical Repair Worker (topogram) images: No additional findings. IMPRESSION: 1. Heterogeneously enhancing mass in the upper pole of the right kidney, compatible with known neoplasm. This is stable in size when compared to prior PET/CT. No evidence of extension into the right renal collecting system or right renal vein. 2. Stable nodule within the right adrenal gland, also suspicious for metastatic disease. 3. Status post left nephrectomy. No gross soft tissue mass is seen in the left renal fossa. 4. No evidence of intra-abdominal lymphadenopathy. Transcribe Date/Time: Aug 11 2022 9:49A Dictated by: TATYANA THAKUR MD This examination was interpreted and the report reviewed and electronically signed by: TATYANA THAKUR MD on Aug 11 2022 10:05AM EST Thank you for allowing us to participate in the care of your patient. Should there be any questions regarding this interpretation, please call [phone]. If you are unable to reach us at the number above, please feel free to contact [facility] at [phone]. [id number]^[email or web address]^ACN us Ted Perry MD [facility] Final Result documented in this encounter Visit Diagnoses Not on filedocumented in this encounter Care Teams Cold Patcher Relationship Specialty Start Date End Date Ted Perry MD [address] [place] [address] [address] [place] [address] PCP - ACO Reach 07/06/22 Ted Perry MD [address] [place] [address] PCP - General Internal Medicine 06/20/22Sunday, HIEN Muñoz [address] [place], [place] [id number] Licensed Practical Nurse Family Medicine 11/05/23 11/15/23 documented as of this encounter
--- OUTSIDE RECORDS SUMMARY | 2024-07-23 09:45 | XMS_ITS ---
Author Organization [facility] Address [address] [place] [address] Care Team Providers Care Conche Operator Name Role Phone Orlando COPELAND MD, Ted Brown Primary Care Provider [phone] Jolanta Queen Unavailable Unavaila Mariia Estrada RD Unavailable [phone] Sheng Bill MD Unavailable [phone] Belinda Nicholson MD Unavailable [phone] Maricel Fox RN Unavailable [phone] Unavailable Lluvia GrahamW Unavailable Unavailable Olivia Gonzales LEARNING COACH.DIRECTOR DATA ARCHITECTURE Unavailable [phone] Active Problems Problem Noted Date Diagnosed Date Body mass index (BMI) 40.0-44.9, adult Severe protein-calorie malnutrition 06/25/2024 Lung nodules 06/06/2024 Assessment & Plan (06/06/2024 12:02 PM EDT): Assessment: Per CT chest 02/2024: consistent with metastatic disease, 15 mm nodule in the posterior right lower lobe which is minimally increased in size, other nodules stable compared to CT chest from 07/2023. Head and neck cancer 06/03/2024 Lymphadenopathy of head and neck 06/03/2024 Complete left bundle branch block (LBBB) 025 Assessment & Plan (06/06/2024 12:03 PM EDT): Assessment: Noted on previous ECGs. Assessment & Plan (05/09/2024 3:53 PM EDT): Assessment: Noted on previous ECGs. 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 Assessment & Plan (05/09/2024 3:55 PM EDT): Assessment: S/p left nephrectomy 2004 for L RCC. HLD (hyperlipidemia) 05/09/2024 Assessment & Plan (06/06/2024 12:07 PM EDT): Assessment: Compliant on atorvastatin. Assessment & Plan (05/09/2024 3:56 PM EDT): Assessment: Compliant on atorvastatin. Primary adrenal insufficiency 09/27/2023 Assessment & Plan (06/06/2024 12:07 PM EDT): Assessment: S/p bilateral adrenalectomies. On fludrocortisone and hydrocortisone. Follows with [facility] Dr. Nithya newby. Assessment & Plan (05/09/2024 3:55 PM EDT): Assessment: S/p bilateral adrenalectomies. On fludrocortisone and hydrocortisone. Follows with [facility] Dr. Nithya newby. Right renal mass 09/06/2023 MIKAELA (obstructive sleep apnea) 08/10/2023 Assessment & Plan (06/06/2024 12:01 PM EDT): Assessment: Compliant on BIPAP. Assessment & Plan (05/09/2024 3:47 PM EDT): Assessment: Compliant on BIPAP. Assessment & Plan (08/10/2023 10:12 AM EDT): Assessment: Compliant with CPAP, advised to bring DOS BPH (benign prostatic hyperplasia) 08/10/2023 Assessment & Plan (06/06/2024 12:08 PM EDT): Assessment: Stable, sx managed on Flomax. Assessment & Plan (05/09/2024 3:45 PM EDT): Assessment: Stable, sx managed on Flomax. Assessment & Plan (08/10/2023 10:16 AM EDT): Assessment: manage don Flomax, denies current symptoms Cardiomyopathy, ischemic 08/10/2023 Assessment & Plan (06/06/2024 12:06 PM EDT): Assessment: H/o tachycardia-mediated cardiomyopathy per note in Care Everywhere. LVEF 50-55% on Echo 04/2023, improved fron 45% in 2021. Pt appears euvolemic on exam today. Assessment & Plan (05/09/2024 3:52 PM EDT): Assessment: H/o tachycardia-mediated cardiomyopathy per note in Care Everywhere. LVEF 50-55% on Echo 04/2023, improved fron 45% in 2021. Pt appears euvolemic on exam today. Post-operative nausea and vomiting 08/10/2023 Assessment & Plan (08/10/2023 10:57 AM EDT): Assessment: reports vomiting following previous kidney surgery 2005 Dilated aortic root 08/10/2023 Assessment & Plan (06/06/2024 12:03 PM EDT): Assessment: CT 07/2023: 4.7 x 4.5 cm. Assessment & Plan (05/09/2024 3:47 PM EDT): Assessment: CT 07/2023: 4.7 x 4.5 cm. Assessment & Plan (08/10/2023 11:05 AM EDT): Assessment: Recent CT scan Heart, pericardium, and thoracic vessels: Mild left atrial enlargement. LV appears dilated. Dilated aortic root ( 4.7 x 4.5 cm). No central PE. Dilated right and left pulmonary arteries. LAD stent. Normal pericardium. Patient following with cardiology Denies chest pain or dyspnea Stage 3a chronic kidney disease 06/24/2023 Assessment & Plan (06/06/2024 12:07 PM EDT): Images from the original note were not included. Assessment: Chronic, stable, s/p left nephrectomy and right partial nephrectomy. Latest Ref Rng & Units 05/06/2024 02/28/2024 01/17/2024 BMP Glucose 74 - 99 mg/dL 94 86 80 BUN 9 - 24 mg/dL 17 23 15 Creatinine 0.73 - 1.22 mg/dL 1.24 1.41 1.32 Sodium 136 - 144 mmol/L 141 138 140 Potassium 3.7 - 5.1 mmol/L 4.2 4.2 4.4 Chloride 98 - 107 mmol/L 106 103 104 CO2 22 - 30 mmol/L 24 25 29 Anion Gap 8 - 15 mmol/L 11 10 7 Calcium 8.5 - 10.2 mg/dL 8.7 8.9 9.1 EGFR >=60 mL/min/1.73m 63 54 58 Assessment & Plan (05/09/2024 3:54 PM EDT): Images from the original note were not included. Assessment: Chronic, stable, s/p left nephrectomy and right partial nephrectomy. Latest Ref Rng & Units 05/06/2024 02/28/2024 01/17/2024 BMP Glucose 74 - 99 mg/dL 94 86 80 BUN 9 - 24 mg/dL 17 23 15 Creatinine 0.73 - 1.22 mg/dL 1.24 1.41 1.32 Sodium 136 - 144 mmol/L 141 138 140 Potassium 3.7 - 5.1 mmol/L 4.2 4.2 4.4 Chloride 98 - 107 mmol/L 106 103 104 CO2 22 - 30 mmol/L 24 25 29 Anion Gap 8 - 15 mmol/L 11 10 7 Calcium 8.5 - 10.2 mg/dL 8.7 8.9 9.1 EGFR >=60 mL/min/1.73m 63 54 58 Assessment & Plan (08/10/2023 10:15 AM EDT): Images from the original note were not included. Assessment: Labs pending, following with nephrology, see HPI Latest Ref Rng & Units 07/04/2023 05/11/2023 11/28/2022 BMP Glucose 74 - 99 mg/dL 90 98 BUN 9 - 24 mg/dL 17 22 Creatinine 0.73 - 1.22 mg/dL 1.11 1.35 1.34 Sodium 136 - 144 mmol/L 140 136 Potassium 3.7 - 5.1 mmol/L 4.0 4.6 Chloride 97 - 105 mmol/L 106 101 CO2 22 - 30 mmol/L 23 26 Anion Gap 9 - 18 mmol/L 11 9 Calcium 8.5 - 10.2 mg/dL 8.9 10.0 EGFR >=60 mL/min/1.73m 72 57 57 Coronary artery disease invo lving qagan [place] coronary artery of [place] heart without angina pectoris 10/03/2022 Assessment & Plan (06/06/2024 12:07 PM EDT): Assessment: S/p PCI to LAD 10/2021. Pt was previously evaluated by [facility] cardiology Dr. Torres on 08/10/23. Pt reports riding recumbent bike x 30-45 minutes 3-4x per week without CP or SOB. Assessment & Plan (05/09/2024 3:52 PM EDT): Assessment: S/p PCI to LAD 10/2021. Pt was previously evaluated by [facility] cardiology Dr. Torers on 08/10/23. Pt reports riding recumbent bike x 30-45 minutes 3-4x per week without CP or SOB. Assessment & Plan (08/13/2023 10:05 AM EDT): Assessment: C 11/10/2021 successful SERA x1 to the pLAD, otherwise mild diffuse disease. Follows with Dr. Magallon at [facility] Cardiac/coag clearance received from Dr. Torres EF 50-55% on ECHO 04/23/2023 Denies chest pain or dyspnea Class 2 obesity with body ma ss index (BMI) of 38.0 to 38.9 in adult 07/06/2022 Assessment & Plan (06/06/2024 12:08 PM EDT): Assessment: Body mass index is 38.72 kg/m . Assessment & Plan (05/09/2024 3:45 PM EDT): Assessment: Body mass index is 40.9 kg/m . Assessment & Plan (08/10/2023 9:46 AM EDT): Assessment: Body mass index is 40.48 kg/m . Right adrenal mass 04/14/2022 Assessment & Plan (08/10/2023 10:14 AM EDT): Assessment: Following with endocrinology, last visit 07/04/2023. Per note... Based on CT characteristics and his hx of malignancy, the right adrenal mass is concerning for cancer metastasis from right RCC. Agree with total right adrenalectomy in conjunction with partial nephrectomy being planned. Prudent to obtain workup for cortisol, aldosterone and catacholamine excess prior to surgery, to guide post-operative steroid replacement. He will need lifelong glucocorticoid and mineralocorticoid replacement. Starting doses to be finalized pending hormonal test results Has follow up 09/03/2023 On amiodarone therapy 04/14/2022 Renal cell carcinoma of right kidney 03/06/2022 Assessment & Plan (06/06/2024 12:07 PM EDT): Assessment: +H/o right RCC +adrenal mets in 2023, s/p right partial nephrectomy and adrenalectomy, s/p adjuvant Pembro 10/25/2023. Follows with [facility] hem/onc Dr. Martínez. Assessment & Plan (05/09/2024 3:54 PM EDT): Assessment: +H/o right RCC +adrenal mets in 2023, s/p right partial nephrectomy and adrenalectomy, s/p adjuvant Pembro 10/25/2023. Follows with [facility] hem/onc Dr. Martínez. Paroxysmal atrial fibrillation 03/06/2018 Assessment & Plan (06/06/2024 12:06 PM EDT): Assessment: H/o AF/AFL s/p multiple ablations (x 4). Managed on amiodarone, metoprolol and warfarin. Follows with EP at [facility] Dr. Nanu LOU 04/14/24. Warfarin managed by PCP, warfarin clearance received from Dr. Perry, WEI to hold warfarin for 5 days prior to surgery. Bradycardic with regular rhythm on exam today. Assessment & Plan (05/09/2024 3:51 PM EDT): Assessment: H/o AF/AFL s/p multiple ablations (x 4). Managed on amiodarone, metoprolol and warfarin. Follows with EP at [facility] Dr. Naun LOU 04/14/24. Bradycardic with regular rhythm on exam today. Pt reports that he contacted EP office for pre-op warfarin instructions, letter was also faxed to Dr. Magallon on 05/09/2024 for warfarin clearance. During [facility] appointment, pt received call from EP office. Nurse stated the DIRECTOR DATA ARCHITECTURE in EP office stated that pt can discontinue warfarin for the shortest time possible but any further instructions would need to come from PCP, as Dr. Perry currently manages warfarin. Pt is personal friends with PCP Dr. Perry. Pt called Dr. Perry while in exam room with me. I spoke with Dr. Perry regarding pt's upcoming surgery and request to hold warfarin for 5 days prior to surgery. Dr. Perry gave verbal OK to myself and to patient to hold warfarin for 5 days prior to surgery. Letter was also faxed to Dr. Perry's office. Assessment & Plan (08/13/2023 10:06 AM EDT): Assessment: S/p ablation , Managed on Amiodarone and Metoprolol AC with Coumadin Holter monitor done 05/2023 requested Regular rhythm with bradycardia at visit, EKG 08/09, Sinus Bradycardia 47bpm, LBBB Follows with EP Dr. Magallon at [facility] and saw drawing in hand Dr. Torers at [facility] 08/09 Benign essential hypertension 12/17/2014 Overview (08/10/2023): Last Assessment & Plan: -cont Losartan, Metoprolol Assessment & Plan (06/06/2024 12:03 PM EDT): Assessment: Controlled on current medication regimen, BP today 124/78. Last 14 BP Last 14 Encounter BP Readings: Date: BP: 05/09/2024 143/74 05/08/2024 112/54 04/17/2024 128/64 02/28/2024 118/62 01/17/2024 149/81 01/17/2024 141/67 12/06/2023 140/73 10/25/2023 164/106 10/25/2023 153/79 10/05/2023 139/93 09/06/2023 112/61 09/04/2023 154/95 08/10/2023 156/84 08/10/2023 152/77 Assessment & Plan (05/09/2024 3:45 PM EDT): Assessment: Controlled on current medication regimen, BP today 143/74. Last 14 BP Last 14 Encounter BP Readings: Date: BP: 05/09/2024 143/74 05/08/2024 112/54 04/17/2024 128/64 02/28/2024 118/62 01/17/2024 149/81 01/17/2024 141/67 12/06/2023 140/73 10/25/2023 164/106 10/25/2023 153/79 10/05/2023 139/93 09/06/2023 112/61 09/04/2023 154/95 08/10/2023 156/84 08/10/2023 152/77 Assessment & Plan (08/10/2023 9:46 AM EDT): Assessment: compliant with medications Followed by PCP and cardiology Denies chest pain or headaches Last 5 Encounter BP Readings: Date: BP: 08/10/2023 156/84 06/22/2023 161/100 06/12/2023 152/90 11/28/2022 149/80 10/03/2022 144/70 Current Treatment and Therapy Plans AMB CARBOPLATIN 1.75 D1,8,15,22,29,36,43 - Q49D* Plan Start Date:06/12/2024 Plan Provider:Sheng Bill MD Linked Problems Head and neck cancer (HCC) Treatment Medications CARBOplatin iv piggyback (PARAPLATIN) AMB HYDRATION - NS 1000ML IV - ONCE* Plan Start Date:07/15/2024 Plan Provider:Evangelina Bass PA-C Linked Problems Head and neck cancer (HCC) Treatment Medications Current Day (Day 2 , Cycle 2 - Planned for 07/23/2024) Next Day (Day 4, Cycle 2 - Planned for 07/25/2024) No medications scheduled. No medications schedul ed. No medications scheduled. Past Treatment and Therapy Plans ONCOLOGY REGIMEN Plan Name Start Date Discontinue Date Treatment Medications Discontinue Reason Plan Provider Cycles AMB PEMBROLIZUMAB 400MG - Q42D 4 06/04/2024 pembrolizumab IV infusion (KEYTRUDA) Treatment Complete Abel Martínez MD 4 of 6 cycles started
--- OUTSIDE RECORDS SUMMARY | 2024-07-23 09:45 | XMS_ITS | Encounter Summary ---
Author Organization [facility] Address [address] [place] [address] Care Team Providers Care Event Planning Manager Name Role Phone Orlando [place] MD, Daniel B Primary Care Provider [phone] Hue Anglin RN Unavailable Unavailable Abel Martínez MD Unavailable [phone] Jolanta Queen Unavailable Unavaila Mariia Estrada RD Unavailable [phone] Sheng Blil MD Unavailable [phone] Belinda Nicholson MD Unavailable [phone] Maricel Fox RN Unavailable [phone] Unavailable Lluvia Graham Unavailable Unavailable Olivia Gonzales APRN.HIGH SCHOOL ART TEACHER Unavailable [phone] Source Comments In the event this information is protected by the Federal Confidentiality of Alcohol and Drug AbusePatient Records regulations: The Federal rules restrict any use of the information to criminally investigate or prosecute any alcohol or drug abuse patient.[facility] Encounter Details Date Type Department Care Team (Late st Contact Info) Description 06/29/2023 Patient Msg Urology [address] [address] Provider, [facility] urology pre op-surgery dates and instructions Social History Tobacco Use Types Packs/Day Years Used Date Smoking Tobacco: Never Passive Smoke Exposure: Past Smokeless Tobacco: Never Alcohol Use Standard Drinks/Week Comments Yes 0 (1 standard drink = 0.6 oz pur e alcohol) socially PHQ-2 Answer Date Recorded PHQ-2 score 0 06/11/2023 Area Deprivation Index Answer Date Colby rded National Score (1-100), lower number is lower ri sk 87 07/03/2022 State Score (1-10), lower number is lower risk 8 07/03/2022 Data from: https://www.neighborhoodatlas.medicine.[facility].edu/. Last address used for calculation [address] [place] 07/03/2022 Sex and Gender Information Value Date Recorded Sex Assigned at Not on file Legal Sex Male 7:29 AM EST Gender Identity Not on file Sexual Orientation Not on file documented as of this encounter Plan of Treatment Upcoming Encounters Date Type Department Care Team (Latest Contact Info) Description 07/23/2024 1:30 PM EDT Infusion Center Hematology/Oncology [address] [place], [place] [address] [place] [address] IV FLUIDS 07/23/2024 3:00 PM EDT Appointment Radiation Oncology [address] [place] [address] [place] [address] neck 07/25/2024 2:30 PM EDT Education Nutrition Therapy [place] [address] Tamica Rosario, RD [address] [place] [address] follow up PEG 07/25/2024 2:30 PM EDT Infusion Center Hematology/Oncology [facility] [place] [address] Hydration to be givenin Radiology 07/28/2024 2:30 PM EDT Office Visit Radiation Oncology [facility] [place] [address] Belinda Nicholson MD [address] [facility] [place] [address] final radiation follow up, 1-2 weeks 07/28/2024 3:00 PM EDT [facility] Hematology/Oncology [address] [place] [address] IV FLUIDS 08/14/2024 9:45 AM EDT Office Visit [facility] Laboratory [address] [place] [address] 4 week follow up lab 08/14/2024 10:00 AM EDT Visit (SP) Office Hematology/Oncology [address] [place] [address] Olivia Gonzales, JAGRUTI.HIGH SCHOOL ART TEACHER [address] [place] [address] 4 week follow up lab documented as of this encounter Visit Diagnoses Not on filedocumented in this encounter Care Teams Event Planning Manager Relationship Specialty Start Date End Date Ted Perry II, MD PCP - General Internal Medicine 12/03/12 Hue Anglin, SIDNEY Specialty Director [employer] Hematology/Oncology 10/11/23 06/03/24 Abel [place] [address] [place], [place] [id number] Physician Hematology/Oncology 10/11/23 06/03/24 Jolanta Queen LISW [employer] 10/29/[address] [facility] [place] [address] Registered Dietitian Nutrition 06/02/24 Sheng Bill MD [address] [place] [address] [place] [address] Physician Hematology/Oncology 06/04/24 Belinda Nicholson MD [address] [place] [address] [place] [address] Physician Radiation Oncology 06/04/24 Maricel Fox, RN [address] [facility] [place] [address] Specialty Director [employer] Hematology/Oncology 06/04/[address] [place] [address] Registered Dietitian Nutrition 06/25/24 Lluvia Graham LSW [employer] 06/26/24 Olivia Gonzales APRN.HIGH SCHOOL ART TEACHER [address] [place] [address] [place] [address] Nurse Practitioner Hematology/Oncology 07/03/24 documented as of this encounter
--- OUTSIDE RECORDS SUMMARY | 2024-07-23 09:45 | XMS_ITS | Encounter Summary ---
Author Organization [facility] [employer] Address [address] [place] [address] Care Team Providers Care Tile Trimmer Name Role Phone Orlando [place] MD, Daniel Primary Care Provider [phone] Ted Ackerman MD Unavailable [phone] Encounter Details Date Type Department Care Team (Late st Contact Info) Description 09/09/2015 Telephone [facility] [address] [place] [address] Yuliya Remy PCA Social History Tobacco Use Types Packs/Day Years Used Date Smoking Tobacco: Never Smokeless Tobacco: Never Alcohol Use Standard Drinks/Week Comments Yes 3 (1 standard drink = 0.6 oz pur e alcohol) Sex and Gender Information Value Date Recorded Sex Assigned at Not on file Legal Sex Male 10:12 AM EST Gender Identity Male Sexual Orientation Straight 04/13/2024 8: 19 AM EST documented as of this encounter Functional Status * Are you deaf or do you have serious difficulty hearing? Answer Date of Assessment Author No 12/13/2014 4:12 PM EST Guerita Gonzalez, [employer]-KINDERGARTEN TEACHER ASSISTANT * Are you blind or do you have serious difficulty seeing, even when wearing glasses? Answer Date of Assessment Author No 12/13/2014 4:12 PM EST Guerita Gonzalez, [employer]-KINDERGARTEN TEACHER ASSISTANT * Do you have serious difficulty walking or climbing stairs (5 years or older)? Answer Date of Assessment Author No 12/13/2014 4:12 PM Guerita Jackson, [employer]-KINDERGARTEN TEACHER ASSISTANT * Do you have difficulty dressing or bathing (5 yrs or older)? Answer Date of Assessment Author No 12/13/2014 4:12 PM Guerita Jackson fty N, [employer]-KINDERGARTEN TEACHER ASSISTANT * Because of a physical, mental, or emotional condition, do you have difficulty doing errands alone such as visiting a doctor's office or shopping (5 yrs or older)? Answer Date of Assessment Author No 12/13/2014 4:12 PM Guerita Jackson fty N, [employer]-KINDERGARTEN TEACHER ASSISTANT documented as of this encounter Mental Status * Because of a physical, mental, or emotional condition, do you have serious difficulty concentrating, remembering, or making decisions (5 yrs or older)? Answer Entry Date Author No 12/13/2014 4:12 PM Guerita Jackson fty N, [employer]-KINDERGARTEN TEACHER ASSISTANT documented in this encounter Miscellaneous Notes * Telephone Encounter - HONG Cohn - 09/09/2015 1:11 PM EDT Spoke with pt, confirmed 10:00 arrival time, NPO after midnight, an adult responsible team truck driver @ timeof registration, stay duration of day, and safe transportation home. Pt verified understanding. documented in this encounter Plan of Treatment Upcoming Encounters Date Type Department Care Team (Late st Contact Info) Description 10/28/2024 11:15 AM EDT Office Visit [facility] at [address] [address] Shanon Magallon MD [address] [place] [address] documented as of this encounter Visit Diagnoses Not on filedocumented in this encounter Care Teams Tile Trimmer Relationship Specialty Start Date End Date Ted Perry II, MD [address] [place] [address] PCP - General Internal Medicine 12/15/14 Ted Ackerman MD [address] [place] [address] Cardiovascular Disease 12/15/14 documented as of this encounter
--- OUTSIDE RECORDS SUMMARY | 2024-07-23 09:45 | XMS_ITS | Encounter Summary ---
Author Organization [facility] Address [address] [place] [address] Care Team Providers Care District Scout Executive Name Role Phone Ted Perry MD Unavailable [phone] Ted Perry MD Primary Care Provider [phone] Sunday, Wanda STANFORD Unavailable [phone] Reason for Visit * Reason Comments Med Refill Encounter Details Date Type Department Care Team (Late Contact Info) Description 07/24/2022 Refill [facility] [address] [facility] [address] [place] [address] Ted Perry MD [address] [facility] [address] [place] [address] Male erectile dysfunction, unspecified Social History Tobacco Use Types Packs/Day Years Used Date Smoking Tobacco: Never Assessed Sex and Gender Information Value Date Recorded Sex Assigned at Not on file Legal Sex Male 7:15 PM EDT Gender Identity Not on file Sexual Orientation Not on file documented as of this encounter Plan of Treatment Upcoming Encounters Date Type Department Care Team (Late Contact Info) Description 03/26/2025 10:00 AM EST Office Visit [facility] [address] [place] [address] Ai Galvez PA [address] [place] [address] 10/07/2025 9:00 AM EDT Office Visit [facility] [address] [place] [address] Jr. Emmanuel Clay, [address] [place] [address] documented as of this encounter Visit Diagnoses Diagnosis Male erectile dysfunction, unspecified documented in this encounter Care Teams District Scout Executive Relationship Specialty Start Date End Date Ted Perry MD [address] [place] [address] PCP - ACO Reach 07/06/22 Ted Perry MD [address] [place] [address] PCP - General Internal Medicine 06/20/22SundayWanda LPN [address] [place] [address] Licensed Practical Nurse Family Medicine 11/05/23 11/15/23 documented as of this encounter
--- OUTSIDE RECORDS SUMMARY | 2024-07-23 09:45 | XMS_ITS | Clinical Summary ---
Author Organization [facility] Address [address] [place] [address] Phone Care Team Providers Care Tunnel Man Name Role Phone Mar Thibodeaux MD Primary Care Provider Social History Tobacco Use Types Packs/Day Years Used Date Smoking Tobacco: Never Assessed Sex and Gender Information Value Date Recorded Sex Assigned at Not on file Legal Sex Male 12:15 AM EST Gender Identity Not on file Sexual Orientation Not on file Plan of Treatment Not on file Care Teams Tunnel Man Relationship Specialty Start Date End Date Mar Thibodeaux MD PCP - General 04/12/15
--- OUTSIDE RECORDS SUMMARY | 2024-07-23 09:45 | XMS_ITS | Encounter Summary ---
Author Organization [facility] Address [address] [place] [address] Care Team Providers Care Health Education Teacher Name Role Phone Orlando [place] MD, Daniel B Primary Care Provider [phone] Hue Anglin RN Unavailable Unavailable Abel Martínez MD Unavailable [phone] Jolanta Queen Unavailable Unavaila Mariia Estrada RD Unavailable [phone] Sheng Bill MD Unavailable [phone] Belinda Nicholson MD Unavailable [phone] Maricel Fox RN Unavailable [phone] Unavailable Lluvia Graham Unavailable Unavailable Olivia Gonzales APRN.ANGIOGRAPHER Unavailable [phone] Source Comments In the event this information is protected by the Federal Confidentiality of Alcohol and Drug AbusePatient Records regulations: The Federal rules restrict any use of the information to criminally investigate or prosecute any alcohol or drug abuse patient.[facility] Encounter Details Date Type Department Care Team (Late st Contact Info) Description 07/05/2023 Patient Msg Endocrinology [address] [id number] Carrie Barriga MD [address] [place] [address] step 2 labs ordered Social History Tobacco Use Types Packs/Day Years [...] is lower risk 8 07/03/2022 Data from: https://www.neighborhoodatlas.[facility]/. Last address used for calculation [address] [...] 07/23/2024 1:30 PM EDT Infusion Center Hematology/Oncology [facility] [place] [address] IV FLUIDS 07/23/2024 3:00 PM EDT Appointment Radiation Oncology [address] [place] [address] neck 07/25/2024 2:30 PM EDT Education Nutrition Therapy [address] [place] [address] Tamica Rosario, IVIS [address] [place] [address] follow up PEG 07/25/2024 2:30 PM EDT Infusion Center Hematology/Oncology [address] [place] [address] Hydration to be givenin Radiology 07/28/2024 2:30 PM EDT Office Visit Radiation Oncology [facility] [place] [address] Belinda Nicholson MD [address] [facility] [place] [address] final radiation follow up, 1-2 weeks 07/28/2024 3:00 PM EDT [facility] Center Hematology/Oncology [address] [place] [address] IV FLUIDS 08/14/2024 9:45 AM EDT Office Visit [facility] Laboratory [address] [facility] [place] [address] 4 week follow up lab 08/14/2024 10:00 AM EDT Visit (SP) Office Hematology/Oncology [facility] [place] [address] Olivia Gonzales, JAGRUTI.ANGIOGRAPHER [address] [facility] [facility] [place] [address] 4 week follow up lab documented as of this encounter Visit Diagnoses Not on filedocumented in this encounter Care Teams Health Education Teacher Relationship Specialty Start Date End Date Ted Perry II, MD PCP - General Internal Medicine 12/03/12 Hue Anglin, SIDNEY Specialty Hand Spinner Hematology/Oncology 10/11/23 06/03/24 Abel Martí[place] [address] [place], [place] [id number] Physician Hematology/Oncology 10/11/23 06/03/24 Jolanta Queen LISW Ground Crewman 10/29/[address] [place] [address] [place] [address] Registered Dietitian Nutrition 06/02/24 Sheng Bill MD [address] [place] [address] [place] [address] Physician Hematology/Oncology 06/04/24 Belinda Nicholson MD [address] [facility] [place] [address] Physician Radiation Oncology 06/04/24 Maricel Fox, SIDNEY [address] [facility] [place] [address] Specialty Hand Spinner Hematology/Oncology 06/04/[address] [place] [address] Registered Dietitian Nutrition 06/25/24 Lluvia Graham LSW Ground Crewman 06/26/24 Olivia Gonzales APRN.ANGIOGRAPHER [address] [facility] [place] [address] Nurse Practitioner Hematology/Oncology 07/03/24 documented as of this encounter
--- OUTSIDE RECORDS SUMMARY | 2024-07-23 09:45 | XMS_ITS | Clinical Summary ---
Author Organization [facility] Address [address] [place] [address] Care Team Providers Care Technical System Analyst Name Role Phone Orlando COPELAND MD, Ted Brown Primary Care Provider [phone]- [phone] Jolanta Queen Unavailable Unavaila Mariia Estrada RD Unavailable [phone] Sheng Bill MD Unavailable [phone] Belinda Nicholson MD Unavailable [phone] Maricel Fox RN Unavailable [phone] Unavailable Lluvia GrahamW Unavailable Unavailable Olivia Gonzales APRN.CALENDERING MACHINE OPERATOR Unavailable [phone] Allergies No known active allergies Medications tamsulosin (FLOMAX) 0.4 mg Take 0.4 mg by mouth once daily. Active atorvastatin (LIPITOR) 40 mg tablet Take 40 mg by mouth once daily. Active amiodarone (PACERONE) 200 mg tablet Take 200 mg by mouth once daily. 023 Active Tadalafil (CIALIS) 20 mg tab(s) Take 1 tablet by mouth as needed. 023 Active Rfdzv-2-GSW-EPA -Fish Oil 1,000 mg (120 mg-180 mg) cap Take 2 g by mouth twice daily. Active SOLU-CORTEF, PF, ACT-O-VIAL 100 mg/2 mL solr Inject 2 mL intramuscularly as needed (for adrenal crisis, or during acute illness and unable to take oral medications) for up to 3 doses. 1 Each 3 09/04/19 24 12:03 PM EDT Active acetaminophen (TYLENOL) 325 mg tablet Take 2 tablets by mouth every 6 hours as needed for pain. Active warfarin (COUMADIN) 7.5 mg tablet Take 1 tablet by mouth daily as directed. 7.5 mg 3 times a week and 3.75 mg 4 days a week Patient should start on September 13, 2023. Active Syringe-Needle, Safety,Disp Un 3 mL 25 gauge x 1 syrg 1 Kit as needed (to inject dexamethasone during adrenal crisis). 100 Each Active hydrocortisone (CORTEF) 5 mg tablet Take 3 tablets by mouth daily before breakfast AND 2 tablets daily after lunch. 450 tablet 3 024 2024 Active Additional Information Patient taking differently: Take 4 tablets by mouth daily before breakfast AND 2 tablets daily after lunch., Reason: Dosage Adjustment, Reported on 07/22/2024 triamcinolone acetonide (KENALOG) 0.1 % cream Apply to affected areas, up to twice a day when flared, do not use one the face, groin, or underarms, 30 day supply Active terbinafine HCl (LAMISIL) 250 mg tablet Take 250 mg by mouth once daily. Active metoprolol succinate ER (TOPROL XL) 25 mg 24 hr tablet Take 25 mg by mouth once daily. Active nutritional supplement (NUTREN 2.0) 0.08 G - 2 Kcal/mL oral liquidIndicatio ns:Head and neck cancer (HCC) Administer 1 carton (250mL)Nutren 2.0 or equivalent via syringe push/plunge method 4 times per day (total of 1000mL/day). Flush feeding tube with 90 ml of water before and after each feed. Additional water flush of 250mL 4 times daily required to meet hydration needs. 54876 mL 5 Active ondansetron (ZOFRAN) 8 mg tablet Take 1 tablet by mouth every 8 hours as needed for nausea/vomiting. 90 tablet 1 06/06/19 25 1:47 PM EDT 04/23/2 025 Active prochlorperazin e (COMPAZINE) 10 mg tablet Take 1 tablet by mouth every 6 hours as needed. 100 tablet 1 06/06/19 25 1:47 PM EDT 025 Active diphenhydrAMINE 12.5 mg/5 mL lidocaine visc 2% MAALOX 200-200-20 mg/5 mL nystatin prednisoLONE 15 mg/5 mL oral liquid 1:1:1:1:1 (CPD) Swish and Swallow 10 mL by mouth before meals and at bedtime. 300 mL 1 06/24/19 25 4:12 PM EDT 025 Active fludrocortisone (FLORINEF) 0.1 mg tablet TAKE 1 TABLET EVERY DAY 90 tablet 025 Active silver sulfADIAZINE (SILVADENE) 1 % cream Apply to affected area once daily. Active fludrocortisone (FLORINEF) 0.1 mg tablet Take 1 tablet by mouth once daily. 90 tablet 3 024 2024 Discontinued amLODIPine (NORVASC) 2.5 mg tablet Take 2.5 mg by mouth once daily. 2024 Discontinued losartan (COZAAR) 50 mg tablet Take 50 mg by mouth once daily. 025 2024 Discontinued HYDROcodone-cas taminophen (HYCET) 7.5-325 mg/15 mL oral liquidIndicatio ns:Head and neck cancer (HCC) Take 15 mL by mouth every 6 hours as needed for pain. Take with stool softener. 280 mL 07/02/19 12:19 PM EDT 025 2024 iv contrast (will be provided with radiology [...] in the MR contrast administration guidelines link 1 each 025 2024 Hospital, Clinic, or Other Facility Administered Medication Ordered Dose Route Frequency Start Date End Date Status NaCl 0.9% 1,000 mL iv bolus 1000 mL IV ONCE 07/11/2024 07/11/2024 Discontinued NaCl 0.9% 1,000 mL iv bolus 1000 mL IV ONCE 07/11/2024 07/11/2024 Discontinued NaCl 0.9% 1,000 mL iv bolus 1000 mL IV ONCE 07/11/2024 07/11/2024 Ended NaCl 0.9% 500 mL iv bolus 500 mL IV ONCE 07/17/2024 07/17/2024 Ended Active Problems Problem Noted Date Diagnosed Date [...] adrenalectomies. On fludrocortisone and hydrocortisone. Follows with [facility] Dr. Nithya newby. Assessment & Plan (05/09/2024 3:55 PM EDT): Assessment: S/p bilateral adrenalectomies. On fludrocortisone and hydrocortisone. Follows with [facility] Dr. Nithya newby. Right renal mass 09/06/2023 [...] Assessment: reports vomiting following previous kidney surgery 2004 Dilated aortic root 08/10/2023 Assessment & Plan [...] 57 57 Coronary artery disease invo lving united [place] coronary artery of united [place] heart without angina pectoris 10/03/2022 Assessment & Plan (06/06/2024 12:07 PM EDT): Assessment: S/p PCI to LAD 10/2021. Pt was previously evaluated by [facility] cardiology Dr. Torres on 08/10/23. Pt reports riding recumbent bike x 30-45 minutes 3-4x per week without CP or SOB. Assessment & Plan (05/09/2024 3:52 PM EDT): Assessment: S/p PCI to LAD 10/2021. Pt was previously evaluated by [facility] cardiology Dr. Torres on 08/10/23. Pt reports riding recumbent bike x 30-45 minutes 3-4x per week without CP or SOB. Assessment & Plan (08/13/2023 10:05 AM EDT): Assessment: LHC 11/10/2021 successful SERA x1 to the pLAD, [...] EP at [facility] Dr. Naun LOU 04/14/24. Warfarin managed by PCP, warfarin clearance received from [facility] Briseno to hold warfarin for 5 days prior [...] call from EP office. Nurse stated the CALENDERING MACHINE OPERATOR in EP office stated that pt can [...] EP Dr. Magallon at [facility] and saw woolen suiting shrinker Dr. Torres at [facility] 08/09 Benign essential hypertension 12/17/2014 Overview (08/10/2023): [...] 161/100 06/12/2023 152/90 11/28/2022 149/80 10/03/2022 144/70 Encounters Date Type Department Care Team Description 07/22/2024 11:15 AM EDT Infusion Center Hematology/Oncol [facility] [place] [address] Head and neck cancer (HCC) (Primary Dx) 07/22/2024 10:30 AM EDT Office Visit Radiation Oncology [address] [place] [address] [place] [address] Belinda Nicholson MD Head and neck cancer (HCC) (Primary Dx) 07/22/2024 Telephone Radiation Oncology [address] [place] [address] [place] [address] Belinda Nicholson MD Appointment 07/22/2024 Results Follow-Up Endocrinology [address] [place] [address] Carrie Barriga MD 07/17/2024 9:00 AM EDT Infusion Center Hematology/[place] [address] Head and neck cancer (HCC) (Primary Dx) 07/17/2024 8:40 AM EDT Visit (SP) Office Hematology/Oncol ogy [facility] [place] [address] Sheng Bill MD Head and neck cancer (HCC) (Primary Dx); [...] of left kidney excluding renal pelvis (HCC) 07/17/2024 Orders Only Hematology/Oncol ogy [facility] [place] [address] Sheng Bill MD Head and neck cancer (HCC) 07/17/2024 Travel 07/16/2024 Telephone Hematology/[place] [address] Sheng Bill MD Lab Orders 07/15/2024 11:30 AM EDT Visit (SP) Office Hematology/Oncol ogy [address] [place], [place] [address] [address] Estefania Taylor APRN.CNP Head and neck cancer (HCC) (Primary Dx); Malaise and fatigue; Pain in throat; Dehydration 07/15/2024 11:00 AM EDT Infusion Center Hematology/Oncol ogy [facility] [place] [address] Head and neck cancer (HCC) (Primary Dx) 07/15/2024 10:30 AM EDT Nurse Visit Radiation Oncology [address] [place] [address] [place] [address] J Carlos Nurse Radt Head and neck cancer (HCC) (Primary Dx) 07/15/2024 Orders Only Hematology/[place] [address] Evangelina Bass PA-C Head and neck cancer (HCC) (Primary Dx); Dehydration; Dizziness 07/14/2024 3:15 PM EDT Office [facility] [address] [facility] [place] [place] [address] Belinda Nicholson MD Head and neck cancer (HCC) (Primary Dx) 07/14/2024 Refill Endocrinology [address] [id number] Carrie Barriga MD Refill Request 07/11/2024 11:45 AM EDT Infusion Center Hematology/Oncol ogy [address] [facility] [place] [address] Head and neck cancer (HCC) (Primary Dx) 07/11/2024 11:15 AM EDT Nurse Visit Radiation Oncology [address] [place] [address] Nurse J Carlos Radt Head and neck cancer (HCC) (Primary Dx) 07/11/2024 Telephone Radiation Oncology [address] [place] [address] Sheng Bill MD [facility] 07/11/2024 Orders Only Hematology/Oncol ogy [address] [place] [address] [place] [address] JonahKaila [facility] 07/10/2024 9:00 AM EDT Infusion Center Hematology/Oncol ogy [address] [place] [address] Head and neck cancer (HCC) (Primary Dx) 07/10/2024 8:30 AM EDT Visit (SP) Office Hematology/Oncol ogy [address] [place] [address] [place] [address] Estefania Taylor APRN.CALENDERING MACHINE OPERATOR Head and neck cancer (HCC) (Primary Dx); Stage 3a chronic kidney disease (HCC); Encounter for antineoplastic chemotherapy; Malaise and fatigue; Dysphagia, unspecified type; Dehydration; Pain in throat 07/10/2024 Orders Only Hematology/Oncol ogy [place] [address] Sheng Bill MD Head and neck cancer (HCC) 07/08/2024 10:30 AM EDT Office Visit Radiation Oncology [address] [place] [address] [place] [address] Vinicio Calero MD Head and neck cancer (HCC) (Primary Dx) 07/03/2024 1:30 PM EDT Education Nutrition Therapy [address] [place] [address] Tamica Rosario, IVIS Nutrition Counseling 07/03/2024 9:30 AM EDT [facility] Center Hematology/Oncol ogy [address] [place] [address] [place] [address] Head and neck cancer (HCC) (Primary Dx) 07/03/2024 9:00 AM EDT Visit (SP) Office Hematology/Oncol ogy [address] [place] [address] [place] [address] Olivia Gonzales APRN.CALENDERING MACHINE OPERATOR Head and neck cancer (HCC) (Primary Dx); Renal cell carcinoma of right kidney (HCC); Stage 3a chronic kidney disease (HCC); Disorder of adrenal gland (HCC) 07/03/2024 Telephone Hematology/Oncol ogy [address] [place] [address] [place] [address] Olivia Gonzales APRN.CALENDERING MACHINE OPERATOR Lab Orders 07/03/2024 Travel 07/01/2024 9:50 AM EDT Anesthesia Event [facility] Endoscopy - ENDO [address] [place] [address] Caio Charles MD 07/01/2024 8:30 AM EDT - 07/01/2024 11:59 PM EDT Hospital Encounter [facility] Endoscopy - ENDO [address] [place] [address] Ted Skinner MD Dysphagia, unspecified type [R13.10] Discharge Disposition: Home 06/30/2024 3:15 PM EDT Office Visit Radiation Oncology [address] [facility] [place] [address] Vinicio Calero MD Head and neck cancer (HCC) (Primary Dx) 06/30/2024 Telephone Hematology/Oncol ogshlomo [facility] [place] [address] Olivai Gonzales APRN.CALENDERING MACHINE OPERATOR Lab Orders 06/30/2024 GI Preprocedure Call [facility] Endoscopy - ENDO [address] [id number] Ted Skinner MD 06/26/2024 11:45 AM EDT Office Visit Radiation Oncology [address] [facility] [place] [address] Belinda Nicholson MD Head and neck cancer (HCC) (Primary Dx) 06/26/2024 10:00 AM EDT [facility] Center Hematology/Oncol ogy [address] [place] [address] Head and neck cancer (HCC) (Primary Dx) 06/26/2024 9:30 AM EDT Visit (SP) Office Hematology/Oncol ogy [address] [place] [address] Estefania Taylor APRN.CALENDERING MACHINE OPERATOR Head and neck cancer (HCC) (Primary Dx); Encounter for antineoplastic chemotherapy; Malaise and fatigue; Renal cell carcinoma of right kidney (HCC); Stage 3a chronic kidney disease (HCC); Dysphagia, unspecified type 06/26/2024 Social Work Hematology/Oncol ogy [address] [place] [address] [place] [address] Lluvia Graham LSW 06/26/2024 Telephone Hematology/Oncol ogy [address] [place] [address] Estefania Taylor APRN.CALENDERING MACHINE OPERATOR 06/26/2024 Orders Only Hematology/Oncol ogy [address] [place] [address] Audrey De La Torre MA Renal cell carcinoma of right kidney (HCC); Encounter for antineoplastic immunotherapy 06/25/2024 9:15 AM EDT Education [place] [address] Nutrition Assessment 06/25/2024 Clinical Document [facility] [place] [address] Provider, [facility] 06/25/2024 Telephone [place] [address] Patient Update (Enteral Nutrition) 06/25/2024 Travel 06/24/2024 Patient Msg [facility] Endoscopy - ENDO [address] [place] [address] Provider, [facility] EGD Instructions 06/24/2024 GI Preprocedure Call [facility] Endoscopy - ENDO [address] [place] [address] Ted Skinner MD 06/23/2024 3:15 PM EDT Office Visit Radiation Oncology [address] [place] [address] Belinda Nicholson MD Head and neck cancer (HCC) (Primary Dx) 06/19/2024 11:00 AM EDT Infusion Center Hematology/[place] [address] Head and neck cancer (HCC) (Primary Dx) 06/19/2024 10:30 AM EDT Visit (SP) Office Hematology/[place] [address] Estefania Taylor APRN.CALENDERING MACHINE OPERATOR Head and neck cancer (HCC) (Primary Dx); Encounter for antineoplastic chemotherapy 06/19/2024 Travel 06/18/2024 3:15 PM EDT Office Visit Radiation Oncology [address] [place] [address] Head and neck cancer (HCC); Malaise and fatigue 06/18/2024 Telephone Hematology/[place] [address] Estefania Taylor APRN.CALENDERING MACHINE OPERATOR Lab Orders 06/16/2024 3:15 PM EDT Office Visit Radiation Oncology [address] [place] [address] Belinda Nicholson MD Head and neck cancer (HCC) (Primary Dx) 06/16/2024 Telephone Hematology/[place] [address] Maricel Fox, SIDNEY Care Coordination (C1D1 Post Treatment Call) 06/12/2024 2:00 PM EDT Infusion Center Hematology/[place] [address] Head and neck cancer (HCC) (Primary Dx) 06/12/2024 1:30 PM EDT Visit (SP) Office Hematology/[place] [address] Estefania Taylor APRN.NEHA Head and neck cancer (HCC) (Primary Dx); Malaise and fatigue; Lymphadenopathy of head and neck; Renal cell carcinoma of right kidney (HCC); Encounter for antineoplastic immunotherapy 06/12/2024 Telephone Nutrition Therapy [address] [place] [address] [place] [address] Appointment (PEG Tube Placement ) 06/11/2024 3:00 PM EDT Office Visit Radiation Oncology [address] [place] [address] [place] [address] Belinda Nicholson MD Head and neck cancer (HCC) (Primary Dx) 06/06/2024 10:30 AM EDT PAT Pre Anesthesia [address] [place] [address] , [facility] Preoperative examination (Primary Dx); MIKAELA (obstructive sleep apnea); Lung nodules; Dilated aortic root; Complete left bundle branch block (LBBB); Benign essential hypertension; Paroxysmal atrial fibrillation (HCC); Cardiomyopathy, ischemic; Coronary artery disease involving [place] coronary artery of united [place] heart without angina pectoris; Hyperlipidemia, unspecified hyperlipidemia type; Renal cell carcinoma of right kidney (HCC); Stage 3a chronic kidney disease (HCC); Primary adrenal insufficiency (HCC); Class 2 obesity with body mass index (BMI) of 38.0 to 38.9 in adult, unspecified obesity type, unspecified whether serious comorbidity present; Benign prostatic hyperplasia, unspecified whether lower urinary tract symptoms present; S/p nephrectomy 06/06/2024 Travel 06/05/2024 Education Hematology/Oncol ogy [address] [place] [address] [place] [address] Maricel Fox, RN Chemotherapy Treatment (Carboplatin) 06/04/2024 Clinical Document [place] [address] Provider, Ccf 06/04/2024 Telephone Hematology/Oncol ogshlomo [address] [place], [place] [address] [address] Maricel Fox, RN Care Coordination (Antiemetics) 06/04/2024 Telephone Hematology/Oncol ogshlomo [address] [place] [address] [place] [address] Sheng Bill MD Lab Orders 06/03/2024 4:00 PM EDT Visit (SP) Office Hematology/Oncol ogy [address] [facility] [place] [address] Sheng Bill MD Head and neck cancer (HCC) (Primary Dx); Lymphadenopathy of head and neck; Renal cell carcinoma of right kidney (HCC); Body mass index (BMI) 40.0-44.9, adult (HCC); Stage 3a chronic kidney disease (HCC) 06/03/2024 Travel 06/02/2024 10:00 AM EDT Education Nutrition Therapy [address] [facility] [place] [address] Nutrition Assessment 06/02/2024 8:30 AM EDT Nurse Visit Radiation Oncology [address] [facility] [place] [address] J Carlos Nurse Radt Head and neck cancer (HCC) (Primary Dx) 06/02/2024 8:30 AM EDT Office Visit Radiation Oncology [address] [facility] [place] [address] Belinda Nicholson MD Head and neck cancer (HCC) (Primary Dx) 06/02/2024 8:00 AM EDT Office Visit Radiation Oncology [address] [facility] [place] [address] Belinda Nicholson MD Head and neck cancer (HCC) (Primary Dx) 06/02/2024 Radiation Oncology Note Radiation Oncology [address] [facility] [place] [address] Belinda Nicholson MD Treatment Planning 06/02/2024 Radiation Oncology Note Radiation Oncology [address] [facility] [place] [address] Belinda Nicholson MD Simulation Note 06/02/2024 Telephone Nutrition Therapy [address] [facility] [place] [address] Other (Enteral Nutrition) 05/30/2024 3:00 PM EDT Visit (SP) Office Hematology [address] [facility], [place] [id number] Abel Martínez MD Head and neck cancer (HCC) (Primary Dx); Renal cell carcinoma of right kidney (HCC) 05/30/2024 1:00 PM EDT Office Visit Otolarynogology [address] [id number] Celeste Sainz MD 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) (Primary Dx) 05/30/2024 Telephone [facility] [address] [place] [address] Michael Garcia Jr., DO Appointment (PEG placement) 05/30/2024 Travel 05/30/2024 Telephone Radiation Oncology [address] [place] [address] [place] [address] Belinda Nicholson MD Appointment 05/29/2024 4:40 PM EDT Tumor Board Tumor Board [address] [place] [address] Tumor Board Head and Neck 05/28/2024 Orders Only Radiation Oncology [address] [id number] Linda Stokes DO Head and neck cancer (HCC) (Primary Dx) 05/27/2024 11:00 AM EDT Office Visit Radiation Oncology [address] [place] [address] [place] [address] Belinda Nicholson MD Head and neck cancer (HCC) (Primary Dx) 05/27/2024 Education Radiation Oncology [address] [place] [address] [place] [address] Michelle Oliveira, RN Patient Education 05/26/2024 Telephone Radiation Oncology [address] [place] [address] [place] [address] Belinda Nicholson MD Future Appointment (Schedule Consult and SIM soon) 05/26/2024 Results Follow-Up Radiation Oncology [address] [place] [address] [place] [address] Bethanie Scherer, SIDNEY Future Appointment (Schedule Consult and SIM soon); Opened In Error 05/24/2024 Travel 05/16/2024 3:35 PM EDT Anesthesia Event Admitting [address] [place] [address] Emir Woods III, MD Lau, Brandon, MD 05/16/2024 1:56 PM EDT - 05/16/2024 4:56 PM EDT Surgery Admitting [address] [place] [address] Celeste Sainz MD BIOPSY OR EXCISION LYMPH NODE(S) OPEN, DEEP CERVICAL 05/16/2024 12:16 PM EDT - 05/17/2024 1:00 PM EDT Hospital Encounter [facility] [address] [place] [address] Celeste Sainz MD Lymphadenopathy [R59.1] Discharge Disposition: Home 05/16/2024 Travel 05/12/2024 Telephone Pre Anesthesia [address] [place] [address] Juani Mcclellan LPN Patient Update (Coumadin instructions for 05/16/24 procedure) 05/09/2024 3:27 PM EDT - 05/09/2024 11:59 PM EDT Hospital Encounter Radiology [address] [place] [address] Lymphadenopathy [R59.1] Discharge Disposition: Home 05/09/2024 2:30 PM EDT PAT Pre Anesthesia [address] [place] [address] 2, [facility] [place] Preoperative examination (Primary Dx); Lymphadenopathy; Body mass index (BMI) 40.0-44.9, adult (HCC); Benign prostatic hyperplasia, unspecified whether lower urinary tract symptoms present; Benign essential hypertension; MIKAELA (obstructive sleep apnea); Dilated aortic root; Paroxysmal atrial fibrillation (HCC); Coronary artery disease involving united [place] coronary artery of united [place] heart without angina pectoris; Cardiomyopathy, ischemic; Complete left bundle branch block (LBBB); Stage 3a chronic kidney disease (HCC); Renal cell carcinoma of right kidney (HCC); S/p nephrectomy; Primary adrenal insufficiency (HCC); Hyperlipidemia, unspecified hyperlipidemia type 05/09/2024 Travel 05/09/2024 Telephone Otolaryngology [address] [address] Celeste Sainz MD 05/08/2024 12:00 PM EDT Visit (SP) Office Hematology [address] [place] [address] Abel Martínez MD Lymphadenopathy of head and neck (Primary Dx); Renal cell carcinoma of right kidney (HCC); Itchy skin 05/06/2024 9:59 AM EDT - 05/06/2024 11:59 PM EDT Hospital Encounter Radiology [facility] [address] [facility] [place] [address] Localized swelling, mass and lump, neck [R22.1] Discharge Disposition: Home 04/28/2024 10:30 AM EDT Office Visit Otolaryngology [address] [address] Celeste Sainz MD Localized swelling, mass and lump, neck (Primary Dx) from Last 3 Months Immunizations Immunization Administration Dates Next Due influenza (HD-IIV3) vaccine, age 65+ yr, high dose, trivalent, PF (FLUZONE HIGH-DOSE) 01/10/2021 influenza (HD-IIV4) vaccine, age 65+ yr, high dose, quadrivalent, PF (FLUZONE HIGH-DOSE) 11/30/2022,12/20/2021,11/01/2019 influenza (IIV3) vaccine, tr ivalent, PF (AFLURIA, FLUARIX, FLULAVAL, FLUVIRIN, FLUZONE) 12/13/2016,03/15/2016,11/20/2014,11/20 influenza (IIV3) vaccine, tr ivalent, PF, intradermal (FLUZONE INTRADERMAL) 12/13/2016,03/15/2016 influenza (IIV4) vaccine, ag e 6 mo - 64 yr, quadrivalent, PF (AFLURIA, FLUARIX, FLULAVAL, FLUZONE) 11/24/2015 influenza (LAIV) vaccine, na gracia, unspecified formulation 11/30/2022,12/20/2021,01/10/2021,10/31,11/20/2017,12/13/2016,11/22/2016 ,03/15/2016,11/24/2015,11/20/2014 influenza (aIIV3) vaccine, a ge 65+ yr, trivalent, PF (FLUAD) 12/04/2023 influenza (ccIIV3) vaccine, age 6+ mo, trivalent, PF (FLUCELVAX) 12/23/2018 influenza (ccIIV4) vaccine, age 6+ mo, quadrivalent, PF (FLUCELVAX) 11/20/2017,11/22/2016 influenza vaccine, unspecifi ed formulation 11/30/2022,12/20/2021,01/10/2021,10/31,11/20/2017,12/13/2016,11/22/2016 ,03/15/2016,11/24/2015,11/20/2014 influenza vaccine, whole virus 11/12/2014 pneumococcal conjugate (PCV1 3) vaccine, 13 valent (PREVNAR 13) 10/30/2019 pneumococcal polysaccharide (PPV23) vaccine, 23 valent (PNEUMOVAX 23) 11/20/2012 tetanus diphtheria pertussis (Tdap) vaccine, age 7+ yr (ADACEL, BOOSTRIX) 06/02/2020 zoster (ZVL) vaccine, live (ZOSTAVAX) 11/20/2016 zoster vaccine, unspecified formulation 11/20/2016 Family History Medical History Relation Comments Breast Cancer Mother Anesthesia Problems No Family History Difficulty with anesthesia No Family History Thyroid No Family History Relation Status Comments Mother Social History Tobacco Use Types Packs/Day Years [...] is lower risk 8 07/03/2022 Data from: https://www.neighborhoodatlas.medicine.[facility].edu/. Last address used for calculation [address] [...] 15.5 oz) 2024 10:50 AM EDT Height 184 cm (6' 0.44 ) 07/10/2024 9:00 AM EDT Body Mass Index 37.78 07/10/2024 9:00 AM EDT Plan of Treatment Upcoming Encounters Date Type Department Care Team (Latest Contact Info) Description 07/23/2024 1:30 PM EDT Infusion Center Hematology/Oncology [address] [place] [address] IV FLUIDS 07/23/2024 3:00 PM EDT Appointment Radiation Oncology [address] [place] [address] neck 07/25/2024 2:30 PM EDT Education Nutrition Therapy [address] [place] [address] Tamica Rosario, RD [address] [place] [address] follow up PEG 07/25/2024 2:30 PM EDT Infusion Center Hematology/Oncology [facility] [place] [place] [address] Hydration to be givenin Radiology 07/28/2024 2:30 PM EDT Office Visit Radiation Oncology [address] [place] [address] Belinda Nicholson MD [address] [place] [address] final radiation follow up, 1-2 weeks 07/28/2024 3:00 PM EDT Infusion Center Hematology/Oncology [facility] [place] [address] IV FLUIDS 08/14/2024 9:45 AM EDT Office Visit [facility] Laboratory [facility] [place] [address] 4 week follow up lab 08/14/2024 10:00 AM EDT Visit (SP) Office Hematology/Oncology [address] [place] [address] Olivia Gonzales APRN.CALENDERING MACHINE OPERATOR [address] [facility] [place] [address] 4 week follow up lab Health Maintenance Due Date Last Done Comments Annual PCP Team Chronic Dise ase Visit 08/25/1971 Anxiety Screening 08/25/1971 Depression Screening 08/25/1971 Hepatitis C Screening 08/25/1971 CT Colonography 1998 Cologuard (FIT-DNA) 1998 Colonoscopy 1998 Colorectal Cancer Screening 1998 Fecal Occult Blood 1998 Sigmoidoscopy 1998 RSV Vaccine (1 - Risk 60-74 years 1-dose series) 2013 Shingrix Vaccine (1 of 2) 01/15/2017 11/20/2016, 10/2016 Medicare Annual Wellness Visit 11/12/2018 Pneumococcal Vaccine: 50+ (3 of 3 - PPSV23, PCV20 or PCV21) 12/25/2019 10/30/2019, 11/20/2012 Covid-19 Vaccine (5 - 2023-2 5 season) 2023 11/15/2021, 12/03/2020, 05/11/2020, Additional history exists LDL Cholesterol 11/28/2023 11/27/2022 Advance Directive Discussion 02/13/2024 Serum Creatinine 07/17/2025 07/17/2024, 03/2024, 07/10/2024, Additional history exists Diabetes Screening 07/18/2027 07/17/2024, 0 07/14/2024, 07/10/2024, Additional history exists Lipid Screening 11/28/2027 11/27/2022 DTaP,Tdap,Td Vaccine (2 - Td or Tdap) 06/02/2030 06/02/2020 Influenza Vaccine Completed 12/04/2023, , 11/30/2022, Additional history exists Medical Devices Implanted Type Area Environmental Issues Instructor Device Identifier Shelf Expiration Date Model / Serial / Lot Joint - Knee Joint - Knee Bilateral: Bone - Knee Mesh Mesh Abdomen Kit [employer] 20fr Peg Pull - [id number] Implanted:Qty : 1 on 07/01/2024 at [facility] Peg N/A: Abdomen [employer] 10/12/2024 [id number] / / [id number] Stent Stent Artery - Coronary Description:SERA x 1 Procedures Procedure Name Priority Date/Time Associated Diagnosis Comments ISTAT BMP Routine 07/17/2024 8:24 AM EDT Head and neck cancer (HCC) COMPREHENSIVE METABOLIC PANEL Routine 07/17/2024 8:24 AM EDT Renal cell carcinoma of right kidney (HCC) CBC + DIFF Routine 07/17/2024 8:24 AM EDT Renal cell carcinoma of right kidney (HCC) DIRECT RENIN PLASMA Routine 07/17/2024 8 :24 AM EDT Primary adrenal insufficiency (HCC) COMPREHENSIVE METABOLIC PANEL Routine 07/14/2024 2:26 PM EDT Lymphadenopathy CBC + DIFF Routine 07/14/2024 2:26 PM EDT Lymphadenopathy COMPREHENSIVE METABOLIC PANEL Routine 07/10/2024 8:24 AM EDT Head and neck cancer (HCC) Renal cell carcinoma of right kidney (HCC) Stage 3a chronic kidney disease (HCC) Disorder of adrenal gland (HCC) CBC + DIFF Routine 07/10/2024 8:24 AM EDT Head and neck cancer (HCC) Renal cell carcinoma of right kidney (HCC) Stage 3a chronic kidney disease (HCC) Disorder of adrenal gland (HCC) CBC + DIFF Routine 07/03/2024 8:51 AM EDT Head and neck cancer (HCC) COMPREHENSIVE METABOLIC PANEL Routine 07/03/2024 8:51 AM EDT Head and neck cancer (HCC) EGD - THERAPEUTIC, EUS, OR TUBE INTERVENTIONS Routine 07/01/2024 9:31 AM EDT Dysphagia, unspecified type Head and neck cancer (HCC) COMPREHENSIVE METABOLIC PANEL Routine 06/26/2024 9:28 AM EDT Head and neck cancer (HCC) CBC + DIFF Routine 06/26/2024 9:28 AM EDT Head and neck cancer (HCC) TSH BLD Routine 06/18/2024 3:26 PM EDT Head and neck cancer (HCC) Malaise and fatigue CBC + DIFF Routine 06/18/2024 3:26 PM EDT Head and neck cancer (HCC) Malaise and fatigue COMPREHENSIVE METABOLIC PANEL Routine 06/18/2024 3:26 PM EDT Head and neck cancer (HCC) Malaise and fatigue TSH BLD Routine 06/12/2024 12:59 PM EDT Head and neck cancer (HCC) Malaise and fatigue COMPREHENSIVE METABOLIC PANEL Routine 06/12/2024 12:59 PM EDT Head and neck cancer (HCC) CBC + DIFF Routine 06/12/2024 12:59 PM EDT Head and neck cancer (HCC) PT ED PATIENT INFORMATION 06/03/2024 PT ED DIGESTIVE DISEASE 06/03/2024 TYPE + SCREEN STAT 05/16/2024 5:09 PM EDT Lymphadenopathy GASA + ALL + MG STAT 05/16/2024 5:08 PM EDT SURGICAL PATHOLOGY Routine 05/16/2024 4: 24 PM EDT Lymphadenopathy ARTL CATHJ/CANNULJ MNTR/TRANSFUSION SPX PRQ Routine 05/16/2024 4:10 PM EDT INTUBATION Routine 05/16/2024 3:55 PM EDT LARYNGOSCOPY DIRECT OPERATIVE W/BIOPSY 05/16/2024 3:16 PM EDT Lymphadenopathy BX/EXC LYMPH NODE OPEN DEEP CERVICAL NODE 05/16/2024 3:16 PM EDT Lymphadenopathy XR CHEST 2V FRONTAL/LAT Routine 05/09/2024 3:36 PM EDT Lymphadenopathy NM PET/CT SKULL-THIGH SUBSEQUENT MADDY 05/06/2024 12:04 PM EDT Localized swelling, mass and lump, neck GLUCOSE, BLOOD (POC) Routine 05/06/2024 10:16 AM EDT TSH BLD Routine 05/06/2024 9:59 AM EDT Renal cell carcinoma of right kidney (HCC) Encounter for antineoplastic immunotherapy Secondary malignant neoplasm of other specified sites (HCC) COMPREHENSIVE METABOLIC PANEL STAT 05/06/2024 9:59 AM EDT Renal cell carcinoma of right kidney (HCC) Encounter for antineoplastic immunotherapy CBC + DIFF STAT 05/06/2024 9:59 AM EDT Renal cell carcinoma of right kidney (HCC) Encounter for antineoplastic immunotherapy SURGICAL PATHOLOGY Routine 04/28/2024 11 :00 AM EDT Localized swelling, mass and lump, neck from Last 3 Months Results * (ABNORMAL) ISTAT BMP (07/17/2024 8:24 AM EDT) Sodium, Whole Blood (iSTAT) 133(L) 138 - 146 mmol/L 07/17/2024 8:32 AM EDT [facility] Chloride, Whole Blood (iSTAT) 97(L) 98 - 109 mmol/L 07/17/2024 8:32 AM EDT [facility] Potassium, Whole Blood (iSTAT) 4.0 3.5 - 4.9 mmol/L 07/17/2024 8:32 AM EDT [facility] Ionized Calcium, Whole Blood (iSTAT) 1.23 1.12 - 1.32 mmol/L 07/17/2024 8:32 AM EDT [facility] Comment:Please note: This va lue represents ionized calcium not total calcium. TCO2, Whole Blood (iSTAT) 24 24 - 29 mmol/L 07/17/2024 8:32 AM EDT [facility] Glucose, Whole Blood (iSTAT) 96 70 - 105 mg/dL 07/17/2024 8:32 AM EDT [facility] BUN, Whole Blood (iSTAT) 21 8 - 26 mg/dL 07/17/2024 8:32 AM EDT [facility] Creatinine, Whole Blood (iSTAT) 1.20 0.60 - 1.30 mg/dL 07/17/2024 8:32 AM EDT [facility] Anion Gap, Whole Blood (iSTAT) 12 0 - 15 mmol/L 07/17/2024 8:32 AM EDT [facility] iSTAT eGFR 65 >=60 mL/min/1.7 3m 07/17/2024 8:32 AM EDT [facility] Comment:Estimated Glomerular Filtration Rate (eGFR) [...] AM EDT 07/17/2024 8:24 AM EDT us Sheng Bill MD LABORATORY Final Result [facility] [address] [place] [address] * DIRECT RENIN PLASMA (07/17/2024 8:24 AM EDT) Direct Renin 36.7 3.6 - 81.6 pg/mL 07/18/2024 10:45 AM EDT [facility] Comment: A ratio of aldosterone [...] or Supine Upright 07/18/2024 10:45 AM EDT [facility] Blood BLOOD SPECIMEN / Unknown Venipuncture / Unknown 07/17/2024 8:24 AM EDT 07/17/2024 8:24 AM EDT Carrie Barriga MD LABORATORY Final Result [facility] [address] [place] [address], [facility] [address] [place] [address] * (ABNORMAL) COMPREHENSIVE METABOLIC PANEL (07/17/2024 8:24 AM EDT) Only the most recent of8 resultswithin the time period is included. Protein, Total 6.9 6.3 - 8.0 g/dL 07/17/2024 6:13 PM EDT [facility] Albumin 3.9 3.9 - 4.9 g/dL 07/17/2024 6:13 PM EDT [facility] Calcium, Total 9.4 8.5 - 10.2 mg/dL 07/17/2024 6:13 PM EDT [facility] Bilirubin, Total 1.4(H) 0.2 - 1.3 mg/dL 07/17/2024 6:13 PM EDT [facility] Alkaline Phosphatase 89 38 - 113 U/L 07/17/2024 6:13 PM EDT [facility] AST 23 14 - 40 U/L 07/17[facility]2024 [facility] ALT 38 10 - 54 U/L 07/17/2024 6:13 PM [facility] Glucose 91 74 - 99 mg/dL 07/17/2024 6:13 PM [facility] Comment: The [place] Diabetes Association (ADA) provides guidance for cutoff [...] Standards of Medical Care in Diabetes 2016, [place] Diabetes Association. Diabetes Care. 2016.39(Suppl 1). BUN 19 9 - 24 mg/dL 07/17/2024 6:13 PM [facility] Creatinine 1.08 0.73 - 1.22 mg/dL 07/17/2024 6:13 PM [facility] Sodium 132(L) 136 - 144 mmol/L 07/17/2024 6:13 PM [facility] Potassium 4.3 3.7 - 5.1 mmol/L 07/17/2024 6:13 PM [facility] Chloride 97(L) 98 - 107 mmol/L 07/17/2024 6:13 PM [facility] CO2 23 22 - 30 mmol/L 07/17/2024 6:13 PM [facility] Anion Gap 12 8 - 15 mmol/L 07/17/2024 6:13 PM [facility] Estimated Glomerular Filtration Rate 74 >=60 mL/min/1.7 3m 07/17/2024 6:13 PM [facility] Comment:Estimated Glomerular Filtration Rate (eGFR) [...] 07/17/2024 8:24 AM EDT us Olivia Gonzales MARKET INVESTIGATOR.CALENDERING MACHINE OPERATOR LABORATORY Final Re sult [facility] [address] [facility] [place] [address], [place] * (ABNORMAL) COMPLETE BLOOD COUNT AND DIFFERENTIAL (07/17/2024 8:24 AM EDT) Only the most recent of8 resultswithin the time period is included. WBC 2.41(L) 3.70 - 11.00 k/uL 07/17/2024 8:32 AM EDT [facility] RBC 3.97(L) 4.20 - 6.00 m/uL 07/17/2024 8:32 AM EDT [facility] Hemoglobin 12.9(L) 13.0 - 17.0 g/dL 07/17/2024 8:32 AM EDT [facility] Hematocrit 35.6(L) 39.0 - 51.0 % 07/17/2024 8:32 AM EDT [facility] MCV 89.7 80.0 - 100.0 fL 07/17/2024 8:32 AM EDT [facility] MCH 32.5 26.0 - 34.0 pg 07/17/2024 8:32 AM EDT [facility] MCHC 36.2(H) 30.5 - 36.0 g/dL 07/17/2024 8:32 AM EDT [facility] RDW-CV 13.2 11.5 - 15.0 % 07/17/2024 8:32 AM EDT [facility] Platelet Count 113(L) 150 - 400 k/uL 07/17[facility]2024 8:[facility] MPV 8.4(L) 9.0 - 12.7 fL 07/17/2024 8:32 AM EDT [facility] Neutrophils % 69.3 % 07/17/2024 8:32 AM EDT [facility] Abs Neut 1.67 1.45 - 7.50 k/uL 07/17/2024 8:32 AM EDT [facility] Lymphocytes % 19.1 % 07/17/2024 8:32 AM EDT [facility] Abs Lymph 0.46(L) 1.00 - 4.00 k/uL 07/17/2024 8:32 AM EDT [facility] Monocytes % 8.7 % 07/17/2024 8:32 AM EDT [facility] Abs Addison 0.21 <0.87 k/uL 07/17/2024 8:32 AM EDT [facility] Eosinophils % 2.5 % 07/17/2024 8:32 AM EDT [facility] Abs Eosin 0.06 <0.46 k/uL 07/17/2024 8:32 AM EDT [facility] Basophils % 0.4 % 07/17/2024 8:32 AM EDT [facility] Abs Baso <0.03 <0.11 k/uL 07/17/2024 8:32 AM EDT [facility] Immature Granulocytes % 0.0 % 07/17/2024 8:32 AM EDT [facility] Abs Immature Gran <0.03 <0.10 k/uL 07/17/2024 8:32 AM EDT [facility] NRBC 0.0 /100 WBC 07/17/2024 8:32 AM EDT [facility] Absolute nRBC <0.01 <0.01 k/uL 07/17/2024 8:32 AM EDT [facility] Diff Type Auto 07/17/2024 8:32 AM EDT [facility] Blood BLOOD SPECIMEN / Unknown Venipuncture / Unknown 07/17/2024 8:24 AM EDT 07/17/2024 8:24 AM EDT us Olivia Gonzales MARKET INVESTIGATOR.CALENDERING MACHINE OPERATOR LABORATORY Final Re sult [facility] [address] [place] [address] * EGD - THERAPEUTIC, EUS, OR TUBE INTERVENTIONS (07/01/2024 9:31 AM EDT) Anatomical Region Laterality Modality Other 07/01/2024 9:31 AM EDT Narrative 07/01/2024 10:27 AM EDT [facility] Gastrointestinal Endoscopy Patient Name: Andrei Garcia Procedure Date: 07/01/2024 9:31 AM Date of : 1955 Admit Type: Outpatient Age: 68 Room: [place] [address] Gender: Male Note Status: Finalized Attending MD: Ted Skinner MD, [id number] Procedure: Upper GI endoscopy Indications: Dysphagia Providers: Ted Skinner MD, Olivia Nichols, RN, Kaila Cardoza RN (Assisting Nurse), Neema [...] the patient. Procedure Code(s): --- Professional --- 27322, Esophagogastroduodenoscopy, flexible, transoral; with directed placement of percutaneous gastrostomy tube Diagnosis Code(s): --- Professional --- R13.10, Dysphagia, unspecified CPT copyright 2020 [employer]. All rights reserved. The codes documented in this report are preliminary and upon site supervising technical operator review may be revised to meet current compliance requirements. Attending Participation: I personally performed the entire procedure. Scope In: 9:56:57 AM Scope Out: 10:13:50 AM MD Ted Reddy MD 07/01/2024 10:24:58 AM This report has been signed electronically by Ted Skinner MD Number of Addenda: 0 Note Initiated On: 07/01/2024 9:31 AM Estimated Blood Loss: Estimated blood loss was minimal. us Michael Garcia Jr., DO DIGESTIVE DISEASE Final Re sult * THYROID STIMULATING HORMONE (06/18/2024 3:26 PM EDT) Only the most recent of3 resultswithin the time period is included. TSH 1.110 0.270 - 4.200 mIU/L 06/19/2024 1:18 PM EDT [facility] Blood BLOOD SPECIMEN / Unknown Venipuncture / Unknown 06/18/2024 3:26 PM EDT 06/18/2024 3:31 PM EDT Evangelina Bass PA-C LABORATORY Final Result [facility] [address] [facility] [address] [place] [address], [place] * PT ED PATIENT INFORMATION (06/03/2024) 06/03/2024 Narrative LYNN - 07/04/2024 Provider CAL your patient ANDREI GARCIA has not started their Lynn program, time has . Lynn program: PATIENT SAFETY INSTRUCTIONS FOR HEALTHCARE SETTINGS Lori Noble MD LYNN Final Result Performing Organization Address City/[facility] Co de Phone Number LYNN * PT ED DIGESTIVE DISEASE (06/03/2024) 06/03/2024 Narrative LYNN - 07/04/2024 Provider CAL your patient ANDREI GARCIA has not started their Lynn program, time has . Lynn program: UPPER GI ENDOSCOPY (EGD) Lori Noble MD LYNN Final Result Performing Organization Address City/[facility]/ZIP Co de Phone Number LYNN * TYPE + SCREEN (05/16/2024 5:09 PM EDT) ABO O 05/16/2024 6:47 PM EDT [facility] Rh(D) Positive 05/16/2024 6:47 PM EDT [facility] Antibody Screen Negative 05/16/2024 6:47 PM EDT [facility] Type and Screen Expiration 05/19/2024 23:59 05/16/2024 6:47 PM EDT [facility] Blood BLOOD SPECIMEN / Unknown 05/16/2024 5:09 PM EDT 05/16/2024 5:32 PM EDT Comment:Pre-op diagnosis: Lymphadenopathy [R59.1] us Philip Luis [facility] BLOOD [facility] Fin al Result [facility]LOOD BANK [address] [facility] [address] [place] [address], [place] * (ABNORMAL) ARTERIAL BLOOD GASES WITH IONIZED MAGNESIUM (05/16/2024 5:08 PM EDT) pH, Arterial 7.39 7.35 - 7.45 05/16/2024 5:23 PM EDT [facility] pH, Temp Corrected, Arterial 7.39 7.35 - 7.45 05/16/2024 5:23 PM EDT [facility] pCO2, Arterial 40 36 - 46 mm Hg 05/16/2024 5:23 PM EDT [facility] pCO2, Temp Corrected, Arterial 40 36 - 46 mmHg 05/16/2024 5:23 PM EDT [facility] pO2, Arterial 131(H) 85 - 95 mm Hg 05/16/2024 5:23 PM EDT [facility] pO2, Temp Corrected, Arterial 131(H) 85 - 95 mmHg 05/16/2024 5:23 PM EDT [facility] Bicarbonate, Arterial 24 22 - 26 mmol/L 05/16/2024 5:23 PM EDT [facility] O2 Saturation, Arterial 99(H) 95 - 98 % 05/16/2024 5:23 PM EDT [facility] Base Deficit, Arterial >-1 -2 - 0 mmol/L 05/16/2024 5:23 PM EDT [facility] Oxyhemoglobin, Arterial 97 95 - 98 % 05/16/2024 5:23 PM EDT [facility] Carboxyhemoglo bin, Arterial 1.5 0.0 - 2.0 % 05/16/2024 5:23 PM EDT [facility] Comment:Carboxyhemoglobin Re ference Range for Smokers: 2.0-8.0% Methemoglobin, Arterial 0.9 0.0 - 1.5 % 05/16/2024 5:23 PM EDT [facility] Sodium, Whole Blood 138 136 - 144 mmol/L 05/16/2024 5:23 PM EDT [facility] Potassium, Whole Blood 3.3(L) 3.5 - 5.0 mmol/L 05/16/2024 5:23 PM EDT [facility] Calcium Ionized, Whole Blood 1.18 1.08 - 1.30 mmol/L 05/16/2024 5:23 PM EDT [facility] Calcium Ionized, pH corrected 1.17 1.08 - 1.30 mmol/L 05/16/2024 5:23 PM EDT [facility] Glucose, Whole Blood 130(H) 60 - 105 mg/dL 05/16/2024 5:23 PM EDT [facility] Lactate 1.3 0.5 - 2.2 mmol/L 05/16/2024 5:23 PM EDT [facility] Ionized Magnesium 0.51 0.45 - 0.60 mmol/L 05/16/2024 5:23 PM EDT [facility] Hemoglobin, Whole Blood 11.4(L) 13.0 - 17.0 g/dL 05/16/2024 5:23 PM EDT [facility] Hematocrit, Whole Blood 35.0(L) 39.0 - 51.0 % 05/16/2024 5:23 PM EDT [facility] Blood, Arterial BLOOD SPECIMEN / Unknown 05/16/2024 5:08 PM EDT 05/16/2024 5:18 PM EDT us Philip Smith MARKET INVESTIGATOR.WAITER/WAITRESS CLUB BLOOD GASES Fin al Result [facility] [address] [place] [id number], * SURGICAL PATHOLOGY (05/16/2024 4:24 PM EDT) Only the most recent of2 resultswithin the time period is included. Case Report Surgical Pathology Report Case: [id number] Authorizing Provider: Celeste Sainz MD Collected: 05/16/2024 04:24 PM Ordering Location: Admitting Received: 05/16/2024 04:54 PM Pathologist: Teresa Ceron MD Intraop: Codey Frey MD Specimens: A) - Lymph Node, Biopsy, right level 2 lymph node B) - Lymph Node, Biopsy, right level 2 lymph node C) - Tongue, Biopsy, right base of tongue 10:43 AM EDT [facility] FINAL DIAGNOSIS A. 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 B. Right level 2 lymph nodes, biopsy: - Four lymph nodes, negative for metastasis (0/4). C. Right base of tongue, biopsy: - Lingual tonsillar type tissue, negative for neoplasm, see comment. PHILIP May 22, 2024 10:43 AM EDT [facility] at 1043 EDT Diagnosis Comment A. This nonkeratinizing squamous cell carcinoma shows diffuse strong positivity with p16 staining. In addition, HPV in situ hybridization (HR HPV CISH) is positive. The combined morphology and staining patterns support a metastatic HPV associated squamous cell carcinoma. C. An immunohistochemical stain for p16 is evaluated to identify a potential focal or subtle primary however command the stain is negative. 10:43 AM EDT [facility] Gross Description A. Lymph Node, Biopsy Labeled: Right level 2 lymph node Received: Fresh Number of tissue fragments: 1 lymph node Specimen dimensions: 4.5 x 2.5 x 2 cm Inspection And Testing Supervisor section submitted for frozen evaluation in FSA 1. Inspection And Testing Supervisor sections submitted for permanent evaluation in A2-A5. Gross examination performed at [address] 05/16/24 4:59 PM B. Lymph Node, Biopsy [...] 2024 10:04 AM Gross examination performed at [facility], [address] [place] [address] C. Tongue, Biopsy Labeled: Right base of tongue Received: In formalin Number of tissue fragments: Multiple Specimen dimensions: 2.0 x 1.3 x 0.4 cm Mucosa: Not identified; ventura-lacy, rubbery tissue Cassette Code: Totally submitted labeled C1. LG May 19, 2024 10:05 AM Gross examination performed at [facility], [address] [place] [address] 10:43 AM EDT [facility] Intraoperative Diagnosis A. Lymph Node, Biopsy FSA1: Positive for carcinoma, favor squamous cell carcinoma (Dr. Frey). Intraoperative diagnosis performed at [place] [address] CLIA# [id number] 10:43 AM EDT [facility] Clinical History Pre-op diagnosis: Lymphadenopathy [R59.1] 10:43 AM EDT [facility] Performing Lab Diagnostic interpretation performed at: [facility], [address] [place] [address], [place] [address] CLIA# [id number] Dye Range Operator Cloth: Yan Keith MD 10:43 AM EDT [facility] Disclaimer Laboratory Developed Test (LDT) Disclaimer: Performance characteristics of immunohistochemical, immunofluorescent, and chromogenic in-situ hybridization tests have been determined by the performing laboratory within [facility]'s Andrei Seth [facility] Pathology and Laboratory Medicine Department ([facility], [facility], [facility], [facility], [facility], [facility], or [facility]) in a manner consistent with CLIA requirements. One or more of these tests may not have been cleared or approved by the FDA. [facility] is regulated under CLIA as qualified to perform high-complexity testing. These tests are used for clinical purposes. These should not be regarded as investigational or for research. Positive and negative controls stain appropriately. 10:43 AM EDT [facility] Tissue LYMPH NODE BIOPSY SPECIMEN / Unknown 05/16/2024 4:24 PM EDT 05/16/2024 4:54 PM EDT Comment:Pre-op diagnosis: Lymphadenopathy [R59.1] Tissue specimen (specimen) LYMPH NODE BIOPSY SPECIMEN / Unknown 05/16/2024 5:13 PM EDT 05/16/2024 6:17 PM EDT Comment:Pre-op diagnosis: Lymphadenopathy [R59.1] Tissue specimen (specimen) BIOPSY OF TONGUE / Unknown 05/16/2024 5:29 PM EDT 05/16/2024 6:17 PM EDT Comment:Pre-op diagnosis: Lymphadenopathy [R59.1] us Celeste Sainz MD SURGICAL PATHOLOGY Final R esult [facility] [address] [place] [address], [facility] [address] [place] [address], [place] * ARTL CATHJ/CANNULJ MNTR/TRANSFUSION SPX PRQ (05/16/2024 4:10 PM EDT) Narrative Brandi Jimenez MD - 05/16/2024 4:10 PM EDT Brandi Jimenez MD 05/16/2024 4:38 PM A-Line General Information Procedure Start Time/Medication Administration: 05/16/2024 4:10 PM Procedure End Time: 05/16/2024 4:13 PM Patient location during procedure: OR Timeout Performed Pre-procedure: timeout performed Consent Obtained: Yes Patient identity confirmed: arm band and patient Indications: continuous blood pressure monitoring and blood sampling needed Staffing Resident: Anoop Tabares MD Performed by: resident Preparation Sterility Preparation: hand hygiene performed prior to procedure, sterile gloves, drapes, and procedure tray, surgical cap used, mask used, sterile drape used during line insertion, skin prep agent completely dried prior to procedure Site Prep: Chloraprep Procedure Details Catheter Type: arterial line Catheter Size: 20 G Catheter Length: 1.75 in Guidewire Used: No Laterality: left Site: radial artery Ultrasound Guided: Yes Image in Chart: No Sites: potential access sites evaluated, selected vessel patent, concurrent real time ultrasound visualization of vascular needle entry Vessel: target vessel identified Line Secured: Tegaderm and tape Events Events: patient tolerated procedure well with no complications Comments For this procedure, I was physically present for this entire procedure. Brandi Jimenez MD Brandi Jimenez MD ANESTHESIA ORDERABLES Edited Result - Final * Airway (05/16/2024 3:55 PM EDT) Narrative Brandi Jimenez MD - 05/16/2024 3:55 PM EDT Brandi Jimenez MD 05/16/2024 4:47 PM Airway General Information Procedure Start Time/Medication Administration: 05/16/2024 3:55 PM Procedure End Time: 05/16/2024 3:59 PM Patient location during procedure: OR Timeout Performed Pre-procedure: timeout performed Consent Obtained: Yes Patient identity confirmed: arm band and patient Staffing Resident: Anoop Tabares MD Performed by: resident Indications and Patient Condition Indications for airway management: anesthesia Preoxygenated: yes anesthesia circuit Method: asleep Difficult Mask: No Final Airway Details Final airway type: endotracheal airway Final Endotracheal Airway: ETT Cuffed: yes Successful intubation technique: video laryngoscopy Devices used: Cárdenas Endotracheal tube insertion site: oral Blade size: #4 ETT size (mm): 7.5 Measured from: lips Measurement (cm): 24 Placement verified by: capnometry Cormack-Lehane Classification: grade IIa - partial view of glottis Number of attempts at approach: 1 Airway not difficult Comments For this procedure, I was physically present for this entire procedure. Brandi Jimenez MD Brandi Jimenez MD ANESTHESIA ORDERABLES Edited Result - Final * XR CHEST 2V FRONTAL/LAT (05/09/2024 3:36 PM EDT) Anatomical Region Laterality Modality Chest Other 05/09/2024 3:36 PM EDT Impressions 05/11/2024 4:27 PM EDT IMPRESSION: No acute radiographic abnormality. On Awake Counselor: IVAN Transcribe Date/Time: May 11 2024 4:24P Dictated by : AYESHA GARRISON MD This examination was interpreted and the report reviewed and electronically signed by: AYESHA GARRISON MD on May 11 2024 4:25PM EST Narrative 05/11/2024 4:27 PM EDT * * *Final Report* * * DATE OF EXAM: May 09 2024 3:36PM STX 5291 - XR CHEST 2V FRONTAL/LAT / PROCEDURE REASON: Lymphadenopathy * * * * Physician Interpretation * * * * EXAMINATION: CHEST RADIOGRAPH (2 VIEW FRONTAL & LATERAL) CLINICAL HISTORY: Lymphadenopathy MQ: XC2_6 EXAM DATE/TIME: 05/09/2024 3:36 PM COMPARISON: No relevant prior studies available. RESULT: Lines, tubes, and devices: None. Lungs and pleura: No consolidation. No lung mass. No pleural effusion. No pneumothorax. Cardiomediastinal silhouette: Normal cardiomediastinal silhouette. Bones and soft tissues: Degenerative changes of the thoracic spine with no destructive process seen. Procedure Note Provider, [facility] [place] - 05/11/2024 * * *Final Report* * * DATE OF EXAM: May 09 2024 3:36PM STX 5291 - XR CHEST 2V FRONTAL/LAT / PROCEDURE REASON: Lymphadenopathy * * * * Physician Interpretation * * * * EXAMINATION: CHEST RADIOGRAPH (2 VIEW FRONTAL & LATERAL) CLINICAL HISTORY: Lymphadenopathy MQ: XC2_6 EXAM DATE/TIME: 05/09/2024 3:36 PM COMPARISON: No relevant prior studies available. RESULT: Lines, tubes, and devices: None. Lungs and pleura: No consolidation. No lung mass. No pleural effusion. No pneumothorax. Cardiomediastinal silhouette: Normal cardiomediastinal silhouette. Bones and soft tissues: Degenerative changes of the thoracic spine with no destructive process seen. IMPRESSION IMPRESSION: No acute radiographic abnormality. On Awake Counselor: PSCB Transcribe Date/Time: May 11 2024 4:24P Dictated by : AYESHA GARRISON MD This examination was interpreted and the report reviewed and electronically signed by: AYESHA GARRISON MD on May 11 2024 4:25PM EST us Celeste Sainz MD RAD-PAMA Final Resu lt * (ABNORMAL) NM PET/CT SKULL-THIGH SUBSEQUENT (05/06/2024 12:04 PM EDT) Radiology Result ACTIONABLE (Actionabl e) DIVISION OF RADIOLOGY Comment: This report contains an incidental or actionable finding. This finding may be a new finding separate from the reason your provider ordered the imaging test or it may be an already known finding that needs additional or continued follow-up. Because of this incidental or actionable finding, you may need another test (imaging or a different type of test). Please contact your provider for the next steps. Anatomical Region Laterality Modality Nuclear Medicine , Nuclear Medicine 05/06/2024 12:0 4 PM EDT Narrative 05/06/2024 [...] * Uptake Time: 45 minutes * Radiopharmaceutical: X75-Mkjmvoyqjphwkbgkhb (FDG) COMPARISON: 06/06/2022 CORRELATION: 03/10/2024 O[facility] neck [...] cross-sectional imaging for additional morphologic details. Lungs & Pleura: * Right lower lobe pulmonary nodule [...] be communicated with the ordering provider via [employer] staff message or phone message by Imaging [...] any questions regarding this interpretation, please call [phone]. If you are unable to reach us at the number above, please feel free to contact [facility] at [phone]. Procedure Note Provider, [facility] [place] - 05/06/2024 * * *Final Report* * [...] * Uptake Time: 45 minutes * Radiopharmaceutical: M54-Gubibrfpedkqclklhe (FDG) COMPARISON: 06/06/2022 CORRELATION: 03/10/2024 [facility] neck CT and 02/22/2024 CT chest abdomen [...] cross-sectional imaging for additional morphologic details. Lungs & Pleura: * Right lower lobe pulmonary nodule [...] be communicated with the ordering provider via [employer] staff message or phone message by Imaging [...] any questions regarding this interpretation, please call [phone]. If you are unable to reach us at the number above, please feel free to contact [facility] eRadiology at [phone]. us Celeste Saizn MD NM-PAMA Final Resu lt * GLUCOSE, BLOOD (POC) (05/06/2024 10:16 AM EDT) [facility] Glucose, Point of Care 92 74 - 99 mg/dL [facility] Comment: Location:[facility], [address] [place] [address] [place], [place], [address] The Accu-Chek Inform II glucose meter has not been approved for testing on patients receiving intensive medical intervention or therapy and results from this point of care glucose test should not be used for patient management decisions in these cases. Inaccurate results may also occur from other interfering factors, such as N-acetylcysteine (blood concentrations of greater than 5mg/dL), galactose, extremes of hematocrit (<10 or >65), or high doses of ascorbic acid (vitamin C) greater than 3mg/dL. Consider alternate testing mechanisms (e.g. core lab, blood gas instrument) in the above situations. 05/06/2024 10:1 6 AM EDT us [facility] Provider POC TESTING Final Result [facility] POINT OF CARE [address] [place], [place] from Last 3 Months Insurance MEDICARE [address] MEDICARE SUPPLEMENT Care Teams Technical System Analyst Relationship Specialty Start Date End Date Ted Perry II, MD PCP - General Internal Medicine 12/03/12 Jolanta Queen LISW Studio Operation Engineer 10/29/[address] [facility] [address] [place], [id number] Registered Dietitian Nutrition 06/02/24 Sheng Bill MD [address] [facility] [address] Physician Hematology/Oncology 06/04/24 Belinda Nicholson MD [address] [place] [address] Physician Radiation Oncology 06/04/24 Maricel Fox, SIDNEY [address] [place] [address] Specialty Mastercam Programmer Hematology/Oncology 06/04/[address] [place] [address] Registered Dietitian Nutrition 06/25/24 Lluvia Graham LSW Studio Operation Engineer 06/26/24 Olivia Gonzales APRN.CALENDERING MACHINE OPERATOR [address] [facility] [place] [address] Nurse Practitioner Hematology/Oncology 07/03/24
--- OUTSIDE RECORDS SUMMARY | 2024-07-23 09:45 | XMS_ITS | Encounter Summary ---
Author Organization [facility] Address [address] [place] [address] Care Team Providers Care Slab Installer Name Role Phone Orlando [place] MD, Daniel B Primary Care Provider [phone] Hue Anglin RN Unavailable Unavailable Abel Martínez MD Unavailable [phone] Jolanta Queen Unavailable Unavaila Mariia Estrada RD Unavailable [phone] Sheng Bill MD Unavailable [phone] Belinda Nicholson MD Unavailable [phone] Maricel Fox RN Unavailable [phone] Unavailable Lluvia Graham Unavailable Unavailable Olivia Gonzales APRN.INGOT SUPERVISOR Unavailable [phone] Source Comments In the event this information is protected by the Federal Confidentiality of Alcohol and Drug AbusePatient Records regulations: The Federal rules restrict any use of the information to criminally investigate or prosecute any alcohol or drug abuse patient.[facility] Encounter Details Date Type Department Care Team (Late st Contact Info) Description 09/27/2023 Patient Msg Endocrinology [address] [place] [address] Carrie Barriga MD [address] [place] [address] adrenal action plan Social History Tobacco Use Types Packs/Day Years [...] is lower risk 8 07/03/2022 Data from: https://www.neighborhoodatlas.medicine.[facility]/. Last address used for calculation [address] [...] 07/23/2024 1:30 PM EDT Infusion Center Hematology/Oncology [facility] [place] [address] IV FLUIDS 07/23/2024 3:00 PM EDT Appointment Radiation Oncology [facility] [place] [address] neck 07/25/2024 2:30 PM EDT Education Nutrition Therapy [address] [place] [address] Tamica Rosario, IVIS [address] [place] [address] follow up PEG 07/25/2024 2:30 PM EDT Infusion Center Hematology/Oncology [facility] [place] [address] Hydration to be givenin Radiology 07/28/2024 2:30 PM EDT Office Visit Radiation Oncology [facility] [place] [address] Belinda Nicholson MD [address] [facility] [place] [address] final radiation follow up, 1-2 weeks 07/28/2024 3:00 PM EDT [facility] Hematology/Oncology [address] [place] [address] IV FLUIDS 08/14/2024 9:45 AM EDT Office Visit [facility] [address] [facility] [address] [address] 4 week follow up lab 08/14/2024 10:00 AM EDT Visit (SP) Office Hematology/Oncology [facility] [place] [address] Olivia Gonzales, JAGRUTI.INGOT SUPERVISOR [address] [facility] [place] [address] 4 week follow up lab documented as of this encounter Visit Diagnoses Not on filedocumented in this encounter Care Teams Slab Installer Relationship Specialty Start Date End Date Ted Perry II, MD PCP - General Internal Medicine 12/03/12 Hue Anglin, SIDNEY Specialty Wire Transfer Clerk Hematology/Oncology 10/11/23 06/03/24 Abel Martí[place] [address] [place], [place] [address] Physician Hematology/Oncology 10/11/23 06/03/24 Jolanta Queen LISW Almond Blancher Operator 10/29/[address] [place] [address] [place] [address] Registered Dietitian Nutrition 06/02/24 Sheng Bill MD [address] [place] [address] [place] [address] Physician Hematology/Oncology 06/04/24 Belinda Nicholson MD [address] [facility] [place] [address] Physician Radiation Oncology 06/04/24 Maricel Fox, SIDNEY [address] [facility] [place] [address] Specialty Wire Transfer Clerk Hematology/Oncology 06/04/[address] [place] [address] Registered Dietitian Nutrition 06/25/24 Lluvia Graham LSW Almond Blancher Operator 06/26/24 Olivia Gonzales APRN.INGOT SUPERVISOR [address] [facility] [place] [address] Nurse Practitioner Hematology/Oncology 07/03/24 documented as of this encounter
--- OUTSIDE RECORDS SUMMARY | 2024-07-23 09:45 | XMS_ITS | Encounter Summary ---
Author Organization [facility] Address [address] [place] [address] Care Team Providers Care Welder Setter Resistance Machine Name Role Phone Orlando [place] MD, Daniel B Primary Care Provider [phone] Hue Anglin RN Unavailable Unavailable Abel Martínez MD Unavailable [phone] Jolanta Queen Unavailable Unavaila Mariia Estrada RD Unavailable [phone] Sheng Bill MD Unavailable [phone] Belinda Nicholson MD Unavailable [phone] Maricel Fox RN Unavailable [phone] Unavailable Lluvia Graham Unavailable Unavailable Olivia Gonzales APRN.INSIDE TRUCKER Unavailable [phone] Source Comments In the event this information is protected by the Federal Confidentiality of Alcohol and Drug AbusePatient Records regulations: The Federal rules restrict any use of the information to criminally investigate or prosecute any alcohol or drug abuse patient.[facility] Encounter Details Date Type Department Care Team (Late st Contact Info) Description 12/10/2022 Patient Msg Endocrinology [address] [address] Marcelo Almaguer MD [address] [place] [address] Test results Social History Tobacco Use Types Packs/Day Years [...] is lower risk 8 07/03/2022 Data from: https://www.neighborhoodatlas.medicine.[facility]/. Last address used for calculation [...] 07/23/2024 1:30 PM EDT Infusion Center Hematology/Oncology [facility] [place] [address] IV FLUIDS 07/23/2024 3:00 PM EDT Appointment Radiation Oncology [address] [place] [address] neck 07/25/2024 2:30 PM EDT Education Nutrition Therapy [address] [place] [address] Tamica Rosario, IVIS [address] [place] [address] follow up PEG 07/25/2024 2:30 PM EDT Infusion Center Hematology/Oncology [address] [place] [address] Hydration to be givenin Radiology 07/28/2024 2:30 PM EDT Office Visit Radiation Oncology [facility] [place] [address] Belinda Nicholson MD [address] [facility] [place] [address] final radiation follow up, 1-2 weeks 07/28/2024 3:00 PM EDT [facility] Hematology/Oncology [address] [place] [address] IV FLUIDS 08/14/2024 9:45 AM EDT Office Visit [facility] Laboratory [address] [facility] [place] [address] 4 week follow up lab 08/14/2024 10:00 AM EDT Visit (SP) Office Hematology/Oncology [facility] [place] [address] Olivia Gonzales, JAGRUTI.INSIDE TRUCKER [address] [facility] [place] [address] 4 week follow up lab documented as of this encounter Visit Diagnoses Not on filedocumented in this encounter Care Teams Welder Setter Resistance Machine Relationship Specialty Start Date End Date Ted Perry II, MD PCP - General Internal Medicine 12/03/12 Hue Anglin, SIDNEY Specialty Dock Guard Hematology/Oncology 10/11/23 06/03/24 Abel Martí[place] [address] [place], [place] [address] Physician Hematology/Oncology 10/11/23 06/03/24 Jolanta Queen LISW Industrial Chemicals Supervisor 10/29/[address] [place] [address] [place] [address] Registered Dietitian Nutrition 06/02/24 Sheng Bill MD [address] [place] [address] [place] [address] Physician Hematology/Oncology 06/04/24 Belinda Nicholson MD [address] [facility] [place] [address] Physician Radiation Oncology 06/04/24 Maricel Fox, SIDNEY [address] [facility] [place] [address] Specialty Dock Guard Hematology/Oncology 06/04/[address] [place] [address] Registered Dietitian Nutrition 06/25/24 Lluvia Graham LSW Industrial Chemicals Supervisor 06/26/24 Olivia Gonzales APRN.INSIDE TRUCKER [address] [facility] [place] [address] Nurse Practitioner Hematology/Oncology 07/03/24 documented as of this encounter
--- OUTSIDE RECORDS SUMMARY | 2024-07-23 09:45 | XMS_ITS | Encounter Summary ---
Author Organization [facility] Address [address] [place] [address] Care Team Providers Care Finisher Operator Name Role Phone Ted Perry MD Unavailable [phone] Ted Perry MD Primary Care Provider [phone] Sunday, Wanda STANFORD Unavailable [phone] Encounter Details Date Type Department Care Team (Late st Contact Info) Description 08/10/2022 Clinisync Result Encounter [facility] Department Unsolicited Ted Perry MD [address] [place], [place] [id number] Social History Tobacco Use Types Packs/Day Years [...] DERM [address] [place] [address] Ai Galvez PA [address] [place] [address] 10/07/2025 9:00 AM EDT Office Visit [facility] [address] [place] [address] Jr. Emmanuel Clay DO [address] [place] [address] documented as of this encounter Procedures Procedure Name Priority Date/Time Associated Diagnosis Comments CT CHEST W IV CONTRAST 08/10/2022 11:00 AM EDT documented in this encounter Results * CT chest w IV contrast (08/10/2022 11:00 AM EDT) Anatomical Region Laterality Modality Body, Chest Computed Tomogra phy 08/10/2022 11:0 0 AM EDT Narrative 08/11/2022 9:50 AM EDT * * *Final Report* * * DATE OF EXAM: Aug 10 2022 11:00AM [facility] 0539 - CT CHEST W IVCON / PROCEDURE REASON: Malignant neoplasm of kidney excluding renal pelvis, unspecified laterality (HCC * * * * Physician Interpretation * * * * RESULT: EXAMINATION: CHEST CT WITH CONTRAST CLINICAL HISTORY: History of renal cell carcinoma. Technique: Spiral CT acquisition of the chest from the thoracic inlet to the upper abdomen following IV contrast. MQ: CTCW_6 Contrast: 125 mL Omnipaque [address] Radiation dose: Integrated Dose-length product (DLP) for this visit = 2970 mGy*cm CT Dose Reduction Employed: Automated exposure control (AEC) Comparison: PET/CT performed 06/06/2022 RESULT: Limitations: None. Lines, tubes, and devices: None. Lung parenchyma and airways: No lobar consolidation is visualized. There is mild dependent atelectasis. Multiple bilateral pulmonary nodules are again visualized. These include the following: Right upper lobe (4:25, 36) 4 mm, stable Right lower lobe (4:176) 13 mm, stable Lingula (4:127) 9 mm, stable Left lower lobe (4:93) 4 mm, stable The central airways are widely patent. Pleural space: No pleural effusion. No pleural thickening. Lower neck, lymph nodes, and mediastinum: There is a subcarinal node measuring 1.2 cm in short axis, stable. Additional subcentimeter mediastinal nodes are visualized which are not enlarged by size criteria. Heart, pericardium, and thoracic vessels: The thoracic aorta and main pulmonary artery are normal in caliber. The cardiac chambers are normal in size. Coronary artery atherosclerotic calcification is noted. There is the suggestion of a stent in the left anterior descending artery. No pericardial effusion or thickening. Bones and soft tissues: Degenerative changes are noted in the thoracic spine. No destructive osseous lesions are seen. Superficial soft tissues are unremarkable. Upper abdomen: A dedicated CT of the abdomen was performed concurrently and is reported separately. Hand Bulldozer (topogram) images: No additional findings. IMPRESSION: 1. Stable appearance of multiple bilateral pulmonary nodules measuring up to 13 mm. No new or enlarging nodules are visualized. 2. Stable appearance of prominent subcarinal node. No new bulky intrathoracic adenopathy. Transcribe Date/Time: Aug 11 2022 8:29A Dictated by: TATYANA THAKUR MD This examination was interpreted and the report reviewed and electronically signed by: TATYANA THAKUR MD on Aug 11 2022 9:48AM EST Thank you for allowing us to participate in the care of your patient. Should there be any questions regarding this interpretation, please call [phone]. If you are unable to reach us at the number above, please feel free to contact [facility] at [phone]. [id number]^[email or web address]^ACN Procedure Note Radiology, Radiologist, - 08/11/2022 * * *Final Report* * * DATE OF EXAM: Aug 10 2022 11:00AM [facility] 0539 - CT CHEST W IVCON / PROCEDURE REASON: Malignant neoplasm of kidney excluding renal pelvis, unspecified laterality (HCC * * * * Physician Interpretation * * * * RESULT: EXAMINATION: CHEST CT WITH CONTRAST CLINICAL HISTORY: History of renal cell carcinoma. Technique: Spiral CT acquisition of the chest from the thoracic inlet to the upper abdomen following IV contrast. MQ: CTCW_6 Contrast: 125 mL Omnipaque [address] Radiation dose: Integrated Dose-length product (DLP) for this visit = 2970 mGy*cm CT Dose Reduction Employed: Automated exposure control (AEC) Comparison: PET/CT performed 06/06/2022 RESULT: Limitations: None. Lines, tubes, and devices: None. Lung parenchyma and airways: No lobar consolidation is visualized. There is mild dependent atelectasis. Multiple bilateral pulmonary nodules are again visualized. These include the following: Right upper lobe (4:25, 36) 4 mm, stable Right lower lobe (4:176) 13 mm, stable Lingula (4:127) 9 mm, stable Left lower lobe (4:93) 4 mm, stable The central airways are widely patent. Pleural space: No pleural effusion. No pleural thickening. Lower neck, lymph nodes, and mediastinum: There is a subcarinal node measuring 1.2 cm in short axis, stable. Additional subcentimeter mediastinal nodes are visualized which are not enlarged by sizecriteria. Heart, pericardium, and thoracic vessels: The thoracic aorta and main pulmonary artery are normal in caliber. The cardiac chambers are normal in size. Coronary artery atherosclerotic calcification is noted. There is the suggestion of a stent in the left anterior descending artery. No pericardial effusion or thickening. Bones and soft tissues: Degenerative changes are noted in the thoracic spine. No destructive osseous lesions are seen. Superficial soft tissues are unremarkable. Upper abdomen: A dedicated CT of the abdomen was performed concurrently and is reported separately. Hand Bulldozer (topogram) images: No additional findings. IMPRESSION: 1. Stable appearance of multiple bilateral pulmonary nodules measuring up to 13 mm. No new or enlarging nodules are visualized. 2. Stable appearance of prominent subcarinal node. No new bulky intrathoracic adenopathy. Transcribe Date/Time: Aug 11 2022 8:29A Dictated by: TATYANA THAKUR MD This examination was interpreted and the report reviewed and electronically signed by: TATYANA THAKUR MD on Aug 11 2022 9:48AM EST Thank you for allowing us to participate in the care of your patient. Should there be any questions regarding this interpretation, please call [phone]. If you are unable to reach us at the number above, please feel free to contact [facility] eRadiology at [phone]. [id number]^[email or web address]^ACN us Ted Perry MD IMG CT PROCEDURES Final Result documented in this encounter Visit Diagnoses Not on filedocumented in this encounter Care Teams Finisher Operator Relationship Specialty Start Date End Date Ted Perry MD [address] [place] [address] [address] [place] [address] PCP - ACO Reach 07/06/22 Ted Perry MD [address] [place] [address] PCP - General Internal Medicine 06/20/22Sunday, HIEN Muñoz [address] [facility] [address] [place] [address] Licensed Practical Nurse Family Medicine 11/05/23 11/15/23 documented as of this encounter
== END 2024-07-23 09:40 | disposition home or self-care (01) ==
LOC: MRI 09:39
PROVIDERS: PCP Internal Medicine; Visit Provider Physician Assistant Medical
DX: C76.0 Malignant neoplasm of head, face and neck (principal); E86.0 Dehydration; R42 Dizziness and giddiness
CPT/HCPCS: 70553; A9575